=== PATIENT | female | born 1930 | race Caucasian/White ===

== ENCOUNTER 2016-08-23 06:06 | Inpatient (IN) | payer MEDICARE ==
--- NOTE | 2016-08-12 07:56 | HP ---
HISTORY AND PHYSICAL: DATE OF ADMISSION: 08/23/16 CHIEF COMPLAINT: Severe right hip pain. HISTORY OF PRESENT ILLNESS: This 85-year-old white female has been having right hip pain for the past year, much more severe lately. She has degenerative osteoarthritis, has been walking with a cane and more recently a walker. She is scheduled with Dr. Ava Diaz for right total hip replacement at [facility] on 08/23/16. PAST MEDICAL HISTORY: The patient is under the care of Dr. Tien Altamirano. She has a history of hypertension, atrial fibrillation, GE reflux, IBS, lactose intolerance, depression, vitamin B12 deficiency, restless leg syndrome, macular degeneration. She also sees Dr. Mills, who is her boring machine set up operator. Dr. Mills has already given the patient cardiac clearance for her upcoming surgery. PAST SURGICAL HISTORY: Includes a pacemaker for sick sinus syndrome, September 2015 , hysterectomy in 2004, hiatal hernia repair with a recurrence in 1975, and cholecystectomy in 1964. CURRENT MEDICATIONS: 1. Paxil 10 mg daily. 2. Atorvastatin 20 mg daily. 3. Sinemet 25/250 one and a half tablets daily. 4. Oxybutynin 5 mg daily. 5. Potassium chloride 20 mEq b.i.d. 6. Omeprazole 20 mg daily. 7. Mag ox 400 mg b.i.d. 8. Eliquis 5 mg 1 tablet b.i.d. 9. Metoprolol 100 mg b.i.d. 10. Vitamin B12 1000 mcg daily. 11. AREDS2, an eye vitamin b.i.d. 12. The patient was advised by Dr. Mills and I gave her written instructions to hold her Eliquis 5 mg for at least 3 days prior to her surgical procedure. 13. She also takes Tylenol 500 mg 2 tablets b.i.d. for pain. ALLERGIES: IV CONTRAST has caused hives, oral swelling, and respiratory symptoms. MORPHINE caused bradycardia back in 2011 in the setting of reduction of a left wrist fracture. FAMILY HISTORY: Father, CVA, at age 59. Mother, thyroid disease, diabetes, cardiovascular disease, at age 64 of an HI. Two brothers of HI, one at age 53, the other at age 80. Another brother was a smoker, had a lung cancer. The patient's twin brother, diabetes, of complications at age 75. Sister, HI and stroke, obesity, at age 75. SOCIAL HISTORY: The patient is a . She currently lives with her daughter. She has a fairly sedentary lifestyle. She has never used tobacco and does not drink any alcohol. REVIEW OF SYSTEMS: The patient wears glasses. 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 She has an occasional chronic cough, which she relates to postnasal drip. Very minimal ankle edema. She has some incontinence of urine usually at nighttime. She has arthritis of her hands, occasional low back pain complaints. Otherwise, review of systems is negative to detailed questioning. Specifically, she denies any dyspnea, chest pain, or palpitations. PHYSICAL EXAMINATION GENERAL: This is an 85-year-old white female, is alert, pleasant, and cooperative. VITAL SIGNS: Height 4 feet 11.5 inches; weight 130 pounds, stable. Blood pressure 146/80, and pulse 80. HEENT: Eyes: Pupils round and react to light. Ears: She had some right cerumen that was removed, otherwise normal TMs bilaterally. Mouth: Full upper denture plate in place. Tongue is midline. Other molars are absent on the lower jaw. Has a few teeth in fair repair in the front. Pharynx is clear. NECK: No adenopathy. No tenderness. Thyroid benign. Fair range of motion. LUNGS: Clear. HEART: Rhythm is regular. Apical pulse, 80 beats per minute. No murmurs. ABDOMEN: Active bowel sounds. Abdomen is soft, nontender. No obvious masses or organomegaly. EXTREMITIES: The patient ambulates very slowly with a cane. She is experiencing right hip pain. She has chronic bilateral 1+ edema, slightly worse on the left than the right today. She has arthritic changes of her finger especially her left index finger. Executive Kitchen Manager strength is equal bilaterally. NEUROVASCULAR: Cranial nerves grossly intact. Sensation is intact upper and lower extremities. BACK: Kyphosis present. No tenderness of the spine or CVA areas. SKIN: Warm, dry, and pale pink. No worrisome lesions noted. The patient does have two very small abrasions in her mid pubic area that will be treated with Neosporin and dressings b.i.d. No erythema noted. IMPRESSION: The patient is medically stable and cleared for her upcoming right total hip replacement with Dr. Ava Diaz. As previously mentioned, Dr. Mills has already given her cardiac clearance. Please see his note for details regarding management of her Eliquis dosing in the perioperative period. GUERITA SWAN NP CC: Dr. Tien Altamirano; Dr. Ava Diaz; Preadmission Testing Unit at [facility] * [id number]/[facility] #: [id number] [facility]
--- NOTE | 2016-08-17 15:32 | HP ---
HISTORY AND PHYSICAL: DATE OF OFFICE VISIT: 08/17/16 DATE OF ADMISSION/SURGERY: 08/23/16 SURGEON: Ava Diaz MD PROCEDURE: Right total hip arthroplasty. HISTORY OF PRESENT ILLNESS: Ms. Macedo is an 85-year-old female with complaints of right hip pain. She has failed conservative management and has elected to proceed with a right total hip arthroplasty, which is scheduled for 08/23/[address] Diaz. PAST MEDICAL HISTORY: 1. AFib. 2. Pacemaker. 3. GERD. 4. Hypertension. 5. High cholesterol. 6. Macular degeneration. PAST SURGICAL HISTORY: 1. Cholecystectomy. 2. Hysterectomy. 3. Hiatal hernia repair. 4. Tonsillectomy. 5. Cataract removal. CURRENT MEDICATIONS: 1. Metoprolol. 2. Paxil. 3. Atorvastatin calcium. 4. Oxybutynin. 5. Omeprazole. 6. Klor-Con. 7. Carbidopa/levodopa. 8. Eliquis. 9. Magnesium oxide. 10. Vitamin B12. ALLERGIES: IVP DYE. FAMILY HISTORY: Hypertension, stroke, heart disease, lung, and prostate cancer. SOCIAL HISTORY: She is an 85-year-old female. She lives with her daughter. She does not smoke, use drugs, or alcohol. REVIEW OF SYSTEMS: A complete 14-point review of systems was reviewed with the patient. All was negative or noncontributory. She denies any history of DVT, PE, bleeding disorders, or anesthesia problems. PHYSICAL EXAMINATION GENERAL: She is a well-developed, well-nourished, in no acute distress. VITAL SIGNS: She stands 4 feet 11 inches tall, weighs 123 pounds, her blood pressure is 136/81, and heart rate is 92. HEENT: Normocephalic, atraumatic. NECK: Supple. No palpable lymph nodes. PULMONARY: The lung are clear to auscultation bilaterally. No wheezes, rhonchi , or rales. CARDIO: Regular rate and rhythm. Strong S1, S2. No murmurs, gallops, or rubs. No peripheral edema. ABDOMEN: Soft, nontender, and nondistended. NEUROLOGICAL: She is alert and oriented x3. Cranial nerves II through XII are intact. MUSCULOSKELETAL: Right lower extremity: The skin is intact. She walks with an antalgic-type gait favoring her right hip. She has 2+ dorsalis pedis pulses , intact sensation, and her lower extremity muscle group strengths are intact at 5/5. ASSESSMENT AND PLAN: Ms. Macedo is an 85-year-old female with complaints of right hip pain secondary to advanced osteoarthritis. She has failed conservative management and has elected to proceed with a right total hip arthroplasty. Surgery is scheduled for 08/23/[address] Diaz discussed the risks and benefits of the surgery at today's visit and all of her questions were answered. Percocet was sent to her pharmacy for postoperative pain control as well as Colace to help prevent constipation. She does take Eliquis and she was asked to stop taking the Eliquis 5 days prior to the surgery. She will restart her home dose Eliquis at the time of discharge from the hospital. She will see Dr. Diaz back in 14 days after the surgery. WESLEY LIU [id number]/[facility] #: [id number] FRED
[~2016-08-23 06:06] MED LIST: Buffered Lidocaine 1% SYR 3ML* 3 ML/SYR SYRINGE INTRADERM ONE; Famotidine IV* 10 MG/ML 2 ML (20 mg) IV ONE; Gabapentin CAP(*) 300 MG PO ONE
[2016-08-23] MEDS ORDERED: Famotidine IV* 10 MG/ML 2 ML (20 mg) ONE (06:19)
[2016-08-23] MEDS ORDERED: Gabapentin CAP(*) 300 MG ONE (06:20)
[2016-08-23] MEDS ORDERED: ceFAZolin 2 GM PREMIX (*) 2 GM/50 ML BAG IVPB ONE (06:20)
[2016-08-23] MEDS ORDERED: Lidocaine 2% PF * 5 ML VIAL ONE (07:26)
[2016-08-23] MEDS ORDERED: Dexamethasone IV* 4 MG/ML 1 ML (4 MG) ONE (07:26)
[2016-08-23] MEDS ORDERED: Succinylcholine* 20 MG/ML 10 ML VIAL ONE (07:26)
[2016-08-23] MEDS ORDERED: fentaNYL* 50 MCG/ML 2 ML VIAL (100 MCG VIAL) ONE ×2 (07:26→08:26)
[2016-08-23] MEDS ORDERED: Ondansetron INJ* 2 MG/ML VIAL ONE (07:26)
[2016-08-23] MEDS ORDERED: Midazolam* 1 MG/ML 2 ML VIAL (2 MG) ONE (07:26)
[2016-08-23] MEDS ORDERED: KETAMINE HCL* 50 MG/ML 10 ML VIAL ONE (07:26)
[2016-08-23] MEDS ORDERED: Ketorolac INJ* 30 MG/ML 1 ML VIAL ONE (07:26)
[2016-08-23] MEDS ORDERED: Propofol* 10 MG/ML 20 ML BTL IV PUSH ONE ×2 (07:26→10:07)
[2016-08-23] MEDS ORDERED: DiMENhydriNATE IV* 50 MG/ML VIAL ONE (07:26)
[2016-08-23] MEDS ORDERED: Phenylephrine IV* 40 MCG/ML 10 ML SYRINGE ONE (08:37)
[2016-08-23] MEDS ORDERED: Bupivacaine 0.5% SDV PF* 30 ML VIAL ONE (08:40)
[2016-08-23] MEDS ORDERED: oxyCODONE/Acetamin 5/325 MG* TAB PO PRN ×2 (09:06→10:45)
[2016-08-23] MEDS ORDERED: DiMENhydriNATE IV* 50 MG/ML VIAL IV PUSH PRN (09:06)
[2016-08-23] MEDS ORDERED: Acetaminophen TAB* 325 MG PO PRN ×2 (09:06→10:45)
[2016-08-23] MEDS ORDERED: Gabapentin CAP(*) 100 MG PO ONE (09:08)
--- NOTE | 2016-08-23 10:23 | RAD ---
Indication: Intraoperative control film RIGHT hip replacement. Comparison: July 25, 2016 Technique: Crosstable AP lower pelvis and RIGHT hip 0930 hours Report: Prosthetic acetabular component in place with fixation screws. Test fit femur component/reamer in place. No periprosthetic fracture evident. Vascular calcifications noted. IMPRESSION: Procedural control film.
[2016-08-23] MEDS ORDERED: Polyethylene Glycol 3350* 17 GM PACKET PO PRN (10:45)
[2016-08-23] MEDS ORDERED: Bisacodyl SUPP* 10 MG SUPP PR PRN (10:45)
[2016-08-23] MEDS ORDERED: Morphine INJ* 2 MG/ML 1 ML CARPUJECT IV PRN (10:45)
[2016-08-23] MEDS ORDERED: Magnesium Hydroxide LIQ* 30 ML UDC PO PRN (10:45)
[2016-08-23] MEDS ORDERED: Ondansetron TAB* 4 MG PO PRN (10:45)
[2016-08-23] MEDS ORDERED: oxyCODONE TAB* 5 MG TAB PO PRN (10:45)
[2016-08-23] MEDS ORDERED: diPHENhydraMINE IV* 50 MG/ML 1 ml VIAL (BENADRYL) IV PRN (10:45)
[2016-08-23] MEDS ORDERED: Ondansetron INJ* 2 MG/ML VIAL IV PRN (10:45)
[2016-08-23] MEDS ORDERED: HYDROmorphone INJ* 1 MG/ML CARPUJECT SYRINGE ONE (10:56)
[2016-08-23] MEDS: HYDROmorphone INJ* 1 MG/ML CARPUJECT SYRINGE IV PRN ×3 (10:57→11:19)
[2016-08-23] MEDS ORDERED: Gabapentin CAP(*) 100 MG ONE (11:10)
--- NOTE | 2016-08-23 11:34 | RAD ---
INDICATION: Status post total right hip replacement surgery. COMPARISON: Comparison is made with a prior x-ray study of the right hip from July 25, 2016. TECHNIQUE: An AP view of the pelvis and frontal and lateral views of the right hip were obtained. FINDINGS: The patient is status post total right hip replacement surgery. The bones and prostheses are in normal alignment. There is a small amount of air within the surrounding soft tissues consistent with the patient's recent surgery. There is [id number] osteoarthritic change in the left hip. IMPRESSION: STATUS POST TOTAL RIGHT HIP REPLACEMENT SURGERY.
[2016-08-23] MEDS: oxyCODONE/Acetamin 5/325 MG* TAB PO PRN ×2 (15:27→19:00)
[2016-08-23] MEDS: ceFAZolin 1 GM in Dextrose (*) 1 GM/50 ML BAG IVPB SCH (18:38)
[2016-08-23] MEDS ORDERED: Metoprolol Tartrate TAB* 25 MG PO SCH (21:00)
[2016-08-23] MEDS: Carbidopa/Levodop 25/250MG TAB(*) PO SCH (21:30)
[2016-08-23] MEDS: Docusate CAP* 100 MG PO SCH (21:30)
[2016-08-23] MEDS: Potassium Chlor TAB* 20 MEQ TAB.ER PO SCH (21:30)
[2016-08-23] MEDS: Metoprolol Tartrate TAB* 100 MG TAB PO SCH (21:32)
--- NOTE | 2016-08-23 21:42 | CONS ---
AMENDED REPORT NOW INCLUDES TWO ADDENDUMS CONSULTATION REPORT: DATE OF CONSULT: 08/23/16 PRIMARY CARE PHYSICIAN: Tien Altamirano MD. ATTENDING PHYSICIAN: Zainab Cooper MD *(dictated by Muriel Constantino NP). PHYSICIAN REQUESTING CONSULTATION: Ava Diaz MD. REASON FOR CONSULT: Co-medical management in a patient with history of hypertension, paroxysmal atrial fibrillation, and hyperlipidemia. HISTORY OF PRESENT ILLNESS: Ms. Macedo is an 85-year-old female with past medical history significant for hypertension, paroxysmal atrial fibrillation, hyperlipidemia, and arthritis, who underwent an elective right total hip arthroplasty with Dr. Diaz. Postoperatively, the patient is doing well, although she is lethargic from medication she has received postoperatively. According to the patient's daughter, leading up to surgery, she has been in a good state of health with the exception of right hip pain and recent urinary tract infection, which she completed a course of antibiotics for last week. The patient did have fevers last week but that has resolved. According to the patient's daughter, she has had no complaints of chest pain, shortness of breath , nausea, vomiting, or recent fever or chills. The hospitalists were asked to assist with the management of this patient during her postoperative period. PAST MEDICAL HISTORY: 1. Hypertension. 2. Paroxysmal atrial fibrillation. 3. Gastroesophageal reflux. 4. IBS. 5. Lactose intolerant. 6. Depression. 7. Vitamin B12 deficiency. 8. Restless leg syndrome. 9. Macular degeneration. 10. Hyperlipidemia. 11. History of gastric ulcer. PAST SURGICAL HISTORY: 1. Status post pacemaker for sick sinus syndrome in 2015. 2. Status post hysterectomy in 2004. 3. Status post hiatal hernia repair in 1975. 4. Status post cholecystectomy in 1964. 5. Tonsillectomy. 6. Cataract extraction. HOME MEDICATIONS: Include: 1. Paxil 10 mg oral daily. 2. Atorvastatin 20 mg oral daily. 3. Sinemet 25/250 one and a half tablets oral daily. 4. Oxybutynin 10 mg oral daily. 5. Potassium chloride 20 mEq oral twice daily. 6. Omeprazole 20 mg oral daily. 7. Magnesium oxide 400 mg oral twice daily. 8. Eliquis 5 mg oral twice daily, patient has been holding for 5 days. 9. Metoprolol 100 mg oral twice daily. 10. Vitamin B12 at 1000 mcg oral daily. 11. Eye vitamin 1 tablet oral twice daily. 12. Benadryl 50 mg oral daily at night for sleep. 13. Acetaminophen 1000 mg oral twice daily for pain. ALLERGIES: IV CONTRAST and MORPHINE; ASPIRIN - patient avoids due to history of gastric ulcer. FAMILY HISTORY: The patient's father had a history of cerebrovascular accident and passed at age 59. The patient's mother had history of thyroid disease, diabetes mellitus, and cardiovascular disease and passed at age 64 of an OK. The patient had 2 brothers who passed from MIs, one at age 53 and one at age 80. The patient had another brother with a history of lung cancer, he was a smoker. The patient had a twin brother with a history of diabetes and passed from complications of diabetes at age 75. The patient had a sister with history of myocardial infarction and stroke and passed at age 75. SOCIAL HISTORY: The patient is a and lives with her daughter. The patient denies any tobacco, alcohol or recreational drug use. The patient's daughter, Radha Reed, will be her surrogate decision maker in the event that she is unable to make decisions for herself. REVIEW OF SYSTEMS: I performed a 14-point review of systems. All the pertinent positives and negatives are mentioned in the history of present illness. The remaining review of systems is negative. PHYSICAL EXAMINATION: Vital Signs: Temperature 98.5, heart rate 59, respiratory rate 12, O2 sat 100% on 3 L via nasal cannula, blood pressure 157/ 71. Appearance: The patient is lethargic but arousable. She appears to be in no acute distress. HEENT: Normocephalic and atraumatic. Cardiovascular: Regular rate and rhythm. S1 and S2 crisp. There are no murmurs, rubs or gallops heard. Extremities: There is no lower extremity edema. DP and PT pulses are 2+ and symmetric. Respiratory: There is no accessory muscle use and the lungs are clear to auscultation bilaterally. Abdomen: Soft, nontender and nondistended. There are bowel sounds present. Musculoskeletal: There is no clubbing or cyanosis noted. Skin: There is a dressing on the right hip that is clean, dry and intact. Neurological: The patient is lethargic but is alert and oriented once aroused. Psychological: The patient is calm and cooperative. DIAGNOSTIC STUDIES/LAB DATA: Preoperative labs from 08/17/16: Sodium 134, potassium 4.6, chloride 103, CO2 of 25, BUN 24, creatinine 0.90, glucose 108. White blood cell count 5.7, hemoglobin 12.0, hematocrit 36, and platelet count 222. The patient had an EKG showing an A-paced rate at 62. The patient also had a chest x-ray on 08/17/16 showing hyperinflation consistent with COPD and no active cardiopulmonary disease. Pelvis x-ray from today. Radiologist's impression: Procedural control film. Hip and pelvis x-ray from today. Radiologist's impression: Status post total right hip replacement surgery. IMPRESSION: Ms. Macedo is an 85-year-old female with past medical history significant for hypertension, paroxysmal atrial fibrillation, gastroesophageal reflux disease, hyperlipidemia, and arthritis, who underwent an elective right total hip arthroplasty with Dr. Diaz. Hospitalists were asked to assist with co-management of this patient during her hospitalization. Assessment: 1. Status post right total knee arthroplasty with Dr. Diaz. Management per Orthopedic Surgery. The patient's H and H will be trended. She will have a urinary catheter in place through postop day 1. The patient will have occupational and physical therapy. 2. Hypertension. The patient will be continued on her home metoprolol. 3. Paroxysmal atrial fibrillation. The patient will be continued on her home metoprolol. She will resume her Eliquis at discharge. In the meantime, the patient will be on Lovenox while in the hospital. 4. Hyperlipidemia. The patient will be continued on her home atorvastatin. 5. Restless leg syndrome. The patient will be continued on her home Sinemet dosing. 6. Depression. The patient will be continued on her home Paxil. 7. Fluids, electrolytes and nutrition. The patient will be on clear liquids, advanced to a regular diet. 8. DVT prophylaxis. The patient will be on Lovenox per Orthopedic Surgery and will resume her Eliquis at discharge. 9. Code status. Do not resuscitate. 10. Disposition. Inpatient. Disposition per Orthopedic Surgery. TIME SPENT: The time for this consultation was 60 minutes and 30 minutes was spent with the patient and daughter discussing medications, past medical history and the events leading up to his arrival and performing a physical examination. The case has been reviewed with the attending, Dr. Cooper, who agrees with the plan of care. We will sign off at this time, please do not hesitate to call with any questions. Reviewed by JOSE DAVID THORPE 08/24/16 1036 ADDENDUM NO.1: ASSESSMENT: The patient is status post a right total hip arthroplasty, not a right total knee arthroplasty as indicated under the assessment section above. Reviewed by JOSE DAVID THORPE 08/25/16 1309 ADDENDUM NO.2: CONSULTATION REPORT: Mrs. Macedo is an 85-year-old female who is status post elective right hip surgery performed by Dr. Diaz today. The patient has a history of hypertension and atrial fibrillation. She was to be on Eliquis at home, but was discontinued several days prior to her hospitalization. Consult was requested for medical management of this patient in postoperative state. For further details of the patient's consultation and plan, please see the report dictated by Muriel Constantino NP, on 08/23/16 with which I agree. ZAINAB COOPER MD CC: Dr. Diaz; Tien Altamirano MD* [id number]/[facility] #: [id number]/[facility] #: [id number] [id number]/[facility] #: [id number] MTDJian
--- NOTE | 2016-08-23 22:15 | CONS ---
ADDENDUM:* CONSULTATION REPORT: Mrs. Macedo is an 85-year-old female who is status post elective right hip surgery performed by Dr. Diaz today. The patient has a history of hypertension and atrial fibrillation. She was to be on Eliquis at home, but was discontinued several days prior to her hospitalization. Consult was requested for medical management of this patient in postoperative state. For further details of the patient's consultation and plan, please see the report dictated by Muriel Perez NP, on 08/23/16 with which I agree. [id number]/[facility] #: [id number] MTDD
[2016-08-24] MEDS: ceFAZolin 1 GM in Dextrose (*) 1 GM/50 ML BAG IVPB SCH ×2 (01:54→09:54)
[2016-08-24] MEDS: oxyCODONE/Acetamin 5/325 MG* TAB PO PRN ×2 (05:40→09:53)
[2016-08-24 07:02] LABS: Hematocrit 27 % (35-47); Hemoglobin 9.1 g/dl (12.0-16.0)
[2016-08-24] MEDS: Omeprazole CAP* 20 MG PO SCH (07:19)
--- NOTE | 2016-08-24 07:48 | PN ---
Progress Note - Progress Note SOAP: Subjective: Pt. is confused this AM. She is oriented to person only. Objective: Rle - dressing c/d/i. thigh soft. distally +df/pf, full sens lt, 2+ dp pulse. Vital Signs: Temp Pulse Resp BP Pulse Ox 98.9 F 79 17 143/78 100 08/24/16 04:11 08/24/16 04:11 08/24/16 05:40 08/24/16 04:11 08/24/16 04:11 Laboratory Results - last 24 hr 08/24/16 08/24/16 06:29 06:29 Hgb 9.1 L Hct 27 L INR (Anticoag Therapy) 1.02 Assessment: 85 yo F pod 1 s/p RTHA Plan: wbat rle with post hip precautions high fall risk pt/ot plan to [facility] on monday appreciate medicine consult. will limit narcotics as much as possible
[2016-08-24] MEDS: Metoprolol Tartrate TAB* 100 MG TAB PO SCH ×2 (08:44→20:24)
[2016-08-24] MEDS: Enoxaparin(*) 30 MG/0.3 ML SYR SUBCUT SCH (08:53)
[2016-08-24] MEDS: PARoxetine HCL TAB* 10 MG PO SCH (08:54)
[2016-08-24] MEDS: Vitamin THERAPEUTIC TAB PO SCH (08:54)
[2016-08-24] MEDS: Atorvastatin* 20 MG TAB PO SCH (08:54)
[2016-08-24] MEDS: Docusate CAP* 100 MG PO SCH ×2 (08:54→20:24)
[2016-08-24] MEDS: Potassium Chlor TAB* 20 MEQ TAB.ER PO SCH ×2 (08:54→20:24)
[2016-08-24] MEDS: Oxybutynin TAB* 5 MG PO SCH (08:54)
[2016-08-24 08:55] LABS: BUN/Creatinine Ratio 32.9 (8-20); Calcium 8.5 mg/dL (8.6-10.3); EGFR African American 97.7 (>60); Potassium 4.5 mmol/L (3.5-5.0)
--- NOTE | 2016-08-24 12:43 | OP ---
DATE OF OPERATION: 08/23/16 - ROOM #346 DATE OF : 32 ATTENDING SURGEON: Ava Diaz MD CANVAS CUTTER MACHINE: WESLEY Lopez ANESTHESIOLOGIST: Dr. Moser. ANESTHESIA: General. PRE-OP DIAGNOSIS: Severe end-stage degenerative osteoarthritis of the right hip joint. POST-OP DIAGNOSIS: Severe end-stage degenerative osteoarthritis of the right hip joint with abductor tendon tear at the greater trochanter. OPERATIVE PROCEDURE: Right total hip arthroplasty with acetabular bone autografting and abductor tendon primary repair. HARDWARE USED: This is uncemented Milind total hip hardware. For the acetabulum, a 50D Trident hemispherical acetabular shell with 20 mm and 16 mm screw. Trident X3 0-degree polyethylene insert 36D. For the femur, an Accolade TMZF size 2.5 with a 127-degree neck. For the head, a Biolox delta ceramic V40 36 -2.5 femoral head. COMPLICATIONS: None. SPECIMENS: Femoral head and acetabular reaming, sent to pathology. ESTIMATED BLOOD LOSS: 350 cc. BRIEF HISTORY/INDICATIONS: Ms. Macedo is an 85-year-old female with years of increasingly severe right hip pain. She failed conservative treatment with antiinflammatories, pain medication, ambulatory assistive devices, and physical therapy. Radiographs confirmed [id number] arthritis. She elected to undergo a right total hip arthroplasty due to continued pain and decreased quality of life. Informed consent was obtained from the patient. She understood the risks of procedure included but were not limited to bleeding, infection, damage to nearby structures, continued pain, need for further surgery, intraoperative fracture, nerve palsy, leg-length discrepancy, dislocation, stroke, heart attack , blood clot, and . She wished to proceed. Specific to this, the patient was in increased risk of intraoperative fracture due to poor acetabular bone stalk and osteopenia. She accepted these risks and wished to proceed. INTRAOPERATIVE FINDINGS: Intraoperatively, the patient was noted to have full- thickness tear of the abductor tendon at the greater trochanter. There is very minimal abductor tendon or multiple around the greater trochanter. This was repaired primarily at the end of the procedure using #5 Ethibond suture. The patient was noted to have severe osteopenia throughout the procedure. Her acetabular bone stalk was quite poor with very thin medial and posterior wall. She had significant subchondral cyst formation, which required autograft using femoral head bone graft. DESCRIPTION OF PROCEDURE: Ms. Macedo was identified in the preanesthesia unit. Her right lower extremity was marked as the correct operative site. Informed consent was signed and placed in the chart. The patient was taken to the operating room and placed under general anesthesia without difficulty. A Perez catheter was placed. The patient was placed in the left lateral decubitus position on the peg board and all bony prominences were well padded. Right lower extremity was prepped and draped in the usual sterile fashion. Preop time -out was made to correctly identify the patient, side, and site. Appropriate perioperative antibiotics were given within one hour of incision. A 12-cm posterior hip incision was made with a #10 blade and carried down to the lateral fascial layer. Lateral fascial layer was then incised in line with the skin incision. Charnley retractor was placed. It was immediately evident that the majority of the abductor tendon at the greater trochanter were torn and proximally retracted. The piriformis and conjoined tendons were identified at this point and elevated off of the posterolateral femur using electrocautery. These were tagged with two #5 Ethibond's. Next, electrocautery was used to make a posterolateral capsular flap. This was also tagged with two #5 Ethibond's. The hip was carefully dislocated. Femoral head had deformation and complete loss of cartilage. Lesser trochanter to center of the femoral head measured 48 mm. Oscillating saw was used to make the appropriate femoral neck cut. Femoral head had some bone graft collected and then was sent to pathology. The femur was carefully retracted anteriorly. After appropriate placement of retractor, the acetabulum was visualized. Long handled knife was used to remove any remaining labrum from the acetabular rim. There was very thin rim medially and posteriorly at the acetabulum. Acetabulum was sequentially reamed up to a size 49. A bleeding bone bed was obtained. Subchondral cysts were noted along the medial and superior area of the acetabulum. This cystic material was cleared out with a curette and femoral head bone autograft was used to pack the area. A size 50 Trident hemispherical shell was chosen as a final implant. This was impacted into the acetabulum without difficulty. Two screws were used, length 16 and 20 mm, for extra stability and placed in the superoposterior quadrant. Next, a Trident X3 0- degree liner 36D was chosen. This was impacted into the acetabulum without difficulty. Stability of the liner was checked and rechecked and noted to be stable. Attention was turned next to the femur. Canal finder was used to enter the proximal femur. The proximal femur was sequentially broached up to a size 2.5. 2.5 broach had good stability and appropriate anteversion. A 127 neck trial with a 36 +0 femoral head trial was chosen. The reduction of the hip proved difficult, therefore a 36 -2.5 head was chosen. The hip was reduced and taken through range of motion. The hip was stable in all positions. Soft tissue tension was appropriate and leg lengths were deemed to approximate. The hip was carefully dislocated. All trials were carefully removed. Final implant for the femoral stem chosen was an Accolade TMZF size 2.5 with a 127- degree neck. This was impacted into the femoral canal without difficulty. Good stability was achieved. A 36 -2.5 Biolox delta ceramic head was chosen as a final femoral head implant. This was impacted onto the femoral neck without difficulty. The hip was reduced and taken through range of motion. The hip was stable in all positions. The hip was copiously irrigated with sterile saline. Previously tagged capsule and tendons were reapproximated to the posterolateral femur through 2 trochanteric drill holes. #5 Ethibond's were used to perform a primary repair of the abductor tendon back to any soft tissue available for purchase around the greater trochanter. Laxity and atrophy of the abductors were once again noted after the primary repair. The hip was copiously irrigated with sterile saline. The lateral fascial layer was closed using interrupted #1 Vicryl's. The rest of the incision was closed in a layered fashion using 0 and 2-0 Vicryl' s. Skin was closed using running 3-0 Monocryl with Dermabond. Sterile Adaptic, 4x4's, and paper tape were used to cover the incision. The patient's anesthesia was reversed without difficulty. She was taken to the PACU in stable condition. Intended weightbearing will be weightbearing as tolerated with posterior hip precautions. Intended DVT prophylaxis will be Coumadin with a Lovenox bridge. [id number]/[facility] #: [id number] [facility]ENTER[facility]ian
--- NOTE | 2016-08-24 14:24 | PN ---
Subjective Date of Service: 08/24/16 Interval History: Patient seen and examined at bedside. Pt denies fever, chills, lightheadedness, dizziness, shortness of breath, chest discomfort, N/V/D. Pt has not urinated since her urinary catheter was removed this AM. Pt reports right hip pain with movement. Family History: Unchanged from Admission Social History: Unchanged from Admission Past Medical History: Unchanged from Admission Objective Active Medications: Acetaminophen (Tylenol Tab*) 650 mg PO Q4H PRN Reason: PAIN OR TEMPERATURE Atorvastatin Calcium (Lipitor*) 20 mg PO DAILY [facility] Bisacodyl (Dulcolax Supp*) 10 mg RI DAILY PRN Reason: constipation Carbidopa/Levodopa (Sinemet 25/250 Tab(*)) 1.5 tab PO BEDTIME [facility] Diphenhydramine HCl (Benadryl Iv*) 12.5 mg IV Q6H PRN Reason: PRURITIS Docusate Sodium (Colace Cap*) 100 mg PO BID [facility] Enoxaparin Sodium (Lovenox(*)) 30 mg SUBCUT Q24H [facility] Lactated Ringer's (Lactated Ringers 1000 Ml Bag*) 1,000 mls @ 100 mls/hr IV PER RATE [facility] Lactulose (Lactulose*) 30 ml PO Q6H PRN Reason: constipation Magnesium Hydroxide (Milk Of Magnesia Liq*) 30 ml PO Q6H PRN Reason: constipation Metoprolol Tartrate (Lopressor Tab*) 100 mg PO BID [facility] Multivitamins (Theragran Tab*) 1 tab PO DAILY [facility] Omeprazole (Prilosec Cap*) 20 mg PO DAILY@0730 [facility] Ondansetron HCl (Zofran Inj*) 4 mg IV Q6H PRN Reason: nausea Ondansetron HCl (Zofran Tab*) 4 mg PO Q6H PRN Reason: NAUSEA Oxybutynin Chloride (Ditropan Tab*) 5 mg PO QAM [facility] Oxycodone HCl (Roxycodone Tab*) 10 mg PO Q4H PRN Reason: SEVERE PAIN Oxycodone/Acetaminophen (Percocet 5/325 Tab*) 1 tab PO Q3H PRN Reason: PAIN - MODERATE Oxycodone/Acetaminophen (Percocet 5/325 Tab*) 2 tab PO Q3H PRN Reason: PAIN - MODERATE Paroxetine HCl (Paxil Tab*) 10 mg PO DAILY [facility] Pharmacy Profile Note (Coumadin Daily Reminder*) 1 note FOLLOW UP 1700 [facility] Polyethylene Glycol/Electrolytes (Miralax*) 17 gm PO DAILY PRN Reason: Constipation Potassium Chloride (Klor Con Er Tab*) 20 meq PO BID [facility] Warfarin Sodium (Coumadin Tab(*)) 6 mg PO ONCE@1700 [facility] Vital Signs 08/23/16 08/23/16 08/23/16 15:27 15:37 17:27 Temperature 98.5 F Pulse Rate 65 Respiratory 16 14 15 Rate Blood Pressure 179/79 (mmHg) O2 Sat by Pulse 100 Oximetry 08/23/16 08/23/16 08/23/16 17:49 17:52 19:00 Temperature 99.2 F Pulse Rate 59 64 Respiratory 18 14 Rate Blood Pressure 89/44 82/45 (mmHg) O2 Sat by Pulse 100 Oximetry 08/23/16 08/23/16 08/23/16 19:02 19:32 20:00 Temperature 98.6 F Pulse Rate 61 Respiratory 14 16 Rate Blood Pressure 112/51 109/52 (mmHg) O2 Sat by Pulse 100 Oximetry 08/23/16 08/23/16 08/23/16 21:00 21:25 21:31 Temperature Pulse Rate 60 Respiratory 16 16 16 Rate Blood Pressure (mmHg) O2 Sat by Pulse Oximetry 08/23/16 08/23/16 08/23/16 21:35 23:25 23:27 Temperature 97.7 F Pulse Rate 65 Respiratory 16 16 Rate Blood Pressure 153/64 (mmHg) O2 Sat by Pulse 100 Oximetry 08/23/16 08/24/16 08/24/16 23:31 04:11 05:40 Temperature 98.9 F Pulse Rate 79 Respiratory 16 24 17 Rate Blood Pressure 143/78 (mmHg) O2 Sat by Pulse 100 Oximetry 08/24/16 08/24/16 08/24/16 07:16 07:40 08:00 Temperature 99.4 F Pulse Rate 79 Respiratory 20 20 20 Rate Blood Pressure 95/46 (mmHg) O2 Sat by Pulse 98 98 Oximetry 08/24/16 08/24/16 08/24/16 09:53 11:50 11:53 Temperature 98.3 F Pulse Rate 70 Respiratory 18 17 20 Rate Blood Pressure 89/37 (mmHg) O2 Sat by Pulse 93 Oximetry 03/07/1208/24/16 08/24/16 11:58 13:05 14:08 Temperature Pulse Rate Respiratory 18 Rate Blood Pressure 84/40 118/50 (mmHg) O2 Sat by Pulse Oximetry Oxygen Devices in Use Now: None Appearance: NAD, sitting up in bed. Eyes: No Scleral Icterus, PERRLA Ears/Nose/Mouth/Throat: NL Teeth, Lips, Gums, Mucous Membranes Moist Neck: NL Appearance and Movements; NL JVP, Trachea Midline Respiratory: Symmetrical Chest Expansion and Respiratory Effort, Clear to Auscultation Cardiovascular: NL Sounds; No Murmurs; No JVD, RRR Abdominal: NL Sounds; No Tenderness; No Distention Extremities: No Edema Skin: No Rash or Ulcers, - - Dressing to right hip clean, dry and intact. Neurological: Alert and Oriented x 3, NL Muscle Strength and Tone Lines/Tubes/Other Access: Clean, Dry and Intact Peripheral IV - site benign Nutrition: Taking PO's Result Diagrams: 08/24/16 06:29 08/24/16 06:29 Assess/Plan/Problems-Billing Assessment: Ms. Macedo is an 85 yo female with PMH significant for HTN, paroxysmal a fib, GERD, HLD, and arthritis who underwent an elective right total hip replacement with Dr. Diaz on 08/23/16. Hospitalists were asked to assist with co-management. - Patient Problems (1) Status post total hip replacement, right Code(s): Z96.641 - PRESENCE OF RIGHT ARTIFICIAL HIP JOINT SNOMED Code(s): 549356445831 Comment: - Management per Ortho - Continue to trend HH - Will change pain medication to standing Tylenol and PRN Oxycodone - Continue PT/OT (2) Hypotension Comment: - Pt has been hypotensive overnight - BP improved after a fluid bolus (3) Paroxysmal atrial fibrillation Code(s): I48.0 - PAROXYSMAL ATRIAL FIBRILLATION SNOMED Code(s): 790097906 Comment: - Heart rate regular on exam - Continue Metoprolol with hold parameters - Plan to resume Eliquis at discharge (4) HLD (hyperlipidemia) Code(s): E78.5 - HYPERLIPIDEMIA, UNSPECIFIED SNOMED Code(s): 79833780 Comment: - Continue Atorvastatin (5) RLS (restless legs syndrome) Comment: - Continue Sinemet (6) Depression Code(s): F32.9 - MAJOR DEPRESSIVE DISORDER, SINGLE EPISODE, UNSPECIFIED SNOMED Code(s): 73408128 Comment: - Continue Paxil (7) HTN (hypertension) Code(s): I10 - ESSENTIAL (PRIMARY) HYPERTENSION SNOMED Code(s): 27399798 Comment: - SBP soft, improved after a bolus - Continue Metoprolol with hold parameters (8) DVT prophylaxis Code(s): MVG4704 - SNOMED Code(s): 715377886 Comment: Continue lovenox and warfarin (9) DNR (do not resuscitate) Status and Disposition: Inpatient. Disposition per Orthopedics. Plan for discharge to [facility] on Monday, 08/26.
[2016-08-24] MEDS: Acetaminophen TAB* 325 MG PO SCH ×2 (15:48→23:34)
[2016-08-24] MEDS ORDERED: Warfarin TAB(*) 6 MG PO SCH (17:00)
[2016-08-24] MEDS: Carbidopa/Levodop 25/250MG TAB(*) PO SCH ×2 (18:01→19:11)
[2016-08-24] MEDS: oxyCODONE TAB* 5 MG TAB PO PRN (21:36)
--- NOTE | 2016-08-24 22:15 | CONS ---
CONSULTATION REPORT:* ADDENDUM: ASSESSMENT: The patient is status post a right total hip arthroplasty, not a right total knee arthroplasty. ERNA TIJERINA, ARIANA [id number]/[facility] #: [id number] [facility]ITALJian
[2016-08-25] MEDS: Acetaminophen TAB* 325 MG PO SCH ×2 (01:15→07:46)
[2016-08-25] MEDS: oxyCODONE TAB* 5 MG TAB PO PRN ×3 (05:30→13:19)
[2016-08-25] MEDS: Omeprazole CAP* 20 MG PO SCH (07:03)
[2016-08-25 07:22] LABS: Hematocrit 25 % (35-47); Hemoglobin 8.4 g/dl (12.0-16.0)
[2016-08-25] MEDS: Enoxaparin(*) 30 MG/0.3 ML SYR SUBCUT SCH (07:47)
--- NOTE | 2016-08-25 08:13 | PN ---
Progress Note - Progress Note SOAP: Subjective: Pt. is more alert this am. Reports 11/02 pain R hip. Objective: RLE - dressing changed, inc c/d/i. mod bruising. distally nvi. Vital Signs: Temp Pulse Resp BP Pulse Ox 98.7 F 88 18 159/65 94 08/25/16 07:45 08/25/16 07:45 08/25/16 07:45 08/25/16 07:45 08/25/16 07:45 Laboratory Results - last 24 hr 08/24/16 08/25/16 08/25/16 06:29 06:47 06:47 Hgb 8.4 L Hct 25 L INR (Anticoag Therapy) 1.10 Sodium 133 Potassium 4.5 Chloride 101 Carbon Dioxide 29 Anion Gap 3 BUN 24 Creatinine 0.73 Est GFR ( Amer) 97.7 Est GFR (Non-Af Amer) 76.0 BUN/Creatinine Ratio 32.9 H Glucose 127 H Calcium 8.5 L Assessment: 85 yo F pod 2 s/p RTHA Plan: Pt. doing well. Limit narcotics if possible secondary to age/delirium pt/ot wbat with post hip precautions lovenox today. start eliquis home dose tomorrow. plan to [facility] tomorrow if stable and bed available
[2016-08-25] MEDS: Oxybutynin TAB* 5 MG PO SCH (08:43)
[2016-08-25] MEDS: Atorvastatin* 20 MG TAB PO SCH (08:43)
[2016-08-25] MEDS: Potassium Chlor TAB* 20 MEQ TAB.ER PO SCH (08:43)
[2016-08-25] MEDS: Vitamin THERAPEUTIC TAB PO SCH (08:43)
[2016-08-25] MEDS: Metoprolol Tartrate TAB* 100 MG TAB PO SCH (08:43)
[2016-08-25] MEDS: PARoxetine HCL TAB* 10 MG PO SCH (08:43)
[2016-08-25] MEDS: Docusate CAP* 100 MG PO SCH (08:43)
--- NOTE | 2016-08-25 11:44 | PN ---
Subjective Date of Service: 08/25/16 Interval History: Patient seen and examined at bedside. Pt states that she is feeling well today and her pain is controlled. Denies fever, chills, lightheadedness, dizziness, shortness of breath, chest discomfort, N/V/D. Pt is urinating since her catheter was removed yesterday, but has not moved her bowels since surgery. Family History: Unchanged from Admission Social History: Unchanged from Admission Past Medical History: Unchanged from Admission Objective Active Medications: Acetaminophen (Tylenol Tab*) 975 mg PO Q8H [facility] Atorvastatin Calcium (Lipitor*) 20 mg PO DAILY [facility] Bisacodyl (Dulcolax Supp*) 10 mg MS DAILY PRN Reason: constipation Carbidopa/Levodopa (Sinemet 25/250 Tab(*)) 1.5 tab PO BEDTIME [facility] Diphenhydramine HCl (Benadryl Iv*) 12.5 mg IV Q6H PRN Reason: PRURITIS Docusate Sodium (Colace Cap*) 100 mg PO BID [facility] Enoxaparin Sodium (Lovenox(*)) 30 mg SUBCUT Q24H [facility] Lactated Ringer's (Lactated Ringers 1000 Ml Bag*) 1,000 mls @ 100 mls/hr IV PER RATE [facility] Lactulose (Lactulose*) 30 ml PO Q6H PRN Reason: constipation Magnesium Hydroxide (Milk Of Magnesia Liq*) 30 ml PO Q6H PRN Reason: constipation Metoprolol Tartrate (Lopressor Tab*) 100 mg PO BID [facility] Multivitamins (Theragran Tab*) 1 tab PO DAILY [facility] Omeprazole (Prilosec Cap*) 20 mg PO DAILY@0730 [facility] Ondansetron HCl (Zofran Inj*) 4 mg IV Q6H PRN Reason: nausea Ondansetron HCl (Zofran Tab*) 4 mg PO Q6H PRN Reason: NAUSEA Oxybutynin Chloride (Ditropan Tab*) 5 mg PO QAM [facility] Oxycodone HCl (Roxycodone Tab*) 5 mg PO Q4H PRN Reason: PAIN - MODERATE TO SEVERE Paroxetine HCl (Paxil Tab*) 10 mg PO DAILY [facility] Polyethylene Glycol/Electrolytes (Miralax*) 17 gm PO DAILY PRN Reason: Constipation Potassium Chloride (Klor Con Er Tab*) 20 meq PO BID [facility] Vital Signs 08/24/16 08/24/16 08/24/16 11:50 11:53 11:58 Temperature 98.3 F Pulse Rate 70 Respiratory 17 20 Rate Blood Pressure 89/37 84/40 (mmHg) O2 Sat by Pulse 93 Oximetry 08/24/16 08/24/16 08/24/16 13:05 14:08 15:49 Temperature Pulse Rate Respiratory 18 18 Rate Blood Pressure 118/50 (mmHg) O2 Sat by Pulse Oximetry 08/24/16 08/24/16 08/24/16 16:00 16:21 17:05 Temperature 98.6 F Pulse Rate 71 Respiratory 14 Rate Blood Pressure 104/55 (mmHg) O2 Sat by Pulse 93 93 93 Oximetry 08/24/16 08/24/16 08/24/16 19:32 20:00 21:36 Temperature 98.5 F Pulse Rate 81 Respiratory 22 22 18 Rate Blood Pressure 103/45 (mmHg) O2 Sat by Pulse 97 Oximetry 08/24/16 08/24/16 08/25/16 23:34 23:36 03:37 Temperature 97.9 F 98.3 F Pulse Rate 87 86 Respiratory 18 18 16 Rate Blood Pressure 138/67 113/53 (mmHg) O2 Sat by Pulse 97 96 Oximetry 08/25/16 08/25/16 08/25/16 05:30 07:04 07:45 Temperature 98.7 F Pulse Rate 88 Respiratory 18 16 18 Rate Blood Pressure 159/65 (mmHg) O2 Sat by Pulse 94 Oximetry 08/25/16 08/25/16 08/25/16 08:00 08:40 09:31 Temperature Pulse Rate 91 Respiratory 16 16 Rate Blood Pressure 109/44 (mmHg) O2 Sat by Pulse 94 Oximetry Oxygen Devices in Use Now: None Appearance: NAD, sitting up in a chair. Eyes: No Scleral Icterus, PERRLA Ears/Nose/Mouth/Throat: NL Teeth, Lips, Gums, Mucous Membranes Moist Neck: NL Appearance and Movements; NL JVP, Trachea Midline Respiratory: Symmetrical Chest Expansion and Respiratory Effort, Clear to Auscultation Cardiovascular: NL Sounds; No Murmurs; No JVD, RRR Abdominal: NL Sounds; No Tenderness; No Distention Extremities: - - Trace bilateral LE edema Skin: - - Dressing to right hip clean, dry and intact. Neurological: Alert and Oriented x 3, NL Muscle Strength and Tone Lines/Tubes/Other Access: Clean, Dry and Intact Peripheral IV - site benign Nutrition: Taking PO's Result Diagrams: 08/25/16 06:47 08/24/16 06:29 Assess/Plan/Problems-Billing Assessment: Ms. Macedo is an 85 yo female with PMH significant for HTN, paroxysmal a fib, GERD, HLD, and arthritis who underwent an elective right total hip replacement with Dr. Diaz on 08/23/16. Hospitalists were asked to assist with co-management. - Patient Problems (1) Status post total hip replacement, right Code(s): Z96.641 - PRESENCE OF RIGHT ARTIFICIAL HIP JOINT SNOMED Code(s): 892243243296 Comment: - Management per Ortho - HH down slightly, but stable - Continue standing Tylenol and PRN Oxycodone - Continue PT/OT (2) Hypotension Comment: - Improved (3) Paroxysmal atrial fibrillation Code(s): I48.0 - PAROXYSMAL ATRIAL FIBRILLATION SNOMED Code(s): 462871820 Comment: - Heart rate regular on exam - Continue Metoprolol with hold parameters - Plan to resume Eliquis at discharge (4) HLD (hyperlipidemia) Code(s): E78.5 - HYPERLIPIDEMIA, UNSPECIFIED SNOMED Code(s): 77840434 Comment: - Continue Atorvastatin (5) RLS (restless legs syndrome) Comment: - Continue Sinemet (6) Depression Code(s): F32.9 - MAJOR DEPRESSIVE DISORDER, SINGLE EPISODE, UNSPECIFIED SNOMED Code(s): 91629542 Comment: - Continue Paxil (7) HTN (hypertension) Code(s): I10 - ESSENTIAL (PRIMARY) HYPERTENSION SNOMED Code(s): 34072351 Comment: - SBP 100-150's - Continue Metoprolol with hold parameters (8) DVT prophylaxis Code(s): NFY6402 - SNOMED Code(s): 671833041 Comment: - Continue lovenox and warfarin - Management per Ortho (9) DNR (do not resuscitate) Status and Disposition: Inpatient. Disposition per Orthopedics. Plan for discharge to [facility] later today.
--- NOTE | 2016-08-25 12:31 | DS ---
DATE OF ADMISSION: 08/23/2016. DATE OF DISCHARGE: 08/25/2016. SURGEON: Dr. Ava Diaz. PRINCIPAL DIAGNOSIS: Severe end-stage osteoarthritis right hip. DISCHARGE DIAGNOSIS: Severe end-stage osteoarthritis right hip. HISTORY OF PRESENT ILLNESS: Ms. Macedo is an 85-year-old female with complaints of right hip pain se condary to severe osteoarthritis of her right hip. She has failed conservative management and has e lected to proceed with a right total hip arthroplasty. HOSPITAL COURSE: Ms. Macedo was admitted to the hospital electively on 08/23/2016 and underwent a ri t total hip arthroplasty by Dr. Diaz. She tolerated the procedure well with no complications. H er hospital course was fairly unremarkable. She made daily improvements with physical therapy. She was weightbearing as tolerated. Her DVT prophylaxis, she was on Lovenox only. On postop day one, h er H and H was 9.1 and 27 and on postop day two, it was 8.4 and 25. Her INR on postop day one was 1 .02 and on postop day two was 1.1. At the time of discharge on 08/25/2016, she was afebrile, she wa s ambulating well and her wound was clean, dry and healing well. She will be transferred to [facility] for continued inpatient rehabilitation. MEDICATIONS UPON DISCHARGE: Atorvastatin calcium, Dulcolax, Carbidopa/Levodopa, Metoprolol, Omepraz ole, Oxybutynin chloride, Percocet, and Eliquis. PHYSICAL EXAMINATION UPON DISCHARGE: She was afebrile. Her vital signs were stable. Her wound was clean, dry, and healing well. She was ambulating with assistance. Her lower extremity muscle grou p strengths are intact at 5/5. She has intact sensation with pinprick and light touch. She has 2+ dorsalis pedis pulses. DISCHARGE INSTRUCTIONS: She will be discharged to [facility] for further inpatient rehabilitation. Dr. Diaz has recommended she restart her home dose Eliquis tomorrow on August 26. She can shower. She should not get a bath. She can let soap and water run over the incision, pat the area dry, and reapply a clean, dry dressing on a daily basis. She is weightbearing as tolerated and Dr. Joe rosario like to see her back at her clinic in two weeks. WESLEY LIU [id number]/[facility] #: [id number]
[2016-08-25 12:39] VITALS: BP 126/50
== END 2016-08-25 14:00 | DRG 470 ==
LOC: AA 06:06 → SSU 10:45
PROVIDERS: ADMIT Orthopaedic Surgery Adult Reconstructive Orthopaedic Surgery; ATTEND Orthopaedic Surgery Adult Reconstructive Orthopaedic Surgery
PROC: 0SUA0BZ Supplement Right Hip Joint, Acetabular Surface with Resurfacing Device, Open Approach (ICD-10-PCS; 2016-08-23)
PROC: 0SR904A Replacement of Right Hip Joint with Ceramic on Polyethylene Synthetic Substitute, Uncemented, Open Approach (ICD-10-PCS; principal; 2016-08-23 07:30)
DX: M16.11 Unilateral primary osteoarthritis, right hip (principal); I95.9 Hypotension, unspecified; I48.0 Paroxysmal atrial fibrillation; I10 Essential (primary) hypertension; E73.9 Lactose intolerance, unspecified; F32.9 Major depressive disorder, single episode, unspecified; G25.81 Restless legs syndrome; Z95.0 Presence of cardiac pacemaker; K21.9 Gastro-esophageal reflux disease without esophagitis; H35.30 Unspecified macular degeneration; Z98.49 Cataract extraction status, unspecified eye; Z91.041 Radiographic dye allergy status; Z82.49 Family history of ischemic heart disease and other diseases of the circulatory system; Z82.3 Family history of stroke; Z80.1 Family history of malignant neoplasm of trachea, bronchus and lung; Z80.42 Family history of malignant neoplasm of prostate; K58.9 Irritable bowel syndrome, unspecified; Z88.5 Allergy status to narcotic agent; Z83.3 Family history of diabetes mellitus; R05 Cough; Z66 Do not resuscitate; R41.0 Disorientation, unspecified; E78.5 Hyperlipidemia, unspecified; Z88.8 Allergy status to other drugs, medicaments and biological substances; M85.88 Other specified disorders of bone density and structure, other site; F41.9 Anxiety disorder, unspecified; Z80.9 Family history of malignant neoplasm, unspecified
CPT/HCPCS: 36415; 72170; 80048; 85014; 85018; 85610; 88304; 88311; 94760; 94762; A9270-GY; C1713; C1776; J0330; J0690; J1100; J1170; J1240; J1650; J1885; J2250; J2405; J2704; J3010

== ENCOUNTER 2016-12-23 13:32 | Inpatient (IN) | payer MEDICARE ==
[2016-12-23] MEDS ORDERED: Ondansetron INJ* 2 MG/ML VIAL IV ONE ×2 (14:00→17:34)
[2016-12-23] MEDS ORDERED: NS 0.9% 1000 ML* 1,000 ML IV ONE (14:00)
[2016-12-23] MEDS ORDERED: Morphine INJ* 4 MG/ML 1 ML SYRINGE IV ONE ×2 (14:00→17:33)
[2016-12-23 14:20] LABS: Hematocrit 39 % (35-47); Hemoglobin 12.5 g/dl (12.0-16.0); Mean Corpuscular HGB Conc 32 g/dl (31-36); Mean Corpuscular Hemoglobin 30 pg (27-31); Mean Corpuscular Volume 92 fL (80-97); Mean Platelet Volume 8 um3 (7.4-10.4); Red Blood Count 4.21 10^6/ul (4.0-5.4); Red Cell Distribution Width 17 % (10.5-15); White Blood Count 6.7 10^3/ul (3.5-10.8)
[2016-12-23 14:35] LABS: BUN/Creatinine Ratio 23.9 (8-20); Calcium 9.2 mg/dL (8.6-10.3); EGFR African American 100.6 (>60); EGFR Non-African American 78.2 (>60); Globulin 3.2 g/dL (2-4); Potassium 4.1 mmol/L (3.5-5.0); Total Bilirubin 0.7 mg/dL (0.2-1.0); Total Protein 7.2 g/dL (6.4-8.9)
[2016-12-23 14:36] LABS: Troponin I 0.01 ng/mL (<0.04)
--- NOTE | 2016-12-23 14:47 | RAD ---
HISTORY: Fall, right hip dislocation COMPARISONS: November 14, 2016 VIEWS: 3, Frontal view of the pelvis with frontal and frog-leg views of the right hip FINDINGS: BONE DENSITY: There is diffuse osteopenia. BONES: The patient is status post right hip arthroplasty. There is no hardware failure or osteolysis. JOINTS: The patient is status post right hip arthroplasty ALIGNMENT: There is no dislocation. SOFT TISSUES: Unremarkable. OTHER FINDINGS: None. IMPRESSION: OSTEOPENIA. STATUS POST RIGHT HIP ARTHROPLASTY.
[2016-12-23] MEDS ORDERED: Pantoprazole IV* 40 MG IV ONE (15:20)
--- NOTE | 2016-12-23 17:25 | RAD ---
Indication: Fall. Recent RIGHT hip replacement. Large hematoma. Assess for fracture. Comparison: Radiographs of the same date. Technique: Multidetector CT pelvis without contrast. Multiplanar reformation with bone algorithm. Report: Hematoma within the lateral subcutaneous tissue plane of the RIGHT hip measures up to 6.5 cm AP by 3.4 cm transverse by 9 cm cephalocaudal. Surrounding infiltrative soft tissue edema or hematoma. No additional loculated hematoma evident within the [id number]. RIGHT greater than LEFT gluteus minimus and gluteus medius muscle atrophy. RIGHT total hip prosthesis in place with associated artifact. No periprosthetic fracture evident. No evidence for component loosening. Negative for pelvic fracture or joint diastases. Degenerative arthropathy at the pubic symphysis. Multilevel lumbar sacral spine degenerative spondylosis and facet joint osteoarthritis. Grade 1 degenerative L4-L5 and grade 2 degenerative L5-S1 anterolisthesis. No spondylolysis evident. Negative for free pelvic fluid. Nephrolithiasis without hydronephrosis noted at the partially visualized inferior poles of the kidneys. Distended urinary bladder without suspicious finding. Unremarkable visualized bowel loops. Negative for ascites. Negative for lymphadenopathy. Atherosclerotic calcification. Negative for aneurysm of the visualized infrarenal abdominal aorta or iliac arteries. Largely decompressed inferior vena cava suggesting low volume state. IMPRESSION: No evidence for RIGHT hip periprosthetic fracture or pelvic fracture. Large loculated hematoma within the subcutaneous tissue plane lateral to the RIGHT hip.
[2016-12-23] MEDS ORDERED: Carbidopa/Levodop 25/250MG TAB(*) PO ONE (17:34)
[2016-12-23] MEDS ORDERED: Ondansetron INJ* 2 MG/ML VIAL IV PRN (18:42)
[2016-12-23] MEDS ORDERED: Acetaminophen TAB* 325 MG PO PRN (18:42)
[2016-12-23] MEDS ORDERED: NS 0.9% 1000 ML* 1,000 ML IV SCH (18:45)
[2016-12-23] MEDS ORDERED: Cyclobenzaprine TAB* 10 MG PO PRN (18:45)
--- NOTE | 2016-12-23 20:14 | ED ---
Shayy San Alok, scribed for Willie Hernandez MD on 12/23/16 at 1452 . Adult Trauma - HPI Summary HPI Summary: 86F presents to the ED following a fall landing on her right hip. Pt states she was feeling dizzy causing her to fall. Pt notes right sided hip pain with swelling. Pt tried applying ice which made her pain worse. Pt denies left sided hip pain or abd pain. Pt takes Eliquis for A-fib. Pt takes 100 mg metoprolol BID. PSHx includes right hip replacement 5 months ago. - History of Current Complaint Chief Complaint: EDHipPelvisInjury Stated Complaint: FALL RT HIP DISLOCATION Time Seen by Provider: 12/23/16 13:53 Hx Obtained From: Patient Mechanism of Injury: Fall Loss of Consciousness: no loss of consciousness Onset/Duration: Started Minutes Ago Onset of Pain: Immediate Onset Severity: Moderate Current Severity: Moderate Pain Intensity: 5 Pain Scale Used: 0-10 Numeric Location: Abdomen/Pelvis Aggravating Factor(s): Other - Ice Alleviating Factor(s): Nothing Associated Signs & Symptoms: Negative: Abdominal Pain, Loss of Consciousness - Additional Pertinent History Primary Care Physician: [id number] - Allergy/Home Medications Allergies/Adverse Reactions: Allergies Allergy/AdvReac Type Severity Reaction Status Date / Time Iodinated Diagnostic Agents Allergy Severe Anaphylatic Verified 08/23/16 06:29 Shock Morphine AdvReac Nausea And Verified 12/23/16 19:01 Vomiting PMH/Surg Hx/FS Hx/Imm Hx Cardiovascular History: Reports: Hx Atrial Fibrillation, Hx Hypercholesterolemia , Hx Hypertension, Hx Pacemaker/ICD - PACEMAKER IN 1990 Respiratory History: Reports: Other Respiratory Problems/Disorders - COPD seen on chest xray. Denies: Hx Pneumonia GI History: Reports: Hx Gall Bladder Disease - removed 1963, Hx Gastroesophageal Reflux Disease, Hx Hiatal Hernia - 1975, Hx Irritable Bowel - uses medication, Hx Ulcer - uses medication, Other GI Disorders - IBS, lactose related? History: Reports: Hx Kidney Stones Denies: Hx Kidney Infection Musculoskeletal History: Reports: Hx Arthritis - legs, hip, knee, hands Denies: Hx Bursitis, Hx Tendonitis Sensory History: Reports: Hx Cataracts - surgery 2000, Hx Contacts or Glasses - wears glasses, Hx Macular Degeneration - doesn't impair vision Denies: Hx Glaucoma, Hx Hearing Aid Opthamlomology History: Reports: Hx Cataracts - surgery 2000, Hx Contacts or Glasses - wears glasses, Hx Macular Degeneration - doesn't impair vision Denies: Hx Glaucoma Neurological History: Reports: Hx Migraine - past history Psychiatric History: Reports: Hx Anxiety - Surgical History Surgery Procedure, Year, and Place: hiatal hernia 1976 hysterectomy= 1971. lt =wrist 1998. [id number]=[id number] pacemaker =1990 Hx Anesthesia Reactions: No - Immunization History Date of Tetanus Vaccine: unknown Date of Influenza Vaccine: 03/2016 Infectious Disease History: No Infectious Disease History: Denies: Traveled Outside the [place] in Last 30 Days - Family History Known Family History: Positive: Cardiac Disease, Diabetes, Blood Disorder - blood clots - Social History Occupation: Retired Alcohol Use: Occasionally Substance Use Type: Reports: None Smoking Status (MU): Never Smoked Tobacco Review of Systems Negative: Fever Positive: Other - Right hip pain with swelling. Negative: left hip pain Neurological: Other - Dizziness All Other Systems Reviewed And Are Negative: Yes Physical Exam - Summary Physical Exam Summary: The patient is well-nourished in mild pain distress and fairly uncomfortable. The skin is warm and dry and skin color reflects adequate perfusion. HEENT: The head is normocephalic and atraumatic. The pupils are equal and reactive. The conjunctivae are clear and without drainage. Neck is supple with full range of motion and non-tender. There are no carotid bruits. There is no neck vein distension. Respiratory: Chest is non-tender. Lungs are clear to auscultation and breath sounds are symmetrical and equal. Cardiovascular: Heart is irregular. There is no murmur or rub auscultated. There is no peripheral edema and pulses are symmetrical and equal. Abdomen: The abdomen is soft and non-tender. There are normal bowel sounds heard in all four quadrants and there is no organomegaly palpated. Musculoskeletal: There is no back pain noted. Extremities are non-tender with full range of motion. There is good capillary refill. There is no peripheral edema or calf tenderness elicited. Large hematoma right hip. There is marked right-sided hip tenderness with full ROM and skin in tact. Lower extremity length equal. Neurological: Patient is alert and oriented to person, place and time. The patient has symmetrical motor strength in all four extremities. Cranial nerves are grossly intact. Deep tendon reflexes are symmetrical and equal in all four extremities. Psychiatric: The patient has an appropriate affect and does not exhibit any anxiety or depression. Triage Information Reviewed: Yes Vital Signs On Initial Exam: Initial Vitals Temp Pulse Resp BP Pulse Ox 98.2 F 64 17 162/82 100 12/23/16 13:34 12/23/16 13:34 12/23/16 13:34 12/23/16 13:34 12/23/16 13:34 Vital Signs Reviewed: Yes Diagnostics - Vital Signs Vital Signs Temp Pulse Resp BP Pulse Ox 12/23/16 14:11 16 12/23/16 13:34 98.2 F 64 17 162/82 100 - Laboratory Lab Results: Lab Results 12/23/16 Range/Units 14:05 WBC 6.7 (3.5-10.8) 10^3/ul RBC 4.21 (4.0-5.4) 10^6/ul Hgb 12.5 (12.0-16.0) g/dl Hct 39 (35-47) % MCV 92 (80-97) fL MCH 30 (27-31) pg MCHC 32 (31-36) g/dl RDW 17 H (10.5-15) % Plt Count 266 (150-450) 10^3/ul MPV 8 (7.4-10.4) um3 Neut % (Auto) 70.7 (38-83) % Lymph % (Auto) 18.6 L (25-47) % [place] % (Auto) 9.3 H (1-9) % Eos % (Auto) 0.4 (0-6) % Baso % (Auto) 1.0 (0-2) % Absolute Neuts (auto) 4.8 (1.5-7.7) 10^3/ul Absolute Lymphs (auto) 1.3 (1.0-4.8) 10^3/ul Absolute Monos (auto) 0.6 (0-0.8) 10^3/ul Absolute Eos (auto) 0 (0-0.6) 10^3/ul Absolute Basos (auto) 0.1 (0-0.2) 10^3/ul Absolute Nucleated RBC 0 10^3/ul Nucleated RBC % 0 Result Diagrams: 12/23/16 14:05 12/23/16 14:05 Lab Statement: Any lab studies that have been ordered have been reviewed, and results considered in the medical decision making process. - Radiology Hip/Pelvis XRAY Xray Interpretation: Positive (See Comments) - IMPRESSION: OSTEOPENIA. STATUS POST RIGHT HIP ARTHROPLASTY. Radiology Interpretation Completed By: Radiologist - CT Pelvis CT CT Interpretation: Positive (See Comments) - IMPRESSION: No evidence for RIGHT hip periprosthetic fracture or pelvic fracture. Large loculated hematoma within the subcutaneous tissue plane lateral to the RIGHT hip. CT Interpretation Completed By: Radiologist - EKG 1711 Cardiac Rate: NL - 61 bpm EKG Rhythm: Sinus Rhythm EKG Interpretation: LVH Re-Evaluation - Re-Evaluation First Eval Re-Evaluation Time: 16:28 Change: Unchanged Comment: Patient able to flex and denies pain at ischium or pubic ramus. Will do CT to make sure there is no fracture. Patient has requested admitance for observation. Adult Trauma Course/Dx - Course Assessment/Plan: Spoke with Dr. Belle (Hospitalist) @ 1650 - [facility] admit [facility] - Diagnoses Differential Diagnosis/HQI/PQRI: Positive: Fracture, Dislocation Provider Diagnoses: Hematoma of right hip - Physician Notifications Discussed Care Of Patient With: Gilmar Cuadra - Advised to check patient ROM and ability to ambulate Time Discussed With Above Provider: 16:22 Discharge - Discharge Plan Condition: Stable Disposition: ADMITTED TO [facility] The documentation as recorded by the Shayy luna Alok accurately reflects the service I personally performed and the decisions made by me, Willie Hernandez MD.
[2016-12-23 20:41] LABS: Hematocrit 28 % (35-47); Hemoglobin 9.3 g/dl (12.0-16.0)
[2016-12-23] MEDS: oxyCODONE/Acetamin 5/325 MG* TAB PO PRN (21:01)
[2016-12-23] MEDS: Potassium Chlor TAB* 20 MEQ TAB.ER PO SCH (21:01)
[2016-12-23] MEDS: Carbidopa/Levodop 25/250MG TAB(*) PO SCH (21:02)
[2016-12-23] MEDS: Metoprolol Tartrate TAB* 100 MG TAB PO SCH (21:02)
[2016-12-24] MEDS: oxyCODONE/Acetamin 5/325 MG* TAB PO PRN ×2 (03:35→16:19)
[2016-12-24 05:25] LABS: Hematocrit 28 % (35-47); Mean Corpuscular HGB Conc 33 g/dl (31-36); Mean Corpuscular Hemoglobin 30 pg (27-31); Mean Corpuscular Volume 93 fL (80-97); Mean Platelet Volume 8 um3 (7.4-10.4); Red Blood Count 2.98 10^6/ul (4.0-5.4); Red Cell Distribution Width 17 % (10.5-15); White Blood Count 5.7 10^3/ul (3.5-10.8)
[2016-12-24 05:41] LABS: BUN/Creatinine Ratio 21.2 (8-20); Calcium 8.1 mg/dL (8.6-10.3); EGFR African American 81.7 (>60); EGFR Non-African American 63.6 (>60)
[2016-12-24] MEDS: Potassium Chlor TAB* 20 MEQ TAB.ER PO SCH ×2 (08:11→20:52)
[2016-12-24] MEDS: Atorvastatin* 20 MG TAB PO SCH (08:11)
[2016-12-24] MEDS: PARoxetine HCL TAB* 10 MG PO SCH (08:11)
[2016-12-24] MEDS: Metoprolol Tartrate TAB* 100 MG TAB PO SCH ×2 (08:11→20:52)
[2016-12-24] MEDS: Omeprazole CAP* 20 MG PO SCH (08:12)
[2016-12-24] MEDS ORDERED: Oxybutynin TAB* 5 MG ONE (08:15)
[2016-12-24] MEDS: Oxybutynin TAB* 5 MG PO SCH (08:59)
--- NOTE | 2016-12-24 11:27 | HP ---
CC: Dr. Cuadra; Dr. Diaz; Dr. Herrera* HISTORY AND PHYSICAL: DATE OF ADMISSION: 12/23/16 PRIMARY CARE PROVIDER: Dr. Herrera. CONSULTING ORTHOPEDIST: Dr. Cuadra. ATTENDING PHYSICIAN WHILE IN THE HOSPITAL: Dr. Grzegorz Paz* (report is being dictated by Sudhir Lassiter NP) CHIEF COMPLAINT: 1. Fall. 2. Right hip pain. HISTORY OF PRESENT ILLNESS: Ms. Macedo is an 86-year-old female patient that came into the ER today with complaints of mechanical fall. She was trying to walk in her kitchen using her cane. She went to reach to get a chair. Unfortunately, she missed the chair and kept falling and landed on her operative hip that was done in August of this year with Dr. Diaz. She called her family, was able to get up, was able to ambulate on the leg. Unfortunately , though she is on a blood thinner, she did not hit her head fortunately, but she did fall. She remembers the fall. She had no chest pain prior to or after. No palpitations. No shortness of breath. She denied any recent changes in her medications. She was concerned because she was having a fair amount of pain in that hip. So, she came into the ER, was evaluated, and ultimately found to have a significant hematoma on her right hip. She was having a significant amount of pain and because of this, the hospitalist service was asked to evaluate for admission. PAST MEDICAL HISTORY: 1. Hypertension. 2. AFib. 3. GERD. 4. IBS. 5. Lactose intolerance. 6. Depression. 7. B12 deficiency. 8. Restless leg syndrome. 9. Macular degeneration. 10. Hypertension. 11. Gastric ulcers. PAST SURGICAL HISTORY: 1. She has had a pacemaker. 2. Hysterectomy. 3. Hiatal hernia repair. 4. Laparoscopic cholecystectomy. 5. Tonsillectomy. 6. Cataract. 7. Right total hip arthroplasty. HOME MEDICATIONS: According to the list provided includes: 1. Benadryl 50 mg p.o. at bedtime as needed. 2. Potassium 20 mEq p.o. b.i.d. 3. Paxil 10 mg p.o. daily. 4. Ditropan 5 mg p.o. daily. 5. Prilosec 20 mg daily. 6. Multivitamin one tablet daily. 7. Lopressor 100 mg p.o. b.i.d. 8. Vitamin B12 1000 mcg p.o. daily. 9. Carbidopa/levodopa one to two tablets p.o. at bedtime. 10. Lipitor 20 mg daily. 11. Apixaban 5 mg p.o. b.i.d. ALLERGIES TO MEDICATIONS: Include IV DYE. FAMILY HISTORY: Mother had a history of CT, hypertension. Father had a history of CVA. SOCIAL HISTORY: She does not smoke, occasionally drinks alcohol. Surrogate decision maker is her daughter. REVIEW OF SYSTEMS: There is no documented fever. She denied having any significant weight change. There was no double vision. There is no ear discharge. She denies having any rhinorrhea, no sore throat, no thyroid enlargement. Denies having any chest pain. There was no orthopnea. No nocturnal dyspnea. There was no abdominal pain. There was no nausea, no vomiting, no dysuria, no frequency, no seizure, no loss of consciousness. No pruritus and no skin ulcerations. Review of 14 systems was completed, all others negative. PHYSICAL EXAMINATION GENERAL: At this time, Ms. Macedo is an 86-year-old female patient. She appears to be well nourished, well developed, sitting in the ER stretcher. She does not appear to be in any acute distress. VITAL SIGNS: Reveals blood pressure 146/89, pulse 61, respirations 22, O2 sat 99%, temperature 98.2. HEENT: Head: Atraumatic and normocephalic. Eyes: EOMs are intact. Sclerae anicteric and not pale. Throat: Oral mucosa appears to be moist. No oropharyngeal erythema. NECK: Supple. LUNGS: Clear to auscultation bilaterally. No wheezes, rales or rhonchi. HEART: Heart sounds S1 and S2. Irregular regular rate. No murmurs, rubs or gallops. ABDOMEN: Soft, flat, nontender. Bowel sounds are present. EXTREMITIES: Pulses 2+ throughout. She is able to move her left lower extremity and upper extremity with 5/5 strength. She has difficulty moving the right lower extremity because there is a significant amount of pain with movement. NEUROLOGIC: She is awake, alert, oriented x3. Tongue midline. Soft Boarder were equal. No gross focal deficits. SKIN: Intact. She does have a large fluid collection palpable to the right hip. DIAGNOSTIC STUDIES/LAB DATA: Her labs today revealed WBC of 6.7, RBC of 4.21, hemoglobin 12.5, hematocrit 39, platelet count 266. INR 1.17, PTT of 36.5. Sodium 132, potassium 4.1, chloride 100, bicarb 25, BUN 17, creatinine 0.71, glucose 102, lactate 2, calcium 9.2, total bili 0.7, AST 22, ALT 22, alk phos 83. Troponin 0.01, albumin of 4.0. She did have multiple imaging in the ER. She had a hip/pelvis x-ray, which showed osteopenia status post right hip arthroplasty. She had a pelvis CT obtained today, which revealed no evidence of a right hip periprosthetic fracture or pelvic fracture, large loculated hematoma within the subcutaneous tissue plane lateral to the right hip. She did have an EKG obtained today as well, which revealed normal sinus rhythm, rate of 61. No ST elevations or T- wave inversion were noted. Old medical records reviewed. ASSESSMENT AND PLAN: Ms. Macedo is an 86-year-old female patient coming into the ER today with complaints of fall, now found to have right hip pain. On evaluation found to have a hematoma. She will be admitted under observation status for: 1. Right hip hematoma. At this point, the hematoma is rather impressive on exam. I did touch base with Dr. Cuadra who will evaluate tomorrow. The plan, I am going to hold her Eliquis because I feel like this is going to get worse if she is on Eliquis. I will hold this, follow her H and Hs. I will have Ortho evaluate for a possible aspiration, as I think that this is causing her significant pain. I am going to try her for pain control tonight with Percocet. Ice seems to help as well and see if we can get her pain well controlled and then have PT evaluated to see if she can ambulate and have Dr. Cuadra evaluate as well. 2. Hypertension. Continue meds as prescribed. 3. AFib. Hold the Eliquis, continue her Lopressor. 4. Hyperlipidemia. Continue statin therapy. 5. IBS and lactose intolerance. Continue supportive care. 6. Depression. Continue supportive care. 7. B12 deficiency. Follow with her primary. 8. Restless leg syndrome. Continue her carbidopa/levodopa. 9. GERD. Continue PPI therapy. 10. Macular degeneration. Continue to follow up with her primary. 11. Gastric ulcers. Continue PPI therapy. 12. DVT prophylaxis. She will be placed on SCDs. 13. Code status. DNR. 14. Fluids, electrolytes, and nutrition. She can have a regular diet. TIME SPENT: Time spent on the admission 60 minutes, greater than half the time was spent [id number] with the patient obtaining my history and physical; other half of the time was spent going over the plan of care with the patient and implementing the plan of care. I did discuss the plan of care with my attending, Dr. Paz, he is in agreement. SUDHIR LASSITER, ARIANA [id number]/CPS #: [id number] MTDD
--- NOTE | 2016-12-24 14:32 | PN ---
Subjective Date of Service: 12/24/16 Interval History: Patient seen this morning. Pain is improved. Did fairly well with PT. Stated that prior to her fall she was feeling light-headed after just standing up prior. Patient and daughter (who takes care of her) are hesitant for her to go back home today. Family History: Unchanged from Admission Social History: Unchanged from Admission Past Medical History: Unchanged from Admission Objective Active Medications: Acetaminophen (Tylenol Tab*) 650 mg PO Q4H PRN Atorvastatin Calcium (Lipitor*) 20 mg PO DAILY [facility] Carbidopa/Levodopa (Sinemet 25/250 Tab(*)) 1 tab PO BEDTIME [facility] Carbidopa/Levodopa (Sinemet 25/100 Tab(*)) 0.5 tab PO DAILY [facility] Cyclobenzaprine HCl (Flexeril Tab*) 10 mg PO BID PRN Sodium Chloride (Ns 0.9% 1000 Ml*) 1,000 mls @ 75 mls/hr IV PER RATE [facility] Metoprolol Tartrate (Lopressor Tab*) 100 mg PO BID [facility] Omeprazole (Prilosec Cap*) 20 mg PO DAILY [facility] Ondansetron HCl (Zofran Inj*) 4 mg IV Q6H PRN Oxybutynin Chloride (Ditropan Tab*) 5 mg PO DAILY [facility] Oxycodone/Acetaminophen (Percocet 5/325 Tab*) 1 tab PO Q4H PRN Paroxetine HCl (Paxil Tab*) 10 mg PO DAILY [facility] Potassium Chloride (Klor Con Er Tab*) 20 meq PO BID [facility] Vital Signs 12/23/16 12/23/16 12/23/16 19:00 20:26 20:40 Temperature 98.8 F 98.8 F Pulse Rate 65 62 62 Respiratory 16 16 Rate Blood Pressure 133/64 133/64 (mmHg) O2 Sat by Pulse 97 98 98 Oximetry 12/24/16 12/24/16 12/24/16 03:35 05:35 07:39 Temperature 98.3 F Pulse Rate 62 Respiratory 16 16 18 Rate Blood Pressure 172/80 152/67 (mmHg) O2 Sat by Pulse 97 Oximetry 12/24/16 12:06 Temperature 97.5 F Pulse Rate 62 Respiratory Rate Blood Pressure 111/50 (mmHg) O2 Sat by Pulse 98 Oximetry Oxygen Devices in Use Now: None Appearance: Elderly, F, laying in bed in NAD Eyes: No Scleral Icterus Ears/Nose/Mouth/Throat: Mucous Membranes Moist Neck: NL Appearance and Movements; NL JVP Respiratory: Symmetrical Chest Expansion and Respiratory Effort, Clear to Auscultation Cardiovascular: NL Sounds; No Murmurs; No JVD, RRR Abdominal: NL Sounds; No Tenderness; No Distention Lymphatic: No Cervical Adenopathy Extremities: No Edema, - - Large R hip hematoma, not a significant amount of ecchymosis, TTP Neurological: Alert and Oriented x 3 Result Diagrams: 12/24/16 14:45 12/24/16 05:18 Assess/Plan/Problems-Billing Assessment: Acute blood loss anemia 2/2 R hip hematoma after fall in an 86 yo F with hx of HTN, AFib on Eliquis, GERD, RLS - Patient Problems (1) Acute blood loss anemia Current Visit: Yes Comment: 2/2 hematoma in R hip. Hb seems to have stabilized. Will recheck again this afternoon. No need for transfusion at this point but patient states she would accept one if needed. Appreciate Ortho input. (2) Near syncope Current Visit: No Comment: Wonder if she may have had a component of orthostatsis leading to the fall as she has had this in the past. She has received IVF. BPs have been labile. (3) HTN (hypertension) Current Visit: No Comment: Continue Metoprolol for now (4) Paroxysmal atrial fibrillation Current Visit: No Comment: Holding Eliquis in setting of hematoma. Contiune Metoprolol. (5) HLD (hyperlipidemia) Current Visit: No Comment: - Continue Atorvastatin (6) RLS (restless legs syndrome) Current Visit: No Comment: - Continue Sinemet (7) DVT prophylaxis Current Visit: No Status: Acute Code(s): [id number] - SNOMED Code(s): 497277832 Comment: SCDs
[2016-12-24 14:51] LABS: Hematocrit 27 % (35-47); Hemoglobin 9.1 g/dl (12.0-16.0)
[2016-12-24] MEDS ORDERED: Oxybutynin TAB* 5 MG PO SCH (18:00)
[2016-12-24] MEDS: Carbidopa/Levodop 25/250MG TAB(*) PO SCH (20:52)
--- NOTE | 2016-12-24 23:23 | CONS ---
CONSULTATION REPORT: DATE OF CONSULTATION: 12/24/16 REASON FOR CONSULTATION: Right hip pain, contusion. HISTORY OF PRESENT ILLNESS: The patient is an 86-year-old woman, on Eliquis for atrial fibrillation, status post 08/15/16 right total hip arthroplasty by Dr. Ava Diaz, who [place] [facility] [place] status post a fall at home. The patient has had an unremarkable postoperative course according to her. The patient's gait has not yet normalized. The patient had spoken with Dr. Diaz about still using a walker to help with balance. The patient mentioned some question of limb length discrepancy this morning. The patient lives with her daughter in [place]. Yesterday morning, on 12/23/16, the patient was in the kitchen at home when she felt lightheaded. She fell on to the floor landing on her right side, right hip. The patient did not lose consciousness. No head trauma. The patient did not state whether this was a witnessed fall. Soon after she fell, she developed swelling about the right hip and pain. This made the patient very nervous and given a history of right total hip arthroplasty and concerns about a possible fracture or problems with the arthroplasty implants. The patient was helped by her grandchildren and brought to [facility], where she was evaluated by Dr. Willie Hernandez. Dr. Hernandez telephoned me and I suggested a CT scan. X-rays have been negative for fracture. The patient was in significant discomfort in the emergency department, including pain with weightbearing and so she was admitted for right hip pain and further evaluation. No numbness or tingling in the right lower extremity. No other joint pain. PAST MEDICAL HISTORY: Atrial fibrillation, hypercholesterolemia, hypertension, ICD, COPD, gastroesophageal reflux disease, hiatal hernia, question of irritable bowel syndrome, question of gastric ulcer, nephrolithiasis, osteoarthritis in multiple joints, cataracts, macular degeneration, migraines, anxiety. PAST SURGICAL HISTORY: Hiatal hernia repair, hysterectomy, left wrist surgery, cholecystectomy, ICD pacemaker placement. MEDICATIONS: Metoprolol 100 mg p.o. b.i.d., Eliquis, Lipitor, Sinemet, oxybutynin, and paroxetine. Medication list may be incomplete. ALLERGIES: MORPHINE (nausea and vomiting), IODINE (anaphylactic shock). FAMILY HISTORY: The patient notes that her brother had some type of infected total hip arthroplasty and as a result of it, so she is very wary of infections after arthroplasty surgery. REVIEW OF SYSTEMS: No fever, sweats, chills. No other significant joint pain. No numbness or tingling in the right lower extremity. No chest pain, shortness of breath, heart palpitations. PHYSICAL EXAM: Vitals: At 7:39 a.m. on December 24 were temperature 98.3 degrees Fahrenheit, pulse 62, blood pressure 152/67, respiratory rate 18, O2 sat 97% room air. No acute distress. Alert and oriented. Appropriate mood and affect. Appropriate dress and hygiene for an inpatient. The patient is able to walk without significant antalgia using a walker. The patient's gait was symmetric, without any significant Trendelenburg or antalgia, otherwise. The patient looked very comfortable walking and denied any pain with weightbearing. With the patient supine in bed, her surgical incision is clean, dry, and intact. Overlying the right hip, there is a clear soft tissue swelling. There is a mild amount of ecchymosis as well. The area of swelling is tender. There is no impending skin compromise or thinning of the skin, the collection appears deep enough, but that is not a concern. Passive range of motion of the right hip is at least 0 to 90 degrees of flexion and 10 degrees of external and internal rotation. I did not stress test any passive range of motion further, but she had no pain whatsoever within those limits. Positive straight leg raise intact. No weakness or pain with resisted hip flexion or abduction. Neurovascularly intact distally with dorsalis pedis pulse 2+. IMAGING: I reviewed the CT scan of the patient's pelvis from 12/23/16. This demonstrates a large subcutaneous hematoma. This is overlying the right hip laterally. Radiology measured its dimensions as 6.5 cm x 3.4 cm x 9 cm. Total hip implants are well placed and not loose. No fracture evident. Hip joint is located. Two x-ray views of the right hip from December 23 were also reviewed and show a similar right total hip arthroplasty implant secured, not loosened, no fracture, joint located. These do show some soft tissue swelling. LABORATORY DATA: The patient had labs remarkable for a falling hematocrit. Hematocrit early on 12/23/16 was 39 and that was at 2 p.m. Six hours later at 8 :30 p.m., the patient had a hematocrit of 28 and again it was 28 at 5:18 on the morning of December 24. ASSESSMENT: 1. Right hip pain. 2. Right hip contusion, lateral, subcutaneous. 3. History of right total hip arthroplasty in July 2016. PLAN: 1. Given that there is no indication of fracture or implant loosening, I am comfortable with the patient being weightbearing as tolerated, activity as tolerated, right lower extremity. The patient should use an assist device as needed for balance and safety. 2. I recommend the patient be seen by Physical Therapy today to assess her degree of functionality and safe returning to home. 3. I defer to the hospitalist service whether the patient requires any sort of medical workup for what sounds as if it were a presyncopal event yesterday causing the fall. 4. I will discuss with Dr. Diaz and make her aware. The patient should follow up with Dr. Diaz in several weeks in clinic just to assess how she is doing status post total hip arthroplasty procedure, 4 months ago. 5. Obtain one more hematocrit prior to the patient's discharge just to confirm stability. The patient's 11 point drop in hematocrit is likely secondary to IV fluids on admission and bleed into the hematoma. Thank you for this consult. [id number] #: [id number] FRED
[2016-12-25 07:54] VITALS: BP 156/69
[2016-12-25] MEDS: PARoxetine HCL TAB* 10 MG PO SCH (08:15)
[2016-12-25] MEDS: Atorvastatin* 20 MG TAB PO SCH (08:15)
[2016-12-25] MEDS: Oxybutynin TAB* 5 MG PO SCH (08:15)
[2016-12-25] MEDS: Potassium Chlor TAB* 20 MEQ TAB.ER PO SCH (08:15)
[2016-12-25] MEDS: Omeprazole CAP* 20 MG PO SCH (08:15)
[2016-12-25] MEDS: Metoprolol Tartrate TAB* 100 MG TAB PO SCH (08:15)
--- NOTE | 2016-12-25 09:42 | DCNOTE ---
Patient seen this morning. Feeling well. No need for pain meds since yesterday. Thinks swelling may be down a bit, less warm. Ready to go home. On exam, RRR, s1 and s2 present, no m/g/r, abd soft, NTND, BS+, R hip with tender, firm hematoma. Will discharge home today off of AC, will need PCP follow-up to decide when to restart. Discussed need to stand slowly and wait for 1-2 mins before beginning to walk to avoid orthostatic symptoms.
[2016-12-25] MEDS ORDERED: Carbidopa/Levodop 25/100 MG TAB(*) PO SCH (13:36)
--- NOTE | 2016-12-26 09:22 | DS ---
CC: Dr. Adriel Herrera* DISCHARGE SUMMARY: DATE OF ADMISSION: 12/23/16 DATE OF DISCHARGE: 12/25/16 PRIMARY CARE PHYSICIAN: Dr. Adriel Herrera. PRINCIPAL DISCHARGE DIAGNOSES: Fall, possible presyncope, right hip hematoma, acute blood loss anemia. SECONDARY DIAGNOSES: Hypertension, atrial fibrillation on Apixaban, gastroesophageal reflux disease, irritable bowel syndrome, depression, hypertension, ulcers. DISCHARGE MEDICATIONS REGIMEN: 1. Multivitamin one capsule by mouth daily. 2. Vitamin B12 1000 micrograms by mouth daily. 3. Benadryl 50 mg by mouth at bedtime as needed for insomnia. 4. Carbidopa/levodopa one to two tablets by mouth at bedtime half a tablet at noon. 5. Metoprolol tartrate 100 mg by mouth two times daily. 6. Atorvastatin 20 mg by mouth daily. 7. Potassium chloride 20 mEq by mouth two times daily. 8. Paroxetine 10 mg by mouth daily. 9. Oxybutynin 5 mg by mouth daily. 10. Omeprazole 20 mg by mouth daily. 11. Percocet 5/325 one tablet by mouth every 6 hours as needed for pain. STUDIES DURING THE HOSPITALIZATION: Hip x-ray, right hip and pelvis x-ray. Impression: Osteopenia status post right hip arthroplasty. CT of the pelvis without contrast. Impression: No evidence of right hip periprosthetic fracture or pelvic fracture, large loculated hematoma within the subcutaneous tissue plane, lateral to the right hip. HISTORY OF PRESENT ILLNESS AND HOSPITAL SUMMARY: Please see the full history and physical for yRder Lassiter NP for full details. Briefly, Ms. Macedo is an 86-year- old female with a past medical history as above who presented to the hospital after she fell on to her right side in her kitchen at home. She states prior to the fall, she has had some lightheadedness and this occurred shortly after she stood up from the chair. She had imaging done in the hospital that does not show any evidence of fracture; however, she was having significant pain and has significant hematoma on CT scan. The patient was admitted to the hospital. She had a drop in her hemoglobin from 12.5 to a rodney of 9. This was trended and remained stable. Her Eliquis was held during this admission and will be held on discharge until she follows up with her PCP as an outpatient. The pain improved by the following day and the patient was able to ambulate with the help of a walker, which was recommended she continue to do at home. Dr. Cuadra of Orthopedics did consult during the admission, did not feel any surgical interventions were needed at that time. TIME SPENT: Total time spent on this discharge was 47 minutes. This is a summary of the hospitalization, please see the full medical record for further details. [id number]/[facility] #: [id number] MTDD
== END 2016-12-25 11:45 | disposition home or self-care (01) | DRG 812 ==
LOC: ED 13:32 → MED 18:39 → OBSVTOIN 12-24 15:42
PROVIDERS: ADMIT Hospitalist; ATTEND Hospitalist
DX: D62 Acute posthemorrhagic anemia (principal); K25.9 Gastric ulcer, unspecified as acute or chronic, without hemorrhage or perforation; I48.0 Paroxysmal atrial fibrillation; I10 Essential (primary) hypertension; G25.81 Restless legs syndrome; E53.8 Deficiency of other specified B group vitamins; S70.01XA Contusion of right hip, initial encounter; W17.89XA Other fall from one level to another, initial encounter; M85.861 Other specified disorders of bone density and structure, right lower leg; E78.5 Hyperlipidemia, unspecified; Z96.641 Presence of right artificial hip joint; K21.9 Gastro-esophageal reflux disease without esophagitis; K58.9 Irritable bowel syndrome, unspecified; E73.9 Lactose intolerance, unspecified; F32.9 Major depressive disorder, single episode, unspecified; H35.30 Unspecified macular degeneration; Y92.009 Unspecified place in unspecified non-institutional (private) residence as the place of occurrence of the external cause; Z95.0 Presence of cardiac pacemaker; Z79.01 Long term (current) use of anticoagulants; Z79.899 Other long term (current) drug therapy; Z91.041 Radiographic dye allergy status; Z82.49 Family history of ischemic heart disease and other diseases of the circulatory system; Z82.3 Family history of stroke
CPT/HCPCS: 36415; 72192; 80048; 80053; 83605; 84484; 85014; 85018; 85025; 85610; 85730; 93005; A9270-GY; G0378; G8978-GP-CJ; G8979-GP-CH; J2270; J2405

== ENCOUNTER 2017-01-02 13:44 | Inpatient (IN) | payer MEDICARE ==
[2017-01-02] MEDS ORDERED: NS 0.9% 1000 ML* 1,000 ML IV ONE ×2 (14:09→14:23)
[2017-01-02] MEDS ORDERED: Aspirin Low Dose CHEW TAB* 81 MG PO ONE (14:09)
[2017-01-02] MEDS ORDERED: Diltiazem IV* 5 MG/ML 5 ML VIAL (for loading dose/IV Push) (25 MG) IV PUSH ONE (14:09)
[2017-01-02 14:39] LABS: Hematocrit 31 % (35-47); Mean Corpuscular HGB Conc 33 g/dl (31-36); Mean Corpuscular Hemoglobin 31 pg (27-31); Mean Corpuscular Volume 94 fL (80-97); Mean Platelet Volume 8 um3 (7.4-10.4); Red Blood Count 3.25 10^6/ul (4.0-5.4); Red Cell Distribution Width 18 % (10.5-15); White Blood Count 5.5 10^3/ul (3.5-10.8)
--- NOTE | 2017-01-02 14:50 | RAD ---
INDICATION: Tachycardia COMPARISON: August 17, 2016 TECHNIQUE: An AP portable view obtained at 1430 hours is submitted. FINDINGS: Bones/Soft Tissues: There are no acute bony findings. There is scoliosis. There is a left-sided cardiac pacemaker. Cardiomediastinal: The cardiomediastinal silhouette is normal. Lungs: There are no consolidative changes. Interstitium is mildly prominent. Pleura: There are no pleural effusions. Other: None IMPRESSION: MILD CHRONIC INTERSTITIAL CHANGES. NO ACTIVE DISEASE.
[2017-01-02 14:54] LABS: Albumin 3.4 g/dL (3.2-5.2); BUN/Creatinine Ratio 21.2 (8-20); Calcium 8.7 mg/dL (8.6-10.3); EGFR African American 81.7 (>60); EGFR Non-African American 63.6 (>60); Globulin 3.1 g/dL (2-4); Potassium 3.8 mmol/L (3.5-5.0); Total Bilirubin 0.7 mg/dL (0.2-1.0); Total Protein 6.5 g/dL (6.4-8.9)
[2017-01-02 14:56] LABS: Troponin I 0.02 ng/mL (<0.04)
[2017-01-02 16:50] LABS: TSH (Thyroid Stimulating Horm) 0.5 mcIU/mL (0.34-5.60)
[2017-01-02] MEDS ORDERED: Oxybutynin TAB* 5 MG PO SCH (18:00)
[2017-01-02] MEDS: NS 0.9% 1000 ML* 1,000 ML IV SCH (18:59)
[2017-01-02] MEDS: Apixaban* 5 MG TAB PO SCH (21:10)
[2017-01-02] MEDS: Acetaminophen TAB* 325 MG PO PRN (21:10)
[2017-01-02] MEDS: Metoprolol Tartrate TAB* 100 MG TAB PO SCH (21:10)
[2017-01-02] MEDS: PARoxetine HCL TAB* 10 MG PO SCH (21:10)
[2017-01-02] MEDS: Carbidopa/Levodop 25/250MG TAB(*) PO SCH (21:10)
[2017-01-02] MEDS: Potassium Chlor TAB* 20 MEQ TAB.ER PO SCH (21:10)
--- NOTE | 2017-01-02 22:04 | HP ---
CC: Dr. Herrera * HISTORY AND PHYSICAL: DATE OF ADMISSION: 01/02/17 TIME OF EVALUATION: 3:20 p.m. PRIMARY CARE PROVIDER: Dr. Herrera. CHIEF COMPLAINT: "I almost passed out." HISTORY OF PRESENT ILLNESS: Ms. Macedo is an 86-year-old lady with a past medical history of hypertension, atrial fibrillation, GERD, irritable bowel syndrome, lactose intolerance, depression, vitamin B12 deficiency, restless leg syndrome, macular degeneration, hypertension, gastric ulcers, status post pacemaker, who presented to the emergency room with complaints of feeling lightheaded. The patient's history goes back to December 23, when she was admitted to [facility] [place] after sustaining a fall. At that time, she developed right hip pain and hematoma. She was discharged home off her anticoagulation and there was some concern for possible near syncope causing her fall. The patient states that she was not back to her usual self, but she was feeling "okay" during the week. She does not think she ate or drank enough and today she went to her primary, Dr. Herrera, where he requested some blood tests. She states that during the appointment, she was feeling well, but later on she was feeling weak and decided to have the blood test later. She went home and while she was sitting on the bed, she felt like she was going to pass out and that her heart was beating fast. She had been advised by Dr. Mills, her instructor adjunct pharmacy technician , that she could take an extra dose of her metoprolol if she experienced symptoms like that, so she took another dose of metoprolol and lay down. She states that she was still feeling lightheaded and her daughter described that the patient was a little bit confused and could not explain exactly what she was feeling, so for that reason, 911 was called and the patient was brought to the emergency room. Her EKG upon ER arrival showed an SVT with a heart rate of 162. She received 1 dose of Cardizem mg IV and the rhythm broke and she felt better. The hospitalist service was called for further evaluation. PAST MEDICAL HISTORY: 1. Hypertension. 2. Atrial fibrillation, status post pacemaker placement. 3. GERD. 4. IBS. 5. Lactose intolerance. 6. Depression. 7. Vitamin B12 deficiency. 8. Restless leg syndrome. 9. Macular degeneration. 10. Hypertension. 11. Gastric ulcers. PAST SURGICAL HISTORY: 1. Status post hysterectomy. 2. Hiatal hernia repair. 3. Status post laparoscopic cholecystectomy. 4. Status post tonsillectomy. 5. Status post cataract surgery. 6. Status post right total hip arthroplasty. MEDICATION LIST: 1. Atorvastatin 20 mg p.o. daily. 2. Apixaban 5 mg p.o. b.i.d. 3. Carbidopa-levodopa 25/100 mg half a tablet p.o. in the morning and 1 to 2 tablets p.o. at bedtime. 4. Cyanocobalamin 1000 mcg p.o. daily. 5. Benadryl 50 mg p.o. at bedtime as needed for sleep. 6. Metoprolol tartrate 100 mg p.o. b.i.d. 7. Multivitamin 1 tablet p.o. daily. 8. Omeprazole 20 mg p.o. daily. 9. Oxybutynin 5 mg p.o. q.p.m. 10. Paroxetine 10 mg p.o. daily. 11. Potassium chloride 10 mEq p.o. b.i.d. ALLERGIES: The patient had anaphylactic shock with IV DYE. She does not take ASPIRIN because of her history of GI upset, and she had nausea and vomiting with MORPHINE. FAMILY HISTORY: Mother had a history of OK and hypertension. Father had a history of CVA. SOCIAL HISTORY: The patient denies tobacco abuse. She occasionally drinks alcohol. Surrogate decision maker is her daughter, Radha Reed, the phone number is [phone]. REVIEW OF SYSTEMS: A 14-point review of systems was performed and all the pertinent negative and positive findings are in the HPI. PHYSICAL EXAMINATION GENERAL: The patient is a pleasant, elderly lady, lying in ER stretcher in no acute distress. VITAL SIGNS: Temperature 99.3, heart rate is 60, respiratory rate is 16, oxygen saturation is 100% on 2 L nasal cannula, blood pressure is 123/59. HEENT: Pupils are equal. Moist mucous membranes. CHEST: Breath sounds present bilaterally with no added sounds. CVS: Normal S1 and S2. Regular rate and rhythm. ABDOMEN: Soft, nontender, nondistended. Bowel sounds are present. EXTREMITIES: The patient has 1+ bilateral lower extremity edema. She has a large hematoma on her right hip with ecchymosis in multiple stages of healing in the same area. NEUROLOGIC: She is alert and oriented x3. She is able to move all 4 extremities. LABORATORY AND IMAGING DATA: The patient had a CBC that showed WBC of 5.5, hemoglobin of 10, hematocrit of 31, platelets 255,000, 78% neutrophils. Chemistry showed a sodium of 136, potassium 3.8, chloride of 104, bicarbonate of 24, BUN of 18, creatinine of 0.85, glucose of 181, calcium 8.7, lactic acid of 2.3. LFTs are normal. Chest x-ray showed mild chronic interstitial changes, but no active disease. EKG done on January 02 at 13:58 showed SVT at 162 beats per minute. This is new when compared to her prior EKG done on December 23. She was in sinus rhythm at that time. ASSESSMENT AND PLAN: Ms. Macedo is an 86-year-old lady with a past medical history of hypertension, atrial fibrillation, status post pacemaker, GERD, depression, restless leg syndrome, hypertension, recent admission for fall with a right hip hematoma a week ago, who presented to the emergency room after a near syncopal episode. 1. Near syncope. Suspect this is likely multifactorial associated with atrial fibrillation with rapid ventricular rate, dehydration, and anemia. The patient is back in sinus rhythm and she is going to be admitted to the telemetry floor where we are going to continue to monitor her rhythm. For now, I am just going to continue her usual dose of metoprolol, but if she continues to have bursts of atrial fibrillation, maybe increasing the dose would be the next step. She saw Dr. Herrera today and had just resumed her apixaban. Her fall has been more than a week ago, so I am going to continue apixaban for now, but we are going to monitor her H and H. If she has seen a significant drop of her H and H , we should hold apixaban again. I am going to check her TSH level. Her last echocardiogram was in April 2016 and it showed ejection fraction of 45% with [id number] aortic regurgitation, aortic stenosis, mild-to- moderate mitral regurgitation, moderate tricuspid regurgitation. We are going to check orthostatic vital signs. 2. Dehydration. The patient has had poor oral intake at home. We are going to continue gentle IV hydration. 3. Blood loss anemia. The patient's hemoglobin prior to her fall was 12.5 and on discharge, it was 9.1. Today, it is 10, but I believe part of it is hemoconcentration secondary to dehydration. We are going to continue IV fluids and monitor her H and H. Blood transfusion is not indicated at this time. If she has a significant drop of her H and H, I believe we should discontinue her apixaban. 4. Restless leg syndrome. We will continue carbidopa-levodopa. 5. Hypertension, we will continue metoprolol. 6. Depression, we will continue paroxetine. 7. DVT prophylaxis, the patient has a score of 4 on the DVT Prophylaxis Risk Assessment Guide and she is already on apixaban. 8. Code status, the patient wishes to be a do not resuscitate. TIME SPENT: Approximately 60 minutes were spent with patient interview, medical records review, physical examination to complete the admission, more than half of this time spent [id number] with the patient in coordination of care. [id number]/[facility] #: [id number] FRED
[2017-01-02] MEDS: diPHENhydraMINE PO* 50 MG PO PRN (22:16)
[2017-01-02] MEDS: Carbidopa/Levodop 25/100 MG TAB(*) PO SCH (22:26)
[2017-01-03 04:43] LABS: Hematocrit 25 % (35-47); Hemoglobin 8.1 g/dl (12.0-16.0); Mean Corpuscular HGB Conc 33 g/dl (31-36); Mean Corpuscular Hemoglobin 30 pg (27-31); Mean Corpuscular Volume 94 fL (80-97); Mean Platelet Volume 8 um3 (7.4-10.4); Red Blood Count 2.67 10^6/ul (4.0-5.4); Red Cell Distribution Width 18 % (10.5-15); White Blood Count 4.4 10^3/ul (3.5-10.8)
[2017-01-03 04:58] LABS: BUN/Creatinine Ratio 27.7 (8-20); EGFR African American 111.4 (>60); EGFR Non-African American 86.6 (>60); Potassium 3.7 mmol/L (3.5-5.0)
[2017-01-03] MEDS: Cyanocobalamin TAB* 500 MCG PO SCH (07:38)
[2017-01-03] MEDS: Metoprolol Tartrate TAB* 100 MG TAB PO SCH ×2 (07:38→20:48)
[2017-01-03] MEDS: Potassium Chlor TAB* 20 MEQ TAB.ER PO SCH ×2 (07:38→20:49)
[2017-01-03] MEDS: Omeprazole CAP* 20 MG PO SCH (07:38)
[2017-01-03] MEDS: Apixaban* 5 MG TAB PO SCH ×2 (07:38→20:51)
[2017-01-03] MEDS: Atorvastatin* 20 MG TAB PO SCH (07:38)
[2017-01-03] MEDS: Multivitamins/Minerals TAB PO SCH (07:38)
[2017-01-03] MEDS: NS 0.9% 1000 ML* 1,000 ML IV SCH ×2 (10:07→22:45)
--- NOTE | 2017-01-03 10:08 | PN ---
Subjective Date of Service: 01/03/17 Interval History: Patient is feeling better but still somewhat weak. No chest pain or SOB. Objective Active Medications: Acetaminophen (Tylenol Tab*) 650 mg PO Q6H PRN PRN Reason: pain/fever Last Admin: 01/02/17 21:10 Dose: 650 mg Apixaban (Eliquis*) 5 mg PO BID [facility] Last Admin: 01/03/17 07:38 Dose: 5 mg Atorvastatin Calcium (Lipitor*) 20 mg PO DAILY [facility] Last Admin: 01/03/17 07:38 Dose: 20 mg Carbidopa/Levodopa (Sinemet 25/100 Tab(*)) 0.5 tab PO 1900 [facility] Last Admin: 01/02/17 22:26 Dose: 0.5 tab Carbidopa/Levodopa (Sinemet 25/250 Tab(*)) 1 tab PO BEDTIME [facility] Last Admin: 01/02/17 21:10 Dose: 1 tab Cyanocobalamin (Vitamin B12 Tab*) 1,000 mcg PO DAILY [facility] Last Admin: 01/03/17 07:38 Dose: 1,000 mcg Diphenhydramine HCl (Benadryl Po*) 50 mg PO BEDTIME PRN PRN Reason: SLEEP Last Admin: 01/02/17 22:16 Dose: 50 mg Sodium Chloride (Ns 0.9% 1000 Ml*) 1,000 mls @ 100 mls/hr IV PER RATE [facility] Last Admin: 01/02/17 18:59 Dose: 100 mls/hr Metoprolol Tartrate (Lopressor Tab*) 100 mg PO BID [facility] Last Admin: 01/03/17 07:38 Dose: 100 mg Multivitamins/Minerals (Theragran/Minerals Tab*) 1 tab PO DAILY [facility] Last Admin: 01/03/17 07:38 Dose: 1 tab Omeprazole (Prilosec Cap*) 20 mg PO 0730 [facility] Last Admin: 01/03/17 07:38 Dose: 20 mg Oxybutynin Chloride (Ditropan Tab*) 5 mg PO QPM [facility] Last Admin: 01/02/17 18:58 Dose: 5 mg Paroxetine HCl (Paxil Tab*) 10 mg PO 2100 [facility] Last Admin: 01/02/17 21:10 Dose: 10 mg Potassium Chloride (Klor Con Er Tab*) 20 meq PO BID [facility] Last Admin: 01/03/17 07:38 Dose: 20 meq Vital Signs 01/02/17 01/02/17 01/02/17 15:30 16:00 16:20 Temperature 97.7 F Pulse Rate 60 59 70 Respiratory 15 14 20 Rate Blood Pressure 123/65 142/58 153/75 (mmHg) O2 Sat by Pulse 100 100 98 Oximetry 01/02/17 01/02/17 01/02/17 18:36 18:38 18:40 Temperature 98.5 F Pulse Rate 65 66 71 Respiratory 16 Rate Blood Pressure 140/68 138/60 127/59 (mmHg) O2 Sat by Pulse 100 Oximetry 01/02/17 01/02/17 01/03/17 22:16 23:45 00:16 Temperature 97.9 F Pulse Rate 60 Respiratory 18 16 16 Rate Blood Pressure 117/51 (mmHg) O2 Sat by Pulse 94 Oximetry 01/03/17 01/03/17 03:37 07:25 Temperature 98.6 F 98.6 F Pulse Rate 61 61 Respiratory 16 18 Rate Blood Pressure 150/66 160/68 (mmHg) O2 Sat by Pulse 94 96 Oximetry Oxygen Devices in Use Now: None Appearance: Elderly woman lying in bed in NAD Ears/Nose/Mouth/Throat: Mucous Membranes Moist Neck: NL Appearance and Movements; NL JVP, No Thyroid Enlargement, Masses Respiratory: Clear to Auscultation Cardiovascular: - - S1S2 juan francisco Abdominal: NL Sounds; No Tenderness; No Distention, No Hepatosplenomegaly Lymphatic: No Cervical Adenopathy Extremities: No Clubbing, Cyanosis Skin: No Rash or Ulcers Neurological: Alert and Oriented x 3 Result Diagrams: 01/03/17 04:22 01/03/17 04:22 Microbiology and Other Data: Microbiology 01/03/17 09:22 Stool Occult Blood (EL) - Final Stool Assess/Plan/Problems-Billing Assessment: 86 year old woman who presented to [facility] [place] with a cc of weakness and that she almost passed out. Patient was found to be tachycardic and anemic as well. - Patient Problems (1) Near syncope Current Visit: No Status: Acute Comment: Patient was tachycardic which has now resolved with cardizem and fluids. Anemia worse. Repeat H/H and check stool for heme. Monitor for one more day and if stable dc home. (2) Acute blood loss anemia Current Visit: No Status: Acute Code(s): D62 - ACUTE POSTHEMORRHAGIC ANEMIA SNOMED Code(s): 744071661 Comment: At this point unclear if acute blood loss or dilutional. Monitor H/ H. May need to dc anticoagulation if indeed she has bleed. (3) Depression Current Visit: No Status: Chronic Code(s): F32.9 - MAJOR DEPRESSIVE DISORDER , SINGLE EPISODE, UNSPECIFIED SNOMED Code(s): 00222158 Comment: Stable. Continue Paxil (4) HTN (hypertension) Current Visit: No Status: Chronic Code(s): I10 - ESSENTIAL (PRIMARY) HYPERTENSION SNOMED Code(s): 26029583 Comment: Somewhat high. For now continue current regimen and adjust accordingly. (5) Paroxysmal atrial fibrillation Current Visit: No Status: Chronic Code(s): I48.0 - PAROXYSMAL ATRIAL FIBRILLATION SNOMED Code(s): 842424831 Comment: For now on Eliquis. HR adequately controlled. (6) RLS (restless legs syndrome) Current Visit: No Status: Chronic Comment: Stable. Continue Sinemet (7) Dehydration Current Visit: Yes Status: Acute Code(s): E86.0 - DEHYDRATION SNOMED Code( s): 96863262 Comment: Clinically improved. Monitor. (8) DVT prophylaxis Current Visit: No Status: Acute Code(s): PQK6327 - SNOMED Code(s): 537961914 Comment: On Eliquis (9) DNR (do not resuscitate) Current Visit: No Status: Acute
[2017-01-03] MEDS ORDERED: Diltiazem DRIP* 100 MG/100 ML ADDV.BAG IVPB ONE ×2 (10:18→22:17)
[2017-01-03] MEDS ORDERED: Diltiazem DRIP* 100 MG/100 ML ADDV.BAG IVPB SCH (11:00)
[2017-01-03] MEDS: Acetaminophen TAB* 325 MG PO PRN (14:24)
[2017-01-03] MEDS: Oxybutynin TAB* 5 MG PO SCH (14:24)
[2017-01-03 15:50] LABS: Hematocrit 27 % (35-47); Hemoglobin 8.7 g/dl (12.0-16.0)
[2017-01-03] MEDS: Carbidopa/Levodop 25/100 MG TAB(*) PO SCH (18:47)
[2017-01-03] MEDS: Carbidopa/Levodop 25/250MG TAB(*) PO SCH (20:50)
[2017-01-03] MEDS: PARoxetine HCL TAB* 10 MG PO SCH (20:51)
[2017-01-03] MEDS ORDERED: Metoprolol Tartrate IV* 1 MG/ML 5 ML VIAL IV PRN (21:22)
--- NOTE | 2017-01-03 22:19 | PN ---
Progress Note - Progress Note Date of Service: 01/03/17 Note: Paged by RN, patient sustained rapid afib in 140s-150s, no response to IV lopressor. Was on diltiazem drip earlier with good response. Will start drip back on and obtain EKG.
[2017-01-03] MEDS: diPHENhydraMINE PO* 50 MG PO PRN (23:14)
[2017-01-04 01:49] LABS: Hematocrit 26 % (35-47); Hemoglobin 8.4 g/dl (12.0-16.0)
[2017-01-04 04:29] LABS: BUN/Creatinine Ratio 26.7 (8-20); Calcium 8.3 mg/dL (8.6-10.3); EGFR African American 94.5 (>60); EGFR Non-African American 73.4 (>60); Magnesium 1.6 mg/dL (1.9-2.7)
[2017-01-04 04:39] LABS: Potassium 3.8 mmol/L (3.5-5.0)
[2017-01-04] MEDS: Acetaminophen TAB* 325 MG PO PRN ×2 (05:51→20:49)
[2017-01-04] MEDS: Omeprazole CAP* 20 MG PO SCH (07:45)
[2017-01-04] MEDS: Multivitamins/Minerals TAB PO SCH (07:46)
[2017-01-04] MEDS: Metoprolol Tartrate TAB* 100 MG TAB PO SCH ×2 (07:46→20:48)
[2017-01-04] MEDS: Oxybutynin TAB* 5 MG PO SCH (07:46)
[2017-01-04] MEDS: Atorvastatin* 20 MG TAB PO SCH (07:46)
[2017-01-04] MEDS: Potassium Chlor TAB* 20 MEQ TAB.ER PO SCH ×2 (07:46→20:48)
[2017-01-04] MEDS: Cyanocobalamin TAB* 500 MCG PO SCH (07:46)
[2017-01-04] MEDS: Apixaban* 5 MG TAB PO SCH ×2 (07:46→20:48)
[2017-01-04 08:54] LABS: Hematocrit 30 % (35-47); Hemoglobin 9.7 g/dl (12.0-16.0)
[2017-01-04] MEDS: NS 0.9% 1000 ML* 1,000 ML IV SCH (09:10)
[2017-01-04] MEDS: Diltiazem TAB* 30 MG PO SCH ×3 (11:05→23:51)
[2017-01-04] MEDS ORDERED: Diltiazem TAB* 30 MG PO SCH (12:00)
--- NOTE | 2017-01-04 18:31 | PN ---
Subjective Date of Service: 01/04/17 Interval History: Patient feels much better but is still very concerned. Less weak. Objective Active Medications: Acetaminophen (Tylenol Tab*) 650 mg PO Q6H PRN PRN Reason: pain/fever Last Admin: 01/04/17 05:51 Dose: 650 mg Apixaban (Eliquis*) 5 mg PO BID [facility] Last Admin: 01/04/17 07:46 Dose: 5 mg Atorvastatin Calcium (Lipitor*) 20 mg PO DAILY [facility] Last Admin: 01/04/17 07:46 Dose: 20 mg Carbidopa/Levodopa (Sinemet 25/100 Tab(*)) 0.5 tab PO 1900 [facility] Last Admin: 01/03/17 18:47 Dose: 0.5 tab Carbidopa/Levodopa (Sinemet 25/250 Tab(*)) 1 tab PO BEDTIME [facility] Last Admin: 01/03/17 20:50 Dose: 1 tab Cyanocobalamin (Vitamin B12 Tab*) 1,000 mcg PO DAILY [facility] Last Admin: 01/04/17 07:46 Dose: 1,000 mcg Diltiazem HCl (Cardizem Tab*) 30 mg PO Q6HR [facility] Last Admin: 01/04/17 11:05 Dose: 30 mg Diphenhydramine HCl (Benadryl Po*) 50 mg PO BEDTIME PRN PRN Reason: SLEEP Last Admin: 01/03/17 23:14 Dose: 50 mg Metoprolol Tartrate (Lopressor Tab*) 100 mg PO BID [facility] Last Admin: 01/04/17 07:46 Dose: 100 mg Metoprolol Tartrate (Lopressor Iv*) 5 mg IV Q6H PRN PRN Reason: BLOOD PRESSURE Last Admin: 01/03/17 21:32 Dose: 5 mg Multivitamins/Minerals (Theragran/Minerals Tab*) 1 tab PO DAILY [facility] Last Admin: 01/04/17 07:46 Dose: 1 tab Omeprazole (Prilosec Cap*) 20 mg PO 0730 [facility] Last Admin: 01/04/17 07:45 Dose: 20 mg Oxybutynin Chloride (Ditropan Tab*) 5 mg PO 0900 [facility] Last Admin: 01/04/17 07:46 Dose: 5 mg Paroxetine HCl (Paxil Tab*) 10 mg PO 2100 [facility] Last Admin: 01/03/17 20:51 Dose: 10 mg Potassium Chloride (Klor Con Er Tab*) 20 meq PO BID [facility] Last Admin: 01/04/17 07:46 Dose: 20 meq Vital Signs 01/03/17 01/03/17 01/03/17 19:28 20:00 22:47 Temperature 97.3 F Pulse Rate 66 Respiratory 16 16 19 Rate Blood Pressure 155/75 154/139 (mmHg) O2 Sat by Pulse 97 Oximetry 01/03/17 01/03/17 01/03/17 22:50 22:55 23:00 Temperature Pulse Rate 125 135 136 Respiratory 21 17 19 Rate Blood Pressure 145/109 93/66 144/85 (mmHg) O2 Sat by Pulse 93 96 95 Oximetry 01/03/17 01/03/17 01/03/17 23:05 23:14 23:15 Temperature Pulse Rate 127 134 Respiratory 21 18 17 Rate Blood Pressure 100/77 108/69 (mmHg) O2 Sat by Pulse 95 97 Oximetry 01/03/17 01/03/17 01/03/17 23:16 23:30 23:45 Temperature 97.9 F Pulse Rate 133 109 Respiratory 21 22 Rate Blood Pressure 103/83 95/75 (mmHg) O2 Sat by Pulse 94 95 Oximetry 01/04/17 01/04/17 01/04/17 00:00 00:07 00:30 Temperature Pulse Rate 98 95 60 Respiratory 20 18 20 Rate Blood Pressure 102/47 92/48 (mmHg) O2 Sat by Pulse 93 93 93 Oximetry 01/04/17 01/04/17 01/04/17 01:00 01:14 01:30 Temperature Pulse Rate 65 62 Respiratory 19 16 19 Rate Blood Pressure 101/49 114/54 (mmHg) O2 Sat by Pulse 93 95 Oximetry 01/04/17 01/04/17 01/04/17 02:00 03:00 03:40 Temperature 98.0 F Pulse Rate 60 60 Respiratory 18 18 20 Rate Blood Pressure 121/55 136/64 (mmHg) O2 Sat by Pulse 95 95 Oximetry 01/04/17 01/04/17 01/04/17 04:00 05:00 06:00 Temperature Pulse Rate 64 61 60 Respiratory 21 18 16 Rate Blood Pressure 150/71 (mmHg) O2 Sat by Pulse 95 95 96 Oximetry 01/04/17 01/04/17 01/04/17 06:01 07:00 07:50 Temperature Pulse Rate 60 61 Respiratory 18 16 16 Rate Blood Pressure 138/67 (mmHg) O2 Sat by Pulse 96 95 Oximetry 01/04/17 01/04/17 01/04/17 08:00 09:00 11:31 Temperature 98.4 F Pulse Rate 62 106 Respiratory 17 17 18 Rate Blood Pressure 110/93 (mmHg) O2 Sat by Pulse 96 100 Oximetry 01/04/17 01/04/17 11:33 15:25 Temperature 97.8 F Pulse Rate 60 Respiratory 16 Rate Blood Pressure 135/91 128/60 (mmHg) O2 Sat by Pulse 99 Oximetry Oxygen Devices in Use Now: None Appearance: Thin frail woman sitting up in bed in NAD Ears/Nose/Mouth/Throat: Mucous Membranes Moist Neck: No Thyroid Enlargement, Masses Respiratory: Clear to Auscultation Cardiovascular: NL Sounds; No Murmurs; No JVD, - - S1S2 juan francisco Abdominal: NL Sounds; No Tenderness; No Distention, No Hepatosplenomegaly Lymphatic: No Cervical Adenopathy Extremities: No Clubbing, Cyanosis Skin: No Rash or Ulcers Neurological: Alert and Oriented x 3 Result Diagrams: 01/04/17 08:27 01/04/17 03:59 Microbiology and Other Data: Microbiology 01/03/17 09:22 Stool Occult Blood (EL) - Final Stool Assess/Plan/Problems-Billing Assessment: 86 year old woman who presented to [facility] with a cc of weakness and that she almost passed out. Patient was found to be tachycardic and anemic as well. - Patient Problems (1) Near syncope Current Visit: No Status: Acute Comment: Patient was tachycardic which has now resolved with po cardizem .Anemia improved. Likely dc in am (2) Acute blood loss anemia Current Visit: No Status: Acute Code(s): D62 - ACUTE POSTHEMORRHAGIC ANEMIA SNOMED Code(s): 397299690 Comment: Likely dilutional. Monitor. (3) Depression Current Visit: No Status: Chronic Code(s): F32.9 - MAJOR DEPRESSIVE DISORDER , SINGLE EPISODE, UNSPECIFIED SNOMED Code(s): 61544748 Comment: Stable. Continue Paxil (4) HTN (hypertension) Current Visit: No Status: Chronic Code(s): I10 - ESSENTIAL (PRIMARY) HYPERTENSION SNOMED Code(s): 00921070 Comment: Improved. Continue current regimen and adjust if necessary. (5) Paroxysmal atrial fibrillation Current Visit: No Status: Chronic Code(s): I48.0 - PAROXYSMAL ATRIAL FIBRILLATION SNOMED Code(s): 748464152 Comment: For now on Eliquis. HR adequately controlled. (6) RLS (restless legs syndrome) Current Visit: No Status: Chronic Comment: Stable. Continue Sinemet (7) Dehydration Current Visit: Yes Status: Acute Code(s): E86.0 - DEHYDRATION SNOMED Code( s): 59003988 Comment: Clinically improved. Monitor. (8) DVT prophylaxis Current Visit: No Status: Acute Code(s): HHG4349 - SNOMED Code(s): 014179887 Comment: On Eliquis (9) DNR (do not resuscitate) Current Visit: No Status: Acute
[2017-01-04] MEDS: Carbidopa/Levodop 25/100 MG TAB(*) PO SCH ×2 (18:33→18:34)
[2017-01-04] MEDS: diPHENhydraMINE PO* 50 MG PO PRN (20:48)
[2017-01-04] MEDS: Carbidopa/Levodop 25/250MG TAB(*) PO SCH (20:48)
[2017-01-04] MEDS: PARoxetine HCL TAB* 10 MG PO SCH (20:48)
[2017-01-05] MEDS: Diltiazem TAB* 30 MG PO SCH (05:50)
[2017-01-05] MEDS: Apixaban* 5 MG TAB PO SCH (07:47)
[2017-01-05] MEDS: Metoprolol Tartrate TAB* 100 MG TAB PO SCH (07:47)
[2017-01-05] MEDS: Oxybutynin TAB* 5 MG PO SCH (07:47)
[2017-01-05] MEDS: Omeprazole CAP* 20 MG PO SCH (07:47)
[2017-01-05] MEDS: Potassium Chlor TAB* 20 MEQ TAB.ER PO SCH (07:47)
[2017-01-05] MEDS: Multivitamins/Minerals TAB PO SCH (07:47)
[2017-01-05] MEDS: Cyanocobalamin TAB* 500 MCG PO SCH (07:47)
[2017-01-05] MEDS: Atorvastatin* 20 MG TAB PO SCH (07:47)
[2017-01-05 07:51] VITALS: BP 151/75
--- NOTE | 2017-01-06 12:27 | DS ---
CC: Dr. Tien Altamirano* DISCHARGE SUMMARY: DATE OF ADMISSION: 01/02/17 DATE OF DISCHARGE: 01/05/17 ADMISSION DIAGNOSES: 1. Weakness. 2. Near syncope. 3. Dehydration. 4. Anemia. 5. Restless legs syndrome. 6. Hypertension. 7. Depression. 8. DVT prophylaxis. 9. Atrial fibrillation. DISCHARGE DIAGNOSES: 1. Weakness. 2. Near syncope. 3. Dehydration. 4. Anemia. 5. Restless legs syndrome. 6. Hypertension. 7. Depression. 8. DVT prophylaxis. 9. Atrial fibrillation with rapid ventricular response. HOSPITAL COURSE: The patient is an 86-year-old woman, who was brought into [facility] with a chief complaint that she almost passed out. Please see H and P for further details. The patient was found to be anemic and was concerned that this may be the case. She was also found to be dehydrated. She received fluids, but her hemoglobin went down from 10 to 8.1. However, this was continuously monitored and her hemoglobin actually stabilized and went up. She did, however, go into rapid atrial fibrillation several times, required Cardizem drips. We eventually put her on just Cardizem p.o. and she maintained regular heart rate over 24 hours and is feeling much better. She was anxious to go home. The patient was stable at discharge with close followup with the PCP. PHYSICAL EXAMINATION: On the date of discharge, thin elderly woman lying in bed , in no acute distress. Vital Signs: Blood pressure 151/75, pulse ox 99%, respiratory rate 16 breaths per minute, heart rate 63 beats per minute, temperature is 98.1 degrees. HEENT: Normocephalic and atraumatic. Pupils are equal, round, and reactive to light. Moist mucous membranes. Neck: Supple. No JVD, bruits, palpable thyroid, or lymphadenopathy. Chest: Clear to auscultation and percussion bilaterally. Cardiovascular Exam: S1 and S2 appreciated. Abdominal Exam: Positive bowel sounds in all 4 quadrants. Soft, nontender, and nondistended. Extremities: No cyanosis, clubbing, or edema. +2 peripheral pulses bilaterally. Neuro: Alert and oriented x3. Moves all extremities. Skin: No rashes or abnormalities. STUDIES DONE WHILE IN THE HOSPITAL: Chest x-ray, 01/02/17: Impression: Mild chronic interstitial changes. No active disease. DISCHARGE MEDICATIONS: 1. Eliquis 5 mg twice daily. 2. Multivitamin 1 tablet daily. 3. Oxybutynin 5 mg in the evening. 4. Omeprazole 20 mg daily. 5. Atorvastatin 20 mg daily. 6. Benadryl 50 mg at bedtime as needed. 7. Potassium chloride 20 mEq twice daily. 8. Paroxetine 10 mg daily. 9. Sinemet 25/250 one to two tabs at bedtime. 10. Sinemet 25/100 daily. 11. Metoprolol tartrate 100 mg twice daily. 12. Diltiazem CD 120 mg daily. 13. Vitamin B12 1000 mcg daily. DISCHARGE PLAN: The patient was discharged home to follow up with her PCP in 1 week. Return to the ED if symptoms recur. TIME SPENT: Over 40 minutes was spent on this H and P, more than 25 minutes of which was spent in direct [id number] contact with the patient, evaluation, physical exam, counseling, and coordination of care. [id number]/[facility] #: [id number] FRED
--- NOTE | 2017-01-09 10:30 | ED ---
I, Carlos Enrique,Barbara, scribed for Austin Shields MD on 01/02/17 at 1428 . Shortness of Breath - HPI Summary HPI Summary: This 86 y/o female presents to ED for SOB since this morning. Pt was evaluated this morning by PCP, and referred to ED when pt was noted anemic. She went out for breakfast, and was sitting and driving in car seat at time of onset. Positive near syncope, chronic lightheaded dizziness and nausea. HR of 160s is noted at time of initial evaluation. PMHx includes restless leg syndrome, hip surgery, afib with hx of anticoagulant therapy. Pt is currently not on any blood thinner. Pt took her medications this morning at 0600 AM. Front Office Representative present at bedside reports a fall last week. Pt is currelty on colace, percoet, magnesium, Klor-con, metoprolol, spironolactone, carbidopa-levodopa. Pt was just put back on eliquis this morning, and has taken one dose today. Heart rate of 64 is noted after 1x of diltiazem IV. Plan of care involving hospital admission is discussed with pt and sheet fed printer, and they are agreeable. - History of Current Complaint Chief Complaint: EDDizziness Hx Obtained From: Patient, Family/Front Office Representative - sheet fed printer present at bedside, Medical Records Onset/Duration: Lasting Hours, Still Present Timing: Constant Dyspnea At: Rest Aggrevating Factors: Nothing Alleviating Factors: Nothing Associated Signs & Symptoms: Dizzy - lightheaded dizziness - Allergy/Home Medications Allergies/Adverse Reactions: Allergies Allergy/AdvReac Type Severity Reaction Status Date / Time Iodinated Diagnostic Agents Allergy Severe Anaphylatic Verified 08/23/16 06:29 Shock Aspirin [ASA] Allergy GI Upset Verified 01/02/17 13:59 Morphine AdvReac Nausea And Verified 12/23/16 19:01 Vomiting Home Medications: Home Medications Apixaban* [Eliquis*] 5 mg PO BID 01/02/17 [History Confirmed 01/02/17] Multivitamins/Minerals TAB* [Theragran/minerals TAB*] 1 tab PO DAILY 01/02/17 [ History Confirmed 01/02/17] PMH/Surg Hx/FS Hx/Imm Hx Cardiovascular History: Reports: Hx Atrial Fibrillation, Hx Hypercholesterolemia , Hx Hypertension, Hx Pacemaker/ICD - PACEMAKER IN 1990 Respiratory History: Reports: Other Respiratory Problems/Disorders - COPD seen on chest xray. Denies: Hx Pneumonia GI History: Reports: Hx Gall Bladder Disease - removed 1963, Hx Gastroesophageal Reflux Disease, Hx Hiatal Hernia - 1975, Hx Irritable Bowel - uses medication, Hx Ulcer - uses medication, Other GI Disorders - IBS, lactose related? History: Reports: Hx Kidney Stones Denies: Hx Kidney Infection Musculoskeletal History: Reports: Hx Arthritis - legs, hip, knee, hands Denies: Hx Bursitis, Hx Tendonitis Sensory History: Reports: Hx Cataracts - surgery 2000, Hx Contacts or Glasses - wears glasses, Hx Macular Degeneration - doesn't impair vision Denies: Hx Glaucoma, Hx Hearing Aid Opthamlomology History: Reports: Hx Cataracts - surgery 2000, Hx Contacts or Glasses - wears glasses, Hx Macular Degeneration - doesn't impair vision Denies: Hx Glaucoma Neurological History: Reports: Hx Migraine - past history Psychiatric History: Reports: Hx Anxiety - Surgical History Surgery Procedure, Year, and Place: hiatal hernia 1975 hysterectomy= 1971. lt =wrist 1998. ce=[id number] pacemaker =1990 Hx Anesthesia Reactions: No - Immunization History Date of Tetanus Vaccine: unknown Date of Influenza Vaccine: 03/2016 Infectious Disease History: No Infectious Disease History: Denies: Traveled Outside the [place] in Last 30 Days - Family History Known Family History: Positive: Cardiac Disease, Diabetes, Blood Disorder - blood clots - Social History Alcohol Use: Occasionally Hx Substance Use: No Substance Use Type: Reports: None Hx Tobacco Use: No Smoking Status (MU): Never Smoked Tobacco Review of Systems Negative: Fever, Chills Negative: Erythema Negative: Sore Throat Negative: Chest Pain Positive: Shortness Of Breath. Negative: Cough Positive: Nausea Negative: dysuria, hematuria Negative: Myalgia, Edema Neurological: Other - Positive for lightheaded dizziness Positive: Syncope - near All Other Systems Reviewed And Are Negative: Yes Physical Exam - Summary Physical Exam Summary: Constitutional: Well-developed, Well-nourished, Alert. (-) Distressed Skin: Warm, Dry. Yellowing hematoma of 30 cm x cm on right lateral thigh up to hip. HENT: Normocephalic; Atraumatic. Oral mucosa dry. Eyes: Conjunctiva normal Neck: Musculoskeletal ROM normal neck. (-) JVD, (-) Stridor, (-) Tracheal deviation Cardio: Rhythm rapid irregular. Pulmonary/Chest wall: Tachypnic. (-) Respiratory distress, (-) Wheezes, (-) Rales Abd: Soft, (-) Tenderness, (-) Distension, (-) Guarding, (-) Rebound Musculoskeletal: (-) Edema Lymph: (-) Cervical adenopathy Neuro: Alert, Oriented x3 Psych: Mood and affect Normal Triage Information Reviewed: Yes Vital Signs On Initial Exam: Initial Vitals Temp Pulse Resp BP Pulse Ox 99.3 F 166 19 144/98 98 01/02/17 13:52 01/02/17 13:52 01/02/17 13:52 01/02/17 13:52 01/02/17 13:52 Vital Signs Reviewed: Yes Diagnostics - Vital Signs Vital Signs Temp Pulse Resp BP Pulse Ox 01/02/17 13:57 99.3 F 166 19 144/98 98 01/02/17 13:52 99.3 F 166 19 144/98 98 - Laboratory Lab Results: Lab Results 01/02/17 01/02/17 01/02/17 Range/Units 14:25 14:25 14:25 WBC 5.5 (3.5-10.8) 10^3/ul RBC 3.25 L (4.0-5.4) 10^6/ul Hgb 10.0 L (12.0-16.0) g/dl Hct 31 L (35-47) % MCV 94 (80-97) fL MCH 31 (27-31) pg MCHC 33 (31-36) g/dl RDW 18 H (10.5-15) % Plt Count 255 (150-450) 10^3/ul MPV 8 (7.4-10.4) um3 Neut % (Auto) 78.0 (38-83) % Lymph % (Auto) 9.1 L (25-47) % Glasscock % (Auto) 11.1 H (1-9) % Eos % (Auto) 1.1 (0-6) % Baso % (Auto) 0.7 (0-2) % Absolute Neuts (auto) 4.3 (1.5-7.7) 10^3/ul Absolute Lymphs (auto) 0.5 L (1.0-4.8) 10^3/ul Absolute Monos (auto) 0.6 (0-0.8) 10^3/ul Absolute Eos (auto) 0.1 (0-0.6) 10^3/ul Absolute Basos (auto) 0 (0-0.2) 10^3/ul Absolute Nucleated RBC 0 10^3/ul Nucleated RBC % 0 Sodium 136 (133-145) mmol/L Potassium 3.8 (3.5-5.0) mmol/L Chloride 104 (101-111) mmol/L Carbon Dioxide 24 (22-32) mmol/L Anion Gap 8 (2-11) mmol/L BUN 18 (6-24) mg/dL Creatinine 0.85 (0.51-0.95) mg/dL Est GFR ( Amer) 81.7 (>60) Est GFR (Non-Af Amer) 63.6 (>60) BUN/Creatinine Ratio 21.2 H (8-20) Glucose 181 H (70-100) mg/dL Lactic Acid 2.3 H* (0.5-2.0) mmol/L Calcium 8.7 (8.6-10.3) mg/dL Total Bilirubin 0.70 (0.2-1.0) mg/dL AST 21 (13-39) U/L ALT 26 (7-52) U/L Alkaline Phosphatase 99 (34-104) U/L Troponin I 0.02 (<0.04) ng/mL Total Protein 6.5 (6.4-8.9) g/dL Albumin 3.4 (3.2-5.2) g/dL Globulin 3.1 (2-4) g/dL Albumin/Globulin Ratio 1.1 (1-3) TSH 0.50 (0.34-5.60) mcIU/mL Blood Type Antibody Screen 01/02/17 01/02/17 01/02/17 Range/Units 14:25 17:19 20:35 WBC (3.5-10.8) 10^3/ul RBC (4.0-5.4) 10^6/ul Hgb (12.0-16.0) g/dl Hct (35-47) % MCV (80-97) fL MCH (27-31) pg MCHC (31-36) g/dl RDW (10.5-15) % Plt Count (150-450) 10^3/ul MPV (7.4-10.4) um3 Neut % (Auto) (38-83) % Lymph % (Auto) (25-47) % Glasscock % (Auto) (1-9) % Eos % (Auto) (0-6) % Baso % (Auto) (0-2) % Absolute Neuts (auto) (1.5-7.7) 10^3/ul Absolute Lymphs (auto) (1.0-4.8) 10^3/ul Absolute Monos (auto) (0-0.8) 10^3/ul Absolute Eos (auto) (0-0.6) 10^3/ul Absolute Basos (auto) (0-0.2) 10^3/ul Absolute Nucleated RBC 10^3/ul Nucleated RBC % Sodium (133-145) mmol/L Potassium (3.5-5.0) mmol/L Chloride (101-111) mmol/L Carbon Dioxide (22-32) mmol/L Anion Gap (2-11) mmol/L BUN (6-24) mg/dL Creatinine (0.51-0.95) mg/dL Est GFR ( Amer) (>60) Est GFR (Non-Af Amer) (>60) BUN/Creatinine Ratio (8-20) Glucose (70-100) mg/dL Lactic Acid (0.5-2.0) mmol/L Calcium (8.6-10.3) mg/dL Total Bilirubin (0.2-1.0) mg/dL AST (13-39) U/L ALT (7-52) U/L Alkaline Phosphatase (34-104) U/L Troponin I 0.03 0.02 (<0.04) ng/mL Total Protein (6.4-8.9) g/dL Albumin (3.2-5.2) g/dL Globulin (2-4) g/dL Albumin/Globulin Ratio (1-3) TSH (0.34-5.60) mcIU/mL Blood Type O Positive Antibody Screen Negative 01/03/17 01/03/17 Range/Units 04:22 04:22 WBC 4.4 (3.5-10.8) 10^3/ul RBC 2.67 L (4.0-5.4) 10^6/ul Hgb 8.1 L (12.0-16.0) g/dl Hct 25 L (35-47) % MCV 94 (80-97) fL MCH 30 (27-31) pg MCHC 33 (31-36) g/dl RDW 18 H (10.5-15) % Plt Count 228 (150-450) 10^3/ul MPV 8 (7.4-10.4) um3 Neut % (Auto) 57.6 (38-83) % Lymph % (Auto) 29.5 (25-47) % Glasscock % (Auto) 9.1 H (1-9) % Eos % (Auto) 2.0 (0-6) % Baso % (Auto) 1.8 (0-2) % Absolute Neuts (auto) 2.5 (1.5-7.7) 10^3/ul Absolute Lymphs (auto) 1.3 (1.0-4.8) 10^3/ul Absolute Monos (auto) 0.4 (0-0.8) 10^3/ul Absolute Eos (auto) 0.1 (0-0.6) 10^3/ul Absolute Basos (auto) 0.1 (0-0.2) 10^3/ul Absolute Nucleated RBC 0 10^3/ul Nucleated RBC % 0 Sodium 136 (133-145) mmol/L Potassium 3.7 (3.5-5.0) mmol/L Chloride 108 (101-111) mmol/L Carbon Dioxide 23 (22-32) mmol/L Anion Gap 5 (2-11) mmol/L BUN 18 (6-24) mg/dL Creatinine 0.65 (0.51-0.95) mg/dL Est GFR ( Amer) 111.4 (>60) Est GFR (Non-Af Amer) 86.6 (>60) BUN/Creatinine Ratio 27.7 H (8-20) Glucose 94 (70-100) mg/dL Lactic Acid (0.5-2.0) mmol/L Calcium 8.0 L (8.6-10.3) mg/dL Total Bilirubin (0.2-1.0) mg/dL AST (13-39) U/L ALT (7-52) U/L Alkaline Phosphatase (34-104) U/L Troponin I (<0.04) ng/mL Total Protein (6.4-8.9) g/dL Albumin (3.2-5.2) g/dL Globulin (2-4) g/dL Albumin/Globulin Ratio (1-3) TSH (0.34-5.60) mcIU/mL Blood Type Antibody Screen Result Diagrams: 01/04/17 08:27 01/04/17 03:59 Lab Statement: Any lab studies that have been ordered have been reviewed, and results considered in the medical decision making process. - Radiology CXR Xray Interpretation: No Acute Changes - Mild interstitial changes. No acute findings. Radiology Interpretation Completed By: Radiologist - EKG 1358 Cardiac Rate: Other Rate - 162 bpm EKG Rhythm: SVT EKG Interpretation: Afib RVR Course/Dx - Course Course Of Treatment: No ASA was ordered due to pt already being on Eliquis. Assessment/Plan: This 86 y/o female presents to ED for acute SOB and near synopal episode today. Pt was evaluated in the morning by her new PCP and referred to ED when she was noted anemic. Pt drove out instead for breakfast and was sitting in the car driving at time of onset. Pt is noted with SVT and afib with RVR. Upon examination pt is noted with rapid, irregular HR and tachypnea. Bloodwork indicates anemia with 10.0 Hgb and lactic of 2.3. Pt was given diltiazem IV x1 after which HR was improved to 60s. CXR indicated mild chronic interstitial changes without acute changes. Dr. Drake was consulted and will see patient in ED. - Diagnoses Provider Diagnoses: Paroxysmal atrial fibrillation, Atrial fibrillation with RVR - Physician Notifications Discussed Care of Patient With: Shabnam Drake Time Discussed With Above Provider: 15:08 Instructed by Provider To: Will See In ED - Critical Care Time Critical Care Time: 30-74 min - 45 minutes Discharge - Discharge Plan Condition: Good Disposition: HOME HEALTH AGENCY The documentation as recorded by the Carlos Enrique luna Soohyun accurately reflects the service I personally performed and the decisions made by , Austin Shields MD.
== END 2017-01-05 11:25 | disposition home health service (06) | DRG 309 ==
LOC: ED 13:44 → MEDTELE 15:11 → OBSVTOIN 01-03 09:00
PROVIDERS: ADMIT Internal Medicine; ATTEND Internal Medicine
DX: I48.0 Paroxysmal atrial fibrillation (principal); D62 Acute posthemorrhagic anemia; E86.0 Dehydration; I10 Essential (primary) hypertension; G25.81 Restless legs syndrome; E53.8 Deficiency of other specified B group vitamins; K21.9 Gastro-esophageal reflux disease without esophagitis; K58.9 Irritable bowel syndrome, unspecified; F32.9 Major depressive disorder, single episode, unspecified; E73.9 Lactose intolerance, unspecified; H35.30 Unspecified macular degeneration; Z95.0 Presence of cardiac pacemaker; Z90.710 Acquired absence of both cervix and uterus; Z98.49 Cataract extraction status, unspecified eye; Z96.641 Presence of right artificial hip joint; Z88.8 Allergy status to other drugs, medicaments and biological substances; Z88.5 Allergy status to narcotic agent; Z91.041 Radiographic dye allergy status; Z82.49 Family history of ischemic heart disease and other diseases of the circulatory system; Z82.3 Family history of stroke; I08.3 Combined rheumatic disorders of mitral, aortic and tricuspid valves; Z66 Do not resuscitate; Z79.01 Long term (current) use of anticoagulants
CPT/HCPCS: 36415; 71010; 80048; 80053; 82272; 83605; 83735; 84443; 84484; 85014; 85018; 85025; 86850; 86900; 86901; 93005; A9270-GY; G0378

== ENCOUNTER 2017-09-14 08:29 | Emergency (ER) | payer MEDICARE ==
[2017-09-14 10:07] LABS: Urine Appearance Cloudy; Urine Blood 3+ (Negative); Urine Color Yellow; Urine Ketones Negative (Negative); Urine Protein Negative (Negative); Urine Specific Gravity 1.005 (1.010-1.030); Urine Urobilinogen Negative (Negative)
--- NOTE | 2017-09-14 10:29 | RAD ---
Indication: Right flank pain. CT of the abdomen and pelvis was performed without oral or IV contrast administration. Coronal and sagittal reconstructed images were obtained. Comparison is made with previous exam dated October 05, 2011. The lung bases demonstrate no pleural fluid, nodules or masses. Scarring and pleural thickening is noted in the left base. This is similar to that seen on previous exam field rib fractures left lower chest. The liver is normal in size. No focal lesions or intrahepatic ductal dilatation is noted. The gallbladder demonstrates patient to be status post cholecystectomy. Common duct measures 13 mm. No abrupt termination of the disc noted. Pancreatic duct is not dilated. Pancreas demonstrates no mass or pancreatic duct dictation. Spleen is normal in size. No adrenal masses are noted. The kidneys demonstrate fullness of the right renal collecting system without definite evidence of calculi. This may represent an extrarenal pelvis. There is a calculi pole of left kidney measuring up to 6 mm. No retroperitoneal adenopathy is noted. Atherosclerotic aorta is noted. CT of the pelvis demonstrates no retroperitoneal or pelvic adenopathy. Urinary bladder is otherwise. Scattered phleboliths in the pelvis are noted. No hydroureter is noted. No definite calcifications are noted in the ureter. Multilevel degenerative disc disease of the lumbar spine. No compression fracture is noted. IMPRESSION: Probable extrarenal pelvis in the right kidney. Nonobstructing kidney lower pole left kidney. There are several phleboliths in the pelvis although evaluation is difficult due to right hip streak artifact. No obvious ureteral calculi are noted. Chronic pleural changes are noted which are unchanged from previous exam of October 05, 2011. Prominent common duct likely due to postcholecystectomy state.
[2017-09-14 11:22] LABS: ABS Basophils 0 10^3/ul (0-0.2); ABS Eosinophils 0.1 10^3/ul (0-0.6); ABS Lymphocytes 0.8 10^3/ul (1.0-4.8); ABS Monocytes 0.5 10^3/ul (0-0.8); ABS Neutrophils 3.9 10^3/ul (1.5-7.7); ABS Nucleated RBC 0 10^3/ul; Eosinophil % 1.3 % (0-6); Hematocrit 39 % (35-47); Hemoglobin 12.8 g/dl (12.0-16.0); Lymphocyte % 15.5 % (25-47); Mean Corpuscular HGB Conc 33 g/dl (31-36); Mean Corpuscular Hemoglobin 32 pg (27-31); Mean Corpuscular Volume 95 fL (80-97); Mean Platelet Volume 7.5 um3 (7.4-10.4); Nucleated Red Blood Cells % 0.2; Platelet Count 245 10^3/ul (150-450); Red Blood Count 4.05 10^6/ul (4.0-5.4); Red Cell Distribution Width 16 % (10.5-15); White Blood Count 5.3 10^3/ul (3.5-10.8)
[2017-09-14] MEDS ORDERED: Ciprofloxacin TAB* 500 MG PO ONE (11:30)
[2017-09-14 11:39] LABS: EGFR Non-African American 61.1 (>60)
--- NOTE | 2017-09-14 12:22 | ED ---
Sharon San Thomas, scribed for Donis Tse MD on 09/14/17 at 1047 . GI/ HPI - HPI Summary HPI Summary: The patient is an 86 year old female referred to the emergency department by her PMD Dr. Herrera. The patient has been dealing with intermittent hematuria and lower back pain for the last month. She is not in any pain in the emergency department. She is on Eliquis for A-Fib. - History of Current Complaint Chief Complaint: EDUrogenitalProblems Time Seen by Provider: 09/14/17 08:57 Stated Complaint: BLOOD IN URINE, BACK PAIN Hx Obtained From: Patient Onset/Duration: Started Weeks Ago, Still Present Timing: Intermittent Severity: Moderate Current Severity: Moderate Pain Intensity: 5 Associated Signs and Symptoms: Positive: Other: - Hematuria, lower back pain Aggravating Factor(s): Urination Alleviating Factor(s): Nothing - Additional Pertinent History Primary Care Physician: [id number] - Allergy/Home Medications Allergies/Adverse Reactions: Allergies Allergy/AdvReac Type Severity Reaction Status Date / Time Iodinated Contrast- Oral and Allergy Severe Anaphylatic Verified 09/14/17 09:58 IV Dye Shock aspirin Allergy GI Upset Verified 09/14/17 09:58 morphine Allergy Nausea And Verified 09/14/17 09:58 Vomiting Home Medications: Home Medications Acetaminophen/Diphenhydramine [Tylenol Pm Ex-Strength Caplet] 1 tab PO BEDTIME PRN 09/14/17 [History Confirmed 09/14/17] Carbidopa/Levodop 25/100 MG(*) [Sinemet 25/100 TAB(*)] 0.5 tab PO QPM 09/14/17 [ History Confirmed 09/14/17] Cholecalciferol TAB* [Vitamin D TAB*] 400 unit PO DAILY 09/14/17 [History Confirmed 09/14/17] Dronedarone TAB* [Multaq TAB*] 400 mg PO Q12H 09/14/17 [History Confirmed ] Metoprolol Tartrate TAB* [Lopressor TAB*] 50 mg PO BID 09/14/17 [History Confirmed 09/14/17] Vit A/Vit C/Vit E/Zinc/Copper [Preservision Areds Softgel] 1 cap PO BID [History Confirmed 09/14/17] PMH/Surg Hx/FS Hx/Imm Hx Cardiovascular History: Reports: Hx Atrial Fibrillation, Hx Hypercholesterolemia , Hx Hypertension, Hx Pacemaker/ICD - PACEMAKER IN 1990 Respiratory History: Reports: Hx Chronic Obstructive Pulmonary Disease (COPD), Other Respiratory Problems/Disorders - COPD seen on chest xray. Denies: Hx Pneumonia GI History: Reports: Hx Gall Bladder Disease - removed 1963, Hx Gastroesophageal Reflux Disease, Hx Hiatal Hernia - 1975, Hx Irritable Bowel - uses medication, Hx Ulcer - uses medication, Other GI Disorders - IBS, lactose related? History: Reports: Hx Kidney Stones Denies: Hx Kidney Infection Musculoskeletal History: Reports: Hx Arthritis - legs, hip, knee, hands Denies: Hx Bursitis, Hx Tendonitis Sensory History: Reports: Hx Cataracts - surgery 2000, Hx Contacts or Glasses - wears glasses, Hx Macular Degeneration - doesn't impair vision Denies: Hx Glaucoma, Hx Hearing Aid Opthamlomology History: Reports: Hx Cataracts - surgery 2000, Hx Contacts or Glasses - wears glasses, Hx Macular Degeneration - doesn't impair vision Denies: Hx Glaucoma Neurological History: Reports: Hx Migraine - past history Psychiatric History: Reports: Hx Anxiety, Hx Depression - Surgical History Surgery Procedure, Year, and Place: hiatal hernia 1975 hysterectomy= 1971. lt =wrist 1998. [id number] pacemaker =1990 Hx Anesthesia Reactions: No - Immunization History Date of Tetanus Vaccine: unknown Date of Influenza Vaccine: 03/2016 Infectious Disease History: No Infectious Disease History: Denies: Traveled Outside the [place] in Last 30 Days - Family History Known Family History: Positive: Cardiac Disease, Diabetes, Blood Disorder - blood clots - Social History Alcohol Use: Occasionally Hx Substance Use: No Substance Use Type: Reports: None Hx Tobacco Use: No Smoking Status (MU): Never Smoked Tobacco Review of Systems Negative: Fever Positive: hematuria Positive: Other - Lower back pain All Other Systems Reviewed And Are Negative: Yes Physical Exam - Summary Physical Exam Summary: Appearance: The patient is well-nourished in no acute distress and in no acute pain. Skin: The skin is warm and dry and skin color reflects adequate perfusion. HEENT: The head is normocephalic and atraumatic. The pupils are equal and reactive. The conjunctivae are clear and without drainage. Nares are patent and without drainage. Mouth reveals moist mucous membranes and the throat is without erythema and exudate. The external ears are intact. The ear canals are patent and without drainage. The tympanic membranes are intact. Neck: the neck is supple with full range of motion and non-tender. There are no carotid bruits. There is no neck vein distension. Respiratory: Chest is non-tender. Lungs are clear to auscultation and breath sounds are symmetrical and equal. Cardiovascular: Heart is regular rate and rhythm. There is no murmur or rub auscultated. There is no peripheral edema and pulses are symmetrical and equal. Abdomen: The abdomen is soft and non-tender. There are normal bowel sounds heard in all four quadrants and there is no organomegaly palpated. Musculoskeletal: She is mildly tender to her right paralumbar. Extremities are non-tender with full range of motion. There is good capillary refill. There is no peripheral edema or calf tenderness elicited. Neurological: Patient is alert and oriented to person, place and time. The patient has symmetrical motor strength in all four extremities. Cranial nerves are grossly intact. Deep tendon reflexes are symmetrical and equal in all four extremities. Psychiatric: The patient has an appropriate affect and does not exhibit any anxiety or depression. Triage Information Reviewed: Yes Vital Signs On Initial Exam: Initial Vitals Temp Pulse Resp BP Pulse Ox 97.8 F 77 18 143/78 97 09/14/17 08:34 09/14/17 08:34 09/14/17 08:34 09/14/17 08:34 09/14/17 08:34 Vital Signs Reviewed: Yes Diagnostics - Vital Signs Vital Signs Temp Pulse Resp BP Pulse Ox 09/14/17 09:05 81 97 09/14/17 09:03 143/80 09/14/17 08:34 97.8 F 77 18 143/78 97 - Laboratory Lab Results: Lab Results 09/14/17 Range/Units 09:45 Urine Color Yellow Urine Appearance Cloudy Urine pH 7.0 (5-9) Ur Specific [place] 1.005 L (1.010-1.030) Urine Protein Negative (Negative) Urine Ketones Negative (Negative) Urine Blood 3+ A (Negative) Urine Nitrate Positive A (Negative) Urine Bilirubin Negative (Negative) Urine Urobilinogen Negative (Negative) Ur Leukocyte Esterase 2+ A (Negative) Urine WBC (Auto) 2+(11-20/hpf) A (Absent) Urine RBC (Auto) 3+(>10/hpf) A (Absent) Urine Bacteria 1+ A (Absent) Urine Glucose Negative (Negative) Result Diagrams: 09/14/17 10:50 09/14/17 10:50 Lab Statement: Any lab studies that have been ordered have been reviewed, and results considered in the medical decision making process. - CT CT Abd/Pel CT Interpretation: No Acute Changes - Probable extrarenal pelvis in the right kidney. Nonobstructing kidney lower pole left kidney. There are several phleboliths in the pelvis although evaluation is difficult due to right hip streak artifact. No obvious ureteral calculi are noted. Chronic pleural changes are noted which are unchanged from previous exam of October 05, 2011. Prominent common duct likely due to postcholecystectomy state. Dr. Tse has reviewed this report. CT Interpretation Completed By: Radiologist Re-Evaluation - Re-Evaluation First Eval Re-Evaluation Time: 12:06 Comment: Results discussed. Patient will be discharged. GIGU Course/Dx - Course Course Of Treatment: Ms. Macedo called her PMD today because she has been having intermittent back pain and gross hematuria. It was recommended that she come to the ED. She had evidence of UTI on U/A and CT was WNL. She is on eliquis and this together with the irritation from the UTI is likely causing the hematuria. I will treat the UTI and have her follow closely. - Diagnoses Provider Diagnoses: Pyelonephritis Discharge - Sign-Out/Discharge Documenting (check all that apply): Discharge - Discharge Plan Condition: Stable Disposition: HOME Patient Education Materials: Kidney Infection (ED) Referrals: Adriel Herrera MD [Primary Care Provider] - 5 Days Additional Instructions: Follow up with Dr. Herrera early next week. Return to the emergency department for any new or worsening symptoms. - Billing Disposition and Condition Condition: STABLE Disposition: HOME The documentation as recorded by the Sharon luna Thomas accurately reflects the service I personally performed and the decisions made by , Donis Tse MD.
[2017-09-14 13:06] VITALS: BP 147/88
--- NOTE | 2017-09-16 09:49 | ED ---
Progress - Progress Note Progress Note: Patient's preliminary urine findings reveal greater than 100,000 Escherichia coli. Patient was started on ciprofloxacin. Final results pending. Re-Evaluation - Re-Evaluation First Eval Re-Evaluation Time: 12:06 Comment: Results discussed. Patient will be discharged. Course/Dx - Course Course Of Treatment: Ms. Macedo called her PMD today because she has been having intermittent back pain and gross hematuria. It was recommended that she come to the ED. She had evidence of UTI on U/A and CT was WNL. She is on eliquis and this together with the irritation from the UTI is likely causing the hematuria. I will treat the UTI and have her follow closely. - Diagnoses Provider Diagnoses: Pyelonephritis Discharge - Sign-Out/Discharge Documenting (check all that apply): Discharge - Discharge Plan Condition: Stable Disposition: HOME Prescriptions: Ciprofloxacin TAB* [Cipro Tab*] 500 mg PO BID #20 tab Phenazopyridine 200 mg (NF) [Pyridium 200 MG tab *] 200 mg PO TID #9 tab Patient Education Materials: Kidney Infection (ED) Referrals: Adriel Herrera MD [Primary Care Provider] - 5 Days Additional Instructions: Follow up with Dr. Herrera early next week. Return to the emergency department for any new or worsening symptoms. - Billing Disposition and Condition Condition: STABLE Disposition: HOME
--- NOTE | 2017-09-17 09:19 | PN ---
Progress Note - Progress Note Date of Service: 09/14/17 Note: Urine culture final grew Escherichia coli Patient placed on ciprofloxacin prior to discharge Cipro show sensitivities to organism There is nothing further at this time
== END 2017-09-14 13:05 | disposition home or self-care (01) ==
LOC: ED 08:29
DX: N12 Tubulo-interstitial nephritis, not specified as acute or chronic (principal); R31.9 Hematuria, unspecified; M54.5 Low back pain; Z86.79 Personal history of other diseases of the circulatory system
CPT/HCPCS: 36415; 74176; 80053; 81003; 81015; 83605; 85025; 86140; 87077; 87086; 87186; 99283; A9270-GY

== ENCOUNTER 2017-10-11 14:31 | Inpatient (IN) | payer MEDICARE ==
[2017-10-11 19:24] LABS: ABS Basophils 0 10^3/ul (0-0.2); ABS Eosinophils 0 10^3/ul (0-0.6); ABS Lymphocytes 0.5 10^3/ul (1.0-4.8); ABS Monocytes 1.5 10^3/ul (0-0.8); ABS Neutrophils 10.5 10^3/ul (1.5-7.7); ABS Nucleated RBC 0 10^3/ul; Eosinophil % 0 % (0-6); Hematocrit 34 % (35-47); Hemoglobin 11.5 g/dl (12.0-16.0); Lymphocyte % 3.8 % (25-47); Mean Corpuscular HGB Conc 34 g/dl (31-36); Mean Corpuscular Hemoglobin 32 pg (27-31); Mean Corpuscular Volume 94 fL (80-97); Mean Platelet Volume 7.9 um3 (7.4-10.4); Nucleated Red Blood Cells % 0.1; Platelet Count 232 10^3/ul (150-450); Red Blood Count 3.64 10^6/ul (4.0-5.4); Red Cell Distribution Width 15 % (10.5-15); White Blood Count 12.5 10^3/ul (3.5-10.8)
[2017-10-11 19:30] LABS: INR 1.25 (0.77-1.02)
--- NOTE | 2017-10-11 19:32 | RAD ---
INDICATION: Fever. COMPARISON: Comparison is made with a prior chest x-ray study from January 02, 2017. TECHNIQUE: A portable view of the chest was obtained. FINDINGS: The heart appears within normal limits in size for this portable exam. There is a transvenous pacemaker present. There is mild prominence of the interstitial markings which is unchanged and a small focal infiltrate at the right lung base. No pleural effusion is seen. IMPRESSION: SMALL RIGHT BASILAR INFILTRATE.
[2017-10-11 19:34] LABS: EGFR Non-African American 66.3 (>60)
[2017-10-11] MEDS ORDERED: NS 0.9% 1000 ML* 1,000 ML IV ONE (20:15)
[2017-10-11] MEDS ORDERED: Azithromycin IV(*) 500 MG in NS 0.9% 250 ML* 250 ML IVPB ONE (20:15)
[2017-10-11] MEDS ORDERED: cefTRIAXone(*) 1 GM in NS 0.9% 50 ML* 50 ML IVPB ONE (20:15)
[2017-10-11] MEDS ORDERED: Acetaminophen TAB* 325 MG PO ONE (21:37)
[2017-10-11] MEDS ORDERED: Acetaminophen TAB* 325 MG ONE (21:39)
--- NOTE | 2017-10-11 21:52 | ED ---
Joseph San Natalie, scribed for Donis Tse MD on 10/11/17 at 1858 . HPI Febrile Illness - HPI Summary HPI Summary: The pt is an 86 y/o F presenting to the ED c/o fever and chills starting yesterday. She has had an ongoing infection for almost two weeks. She met with Dr. Herrera, who gave her Cipro to take for 7 days, but the infection came back a few days later. She was advised to come here since her fever has persisted into today. Pt additionally c/o cough, dysuria, and nausea. She is not currently in pain or nauseous. - History of Current Complaint Chief Complaint: EDFever Time Seen by Provider: 10/11/17 18:43 Hx Obtained From: Patient Onset/Duration: Started Days Ago Initial Severity: Moderate Current Severity: Moderate Pain Intensity: 0 Pain Scale Used: 0-10 Numeric Aggravating Factors: Nothing Alleviating Factors: Other: - Cipro Associated Signs and Symptoms: Chills, Cough, Nausea, Other: - fever over 101 - Additional Pertinent History Primary Care Physician: NARESH - Allergy/Home Medications Allergies/Adverse Reactions: Allergies Allergy/AdvReac Type Severity Reaction Status Date / Time Iodinated Contrast- Oral and Allergy Severe Anaphylatic Verified 09/14/17 09:58 IV Dye Shock aspirin Allergy GI Upset Verified 09/14/17 09:58 morphine Allergy Nausea And Verified 09/14/17 09:58 Vomiting Home Medications: Home Medications Diltiazem CD CAP* [Cardizem CD CAP*] 180 mg PO DAILY 10/11/17 [History Confirmed 10/11/17] Magnesium Oxide [Magnesium] 400 mg PO DAILY 10/11/17 [History Confirmed 10/11/17 ] ceFUROXime TAB(*) [Ceftin TAB 250 MG(*)] 500 mg PO BID 10/11/17 [History Confirmed 10/11/17] diPHENhydraMINE PO* [Benadryl PO 25 MG TAB*] 25 mg PO QPM PRN 10/11/17 [History Confirmed 10/11/17] PMH/Surg Hx/FS Hx/Imm Hx Cardiovascular History: Reports: Hx Atrial Fibrillation, Hx Hypercholesterolemia , Hx Hypertension, Hx Pacemaker/ICD - PACEMAKER IN 1990 Respiratory History: Reports: Hx Chronic Obstructive Pulmonary Disease (COPD), Other Respiratory Problems/Disorders - COPD seen on chest xray. Denies: Hx Pneumonia GI History: Reports: Hx Gall Bladder Disease - removed 1963, Hx Gastroesophageal Reflux Disease, Hx Hiatal Hernia - 1975, Hx Irritable Bowel - uses medication, Hx Ulcer - uses medication, Other GI Disorders - IBS, lactose related? History: Reports: Hx Kidney Stones Denies: Hx Kidney Infection Musculoskeletal History: Reports: Hx Arthritis - legs, hip, knee, hands Denies: Hx Bursitis, Hx Tendonitis Sensory History: Reports: Hx Cataracts - surgery 2000, Hx Contacts or Glasses - wears glasses, Hx Macular Degeneration - doesn't impair vision Denies: Hx Glaucoma, Hx Hearing Aid Opthamlomology History: Reports: Hx Cataracts - surgery 2000, Hx Contacts or Glasses - wears glasses, Hx Macular Degeneration - doesn't impair vision Denies: Hx Glaucoma Neurological History: Reports: Hx Migraine - past history Psychiatric History: Reports: Hx Anxiety, Hx Depression - Surgical History Surgery Procedure, Year, and Place: hiatal hernia 1975 hysterectomy= 1971. lt =wrist 1998. [id number] pacemaker =1990 Hx Anesthesia Reactions: No - Immunization History Date of Tetanus Vaccine: unknown Date of Influenza Vaccine: 03/2016 Infectious Disease History: No Infectious Disease History: Denies: Traveled Outside the [place] in Last 30 Days - Family History Known Family History: Positive: Cardiac Disease, Diabetes, Blood Disorder - blood clots - Social History Alcohol Use: Occasionally Hx Substance Use: No Substance Use Type: Reports: None Hx Tobacco Use: No Smoking Status (MU): Never Smoked Tobacco Review of Systems Positive: Fever, Chills Positive: Cough Positive: Nausea Positive: dysuria All Other Systems Reviewed And Are Negative: Yes Physical Exam - Summary Physical Exam Summary: Appearance: The patient is well-nourished in no acute distress and in no acute pain. Skin: The skin is warm and dry and skin color reflects adequate perfusion. HEENT: The head is normocephalic and atraumatic. The pupils are equal and reactive. The conjunctivae are clear and without drainage. Nares are patent and without drainage. Mouth reveals moist mucous membranes and the throat is without erythema and exudate. The external ears are intact. The ear canals are patent and without drainage. The tympanic membranes are intact. Neck: the neck is supple with full range of motion and non-tender. There are no carotid bruits. There is no neck vein distension. Respiratory: Chest is non-tender. Lungs are clear to auscultation and breath sounds are symmetrical and equal. Cardiovascular: Heart is regular rate and rhythm. There is no murmur or rub auscultated. There is no peripheral edema and pulses are symmetrical and equal. Abdomen: The abdomen is soft and non-tender. There are normal bowel sounds heard in all four quadrants and there is no organomegaly palpated. Musculoskeletal: There is no back tenderness noted. Extremities are non-tender with full range of motion. There is good capillary refill. There is no peripheral edema or calf tenderness elicited. Neurological: Patient is alert and oriented to person, place and time. The patient has symmetrical motor strength in all four extremities. Cranial nerves are grossly intact. Deep tendon reflexes are symmetrical and equal in all four extremities. Psychiatric: The patient has an appropriate affect and does not exhibit any anxiety or depression. Triage Information Reviewed: Yes Vital Signs On Initial Exam: Initial Vitals Temp Pulse Resp BP Pulse Ox 101.7 F 79 18 135/68 98 10/11/17 14:32 10/11/17 14:32 10/11/17 14:32 10/11/17 14:32 10/11/17 14:32 Vital Signs Reviewed: Yes Diagnostics - Vital Signs Vital Signs Temp Pulse Resp BP Pulse Ox 10/11/17 16:26 101.5 F 74 14 147/68 96 10/11/17 14:32 101.7 F 79 18 135/68 98 - Laboratory Lab Results: Lab Results 10/11/17 10/11/17 10/11/17 Range/Units 19:03 19:03 19:03 WBC 12.5 H (3.5-10.8) 10^3/ul RBC 3.64 L (4.0-5.4) 10^6/ul Hgb 11.5 L (12.0-16.0) g/dl Hct 34 L (35-47) % MCV 94 (80-97) fL MCH 32 H (27-31) pg MCHC 34 (31-36) g/dl RDW 15 (10.5-15) % Plt Count 232 (150-450) 10^3/ul MPV 7.9 (7.4-10.4) um3 Neut % (Auto) 83.5 H (38-83) % Lymph % (Auto) 3.8 L (25-47) % Min[place] % (Auto) 12.3 H (0-7) % Eos % (Auto) 0 (0-6) % Baso % (Auto) 0.4 (0-2) % Absolute Neuts (auto) 10.5 H (1.5-7.7) 10^3/ul Absolute Lymphs (auto) 0.5 L (1.0-4.8) 10^3/ul Absolute Monos (auto) 1.5 H (0-0.8) 10^3/ul Absolute Eos (auto) 0 (0-0.6) 10^3/ul Absolute Basos (auto) 0 (0-0.2) 10^3/ul Absolute Nucleated RBC 0 10^3/ul Nucleated RBC % 0.1 INR (Anticoag Therapy) 1.25 H (0.77-1.02) Sodium 129 L (139-145) mmol/L Potassium 3.7 (3.5-5.0) mmol/L Chloride 98 L (101-111) mmol/L Carbon Dioxide 23 (22-32) mmol/L Anion Gap 8 (2-11) mmol/L BUN 19 (6-24) mg/dL Creatinine 0.82 (0.51-0.95) mg/dL Est GFR ( Amer) 85.2 (>60) Est GFR (Non-Af Amer) 66.3 (>60) BUN/Creatinine Ratio 23.2 H (8-20) Glucose 142 H (70-100) mg/dL Lactic Acid (0.5-2.0) mmol/L Calcium 8.6 (8.6-10.3) mg/dL Total Bilirubin 0.70 (0.2-1.0) mg/dL AST 18 (13-39) U/L ALT 49 (7-52) U/L Alkaline Phosphatase 149 H (34-104) U/L Total Protein 7.1 (6.4-8.9) g/dL Albumin 3.7 (3.2-5.2) g/dL Globulin 3.4 (2-4) g/dL Albumin/Globulin Ratio 1.1 (1-3) Influenza A (Rapid) (Negative) Influenza B (Rapid) (Negative) 10/11/17 10/11/17 Range/Units 19:03 19:36 WBC (3.5-10.8) 10^3/ul RBC (4.0-5.4) 10^6/ul Hgb (12.0-16.0) g/dl Hct (35-47) % MCV (80-97) fL MCH (27-31) pg MCHC (31-36) g/dl RDW (10.5-15) % Plt Count (150-450) 10^3/ul MPV (7.4-10.4) um3 Neut % (Auto) (38-83) % Lymph % (Auto) (25-47) % [place] % (Auto) (0-7) % Eos % (Auto) (0-6) % Baso % (Auto) (0-2) % Absolute Neuts (auto) (1.5-7.7) 10^3/ul Absolute Lymphs (auto) (1.0-4.8) 10^3/ul Absolute Monos (auto) (0-0.8) 10^3/ul Absolute Eos (auto) (0-0.6) 10^3/ul Absolute Basos (auto) (0-0.2) 10^3/ul Absolute Nucleated RBC 10^3/ul Nucleated RBC % INR (Anticoag Therapy) (0.77-1.02) Sodium (139-145) mmol/L Potassium (3.5-5.0) mmol/L Chloride (101-111) mmol/L Carbon Dioxide (22-32) mmol/L Anion Gap (2-11) mmol/L BUN (6-24) mg/dL Creatinine (0.51-0.95) mg/dL Est GFR ( Amer) (>60) Est GFR (Non-Af Amer) (>60) BUN/Creatinine Ratio (8-20) Glucose (70-100) mg/dL Lactic Acid 1.2 (0.5-2.0) mmol/L Calcium (8.6-10.3) mg/dL Total Bilirubin (0.2-1.0) mg/dL AST (13-39) U/L ALT (7-52) U/L Alkaline Phosphatase (34-104) U/L Total Protein (6.4-8.9) g/dL Albumin (3.2-5.2) g/dL Globulin (2-4) g/dL Albumin/Globulin Ratio (1-3) Influenza A (Rapid) Negative (Negative) Influenza B (Rapid) Negative (Negative) Result Diagrams: 10/11/17 19:03 10/11/17 19:03 Lab Statement: Any lab studies that have been ordered have been reviewed, and results considered in the medical decision making process. - Radiology CXR Xray Interpretation: Positive (See Comments) - Small right basilar infiltrate. ED physician has reviewed this report. Radiology Interpretation Completed By: Radiologist Course/Dx - Course Course Of Treatment: Ms. Macedo has been feeling ill for several days and is fatigued. She was put on Cipro for a UTI for 7 days and then was off it for a few. Yesterday another antibiotic was started but I'm not sure what it was. She was found to have pneumonia here and is getting fluids and antibiotics. She is feeling a bit better and has a CURB65 score of 1 so I think she can go home unless she worsens. - Diagnoses Provider Diagnoses: Pneumonia Discharge - Sign-Out/Discharge Documenting (check all that apply): Discharge - Discharge Plan Condition: Stable Disposition: HOME Discharge Disposition Comment: The pt will be discharged home under stable conditions. Patient Education Materials: Pneumonia (ED) Referrals: Adriel Herrera MD [Primary Care Provider] - 3 Days Additional Instructions: Please take as prescribed. Follow with your primary care physician in 2-3 days. Return to the emergency department if any new or worsening symptoms occur. - Billing Disposition and Condition Condition: STABLE Disposition: HOME The documentation as recorded by the Joseph luna Natalie accurately reflects the service I personally performed and the decisions made by me, Donis Tse MD.
[2017-10-11 21:56] LABS: Urine Appearance Clear; Urine Blood 2+ (Negative); Urine Color Yellow; Urine Ketones Trace (Negative); Urine Protein 1+(30 mg/dL) (Negative); Urine Specific Gravity 1.011 (1.010-1.030); Urine Urobilinogen Negative (Negative)
[2017-10-12] MEDS ORDERED: Docusate CAP* 100 MG PO PRN (01:45)
[2017-10-12] MEDS ORDERED: Ondansetron INJ* 2 MG/ML VIAL IV PRN (01:45)
[2017-10-12] MEDS ORDERED: Al Hydrox/Mg Hydrox/Simet LIQ* 30 ML UDC PO PRN (01:45)
[2017-10-12] MEDS ORDERED: Senna TAB PO PRN (01:45)
[2017-10-12] MEDS ORDERED: Carbidopa/Levodop 25/100 MG TAB(*) PO SCH (02:00)
[2017-10-12] MEDS ORDERED: NS 0.9% 1000 ML* 1,000 ML IV SCH (02:00)
[2017-10-12] MEDS: Metoprolol Tartrate TAB* 50 mg PO SCH ×3 (05:04→21:02)
[2017-10-12] MEDS: Potassium Chlor TAB* 20 MEQ TAB.ER PO SCH ×3 (05:05→21:01)
[2017-10-12] MEDS: Apixaban* 5 MG TAB PO SCH ×3 (05:05→21:02)
--- NOTE | 2017-10-12 05:55 | ED ---
I, Kermit Herrera, scribed for Luisa Gomez MD on 10/12/17 at 0455 . Progress - Progress Note Progress Note: At first, this patient was going to be discharged by Dr. Tse. However, the patient wanted to stay in the hospital, so we did not discharge the patient immediately. I ordered an ABG that showed hypoxia. The patient cannot have a CTA to rule out pulmonary embolism because she will go into anaphylaxis. Therefore, the patient will be admitted to Dr. Manzano. Course/Dx - Diagnoses Provider Diagnoses: Pneumonia, UTI (urinary tract infection) - Provider Notifications Discussed Care Of Patient With: Shabana Manzano Instructed by Provider To: Admit As Inpatient Discharge - Sign-Out/Discharge Documenting (check all that apply): Discharge - The patient is admitted to [facility] [place] by Dr. Manzano. - Discharge Plan Condition: Stable Disposition: ADMITTED TO [facility] The documentation as recorded by the jinibSharon lopez Thomas accurately reflects the service I personally performed and the decisions made by me, Luisa Gomez MD.
[2017-10-12] MEDS ORDERED: Azithromycin IV(*) 250 MG in NS 0.9% 250 ML* 250 ML IVPB SCH (09:00)
[2017-10-12] MEDS ORDERED: cefTRIAXone(*) 1 GM in NS 0.9% 50 ML* 50 ML IVPB SCH (09:00)
--- NOTE | 2017-10-12 09:01 | RAD ---
HISTORY: Edema, rule out DVT COMPARISONS: May 13, 2016 TECHNIQUE: Multiple transverse and longitudinal ultrasound images were obtained of the bilateral lower extremities from the level of the common femoral vein inferiorly through to the infrapopliteal veins using grayscale, color Doppler, and spectral Doppler imaging with and without compression and with augmentation. FINDINGS: VEINS: There is suboptimal visualization of the calf veins bilaterally. The remainder of the venous system of the right lower extremity is compressible throughout its course, with normal flow on color Doppler imaging and normal response to augmentation on spectral Doppler imaging. SOFT TISSUES: There are popliteal fossa cysts bilaterally measuring up to 6.6 cm in the left than 5 cm in the right. This has progressed from the previous examination. OTHER FINDINGS: None. IMPRESSION: 1. NO RIGHT LOWER EXTREMITY DEEP VEIN THROMBOSIS. 2. NO LEFT LOWER EXTREMITY DEEP VEIN THROMBOSIS. 3. BILATERAL VIEYRA'S CYSTS.
[2017-10-12] MEDS: Amoxicillin/Clavulanate TAB* 875 MG PO SCH ×2 (09:06→21:00)
[2017-10-12] MEDS: Atorvastatin* 20 MG TAB PO SCH (09:06)
[2017-10-12] MEDS: Multivitamins/Minerals TAB PO SCH (09:07)
[2017-10-12] MEDS: Diltiazem CD CAP* 180 MG PO SCH (09:07)
[2017-10-12] MEDS: Cyanocobalamin TAB* 500 MCG PO SCH (09:07)
[2017-10-12] MEDS: PARoxetine HCL TAB* 10 MG PO SCH (09:08)
[2017-10-12] MEDS: Magnesium Oxide TAB* 400 MG PO SCH (09:08)
[2017-10-12] MEDS: Dronedarone TAB* 400 MG PO SCH ×2 (09:08→21:02)
[2017-10-12] MEDS: Oxybutynin TAB* 5 MG PO SCH (09:08)
--- NOTE | 2017-10-12 14:50 | PN ---
Subjective Date of Service: 10/12/17 Interval History: Pt feels well. a little tired since she was admitted early in AM Objective Active Medications: Acetaminophen (Tylenol Tab*) 650 mg PO Q4H PRN PRN Reason: FEVER/PAIN Al Hydrox/Mg Hydrox/Simethicone (Maalox Plus*) 30 ml PO Q6H PRN PRN Reason: INDIGESTION Amoxicillin/Clavulanate Potassium (Augmentin Tab*) 875 mg PO BID [facility] Last Admin: 10/12/17 09:06 Dose: 875 mg Apixaban (Eliquis*) 5 mg PO BID [facility] Last Admin: 10/12/17 09:06 Dose: 5 mg Atorvastatin Calcium (Lipitor*) 20 mg PO DAILY [facility] Last Admin: 10/12/17 09:06 Dose: 20 mg Carbidopa/Levodopa (Sinemet 25/100 Tab(*)) 0.5 tab PO QPM [facility] Last Admin: 10/12/17 05:05 Dose: 0.5 tab Cyanocobalamin (Vitamin B12 Tab*) 1,000 mcg PO DAILY [facility] Last Admin: 10/12/17 09:07 Dose: 1,000 mcg Diltiazem HCl (Cardizem Cd Cap*) 180 mg PO DAILY [facility] Last Admin: 10/12/17 09:07 Dose: 180 mg Diphenhydramine HCl (Benadryl Po*) 25 mg PO QPM PRN PRN Reason: SLEEP Docusate Sodium (Colace Cap*) 100 mg PO BID PRN PRN Reason: CONSTIPATION Dronedarone (Multaq Tab*) 400 mg PO BID [facility] Last Admin: 10/12/17 09:08 Dose: 400 mg Sodium Chloride (Ns 0.9% 1000 Ml*) 1,000 mls @ 100 mls/hr IV PER RATE [facility] Last Admin: 10/12/17 05:08 Dose: 100 mls/hr Magnesium Oxide (Magox 400 Tab*) 400 mg PO DAILY [facility] Last Admin: 10/12/17 09:08 Dose: 400 mg Metoprolol Tartrate (Lopressor Tab*) 50 mg PO BID [facility] Last Admin: 10/12/17 09:07 Dose: 50 mg Multivitamins/Minerals (Theragran/Minerals Tab*) 1 tab PO QAM [facility] Last Admin: 10/12/17 09:07 Dose: 1 tab Ondansetron HCl (Zofran Inj*) 4 mg IV Q4H PRN PRN Reason: NAUSEA/VOMITING Oxybutynin Chloride (Ditropan Tab*) 5 mg PO QAM [facility] Last Admin: 10/12/17 09:08 Dose: 5 mg Paroxetine HCl (Paxil Tab*) 10 mg PO DAILY [facility] Last Admin: 10/12/17 09:08 Dose: 10 mg Potassium Chloride (Klor Con Er Tab*) 20 meq PO BID [facility] Last Admin: 10/12/17 09:07 Dose: 20 meq Senna (Senokot Tab*) 1 tab PO BID PRN PRN Reason: CONSTIPATION Vital Signs - 8 hr 10/12/17 10/12/17 10/12/17 07:42 08:00 11:33 Temperature 99.2 F 98.1 F Pulse Rate 66 64 Respiratory 16 Rate Blood Pressure 138/63 140/67 (mmHg) O2 Sat by Pulse 94 94 97 Oximetry 10/12/17 13:46 Temperature 98.4 F Pulse Rate 65 Respiratory 16 Rate Blood Pressure 117/54 (mmHg) O2 Sat by Pulse 99 Oximetry Oxygen Devices in Use Now: None Appearance: 86 yo F in nAD, AAOx3 Eyes: No Scleral Icterus, PERRLA Ears/Nose/Mouth/Throat: NL Teeth, Lips, Gums, Mucous Membranes Moist Neck: NL Appearance and Movements; NL JVP, Trachea Midline Respiratory: Symmetrical Chest Expansion and Respiratory Effort, - - RLL rhonchi -mild Cardiovascular: NL Sounds; No Murmurs; No JVD, RRR Abdominal: NL Sounds; No Tenderness; No Distention Lymphatic: No Cervical Adenopathy Extremities: No Clubbing, Cyanosis, - - +1 pitting pedal edema b/l Skin: No Rash or Ulcers, No Nodules or Sclerosis Neurological: Alert and Oriented x 3, NL Muscle Strength and Tone Result Diagrams: 10/11/17 19:03 10/11/17 19:03 Additional Lab and Data: Lab Results 10/11/17 10/11/17 10/11/17 Range/Units 19:03 19:03 19:03 WBC 12.5 H (3.5-10.8) 10^3/ul RBC 3.64 L (4.0-5.4) 10^6/ul Hgb 11.5 L (12.0-16.0) g/dl Hct 34 L (35-47) % MCV 94 (80-97) fL MCH 32 H (27-31) pg MCHC 34 (31-36) g/dl RDW 15 (10.5-15) % Plt Count 232 (150-450) 10^3/ul MPV 7.9 (7.4-10.4) um3 Neut % (Auto) 83.5 H (38-83) % Lymph % (Auto) 3.8 L (25-47) % Greenlee % (Auto) 12.3 H (0-7) % Eos % (Auto) 0 (0-6) % Baso % (Auto) 0.4 (0-2) % Absolute Neuts (auto) 10.5 H (1.5-7.7) 10^3/ul Absolute Lymphs (auto) 0.5 L (1.0-4.8) 10^3/ul Absolute Monos (auto) 1.5 H (0-0.8) 10^3/ul Absolute Eos (auto) 0 (0-0.6) 10^3/ul Absolute Basos (auto) 0 (0-0.2) 10^3/ul Absolute Nucleated RBC 0 10^3/ul Nucleated RBC % 0.1 INR (Anticoag Therapy) 1.25 H (0.77-1.02) Sodium 129 L (139-145) mmol/L Potassium 3.7 (3.5-5.0) mmol/L Chloride 98 L (101-111) mmol/L Carbon Dioxide 23 (22-32) mmol/L Anion Gap 8 (2-11) mmol/L BUN 19 (6-24) mg/dL Creatinine 0.82 (0.51-0.95) mg/dL Est GFR ( Amer) 85.2 (>60) Est GFR (Non-Af Amer) 66.3 (>60) BUN/Creatinine Ratio 23.2 H (8-20) Glucose 142 H (70-100) mg/dL Lactic Acid (0.5-2.0) mmol/L Calcium 8.6 (8.6-10.3) mg/dL Total Bilirubin 0.70 (0.2-1.0) mg/dL AST 18 (13-39) U/L ALT 49 (7-52) U/L Alkaline Phosphatase 149 H (34-104) U/L Total Protein 7.1 (6.4-8.9) g/dL Albumin 3.7 (3.2-5.2) g/dL Globulin 3.4 (2-4) g/dL Albumin/Globulin Ratio 1.1 (1-3) Influenza A (Rapid) (Negative) Influenza B (Rapid) (Negative) 10/11/17 10/11/17 Range/Units 19:03 19:36 WBC (3.5-10.8) 10^3/ul RBC (4.0-5.4) 10^6/ul Hgb (12.0-16.0) g/dl Hct (35-47) % MCV (80-97) fL MCH (27-31) pg MCHC (31-36) g/dl RDW (10.5-15) % Plt Count (150-450) 10^3/ul MPV (7.4-10.4) um3 Neut % (Auto) (38-83) % Lymph % (Auto) (25-47) % Greenlee % (Auto) (0-7) % Eos % (Auto) (0-6) % Baso % (Auto) (0-2) % Absolute Neuts (auto) (1.5-7.7) 10^3/ul Absolute Lymphs (auto) (1.0-4.8) 10^3/ul Absolute Monos (auto) (0-0.8) 10^3/ul Absolute Eos (auto) (0-0.6) 10^3/ul Absolute Basos (auto) (0-0.2) 10^3/ul Absolute Nucleated RBC 10^3/ul Nucleated RBC % INR (Anticoag Therapy) (0.77-1.02) Sodium (139-145) mmol/L Potassium (3.5-5.0) mmol/L Chloride (101-111) mmol/L Carbon Dioxide (22-32) mmol/L Anion Gap (2-11) mmol/L BUN (6-24) mg/dL Creatinine (0.51-0.95) mg/dL Est GFR ( Amer) (>60) Est GFR (Non-Af Amer) (>60) BUN/Creatinine Ratio (8-20) Glucose (70-100) mg/dL Lactic Acid 1.2 (0.5-2.0) mmol/L Calcium (8.6-10.3) mg/dL Total Bilirubin (0.2-1.0) mg/dL AST (13-39) U/L ALT (7-52) U/L Alkaline Phosphatase (34-104) U/L Total Protein (6.4-8.9) g/dL Albumin (3.2-5.2) g/dL Globulin (2-4) g/dL Albumin/Globulin Ratio (1-3) Influenza A (Rapid) Negative (Negative) Influenza B (Rapid) Negative (Negative) Assess/Plan/Problems-Billing Assessment: 86 yo F with h/o AV block s/p pacer generator exchange in 10/09, HTN , dyslipidemia, GERD, RLS, a. fib on eliquis presents with RLL PNA - Patient Problems (1) Pneumonia Comment: Pt was treated with Clarithromycin x 2 days and priror to that was on Cipro for UTI. Cont Augmentin for RLL infiltrate. Comfortable on RA with 02 sat 98% suspect will be able to go hoome in AM (2) Atrial fibrillation Comment: today in NSR, cont dronedarone and eliquis (3) Enterococcus UTI Comment: sensitivity pending, cont Augmentin, currently asymptomatic (4) Blood culture positive for microorganism Comment: blood cx positive for gram positive cocci. ? contamination? Pt is non -toxic appearing will await further identification (5) Hyponatremia Comment: possibly prerenal. will stop IVF now and recheck BMP in AM (6) RLS (restless legs syndrome) Comment: Stable. Continue Sinemet (7) DVT prophylaxis Comment: On Eliquis Status and Disposition: OBV
--- NOTE | 2017-10-12 15:39 | HP ---
CC: Adriel Herrera MD HISTORY AND PHYSICAL: DATE OF ADMISSION: 10/12/17 TIME OF EVALUATION: 0200 PRIMARY CARE PHYSICIAN: Adriel Herrera MD CHIEF COMPLAINT: Fever and dysuria. HISTORY OF PRESENT ILLNESS: This is an 86-year-old female with a past medical history of paroxysmal atrial fibrillation, on anticoagulation, who presented to the emergency room after being sent by her primary care for concern of persistent fevers. The patient states she has been having issues with ongoing urinary tract infections. She has been on antibiotics, she is not sure which one. She has been seen by Dr. Herrera. Despite being on antibiotics, she is still spiking a fever and not feeling well, so Dr. Herrera recommended to go to the emergency room for further evaluation. According to the ER note, it appears that Dr. Herrera gave her Cipro to take for 7 days, but the infection came back a few days later and she was concerned for the persistent fever. She also has had a dry cough with nausea, decreased appetite and some shortness of breath. No chest pain. No nausea, vomiting, diarrhea. No abdominal pain. No changes in her weight. In the emergency room, the patient had labs and imaging , there was concern for pneumonia. She was given antibiotics, azithromycin and ceftriaxone and it was decided she would go home. The patient was signed out to another ER physician, there was concern for shortness of breath. The patient had a blood gas that showed a pO2 of 62. There was concern for an underlying PE , however, the patient has CONTRAST allergy and was referred to the hospitalist service for further evaluation. On my encounter, the patient states she feels slightly short of breath as mentioned with no chest pain. In the emergency room , the patient got 1 L of fluid, ceftriaxone, azithromycin, and Tylenol. PAST MEDICAL HISTORY: 1. Hypertension. 2. Atrial fibrillation status post pacemaker placement, on anticoagulation. 3. GERD. 4. IBS. 5. Lactose intolerance. 6. Depression. 7. Vitamin B12 deficiency. 8. Restless leg syndrome. 9. Macular degeneration. 10. History of gastric ulcers. PAST SURGICAL HISTORY: 1. Status post hysterectomy. 2. Hiatal hernia repair. 3. Status post laparoscopic cholecystectomy. 4. Status post tonsillectomy. 5. Status post cataract surgery. 6. Status post right total hip arthroplasty. MEDICATIONS: 1. Ceftin 500 mg p.o. b.i.d. 2. Diphenhydramine 25 mg at night as needed. 3. Magnesium oxide 400 mg daily. 4. Diltiazem 180 mg p.o. daily. 5. Cyanocobalamin 1000 mcg p.o. daily. 6. Sinemet 25/100, 0.5 tablet p.o. evening. 7. Eliquis 5 mg p.o. b.i.d. 8. Multaq 400 mg p.o. b.i.d. 9. Atorvastatin 20 mg p.o. daily. 10. Metoprolol tartrate 50 mg p.o. b.i.d. 11. Paxil 10 mg p.o. daily. 12. Oxybutynin 5 mg p.o. in the morning. 13. PreserVision AREDS Softgel 1 cap in the morning. 14. Potassium chloride 20 mEq p.o. b.i.d. 15. Biaxin. ALLERGIES: CONTRAST - anaphylactic shock, ASPIRIN - GI upset, MORPHINE - vomiting. FAMILY HISTORY: Mother had a history of [place] and hypertension. Father had a CVA. SOCIAL HISTORY: The patient lives with her daughter, Radha , phone number [phone]. She is her healthcare proxy. The patient is independent with her ADLs. She ambulates with a walker and a cane. No history of tobacco or illicit drug use. She states she is a DNR/DNI. REVIEW OF SYSTEMS: A 14-point review of systems as mentioned in the HPI, otherwise negative. PHYSICAL EXAMINATION GENERAL: No acute distress, resting comfortably. VITAL SIGNS: Temp 99.6, pulse rate 71, respiratory rate 16, oxygen saturation 92% on room air, blood pressure 158/88. HEENT: Head: Normocephalic. Pupils equal and reactive. Oropharynx: Mucous membranes are moist. No erythema or exudate. NECK: Supple. No lymphadenopathy. RESPIRATORY: Diminished breath sounds. No wheezes, rhonchi, or rales. CARDIAC: Regular rate and rhythm. Harsh systolic murmur most prominent at the left sternal base. ABDOMEN: Soft, nontender, nondistended. EXTREMITIES: +2 pretibial edema, more prominent in the left lower extremity. NEUROLOGIC: Alert and oriented x3. No gross focal neurological deficits. DIAGNOSTIC STUDIES/LAB DATA: White count 12.5, hemoglobin 11.5, hematocrit 34 , platelets 232,000. INR is 1.25. Blood gas; pH 7.48, pCO2 of 30, pO2 of 62. Sodium 129, potassium 3.7, chloride 98, bicarb 23, BUN 19, creatinine 0.82. Urine shows trace ketones, negative nitrites, bacteria, white cells. Influenza is negative. Chest x-ray shows small right basilar infiltrate. ASSESSMENT: This is an 86-year-old female with a past medical history of atrial fibrillation, on anticoagulation, who presents to the emergency room with concern for persistent fevers in the setting of urinary symptoms. 1. Persistent fever and urinary symptoms. Assessment: The patient appears to have pansensitive E. coli in the recent past. She is not clear what her antibiotics were as an outpatient. Plan: Start Augment to cover UTI and pneumonia, follow up on urine cultures, place her on gentle IV fluids. 2. Cough and shortness of breath. Assessment: The patient does have a right small basilar infiltrate seen on chest x-ray. Start Augmentin in AM. There was concern for pulmonary embolism , however, the patient is on room air. Based on her ABG, I would check a Doppler of her lower extremities. She does have some asymmetry there. She is anticoagulated. Consider V/Q scan if there is continued concern in the morning. We will also check a troponin, EKG, and trend her troponin in the setting of concern for a pulmonary embolism, although I have a low suspicion based on her clinical presentation. We will resume her home medications as prescribed including her Eliquis and her Multaq. 4. FEN. Place the patient on a heart healthy diet. 5. DVT prophylaxis. The patient scores high risk. She is on Eliquis. 6. Code status. The patient states she is a DNR/DNI. We will have her fill out a MOLST form here. TIME SPENT: Greater than 45 minutes were spent doing the history and physical, more than half the time was spent in direct patient contact. [id number]/[facility] #: [id number] MTDJian
[2017-10-12] MEDS ORDERED: Carbidopa/Levodop 25/250MG TAB(*) PO ONE (17:45)
[2017-10-12] MEDS: Carbidopa/Levodop 25/250MG TAB(*) PO SCH (21:03)
[2017-10-13] MEDS: diPHENhydraMINE PO* 25 MG PO PRN ×2 (00:42→23:58)
[2017-10-13] MEDS: Multivitamins/Minerals TAB PO SCH (09:24)
[2017-10-13] MEDS: PARoxetine HCL TAB* 10 MG PO SCH (09:25)
[2017-10-13] MEDS: Diltiazem CD CAP* 180 MG PO SCH (09:25)
[2017-10-13] MEDS: Apixaban* 5 MG TAB PO SCH (09:25)
[2017-10-13] MEDS: Atorvastatin* 20 MG TAB PO SCH (09:25)
[2017-10-13] MEDS: Potassium Chlor TAB* 20 MEQ TAB.ER PO SCH ×2 (09:25→20:57)
[2017-10-13] MEDS: Magnesium Oxide TAB* 400 MG PO SCH (09:25)
[2017-10-13] MEDS: Amoxicillin/Clavulanate TAB* 875 MG PO SCH (09:25)
[2017-10-13] MEDS: Dronedarone TAB* 400 MG PO SCH ×2 (09:25→20:57)
[2017-10-13] MEDS: Metoprolol Tartrate TAB* 50 mg PO SCH ×2 (09:25→20:57)
[2017-10-13] MEDS: Oxybutynin TAB* 5 MG PO SCH (09:25)
[2017-10-13] MEDS: Cyanocobalamin TAB* 500 MCG PO SCH (09:25)
--- NOTE | 2017-10-13 12:34 | PN ---
Subjective Date of Service: 10/13/17 Interval History: Pt is feeling well. She states she thinks she could go home today if we get the go ahead from ID given the positive blood cultures. She denies any pain. No SOB. Objective Active Medications: Acetaminophen (Tylenol Tab*) 650 mg PO Q4H PRN PRN Reason: FEVER/PAIN Al Hydrox/Mg Hydrox/Simethicone (Maalox Plus*) 30 ml PO Q6H PRN PRN Reason: INDIGESTION Amoxicillin/Clavulanate Potassium (Augmentin Tab*) 875 mg PO BID [facility] Last Admin: 10/13/17 09:25 Dose: 875 mg Apixaban (Eliquis*) 5 mg PO BID [facility] Last Admin: 10/13/17 09:25 Dose: 5 mg Atorvastatin Calcium (Lipitor*) 20 mg PO DAILY [facility] Last Admin: 10/13/17 09:25 Dose: 20 mg Carbidopa/Levodopa (Sinemet 25/250 Tab(*)) 0.5 tab PO 1600 [facility] Carbidopa/Levodopa (Sinemet 25/250 Tab(*)) 1 tab PO BEDTIME [facility] Last Admin: 10/12/17 21:03 Dose: 1 tab Cyanocobalamin (Vitamin B12 Tab*) 1,000 mcg PO DAILY [facility] Last Admin: 10/13/17 09:25 Dose: 1,000 mcg Diltiazem HCl (Cardizem Cd Cap*) 180 mg PO DAILY [facility] Last Admin: 10/13/17 09:25 Dose: 180 mg Diphenhydramine HCl (Benadryl Po*) 25 mg PO QPM PRN PRN Reason: SLEEP Last Admin: 10/13/17 00:42 Dose: 25 mg Docusate Sodium (Colace Cap*) 100 mg PO BID PRN PRN Reason: CONSTIPATION Dronedarone (Multaq Tab*) 400 mg PO BID [facility] Last Admin: 10/13/17 09:25 Dose: 400 mg Magnesium Oxide (Magox 400 Tab*) 400 mg PO DAILY [facility] Last Admin: 10/13/17 09:25 Dose: 400 mg Metoprolol Tartrate (Lopressor Tab*) 50 mg PO BID [facility] Last Admin: 10/13/17 09:25 Dose: 50 mg Multivitamins/Minerals (Theragran/Minerals Tab*) 1 tab PO QAM [facility] Last Admin: 10/13/17 09:24 Dose: 1 tab Ondansetron HCl (Zofran Inj*) 4 mg IV Q4H PRN PRN Reason: NAUSEA/VOMITING Oxybutynin Chloride (Ditropan Tab*) 5 mg PO QAM [facility] Last Admin: 10/13/17 09:25 Dose: 5 mg Paroxetine HCl (Paxil Tab*) 10 mg PO DAILY [facility] Last Admin: 10/13/17 09:25 Dose: 10 mg Potassium Chloride (Klor Con Er Tab*) 20 meq PO BID [facility] Last Admin: 10/13/17 09:25 Dose: 20 meq Senna (Senokot Tab*) 1 tab PO BID PRN PRN Reason: CONSTIPATION Vital Signs - 8 hr 10/13/17 10/13/17 10/13/17 07:35 07:41 11:24 Temperature 98.8 F 98.7 F Pulse Rate 64 62 Respiratory 16 16 Rate Blood Pressure 157/62 132/72 (mmHg) O2 Sat by Pulse 94 94 98 Oximetry Oxygen Devices in Use Now: None Appearance: Elderly female lying in bed sleeping, awakens to voice, NAD Eyes: No Scleral Icterus Ears/Nose/Mouth/Throat: Mucous Membranes Moist Respiratory: Symmetrical Chest Expansion and Respiratory Effort, Clear to Auscultation Cardiovascular: NL Sounds; No Murmurs; No JVD, RRR, No Edema Abdominal: NL Sounds; No Tenderness; No Distention Extremities: No Clubbing, Cyanosis Skin: No Rash or Ulcers, No Nodules or Sclerosis Neurological: Alert and Oriented x 3 Result Diagrams: 10/11/17 19:03 10/11/17 19:03 Additional Lab and Data: Lab Results 10/11/17 10/11/17 10/11/17 Range/Units 19:03 19:03 19:03 WBC 12.5 H (3.5-10.8) 10^3/ul RBC 3.64 L (4.0-5.4) 10^6/ul Hgb 11.5 L (12.0-16.0) g/dl Hct 34 L (35-47) % MCV 94 (80-97) fL MCH 32 H (27-31) pg MCHC 34 (31-36) g/dl RDW 15 (10.5-15) % Plt Count 232 (150-450) 10^3/ul MPV 7.9 (7.4-10.4) um3 Neut % (Auto) 83.5 H (38-83) % Lymph % (Auto) 3.8 L (25-47) % [place] % (Auto) 12.3 H (0-7) % Eos % (Auto) 0 (0-6) % Baso % (Auto) 0.4 (0-2) % Absolute Neuts (auto) 10.5 H (1.5-7.7) 10^3/ul Absolute Lymphs (auto) 0.5 L (1.0-4.8) 10^3/ul Absolute Monos (auto) 1.5 H (0-0.8) 10^3/ul Absolute Eos (auto) 0 (0-0.6) 10^3/ul Absolute Basos (auto) 0 (0-0.2) 10^3/ul Absolute Nucleated RBC 0 10^3/ul Nucleated RBC % 0.1 INR (Anticoag Therapy) 1.25 H (0.77-1.02) Sodium 129 L (139-145) mmol/L Potassium 3.7 (3.5-5.0) mmol/L Chloride 98 L (101-111) mmol/L Carbon Dioxide 23 (22-32) mmol/L Anion Gap 8 (2-11) mmol/L BUN 19 (6-24) mg/dL Creatinine 0.82 (0.51-0.95) mg/dL Est GFR ( Amer) 85.2 (>60) Est GFR (Non-Af Amer) 66.3 (>60) BUN/Creatinine Ratio 23.2 H (8-20) Glucose 142 H (70-100) mg/dL Lactic Acid (0.5-2.0) mmol/L Calcium 8.6 (8.6-10.3) mg/dL Total Bilirubin 0.70 (0.2-1.0) mg/dL AST 18 (13-39) U/L ALT 49 (7-52) U/L Alkaline Phosphatase 149 H (34-104) U/L Total Protein 7.1 (6.4-8.9) g/dL Albumin 3.7 (3.2-5.2) g/dL Globulin 3.4 (2-4) g/dL Albumin/Globulin Ratio 1.1 (1-3) Influenza A (Rapid) (Negative) Influenza B (Rapid) (Negative) 10/11/17 10/11/17 Range/Units 19:03 19:36 WBC (3.5-10.8) 10^3/ul RBC (4.0-5.4) 10^6/ul Hgb (12.0-16.0) g/dl Hct (35-47) % MCV (80-97) fL MCH (27-31) pg MCHC (31-36) g/dl RDW (10.5-15) % Plt Count (150-450) 10^3/ul MPV (7.4-10.4) um3 Neut % (Auto) (38-83) % Lymph % (Auto) (25-47) % [place] % (Auto) (0-7) % Eos % (Auto) (0-6) % Baso % (Auto) (0-2) % Absolute Neuts (auto) (1.5-7.7) 10^3/ul Absolute Lymphs (auto) (1.0-4.8) 10^3/ul Absolute Monos (auto) (0-0.8) 10^3/ul Absolute Eos (auto) (0-0.6) 10^3/ul Absolute Basos (auto) (0-0.2) 10^3/ul Absolute Nucleated RBC 10^3/ul Nucleated RBC % INR (Anticoag Therapy) (0.77-1.02) Sodium (139-145) mmol/L Potassium (3.5-5.0) mmol/L Chloride (101-111) mmol/L Carbon Dioxide (22-32) mmol/L Anion Gap (2-11) mmol/L BUN (6-24) mg/dL Creatinine (0.51-0.95) mg/dL Est GFR ( Amer) (>60) Est GFR (Non-Af Amer) (>60) BUN/Creatinine Ratio (8-20) Glucose (70-100) mg/dL Lactic Acid 1.2 (0.5-2.0) mmol/L Calcium (8.6-10.3) mg/dL Total Bilirubin (0.2-1.0) mg/dL AST (13-39) U/L ALT (7-52) U/L Alkaline Phosphatase (34-104) U/L Total Protein (6.4-8.9) g/dL Albumin (3.2-5.2) g/dL Globulin (2-4) g/dL Albumin/Globulin Ratio (1-3) Influenza A (Rapid) Negative (Negative) Influenza B (Rapid) Negative (Negative) Assess/Plan/Problems-Billing Ms Macedo is an 86 yo F with h/o AV block s/p pacer, HTN, dyslipidemia, GERD, RLS and Afib on eliquis presents to the ER with fever and was found to have a possible pneumonia and definite UTI. - Patient Problems (1) Atrial fibrillation Current Visit: Yes Status: Acute Code(s): I48.91 - UNSPECIFIED ATRIAL FIBRILLATION SNOMED Code(s): 62049193 Comment: Remains in NSR. Continue multaq, diltiazem CD, metoprolol and eliquis. (2) Blood culture positive for microorganism Current Visit: Yes Status: Acute Code(s): R79.89 - OTHER SPECIFIED ABNORMAL FINDINGS OF BLOOD CHEMISTRY SNOMED Code(s): 2682543384190969 Comment: Blood cultures are 2/4 positive for enterococcus faecalis (same bacteria as in urine). Continue augmentin for now. Will discuss with ID plan for treatment. (3) Enterococcus UTI Current Visit: Yes Status: Acute Code(s): N39.0 - URINARY TRACT INFECTION, SITE NOT SPECIFIED; B95.2 - ENTEROCOCCUS THE CAUSE OF DISEASES CLASSIFIED ELSEWHERE SNOMED Code(s): 567208433012151 Comment: Will plan on at a minimum 7 days of antibiotic therapy but likely longer given the bacteremia. (4) Pneumonia Current Visit: Yes Status: Acute Code(s): J18.9 - PNEUMONIA, UNSPECIFIED ORGANISM SNOMED Code(s): 577707523 Comment: Continue augmentin for possible CAP. CXR shows small R basilar infiltrate but she has crackles on the L. O2 sat acceptable on RA. (5) DVT prophylaxis Current Visit: Yes Status: Acute Code(s): RLU8832 - SNOMED Code(s): 261869935 Comment: Marcio (6) DNR (do not resuscitate) Current Visit: Yes Status: Acute Status and Disposition: OBV
[2017-10-13] MEDS: Ampicillin IV* 2 GM in NS 0.9% 100 ML* 100 ML IVPB SCH ×2 (14:24→20:25)
[2017-10-13] MEDS: Carbidopa/Levodop 25/250MG TAB(*) PO SCH ×2 (17:01→20:57)
[2017-10-13] MEDS: Apixaban* 2.5 MG TAB PO SCH (20:57)
[2017-10-14] MEDS: Ampicillin IV* 2 GM in NS 0.9% 100 ML* 100 ML IVPB SCH ×4 (02:11→21:03)
[2017-10-14] MEDS: Metoprolol Tartrate TAB* 50 mg PO SCH ×2 (08:56→21:05)
[2017-10-14] MEDS: Cyanocobalamin TAB* 500 MCG PO SCH (08:56)
[2017-10-14] MEDS: Atorvastatin* 20 MG TAB PO SCH (08:56)
[2017-10-14] MEDS: Apixaban* 2.5 MG TAB PO SCH ×2 (08:56→21:04)
[2017-10-14] MEDS: Diltiazem CD CAP* 180 MG PO SCH (08:57)
[2017-10-14] MEDS: PARoxetine HCL TAB* 10 MG PO SCH (08:57)
[2017-10-14] MEDS: Magnesium Oxide TAB* 400 MG PO SCH (08:57)
[2017-10-14] MEDS: Dronedarone TAB* 400 MG PO SCH ×2 (08:57→21:05)
[2017-10-14] MEDS: Multivitamins/Minerals TAB PO SCH (08:57)
[2017-10-14] MEDS: Potassium Chlor TAB* 20 MEQ TAB.ER PO SCH ×2 (08:57→21:05)
[2017-10-14] MEDS: Oxybutynin TAB* 5 MG PO SCH (08:57)
--- NOTE | 2017-10-14 09:07 | PN ---
Subjective Date of Service: 10/14/17 Interval History: Pt is feeling well. She denies any CP or SOB. No abdominal pain. She has been having some mushy stools. Objective Active Medications: Acetaminophen (Tylenol Tab*) 650 mg PO Q4H PRN PRN Reason: FEVER/PAIN Al Hydrox/Mg Hydrox/Simethicone (Maalox Plus*) 30 ml PO Q6H PRN PRN Reason: INDIGESTION Apixaban (Eliquis) 2.5 mg PO BID [facility] Last Admin: 10/14/17 08:56 Dose: 2.5 mg Atorvastatin Calcium (Lipitor*) 20 mg PO DAILY [facility] Last Admin: 10/14/17 08:56 Dose: 20 mg Carbidopa/Levodopa (Sinemet 25/250 Tab(*)) 0.5 tab PO 1600 [facility] Last Admin: 10/13/17 17:01 Dose: 0.5 tab Carbidopa/Levodopa (Sinemet 25/250 Tab(*)) 1 tab PO BEDTIME [facility] Last Admin: 10/13/17 20:57 Dose: 1 tab Cyanocobalamin (Vitamin B12 Tab*) 1,000 mcg PO DAILY [facility] Last Admin: 10/14/17 08:56 Dose: 1,000 mcg Diltiazem HCl (Cardizem Cd Cap*) 180 mg PO DAILY [facility] Last Admin: 10/14/17 08:57 Dose: 180 mg Diphenhydramine HCl (Benadryl Po*) 25 mg PO QPM PRN PRN Reason: SLEEP Last Admin: 10/13/17 23:58 Dose: 25 mg Docusate Sodium (Colace Cap*) 100 mg PO BID PRN PRN Reason: CONSTIPATION Dronedarone (Multaq Tab*) 400 mg PO BID [facility] Last Admin: 10/14/17 08:57 Dose: 400 mg Ampicillin Sodium 2 gm/ Sodium (Chloride) 100 mls @ 200 mls/hr IVPB Q6H [facility] Last Admin: 10/14/17 08:49 Dose: 200 mls/hr Magnesium Oxide (Magox 400 Tab*) 400 mg PO DAILY [facility] Last Admin: 10/14/17 08:57 Dose: 400 mg Metoprolol Tartrate (Lopressor Tab*) 50 mg PO BID [facility] Last Admin: 10/14/17 08:56 Dose: 50 mg Multivitamins/Minerals (Theragran/Minerals Tab*) 1 tab PO QAM [facility] Last Admin: 10/14/17 08:57 Dose: 1 tab Ondansetron HCl (Zofran Inj*) 4 mg IV Q4H PRN PRN Reason: NAUSEA/VOMITING Oxybutynin Chloride (Ditropan Tab*) 5 mg PO QAM [facility] Last Admin: 10/14/17 08:57 Dose: 5 mg Paroxetine HCl (Paxil Tab*) 10 mg PO DAILY [facility] Last Admin: 10/14/17 08:57 Dose: 10 mg Potassium Chloride (Klor Con Er Tab*) 20 meq PO BID [facility] Last Admin: 10/14/17 08:57 Dose: 20 meq Senna (Senokot Tab*) 1 tab PO BID PRN PRN Reason: CONSTIPATION Vital Signs - 8 hr 10/14/17 10/14/17 10/14/17 02:05 03:18 07:29 Temperature 98.3 F 98.9 F Pulse Rate 66 64 Respiratory 18 16 20 Rate Blood Pressure 167/74 158/64 (mmHg) O2 Sat by Pulse 96 95 Oximetry Oxygen Devices in Use Now: None Appearance: Elderly female sitting up on the edge of the bed, NAD Eyes: No Scleral Icterus Ears/Nose/Mouth/Throat: Mucous Membranes Moist Respiratory: Symmetrical Chest Expansion and Respiratory Effort, Clear to Auscultation Cardiovascular: NL Sounds; No Murmurs; No JVD, RRR, No Edema Abdominal: NL Sounds; No Tenderness; No Distention Extremities: No Clubbing, Cyanosis Skin: No Nodules or Sclerosis Neurological: Alert and Oriented x 3 Result Diagrams: 10/11/17 19:03 10/11/17 19:03 Additional Lab and Data: Lab Results 10/11/17 10/11/17 10/11/17 Range/Units 19:03 19:03 19:03 WBC 12.5 H (3.5-10.8) 10^3/ul RBC 3.64 L (4.0-5.4) 10^6/ul Hgb 11.5 L (12.0-16.0) g/dl Hct 34 L (35-47) % MCV 94 (80-97) fL MCH 32 H (27-31) pg MCHC 34 (31-36) g/dl RDW 15 (10.5-15) % Plt Count 232 (150-450) 10^3/ul MPV 7.9 (7.4-10.4) um3 Neut % (Auto) 83.5 H (38-83) % Lymph % (Auto) 3.8 L (25-47) % [place] % (Auto) 12.3 H (0-7) % Eos % (Auto) 0 (0-6) % Baso % (Auto) 0.4 (0-2) % Absolute Neuts (auto) 10.5 H (1.5-7.7) 10^3/ul Absolute Lymphs (auto) 0.5 L (1.0-4.8) 10^3/ul Absolute Monos (auto) 1.5 H (0-0.8) 10^3/ul Absolute Eos (auto) 0 (0-0.6) 10^3/ul Absolute Basos (auto) 0 (0-0.2) 10^3/ul Absolute Nucleated RBC 0 10^3/ul Nucleated RBC % 0.1 INR (Anticoag Therapy) 1.25 H (0.77-1.02) Sodium 129 L (139-145) mmol/L Potassium 3.7 (3.5-5.0) mmol/L Chloride 98 L (101-111) mmol/L Carbon Dioxide 23 (22-32) mmol/L Anion Gap 8 (2-11) mmol/L BUN 19 (6-24) mg/dL Creatinine 0.82 (0.51-0.95) mg/dL Est GFR ( Amer) 85.2 (>60) Est GFR (Non-Af Amer) 66.3 (>60) BUN/Creatinine Ratio 23.2 H (8-20) Glucose 142 H (70-100) mg/dL Lactic Acid (0.5-2.0) mmol/L Calcium 8.6 (8.6-10.3) mg/dL Total Bilirubin 0.70 (0.2-1.0) mg/dL AST 18 (13-39) U/L ALT 49 (7-52) U/L Alkaline Phosphatase 149 H (34-104) U/L Total Protein 7.1 (6.4-8.9) g/dL Albumin 3.7 (3.2-5.2) g/dL Globulin 3.4 (2-4) g/dL Albumin/Globulin Ratio 1.1 (1-3) Influenza A (Rapid) (Negative) Influenza B (Rapid) (Negative) 10/11/17 10/11/17 Range/Units 19:03 19:36 WBC (3.5-10.8) 10^3/ul RBC (4.0-5.4) 10^6/ul Hgb (12.0-16.0) g/dl Hct (35-47) % MCV (80-97) fL MCH (27-31) pg MCHC (31-36) g/dl RDW (10.5-15) % Plt Count (150-450) 10^3/ul MPV (7.4-10.4) um3 Neut % (Auto) (38-83) % Lymph % (Auto) (25-47) % [place] % (Auto) (0-7) % Eos % (Auto) (0-6) % Baso % (Auto) (0-2) % Absolute Neuts (auto) (1.5-7.7) 10^3/ul Absolute Lymphs (auto) (1.0-4.8) 10^3/ul Absolute Monos (auto) (0-0.8) 10^3/ul Absolute Eos (auto) (0-0.6) 10^3/ul Absolute Basos (auto) (0-0.2) 10^3/ul Absolute Nucleated RBC 10^3/ul Nucleated RBC % INR (Anticoag Therapy) (0.77-1.02) Sodium (139-145) mmol/L Potassium (3.5-5.0) mmol/L Chloride (101-111) mmol/L Carbon Dioxide (22-32) mmol/L Anion Gap (2-11) mmol/L BUN (6-24) mg/dL Creatinine (0.51-0.95) mg/dL Est GFR ( Amer) (>60) Est GFR (Non-Af Amer) (>60) BUN/Creatinine Ratio (8-20) Glucose (70-100) mg/dL Lactic Acid 1.2 (0.5-2.0) mmol/L Calcium (8.6-10.3) mg/dL Total Bilirubin (0.2-1.0) mg/dL AST (13-39) U/L ALT (7-52) U/L Alkaline Phosphatase (34-104) U/L Total Protein (6.4-8.9) g/dL Albumin (3.2-5.2) g/dL Globulin (2-4) g/dL Albumin/Globulin Ratio (1-3) Influenza A (Rapid) Negative (Negative) Influenza B (Rapid) Negative (Negative) Assess/Plan/Problems-Billing Ms Macedo is an 86 yo F with h/o AV block s/p pacer, HTN, dyslipidemia, GERD, RLS and Afib on eliquis presents to the ER with fever and was found to have a possible pneumonia and definite UTI. - Patient Problems (1) Blood culture positive for microorganism Current Visit: Yes Status: Acute Code(s): R79.89 - OTHER SPECIFIED ABNORMAL FINDINGS OF BLOOD CHEMISTRY SNOMED Code(s): 9994798683730087 Comment: Blood cultures are 2/4 positive for enterococcus faecalis (same bacteria as in urine). Repeat blood cultures obtained yesterday and are pending. Abx changed to ampicillin per ID who will see the patient Monday. JUAN DAVID ordered for Monday to eval for endocarditis in the setting of a pacemaker. (2) Enterococcus UTI Current Visit: Yes Status: Acute Code(s): N39.0 - URINARY TRACT INFECTION, SITE NOT SPECIFIED; B95.2 - ENTEROCOCCUS THE CAUSE OF DISEASES CLASSIFIED ELSEWHERE SNOMED Code(s): 958213457940285 Comment: On ampicillin currently. (3) Atrial fibrillation Current Visit: Yes Status: Acute Code(s): I48.91 - UNSPECIFIED ATRIAL FIBRILLATION SNOMED Code(s): 21446770 Comment: Remains in NSR. Continue multaq, diltiazem CD, metoprolol and eliquis. (4) Pneumonia Current Visit: Yes Status: Acute Code(s): J18.9 - PNEUMONIA, UNSPECIFIED ORGANISM SNOMED Code(s): 264959285 Comment: Continue ampicillin for possible CAP. CXR shows small R basilar infiltrate. (5) DVT prophylaxis Current Visit: Yes Status: Acute Code(s): HHB3593 - SNOMED Code(s): 553168446 Comment: Eliquis (6) DNR (do not resuscitate) Current Visit: Yes Status: Acute Status and Disposition: OBV
[2017-10-14 10:37] LABS: ABS Basophils 0 10^3/ul (0-0.2); ABS Eosinophils 0.1 10^3/ul (0-0.6); ABS Lymphocytes 0.5 10^3/ul (1.0-4.8); ABS Monocytes 0.6 10^3/ul (0-0.8); ABS Neutrophils 5.9 10^3/ul (1.5-7.7); ABS Nucleated RBC 0 10^3/ul; Eosinophil % 0.7 % (0-6); Hematocrit 34 % (35-47); Hemoglobin 11.2 g/dl (12.0-16.0); Lymphocyte % 6.9 % (25-47); Mean Corpuscular HGB Conc 33 g/dl (31-36); Mean Corpuscular Hemoglobin 32 pg (27-31); Mean Corpuscular Volume 95 fL (80-97); Mean Platelet Volume 7.7 um3 (7.4-10.4); Nucleated Red Blood Cells % 0; Platelet Count 262 10^3/ul (150-450); Red Blood Count 3.53 10^6/ul (4.0-5.4); Red Cell Distribution Width 15 % (10.5-15); White Blood Count 7.1 10^3/ul (3.5-10.8)
[2017-10-14 10:49] LABS: EGFR Non-African American 55.2 (>60)
[2017-10-14] MEDS ORDERED: Potassium Chlor TAB* 20 MEQ TAB.ER PO ONE (14:21)
[2017-10-14] MEDS: Carbidopa/Levodop 25/250MG TAB(*) PO SCH ×2 (15:36→21:05)
[2017-10-14] MEDS: diPHENhydraMINE PO* 25 MG PO PRN (21:11)
[2017-10-14] MEDS: Acetaminophen TAB* 325 MG PO PRN (21:20)
[2017-10-15] MEDS: Ampicillin IV* 2 GM in NS 0.9% 100 ML* 100 ML IVPB SCH ×4 (01:51→19:48)
[2017-10-15] MEDS: Potassium Chlor TAB* 20 MEQ TAB.ER PO SCH ×2 (07:37→19:49)
[2017-10-15] MEDS: Diltiazem CD CAP* 180 MG PO SCH (07:37)
[2017-10-15] MEDS: Metoprolol Tartrate TAB* 50 mg PO SCH ×2 (07:37→19:49)
[2017-10-15] MEDS: Cyanocobalamin TAB* 500 MCG PO SCH (07:37)
[2017-10-15] MEDS: PARoxetine HCL TAB* 10 MG PO SCH (07:37)
[2017-10-15] MEDS: Oxybutynin TAB* 5 MG PO SCH (07:37)
[2017-10-15] MEDS: Dronedarone TAB* 400 MG PO SCH ×2 (07:37→20:01)
[2017-10-15] MEDS: Apixaban* 2.5 MG TAB PO SCH ×2 (07:37→19:48)
[2017-10-15] MEDS: Magnesium Oxide TAB* 400 MG PO SCH (07:37)
[2017-10-15] MEDS: Atorvastatin* 20 MG TAB PO SCH (07:37)
[2017-10-15] MEDS: Multivitamins/Minerals TAB PO SCH (07:37)
--- NOTE | 2017-10-15 14:29 | PN ---
Subjective Date of Service: 10/15/17 Interval History: Pt is feeling well. She states she feels better than she has in days. She is having some loose stools. No other issues. Objective Active Medications: Acetaminophen (Tylenol Tab*) 650 mg PO Q4H PRN PRN Reason: FEVER/PAIN Last Admin: 10/14/17 21:20 Dose: 650 mg Al Hydrox/Mg Hydrox/Simethicone (Maalox Plus*) 30 ml PO Q6H PRN PRN Reason: INDIGESTION Apixaban (Eliquis) 2.5 mg PO BID [facility] Last Admin: 10/15/17 07:37 Dose: 2.5 mg Atorvastatin Calcium (Lipitor*) 20 mg PO DAILY [facility] Last Admin: 10/15/17 07:37 Dose: 20 mg Carbidopa/Levodopa (Sinemet 25/250 Tab(*)) 0.5 tab PO 1600 [facility] Last Admin: 10/14/17 15:36 Dose: 0.5 tab Carbidopa/Levodopa (Sinemet 25/250 Tab(*)) 1 tab PO BEDTIME [facility] Last Admin: 10/14/17 21:05 Dose: 1 tab Cyanocobalamin (Vitamin B12 Tab*) 1,000 mcg PO DAILY [facility] Last Admin: 10/15/17 07:37 Dose: 1,000 mcg Diltiazem HCl (Cardizem Cd Cap*) 180 mg PO DAILY [facility] Last Admin: 10/15/17 07:37 Dose: 180 mg Diphenhydramine HCl (Benadryl Po*) 25 mg PO QPM PRN PRN Reason: SLEEP Last Admin: 10/14/17 21:11 Dose: 25 mg Docusate Sodium (Colace Cap*) 100 mg PO BID PRN PRN Reason: CONSTIPATION Dronedarone (Multaq Tab*) 400 mg PO BID [facility] Last Admin: 10/15/17 07:37 Dose: 400 mg Ampicillin Sodium 2 gm/ Sodium (Chloride) 100 mls @ 200 mls/hr IVPB Q6H [facility] Last Admin: 10/15/17 13:31 Dose: 200 mls/hr Magnesium Oxide (Magox 400 Tab*) 400 mg PO DAILY [facility] Last Admin: 10/15/17 07:37 Dose: 400 mg Metoprolol Tartrate (Lopressor Tab*) 50 mg PO BID [facility] Last Admin: 10/15/17 07:37 Dose: 50 mg Multivitamins/Minerals (Theragran/Minerals Tab*) 1 tab PO QAM [facility] Last Admin: 10/15/17 07:37 Dose: 1 tab Ondansetron HCl (Zofran Inj*) 4 mg IV Q4H PRN PRN Reason: NAUSEA/VOMITING Oxybutynin Chloride (Ditropan Tab*) 5 mg PO QAM [facility] Last Admin: 10/15/17 07:37 Dose: 5 mg Paroxetine HCl (Paxil Tab*) 10 mg PO DAILY [facility] Last Admin: 10/15/17 07:37 Dose: 10 mg Potassium Chloride (Klor Con Er Tab*) 20 meq PO BID [facility] Last Admin: 10/15/17 07:37 Dose: 20 meq Senna (Senokot Tab*) 1 tab PO BID PRN PRN Reason: CONSTIPATION Vital Signs - 8 hr 10/15/17 10/15/17 10/15/17 07:28 07:32 11:34 Temperature 98.2 F 97.9 F Pulse Rate 60 63 Respiratory 18 17 20 Rate Blood Pressure 156/66 132/67 (mmHg) O2 Sat by Pulse 95 98 97 Oximetry Oxygen Devices in Use Now: None Appearance: Elderly female sitting up in a chair, NAD Eyes: No Scleral Icterus Ears/Nose/Mouth/Throat: Mucous Membranes Moist Respiratory: Symmetrical Chest Expansion and Respiratory Effort, Clear to Auscultation Cardiovascular: NL Sounds; No Murmurs; No JVD, RRR, No Edema Abdominal: NL Sounds; No Tenderness; No Distention Extremities: No Clubbing, Cyanosis Skin: No Nodules or Sclerosis Neurological: Alert and Oriented x 3 Result Diagrams: 10/14/17 10:05 10/14/17 10:05 Additional Lab and Data: Lab Results 10/11/17 10/11/17 10/11/17 Range/Units 19:03 19:03 19:03 WBC 12.5 H (3.5-10.8) 10^3/ul RBC 3.64 L (4.0-5.4) 10^6/ul Hgb 11.5 L (12.0-16.0) g/dl Hct 34 L (35-47) % MCV 94 (80-97) fL MCH 32 H (27-31) pg MCHC 34 (31-36) g/dl RDW 15 (10.5-15) % Plt Count 232 (150-450) 10^3/ul MPV 7.9 (7.4-10.4) um3 Neut % (Auto) 83.5 H (38-83) % Lymph % (Auto) 3.8 L (25-47) % [place] % (Auto) 12.3 H (0-7) % Eos % (Auto) 0 (0-6) % Baso % (Auto) 0.4 (0-2) % Absolute Neuts (auto) 10.5 H (1.5-7.7) 10^3/ul Absolute Lymphs (auto) 0.5 L (1.0-4.8) 10^3/ul Absolute Monos (auto) 1.5 H (0-0.8) 10^3/ul Absolute Eos (auto) 0 (0-0.6) 10^3/ul Absolute Basos (auto) 0 (0-0.2) 10^3/ul Absolute Nucleated RBC 0 10^3/ul Nucleated RBC % 0.1 INR (Anticoag Therapy) 1.25 H (0.77-1.02) Sodium 129 L (139-145) mmol/L Potassium 3.7 (3.5-5.0) mmol/L Chloride 98 L (101-111) mmol/L Carbon Dioxide 23 (22-32) mmol/L Anion Gap 8 (2-11) mmol/L BUN 19 (6-24) mg/dL Creatinine 0.82 (0.51-0.95) mg/dL Est GFR ( Amer) 85.2 (>60) Est GFR (Non-Af Amer) 66.3 (>60) BUN/Creatinine Ratio 23.2 H (8-20) Glucose 142 H (70-100) mg/dL Lactic Acid (0.5-2.0) mmol/L Calcium 8.6 (8.6-10.3) mg/dL Total Bilirubin 0.70 (0.2-1.0) mg/dL AST 18 (13-39) U/L ALT 49 (7-52) U/L Alkaline Phosphatase 149 H (34-104) U/L Total Protein 7.1 (6.4-8.9) g/dL Albumin 3.7 (3.2-5.2) g/dL Globulin 3.4 (2-4) g/dL Albumin/Globulin Ratio 1.1 (1-3) Influenza A (Rapid) (Negative) Influenza B (Rapid) (Negative) 10/11/17 10/11/17 Range/Units 19:03 19:36 WBC (3.5-10.8) 10^3/ul RBC (4.0-5.4) 10^6/ul Hgb (12.0-16.0) g/dl Hct (35-47) % MCV (80-97) fL MCH (27-31) pg MCHC (31-36) g/dl RDW (10.5-15) % Plt Count (150-450) 10^3/ul MPV (7.4-10.4) um3 Neut % (Auto) (38-83) % Lymph % (Auto) (25-47) % [place] % (Auto) (0-7) % Eos % (Auto) (0-6) % Baso % (Auto) (0-2) % Absolute Neuts (auto) (1.5-7.7) 10^3/ul Absolute Lymphs (auto) (1.0-4.8) 10^3/ul Absolute Monos (auto) (0-0.8) 10^3/ul Absolute Eos (auto) (0-0.6) 10^3/ul Absolute Basos (auto) (0-0.2) 10^3/ul Absolute Nucleated RBC 10^3/ul Nucleated RBC % INR (Anticoag Therapy) (0.77-1.02) Sodium (139-145) mmol/L Potassium (3.5-5.0) mmol/L Chloride (101-111) mmol/L Carbon Dioxide (22-32) mmol/L Anion Gap (2-11) mmol/L BUN (6-24) mg/dL Creatinine (0.51-0.95) mg/dL Est GFR ( Amer) (>60) Est GFR (Non-Af Amer) (>60) BUN/Creatinine Ratio (8-20) Glucose (70-100) mg/dL Lactic Acid 1.2 (0.5-2.0) mmol/L Calcium (8.6-10.3) mg/dL Total Bilirubin (0.2-1.0) mg/dL AST (13-39) U/L ALT (7-52) U/L Alkaline Phosphatase (34-104) U/L Total Protein (6.4-8.9) g/dL Albumin (3.2-5.2) g/dL Globulin (2-4) g/dL Albumin/Globulin Ratio (1-3) Influenza A (Rapid) Negative (Negative) Influenza B (Rapid) Negative (Negative) Assess/Plan/Problems-Billing Ms Macedo is an 86 yo F with h/o AV block s/p pacer, HTN, dyslipidemia, GERD, RLS and Afib on eliquis presents to the ER with fever and was found to have a possible pneumonia and definite UTI. - Patient Problems (1) Blood culture positive for microorganism Current Visit: Yes Status: Acute Code(s): R79.89 - OTHER SPECIFIED ABNORMAL FINDINGS OF BLOOD CHEMISTRY SNOMED Code(s): 7627749759830465 Comment: Blood cultures are 2/4 positive for enterococcus faecalis (same bacteria as in urine). Repeat blood cultures are so far negative. Continue ampicillin. JUAN DAVID ordered for Monday to for endocarditis in the setting of a pacemaker. (2) Enterococcus UTI Current Visit: Yes Status: Acute Code(s): N39.0 - URINARY TRACT INFECTION, SITE NOT SPECIFIED; B95.2 - ENTEROCOCCUS THE CAUSE OF DISEASES CLASSIFIED ELSEWHERE SNOMED Code(s): 477037705630935 Comment: On ampicillin currently. (3) Atrial fibrillation Current Visit: Yes Status: Acute Code(s): I48.91 - UNSPECIFIED ATRIAL FIBRILLATION SNOMED Code(s): 59102070 Comment: Remains in NSR. Continue multaq, diltiazem CD, metoprolol and eliquis. (4) Pneumonia Current Visit: Yes Status: Acute Code(s): J18.9 - PNEUMONIA, UNSPECIFIED ORGANISM SNOMED Code(s): 169031783 Comment: I doubt pneumonia given lack of respiratory symptoms. (5) DVT prophylaxis Current Visit: Yes Status: Acute Code(s): UFI7553 - SNOMED Code(s): 063663251 Comment: Eliquis (6) DNR (do not resuscitate) Current Visit: Yes Status: Acute Status and Disposition: OBV
[2017-10-15] MEDS: Carbidopa/Levodop 25/250MG TAB(*) PO SCH ×2 (15:43→19:49)
[2017-10-15] MEDS: diPHENhydraMINE PO* 25 MG PO PRN (23:04)
[2017-10-16] MEDS: Ampicillin IV* 2 GM in NS 0.9% 100 ML* 100 ML IVPB SCH ×4 (01:46→20:09)
[2017-10-16] MEDS ORDERED: Flumazenil* 0.1 MG/ML 5 ML MDV ONE (08:06)
[2017-10-16] MEDS ORDERED: Lidocaine 2% VISCOUS* 15 ML UDC ONE (08:06)
[2017-10-16] MEDS ORDERED: Naloxone* 0.4 MG/ML 1 ML VIAL ONE (08:06)
[2017-10-16] MEDS ORDERED: fentaNYL* 50 MCG/ML 2 ML VIAL (100 MCG VIAL) ONE (08:06)
[2017-10-16] MEDS ORDERED: Midazolam* 1 MG/ML 10 ML VIAL (10 MG) ONE (08:07)
[2017-10-16] MEDS: Atorvastatin* 20 MG TAB PO SCH (11:02)
[2017-10-16] MEDS: Cyanocobalamin TAB* 500 MCG PO SCH (11:02)
[2017-10-16] MEDS: PARoxetine HCL TAB* 10 MG PO SCH (11:02)
[2017-10-16] MEDS: Dronedarone TAB* 400 MG PO SCH ×2 (11:03→20:10)
[2017-10-16] MEDS: Oxybutynin TAB* 5 MG PO SCH (11:03)
[2017-10-16] MEDS: Metoprolol Tartrate TAB* 50 mg PO SCH ×2 (11:03→20:09)
[2017-10-16] MEDS: Diltiazem CD CAP* 180 MG PO SCH (11:03)
[2017-10-16] MEDS: Potassium Chlor TAB* 20 MEQ TAB.ER PO SCH ×2 (11:03→20:11)
[2017-10-16] MEDS: Apixaban* 2.5 MG TAB PO SCH ×2 (11:03→20:09)
[2017-10-16] MEDS: Multivitamins/Minerals TAB PO SCH (11:03)
[2017-10-16] MEDS: Magnesium Oxide TAB* 400 MG PO SCH (11:03)
--- NOTE | 2017-10-16 11:41 | TEE ---
Patient: JOSUÉ ANTON [facility] Rec#: [id number] : 1930 Date: 10/16/2017 Age: 86y Height: 149.86 cm / 59.0 in Weight: 58.51 kg / 129.0 lbs Sex: F BSA: 1.53 Room#: 403 Type: Inpatient Referring: Nikki Belle DO Performing: Frank Blakely MD Reading: Frank Blakely MD Embedded Software Development Engineer: Jen Thomas RDCS Nurse: Jatinder Bradley RN CC: Adriel Herrera MD Transesophageal Echocardiogram Indication: Bacteremia BP: 166/46 HR: 84 Rhythm: Paced Findings History: + blood cultures with Enterococcus Faecalis,a-fib,s/p pacer insert,HLD,HTN,COPD,GERD. Technical Comments: The study quality is good. Completed at 1110. Left Ventricle: The left ventricular chamber size is normal. Global left ventricular wall motion and contractility are within normal limits. There is normal left ventricular systolic function. The estimated ejection fraction is 55-60%. There is abnormal ventricular septal wall motion consistent with right ventricular pacemaker. Left Atrium: The left atrium is mildly dilated. There is no thrombus visualized in the left atrial appendage. Right Ventricle: The right ventricular cavity size is normal. The right ventricular global systolic function is normal. The septum has abnormal paradoxical motion consistent with RV pacemaker. A pacemaker wire is visualized in the right ventricle. Right Atrium: The right atrial cavity size is normal. A pacemaker wire is visualized in the right atrium. There is no patent foramen ovale visualized. There is no evidence of patent foramen ovale shunting. A patent foramen ovale is not demonstrated with color Doppler and agitated contrast. Aortic Valve: The aortic valve is trileaflet. There is a trace of aortic regurgitation. There is no evidence of aortic stenosis. There is no aortic vegetation present. Mitral Valve: The mitral valve leaflets appear normal. There is trace to mild mitral regurgitation. There is no evidence of mitral stenosis. No vegetation is observed on the mitral valve. Tricuspid Valve: The tricuspid valve leaflets are normal. There is mild to moderate tricuspid regurgitation. There is evidence of mild pulmonary hypertension. No vegetation is observed on the tricuspid valve. Pulmonic Valve: The pulmonic valve appears normal. There is no evidence of pulmonic regurgitation. There is no pulmonic stenosis. No vegetation is observed on the pulmonic valve. Pericardium: The pericardium appears normal. Aorta: There is no dilatation of the ascending aorta. There is no dilatation of the aortic arch. There is no dilation of the aortic root. There is no plaque visualized in the ascending aorta. There is no plaque visualized in the transverse aorta. There is no plaque visualized in the descending aorta. Pulmonary Artery: The main pulmonary artery appears normal. Venous: The bicaval view was obtained and appears normal. The pulmonary veins appear normal in size. 1 out of 4 seen. The flow pattern of the pulmonary veins appear normal. JUAN DAVID Procedures: History and physical as well as labs were reviewed. The patient was in a fasting state. Risks and benefits of the procedure, including alternatives, were discussed and written informed consent was obtained. The patient and/or their health care ambulatory service representative expressed understanding of the procedure, risks and benefits. Baseline and continuous monitoring of blood pressure, heart rate, pulse oximetry and heart rhythm was performed throughout the procedure. The appropriate time-out procedure was performed as per [facility] protocol. The patient was placed in the left lateral decubitus position. The patient's posterior pharynx was anesthetized with 20ml of 2% viscous lidocaine. The patient received IV Midazolam with a total dose of 5 mg. The patient received IV Fentanyl with a total dose of 50mcg. An oral bite block was inserted for protection of oral dentition. The multiplane transesophageal echocardiogram probe was inserted through the posterior oropharynx and advanced into the esophagus without difficulty. Multiple 2D images were obtained of the heart and its related structures. Color flow Doppler was used for evaluation. Spectral Doppler was also used. The atrial septum was interrogated with color flow Doppler. At the conclusion of the procedure the probe was removed with continuous suction without complications. The patient tolerated the procedure with no apparent complications. Conclusions Global left ventricular wall motion and contractility are within normal limits. There is normal left ventricular systolic function. The estimated ejection fraction is 55-60%. The right ventricular global systolic function is normal. A patent foramen ovale is not demonstrated with color Doppler and agitated contrast. There is no thrombus visualized in the left atrial appendage. There is a trace of aortic regurgitation. There is trace to mild mitral regurgitation. There is mild to moderate tricuspid regurgitation. There is evidence of mild pulmonary hypertension. Small calcified plague at sinotubular juction of aorta (2mm X 3 mm) The pericardium appears normal. Measurements Name Value Normal Range Aortic Annulus 1.9 cm (1.4 - 2.6) Ao root diameter (2D) 3 cm (2.1 - 3.5) Ascending Ao 3.4 cm (2.1 - 3.4) Name Value Normal Range MV E-wave Vmax 1.2 m/sec - MV deceleration time 165 msec - MV A-wave Vmax 0.6 m/sec - MV E:A ratio 2.06 ratio - Name Value Normal Range AV Vmax 1.8 m/sec - AV peak gradient 12.44 mmHg - Name Value Normal Range TR Vmax 3.1 m/sec - TR peak gradient 40 mmHg -
--- NOTE | 2017-10-16 12:53 | CONS ---
CONSULTATION REPORT: DATE OF CONSULT: 10/16/17 REQUESTING PHYSICIAN: Dr. Cooper. CONSULTING SERVICE: Infectious Disease. REASON FOR CONSULTATION: Encephalopathy that was present on admission. IMPRESSION: 1. Enterococcal bacteremia and cystitis due to Enterococcus faecalis. Followup cultures are cleared on 10/13/17. She has a pacemaker, so I had recommended a transesophageal echocardiogram, which was done this morning, results pending. 2. Encephalopathy was present on admission, resolved. 3. Atrial fibrillation. 4. Status post right hip arthroplasty which is asymptomatic. RECOMMENDATIONS: Continue ampicillin 2 g IV every 6 hours while awaiting the transesophageal echocardiogram results. She has had 4 days of IV antibiotics, we will plan on 7 days IV if the transesophageal is negative and then amoxicillin 500 mg by mouth 3 times a day to complete 14 days of antibiotics. HISTORY OF PRESENT ILLNESS: This is an 86-year-old woman who lives with her daughter, admitted with 2 to 3 weeks of intermittent fevers and malaise. She had been followed as an outpatient, had a urine culture done by Dr. Herrera on , grew Enterococcus faecalis. She had been started on ciprofloxacin with some improvement in her fever while she was taking it, but it seemed to come back when that stopped. She cannot provide the details, which are obtained in subsequent discussion with the daughter and review of the medical record. She had fever initially at 39 degrees, none since then being on antibiotics, which initially was ceftriaxone, which was switched to ampicillin on 10/13/17. Her blood cultures on 10/11/17 were 2 out of 4 bottles positive for Enterococcus faecalis, the urine culture that day was positive, the followup cultures on were negative. She had a transesophageal echocardiogram this morning, the results are pending. PAST MEDICAL HISTORY: 1. Hypertension. 2. Atrial fibrillation. 3. Status post pacemaker placement. 4. Gastroesophageal reflux disease. 5. Irritable bowel syndrome. 6. Lactose intolerance. 7. Depression. 8. Vitamin B12 deficiency. 9. Restless leg syndrome. 10. Macular degeneration. 11. Gastric ulcer. 12. Status post hysterectomy. 13. Status post hiatal hernia repair. 14. Status post lap cholecystectomy. 15. Status post tonsillectomy. 16. Status post cataract surgery. 17. Status post right hip arthroplasty. MEDICATIONS: 1. Tylenol. 2. Ampicillin 2 g every 6 hours. 3. Eliquis. 4. Sinemet. 5. Vitamin B12. 6. Diltiazem. 7. Magnesium oxide. 8. Multivitamin. 9. Oxybutynin. 10. Paroxetine. 11. Potassium. 12. Senna. ALLERGIES: CONTRAST causes anaphylactic shock, ASPIRIN causes GI upset, MORPHINE causes vomiting. FAMILY HISTORY: Mother had coronary artery disease and hypertension. Father had a stroke. SOCIAL HISTORY: She lives with her daughter in [place]. She has no travel or sick contacts. REVIEW OF SYSTEMS: Unobtainable given the patient's baseline mental status. PHYSICAL EXAM: Vital Signs: Temperature is 36, heart rate 60, respiratory rate 16, blood pressure 150/70, oxygen saturation 97% on room air. In general, she is awake, not in distress. Neurologic: She is drowsy from her sedation, but answers some questions, moves all extremities. HEENT: There is no conjunctival hemorrhage. Oropharynx without lesions. Neck: Supple without mass. Lymph Nodes: There is no cervical, supraclavicular, inguinal, axillary or epitrochlear lymphadenopathy. Heart: Regular rate and rhythm without murmurs, rubs or gallops. There is a well-healed left chest pacemaker incision. Lungs are clear to auscultation bilaterally. Abdomen: Soft, nontender, nondistended. There are bowel sounds present. Skin: There is no rash or splinter hemorrhages. Musculoskeletal: No spine tenderness to palpation or right hip pain with tenderness with log roll. LABORATORY DATA: White blood cell count 7, hemoglobin 11, platelets 262. Creatinine 0.9. Please see impressions and recommendations outlined above, which I have discussed with Dr. Cooper. Thanks for asking me to see Ms. Macedo in consultation. [id number]/[facility] #: [id number] [facility] HOSPITALJian
[2017-10-16] MEDS: Carbidopa/Levodop 25/250MG TAB(*) PO SCH ×2 (16:32→20:11)
--- NOTE | 2017-10-16 17:21 | PN ---
Subjective Date of Service: 10/16/17 Interval History: Pt feels well, a little tired after the procedure Objective Active Medications: Acetaminophen (Tylenol Tab*) 650 mg PO Q4H PRN PRN Reason: FEVER/PAIN Last Admin: 10/14/17 21:20 Dose: 650 mg Al Hydrox/Mg Hydrox/Simethicone (Maalox Plus*) 30 ml PO Q6H PRN PRN Reason: INDIGESTION Apixaban (Eliquis) 2.5 mg PO BID [facility] Last Admin: 10/16/17 11:03 Dose: 2.5 mg Atorvastatin Calcium (Lipitor*) 20 mg PO DAILY [facility] Last Admin: 10/16/17 11:02 Dose: 20 mg Carbidopa/Levodopa (Sinemet 25/250 Tab(*)) 0.5 tab PO 1600 [facility] Last Admin: 10/16/17 16:32 Dose: 0.5 tab Carbidopa/Levodopa (Sinemet 25/250 Tab(*)) 1 tab PO BEDTIME [facility] Last Admin: 10/15/17 19:49 Dose: 1 tab Cyanocobalamin (Vitamin B12 Tab*) 1,000 mcg PO DAILY [facility] Last Admin: 10/16/17 11:02 Dose: 1,000 mcg Diltiazem HCl (Cardizem Cd Cap*) 180 mg PO DAILY [facility] Last Admin: 10/16/17 11:03 Dose: 180 mg Diphenhydramine HCl (Benadryl Po*) 25 mg PO QPM PRN PRN Reason: SLEEP Last Admin: 10/15/17 23:04 Dose: 25 mg Docusate Sodium (Colace Cap*) 100 mg PO BID PRN PRN Reason: CONSTIPATION Dronedarone (Multaq Tab*) 400 mg PO BID [facility] Last Admin: 10/16/17 11:03 Dose: 400 mg Ampicillin Sodium 2 gm/ Sodium (Chloride) 100 mls @ 200 mls/hr IVPB Q6H [facility] Last Admin: 10/16/17 13:57 Dose: 200 mls/hr Magnesium Oxide (Magox 400 Tab*) 400 mg PO DAILY [facility] Last Admin: 10/16/17 11:03 Dose: 400 mg Metoprolol Tartrate (Lopressor Tab*) 50 mg PO BID [facility] Last Admin: 10/16/17 11:03 Dose: 50 mg Multivitamins/Minerals (Theragran/Minerals Tab*) 1 tab PO QAM [facility] Last Admin: 10/16/17 11:03 Dose: 1 tab Ondansetron HCl (Zofran Inj*) 4 mg IV Q4H PRN PRN Reason: NAUSEA/VOMITING Oxybutynin Chloride (Ditropan Tab*) 5 mg PO QAM [facility] Last Admin: 10/16/17 11:03 Dose: 5 mg Paroxetine HCl (Paxil Tab*) 10 mg PO DAILY [facility] Last Admin: 10/16/17 11:02 Dose: 10 mg Potassium Chloride (Klor Con Er Tab*) 20 meq PO BID [facility] Last Admin: 10/16/17 11:03 Dose: 20 meq Senna (Senokot Tab*) 1 tab PO BID PRN PRN Reason: CONSTIPATION Vital Signs - 8 hr 10/16/17 10/16/17 11:21 15:15 Temperature 97.9 F 98.2 F Pulse Rate 61 60 Respiratory 16 16 Rate Blood Pressure 166/65 133/57 (mmHg) O2 Sat by Pulse 97 94 Oximetry Oxygen Devices in Use Now: None Appearance: 86 yo f in nAd, AAOx3 Eyes: No Scleral Icterus, PERRLA Ears/Nose/Mouth/Throat: NL Teeth, Lips, Gums, Mucous Membranes Moist Neck: NL Appearance and Movements; NL JVP, Trachea Midline Respiratory: Symmetrical Chest Expansion and Respiratory Effort, Clear to Auscultation Cardiovascular: NL Sounds; No Murmurs; No JVD, RRR Abdominal: NL Sounds; No Tenderness; No Distention Lymphatic: No Cervical Adenopathy Extremities: No Clubbing, Cyanosis, - - +1 pitting pedal edema b/l Skin: No Rash or Ulcers, No Nodules or Sclerosis Neurological: Alert and Oriented x 3, NL Muscle Strength and Tone Result Diagrams: 10/14/17 10:05 10/14/17 10:05 Additional Lab and Data: Lab Results 10/11/17 10/11/17 10/11/17 Range/Units 19:03 19:03 19:03 WBC 12.5 H (3.5-10.8) 10^3/ul RBC 3.64 L (4.0-5.4) 10^6/ul Hgb 11.5 L (12.0-16.0) g/dl Hct 34 L (35-47) % MCV 94 (80-97) fL MCH 32 H (27-31) pg MCHC 34 (31-36) g/dl RDW 15 (10.5-15) % Plt Count 232 (150-450) 10^3/ul MPV 7.9 (7.4-10.4) um3 Neut % (Auto) 83.5 H (38-83) % Lymph % (Auto) 3.8 L (25-47) % Spencer % (Auto) 12.3 H (0-7) % Eos % (Auto) 0 (0-6) % Baso % (Auto) 0.4 (0-2) % Absolute Neuts (auto) 10.5 H (1.5-7.7) 10^3/ul Absolute Lymphs (auto) 0.5 L (1.0-4.8) 10^3/ul Absolute Monos (auto) 1.5 H (0-0.8) 10^3/ul Absolute Eos (auto) 0 (0-0.6) 10^3/ul Absolute Basos (auto) 0 (0-0.2) 10^3/ul Absolute Nucleated RBC 0 10^3/ul Nucleated RBC % 0.1 INR (Anticoag Therapy) 1.25 H (0.77-1.02) Sodium 129 L (139-145) mmol/L Potassium 3.7 (3.5-5.0) mmol/L Chloride 98 L (101-111) mmol/L Carbon Dioxide 23 (22-32) mmol/L Anion Gap 8 (2-11) mmol/L BUN 19 (6-24) mg/dL Creatinine 0.82 (0.51-0.95) mg/dL Est GFR ( Amer) 85.2 (>60) Est GFR (Non-Af Amer) 66.3 (>60) BUN/Creatinine Ratio 23.2 H (8-20) Glucose 142 H (70-100) mg/dL Lactic Acid (0.5-2.0) mmol/L Calcium 8.6 (8.6-10.3) mg/dL Total Bilirubin 0.70 (0.2-1.0) mg/dL AST 18 (13-39) U/L ALT 49 (7-52) U/L Alkaline Phosphatase 149 H (34-104) U/L Total Protein 7.1 (6.4-8.9) g/dL Albumin 3.7 (3.2-5.2) g/dL Globulin 3.4 (2-4) g/dL Albumin/Globulin Ratio 1.1 (1-3) Influenza A (Rapid) (Negative) Influenza B (Rapid) (Negative) 10/11/17 10/11/17 Range/Units 19:03 19:36 WBC (3.5-10.8) 10^3/ul RBC (4.0-5.4) 10^6/ul Hgb (12.0-16.0) g/dl Hct (35-47) % MCV (80-97) fL MCH (27-31) pg MCHC (31-36) g/dl RDW (10.5-15) % Plt Count (150-450) 10^3/ul MPV (7.4-10.4) um3 Neut % (Auto) (38-83) % Lymph % (Auto) (25-47) % Spencer % (Auto) (0-7) % Eos % (Auto) (0-6) % Baso % (Auto) (0-2) % Absolute Neuts (auto) (1.5-7.7) 10^3/ul Absolute Lymphs (auto) (1.0-4.8) 10^3/ul Absolute Monos (auto) (0-0.8) 10^3/ul Absolute Eos (auto) (0-0.6) 10^3/ul Absolute Basos (auto) (0-0.2) 10^3/ul Absolute Nucleated RBC 10^3/ul Nucleated RBC % INR (Anticoag Therapy) (0.77-1.02) Sodium (139-145) mmol/L Potassium (3.5-5.0) mmol/L Chloride (101-111) mmol/L Carbon Dioxide (22-32) mmol/L Anion Gap (2-11) mmol/L BUN (6-24) mg/dL Creatinine (0.51-0.95) mg/dL Est GFR ( Amer) (>60) Est GFR (Non-Af Amer) (>60) BUN/Creatinine Ratio (8-20) Glucose (70-100) mg/dL Lactic Acid 1.2 (0.5-2.0) mmol/L Calcium (8.6-10.3) mg/dL Total Bilirubin (0.2-1.0) mg/dL AST (13-39) U/L ALT (7-52) U/L Alkaline Phosphatase (34-104) U/L Total Protein (6.4-8.9) g/dL Albumin (3.2-5.2) g/dL Globulin (2-4) g/dL Albumin/Globulin Ratio (1-3) Influenza A (Rapid) Negative (Negative) Influenza B (Rapid) Negative (Negative) Assess/Plan/Problems-Billing Ms Macedo is an 86 yo F with h/o AV block s/p pacer, HTN, dyslipidemia, GERD, RLS and Afib on eliquis presents to the ER with fever and was found to have a possible pneumonia and definite UTI. - Patient Problems (1) Pneumonia Comment: Doubt pneumonia given lack of respiratory symptoms. (2) Atrial fibrillation Comment: Remains in NSR. Continue multaq, diltiazem CD, metoprolol and eliquis. (3) Enterococcus UTI Comment: On ampicillin currently. (4) Blood culture positive for microorganism Comment: Blood cultures are 2/4 positive for enterococcus faecalis (same bacteria as in urine). Repeat blood cultures are so far negative. Continue ampicillin. JUAN DAVID neg for vegetations. Needs 7 days total of IV antibiotics-as per ID, then PO amoxicillin x 7 days (5) Hyponatremia Comment: prerenal. will recheck BMP in aM (6) RLS (restless legs syndrome) Comment: Stable. Continue Sinemet (7) DVT prophylaxis Comment: Eliquis Status and Disposition: Inpatient
[2017-10-17] MEDS: Ampicillin IV* 2 GM in NS 0.9% 100 ML* 100 ML IVPB SCH ×4 (02:03→19:50)
[2017-10-17] MEDS: PARoxetine HCL TAB* 10 MG PO SCH (07:50)
[2017-10-17] MEDS: Dronedarone TAB* 400 MG PO SCH ×2 (07:50→21:00)
[2017-10-17] MEDS: Diltiazem CD CAP* 180 MG PO SCH (07:51)
[2017-10-17] MEDS: Cyanocobalamin TAB* 500 MCG PO SCH (07:51)
[2017-10-17] MEDS: Metoprolol Tartrate TAB* 50 mg PO SCH ×2 (07:51→21:00)
[2017-10-17] MEDS: Oxybutynin TAB* 5 MG PO SCH (07:51)
[2017-10-17] MEDS: Potassium Chlor TAB* 20 MEQ TAB.ER PO SCH ×2 (07:51→21:00)
[2017-10-17] MEDS: Atorvastatin* 20 MG TAB PO SCH (07:51)
[2017-10-17] MEDS: Multivitamins/Minerals TAB PO SCH (07:51)
[2017-10-17] MEDS: Apixaban* 2.5 MG TAB PO SCH ×2 (07:51→21:00)
[2017-10-17] MEDS: Magnesium Oxide TAB* 400 MG PO SCH (07:51)
[2017-10-17 08:14] LABS: EGFR Non-African American 59.5 (>60)
--- NOTE | 2017-10-17 15:01 | PN ---
Subjective Date of Service: 10/17/17 Interval History: Pt feels well. no new complaints. Objective Active Medications: Acetaminophen (Tylenol Tab*) 650 mg PO Q4H PRN PRN Reason: FEVER/PAIN Last Admin: 10/14/17 21:20 Dose: 650 mg Al Hydrox/Mg Hydrox/Simethicone (Maalox Plus*) 30 ml PO Q6H PRN PRN Reason: INDIGESTION Apixaban (Eliquis) 2.5 mg PO BID [facility] Last Admin: 10/17/17 07:51 Dose: 2.5 mg Atorvastatin Calcium (Lipitor*) 20 mg PO DAILY [facility] Last Admin: 10/17/17 07:51 Dose: 20 mg Carbidopa/Levodopa (Sinemet 25/250 Tab(*)) 0.5 tab PO 1600 [facility] Last Admin: 10/16/17 16:32 Dose: 0.5 tab Carbidopa/Levodopa (Sinemet 25/250 Tab(*)) 1 tab PO BEDTIME [facility] Last Admin: 10/16/17 20:11 Dose: 1 tab Cyanocobalamin (Vitamin B12 Tab*) 1,000 mcg PO DAILY [facility] Last Admin: 10/17/17 07:51 Dose: 1,000 mcg Diltiazem HCl (Cardizem Cd Cap*) 180 mg PO DAILY [facility] Last Admin: 10/17/17 07:51 Dose: 180 mg Diphenhydramine HCl (Benadryl Po*) 25 mg PO QPM PRN PRN Reason: SLEEP Last Admin: 10/15/17 23:04 Dose: 25 mg Docusate Sodium (Colace Cap*) 100 mg PO BID PRN PRN Reason: CONSTIPATION Dronedarone (Multaq Tab*) 400 mg PO BID [facility] Last Admin: 10/17/17 07:50 Dose: 400 mg Ampicillin Sodium 2 gm/ Sodium (Chloride) 100 mls @ 200 mls/hr IVPB Q6H [facility] Last Admin: 10/17/17 13:07 Dose: 200 mls/hr Magnesium Oxide (Magox 400 Tab*) 400 mg PO DAILY [facility] Last Admin: 10/17/17 07:51 Dose: 400 mg Metoprolol Tartrate (Lopressor Tab*) 50 mg PO BID [facility] Last Admin: 10/17/17 07:51 Dose: 50 mg Multivitamins/Minerals (Theragran/Minerals Tab*) 1 tab PO QAM [facility] Last Admin: 10/17/17 07:51 Dose: 1 tab Ondansetron HCl (Zofran Inj*) 4 mg IV Q4H PRN PRN Reason: NAUSEA/VOMITING Oxybutynin Chloride (Ditropan Tab*) 5 mg PO QAM [facility] Last Admin: 10/17/17 07:51 Dose: 5 mg Paroxetine HCl (Paxil Tab*) 10 mg PO DAILY [facility] Last Admin: 10/17/17 07:50 Dose: 10 mg Potassium Chloride (Klor Con Er Tab*) 20 meq PO BID [facility] Last Admin: 10/17/17 07:51 Dose: 20 meq Senna (Senokot Tab*) 1 tab PO BID PRN PRN Reason: CONSTIPATION Vital Signs - 8 hr 10/17/17 10/17/17 10/17/17 07:00 08:00 11:21 Temperature 98.2 F 97.6 F Pulse Rate 64 60 Respiratory 16 16 16 Rate Blood Pressure 158/69 133/69 (mmHg) O2 Sat by Pulse 94 100 Oximetry Oxygen Devices in Use Now: None Appearance: 86 yo F in nAD, AAOx3 Eyes: No Scleral Icterus, PERRLA Ears/Nose/Mouth/Throat: NL Teeth, Lips, Gums, Mucous Membranes Moist Neck: NL Appearance and Movements; NL JVP, Trachea Midline Respiratory: Symmetrical Chest Expansion and Respiratory Effort, Clear to Auscultation Cardiovascular: NL Sounds; No Murmurs; No JVD, RRR Abdominal: NL Sounds; No Tenderness; No Distention Lymphatic: No Cervical Adenopathy Extremities: No Clubbing, Cyanosis, - - +1 pitting pedal edema b/l Skin: No Rash or Ulcers, No Nodules or Sclerosis Neurological: Alert and Oriented x 3, NL Muscle Strength and Tone Result Diagrams: 10/14/17 10:05 10/17/17 07:43 Additional Lab and Data: Lab Results 10/11/17 10/11/17 10/11/17 Range/Units 19:03 19:03 19:03 WBC 12.5 H (3.5-10.8) 10^3/ul RBC 3.64 L (4.0-5.4) 10^6/ul Hgb 11.5 L (12.0-16.0) g/dl Hct 34 L (35-47) % MCV 94 (80-97) fL MCH 32 H (27-31) pg MCHC 34 (31-36) g/dl RDW 15 (10.5-15) % Plt Count 232 (150-450) 10^3/ul MPV 7.9 (7.4-10.4) um3 Neut % (Auto) 83.5 H (38-83) % Lymph % (Auto) 3.8 L (25-47) % Shannon % (Auto) 12.3 H (0-7) % Eos % (Auto) 0 (0-6) % Baso % (Auto) 0.4 (0-2) % Absolute Neuts (auto) 10.5 H (1.5-7.7) 10^3/ul Absolute Lymphs (auto) 0.5 L (1.0-4.8) 10^3/ul Absolute Monos (auto) 1.5 H (0-0.8) 10^3/ul Absolute Eos (auto) 0 (0-0.6) 10^3/ul Absolute Basos (auto) 0 (0-0.2) 10^3/ul Absolute Nucleated RBC 0 10^3/ul Nucleated RBC % 0.1 INR (Anticoag Therapy) 1.25 H (0.77-1.02) Sodium 129 L (139-145) mmol/L Potassium 3.7 (3.5-5.0) mmol/L Chloride 98 L (101-111) mmol/L Carbon Dioxide 23 (22-32) mmol/L Anion Gap 8 (2-11) mmol/L BUN 19 (6-24) mg/dL Creatinine 0.82 (0.51-0.95) mg/dL Est GFR ( Amer) 85.2 (>60) Est GFR (Non-Af Amer) 66.3 (>60) BUN/Creatinine Ratio 23.2 H (8-20) Glucose 142 H (70-100) mg/dL Lactic Acid (0.5-2.0) mmol/L Calcium 8.6 (8.6-10.3) mg/dL Total Bilirubin 0.70 (0.2-1.0) mg/dL AST 18 (13-39) U/L ALT 49 (7-52) U/L Alkaline Phosphatase 149 H (34-104) U/L Total Protein 7.1 (6.4-8.9) g/dL Albumin 3.7 (3.2-5.2) g/dL Globulin 3.4 (2-4) g/dL Albumin/Globulin Ratio 1.1 (1-3) Influenza A (Rapid) (Negative) Influenza B (Rapid) (Negative) 10/11/17 10/11/17 Range/Units 19:03 19:36 WBC (3.5-10.8) 10^3/ul RBC (4.0-5.4) 10^6/ul Hgb (12.0-16.0) g/dl Hct (35-47) % MCV (80-97) fL MCH (27-31) pg MCHC (31-36) g/dl RDW (10.5-15) % Plt Count (150-450) 10^3/ul MPV (7.4-10.4) um3 Neut % (Auto) (38-83) % Lymph % (Auto) (25-47) % Shannon % (Auto) (0-7) % Eos % (Auto) (0-6) % Baso % (Auto) (0-2) % Absolute Neuts (auto) (1.5-7.7) 10^3/ul Absolute Lymphs (auto) (1.0-4.8) 10^3/ul Absolute Monos (auto) (0-0.8) 10^3/ul Absolute Eos (auto) (0-0.6) 10^3/ul Absolute Basos (auto) (0-0.2) 10^3/ul Absolute Nucleated RBC 10^3/ul Nucleated RBC % INR (Anticoag Therapy) (0.77-1.02) Sodium (139-145) mmol/L Potassium (3.5-5.0) mmol/L Chloride (101-111) mmol/L Carbon Dioxide (22-32) mmol/L Anion Gap (2-11) mmol/L BUN (6-24) mg/dL Creatinine (0.51-0.95) mg/dL Est GFR ( Amer) (>60) Est GFR (Non-Af Amer) (>60) BUN/Creatinine Ratio (8-20) Glucose (70-100) mg/dL Lactic Acid 1.2 (0.5-2.0) mmol/L Calcium (8.6-10.3) mg/dL Total Bilirubin (0.2-1.0) mg/dL AST (13-39) U/L ALT (7-52) U/L Alkaline Phosphatase (34-104) U/L Total Protein (6.4-8.9) g/dL Albumin (3.2-5.2) g/dL Globulin (2-4) g/dL Albumin/Globulin Ratio (1-3) Influenza A (Rapid) Negative (Negative) Influenza B (Rapid) Negative (Negative) Assess/Plan/Problems-Billing Ms Macedo is an 86 yo F with h/o AV block s/p pacer, HTN, dyslipidemia, GERD, RLS and Afib on eliquis presents to the ER with fever and was found to have a possible pneumonia and definite UTI. - Patient Problems (1) Pneumonia Comment: Doubt pneumonia given lack of respiratory symptoms. (2) Atrial fibrillation Comment: Remains in NSR. Continue multaq, diltiazem CD, metoprolol and eliquis. (3) Enterococcus UTI Comment: On ampicillin currently. (4) Blood culture positive for microorganism Comment: Blood cultures are 2/4 positive for enterococcus faecalis (same bacteria as in urine). Repeat blood cultures are so far negative. Continue ampicillin. JUAN DAVID neg for vegetations. Needs 7 days total of IV antibiotics (plan to d/c on Monday10/20/17)-as per ID, then PO amoxicillin x 7 days (5) Hyponatremia Comment: prerenal. resolving (6) RLS (restless legs syndrome) Comment: Stable. Continue Sinemet (7) DVT prophylaxis Comment: Eliquis Status and Disposition: Inpatient
[2017-10-17] MEDS: Carbidopa/Levodop 25/250MG TAB(*) PO SCH ×2 (15:16→21:00)
[2017-10-17] MEDS: diPHENhydraMINE PO* 25 MG PO PRN (20:59)
[2017-10-18] MEDS: Ampicillin IV* 2 GM in NS 0.9% 100 ML* 100 ML IVPB SCH ×4 (02:08→20:25)
[2017-10-18] MEDS: Apixaban* 2.5 MG TAB PO SCH ×2 (08:39→20:25)
[2017-10-18] MEDS: PARoxetine HCL TAB* 10 MG PO SCH (08:39)
[2017-10-18] MEDS: Oxybutynin TAB* 5 MG PO SCH (08:39)
[2017-10-18] MEDS: Multivitamins/Minerals TAB PO SCH (08:40)
[2017-10-18] MEDS: Potassium Chlor TAB* 20 MEQ TAB.ER PO SCH ×2 (08:40→20:25)
[2017-10-18] MEDS: Cyanocobalamin TAB* 500 MCG PO SCH (08:40)
[2017-10-18] MEDS: Diltiazem CD CAP* 180 MG PO SCH (08:40)
[2017-10-18] MEDS: Metoprolol Tartrate TAB* 50 mg PO SCH ×2 (08:41→20:26)
[2017-10-18] MEDS: Atorvastatin* 20 MG TAB PO SCH (08:41)
[2017-10-18] MEDS: Dronedarone TAB* 400 MG PO SCH ×2 (08:41→20:25)
[2017-10-18] MEDS: Magnesium Oxide TAB* 400 MG PO SCH (08:41)
--- NOTE | 2017-10-18 14:33 | PN ---
Subjective Date of Service: 10/18/17 Interval History: Pt feels well. no new complaints Objective Active Medications: Acetaminophen (Tylenol Tab*) 650 mg PO Q4H PRN PRN Reason: FEVER/PAIN Last Admin: 10/14/17 21:20 Dose: 650 mg Al Hydrox/Mg Hydrox/Simethicone (Maalox Plus*) 30 ml PO Q6H PRN PRN Reason: INDIGESTION Apixaban (Eliquis) 2.5 mg PO BID [facility] Last Admin: 10/18/17 08:39 Dose: 2.5 mg Atorvastatin Calcium (Lipitor*) 20 mg PO DAILY [facility] Last Admin: 10/18/17 08:41 Dose: 20 mg Carbidopa/Levodopa (Sinemet 25/250 Tab(*)) 0.5 tab PO 1600 [facility] Last Admin: 10/17/17 15:16 Dose: 0.5 tab Carbidopa/Levodopa (Sinemet 25/250 Tab(*)) 1 tab PO BEDTIME [facility] Last Admin: 10/17/17 21:00 Dose: 1 tab Cyanocobalamin (Vitamin B12 Tab*) 1,000 mcg PO DAILY [facility] Last Admin: 10/18/17 08:40 Dose: 1,000 mcg Diltiazem HCl (Cardizem Cd Cap*) 180 mg PO DAILY [facility] Last Admin: 10/18/17 08:40 Dose: 180 mg Diphenhydramine HCl (Benadryl Po*) 25 mg PO QPM PRN PRN Reason: SLEEP Last Admin: 10/17/17 20:59 Dose: 25 mg Docusate Sodium (Colace Cap*) 100 mg PO BID PRN PRN Reason: CONSTIPATION Dronedarone (Multaq Tab*) 400 mg PO BID [facility] Last Admin: 10/18/17 08:41 Dose: 400 mg Ampicillin Sodium 2 gm/ Sodium (Chloride) 100 mls @ 200 mls/hr IVPB Q6H [facility] Last Admin: 10/18/17 09:33 Dose: 200 mls/hr Magnesium Oxide (Magox 400 Tab*) 400 mg PO DAILY [facility] Last Admin: 10/18/17 08:41 Dose: 400 mg Metoprolol Tartrate (Lopressor Tab*) 50 mg PO BID [facility] Last Admin: 10/18/17 08:41 Dose: 50 mg Multivitamins/Minerals (Theragran/Minerals Tab*) 1 tab PO QAM [facility] Last Admin: 10/18/17 08:40 Dose: 1 tab Ondansetron HCl (Zofran Inj*) 4 mg IV Q4H PRN PRN Reason: NAUSEA/VOMITING Oxybutynin Chloride (Ditropan Tab*) 5 mg PO QAM [facility] Last Admin: 10/18/17 08:39 Dose: 5 mg Paroxetine HCl (Paxil Tab*) 10 mg PO DAILY [facility] Last Admin: 10/18/17 08:39 Dose: 10 mg Potassium Chloride (Klor Con Er Tab*) 20 meq PO BID [facility] Last Admin: 10/18/17 08:40 Dose: 20 meq Senna (Senokot Tab*) 1 tab PO BID PRN PRN Reason: CONSTIPATION Vital Signs - 8 hr 10/18/17 10/18/17 07:17 08:00 Temperature 98.3 F Pulse Rate 67 Respiratory 16 16 Rate Blood Pressure 160/69 (mmHg) O2 Sat by Pulse 96 96 Oximetry Oxygen Devices in Use Now: None Appearance: 86 yo F in nAD, AAOx3 Eyes: No Scleral Icterus, PERRLA Ears/Nose/Mouth/Throat: NL Teeth, Lips, Gums, Mucous Membranes Moist Neck: NL Appearance and Movements; NL JVP, Trachea Midline Respiratory: Symmetrical Chest Expansion and Respiratory Effort, Clear to Auscultation Cardiovascular: NL Sounds; No Murmurs; No JVD, RRR Abdominal: NL Sounds; No Tenderness; No Distention Lymphatic: No Cervical Adenopathy Extremities: No Clubbing, Cyanosis, - - trace pedal edema b/l Skin: No Rash or Ulcers, No Nodules or Sclerosis Neurological: Alert and Oriented x 3, NL Muscle Strength and Tone Result Diagrams: 10/14/17 10:05 10/17/17 07:43 Additional Lab and Data: Lab Results 10/11/17 10/11/17 10/11/17 Range/Units 19:03 19:03 19:03 WBC 12.5 H (3.5-10.8) 10^3/ul RBC 3.64 L (4.0-5.4) 10^6/ul Hgb 11.5 L (12.0-16.0) g/dl Hct 34 L (35-47) % MCV 94 (80-97) fL MCH 32 H (27-31) pg MCHC 34 (31-36) g/dl RDW 15 (10.5-15) % Plt Count 232 (150-450) 10^3/ul MPV 7.9 (7.4-10.4) um3 Neut % (Auto) 83.5 H (38-83) % Lymph % (Auto) 3.8 L (25-47) % [place] % (Auto) 12.3 H (0-7) % Eos % (Auto) 0 (0-6) % Baso % (Auto) 0.4 (0-2) % Absolute Neuts (auto) 10.5 H (1.5-7.7) 10^3/ul Absolute Lymphs (auto) 0.5 L (1.0-4.8) 10^3/ul Absolute Monos (auto) 1.5 H (0-0.8) 10^3/ul Absolute Eos (auto) 0 (0-0.6) 10^3/ul Absolute Basos (auto) 0 (0-0.2) 10^3/ul Absolute Nucleated RBC 0 10^3/ul Nucleated RBC % 0.1 INR (Anticoag Therapy) 1.25 H (0.77-1.02) Sodium 129 L (139-145) mmol/L Potassium 3.7 (3.5-5.0) mmol/L Chloride 98 L (101-111) mmol/L Carbon Dioxide 23 (22-32) mmol/L Anion Gap 8 (2-11) mmol/L BUN 19 (6-24) mg/dL Creatinine 0.82 (0.51-0.95) mg/dL Est GFR ( Amer) 85.2 (>60) Est GFR (Non-Af Amer) 66.3 (>60) BUN/Creatinine Ratio 23.2 H (8-20) Glucose 142 H (70-100) mg/dL Lactic Acid (0.5-2.0) mmol/L Calcium 8.6 (8.6-10.3) mg/dL Total Bilirubin 0.70 (0.2-1.0) mg/dL AST 18 (13-39) U/L ALT 49 (7-52) U/L Alkaline Phosphatase 149 H (34-104) U/L Total Protein 7.1 (6.4-8.9) g/dL Albumin 3.7 (3.2-5.2) g/dL Globulin 3.4 (2-4) g/dL Albumin/Globulin Ratio 1.1 (1-3) Influenza A (Rapid) (Negative) Influenza B (Rapid) (Negative) 10/11/17 10/11/17 Range/Units 19:03 19:36 WBC (3.5-10.8) 10^3/ul RBC (4.0-5.4) 10^6/ul Hgb (12.0-16.0) g/dl Hct (35-47) % MCV (80-97) fL MCH (27-31) pg MCHC (31-36) g/dl RDW (10.5-15) % Plt Count (150-450) 10^3/ul MPV (7.4-10.4) um3 Neut % (Auto) (38-83) % Lymph % (Auto) (25-47) % [place] % (Auto) (0-7) % Eos % (Auto) (0-6) % Baso % (Auto) (0-2) % Absolute Neuts (auto) (1.5-7.7) 10^3/ul Absolute Lymphs (auto) (1.0-4.8) 10^3/ul Absolute Monos (auto) (0-0.8) 10^3/ul Absolute Eos (auto) (0-0.6) 10^3/ul Absolute Basos (auto) (0-0.2) 10^3/ul Absolute Nucleated RBC 10^3/ul Nucleated RBC % INR (Anticoag Therapy) (0.77-1.02) Sodium (139-145) mmol/L Potassium (3.5-5.0) mmol/L Chloride (101-111) mmol/L Carbon Dioxide (22-32) mmol/L Anion Gap (2-11) mmol/L BUN (6-24) mg/dL Creatinine (0.51-0.95) mg/dL Est GFR ( Amer) (>60) Est GFR (Non-Af Amer) (>60) BUN/Creatinine Ratio (8-20) Glucose (70-100) mg/dL Lactic Acid 1.2 (0.5-2.0) mmol/L Calcium (8.6-10.3) mg/dL Total Bilirubin (0.2-1.0) mg/dL AST (13-39) U/L ALT (7-52) U/L Alkaline Phosphatase (34-104) U/L Total Protein (6.4-8.9) g/dL Albumin (3.2-5.2) g/dL Globulin (2-4) g/dL Albumin/Globulin Ratio (1-3) Influenza A (Rapid) Negative (Negative) Influenza B (Rapid) Negative (Negative) Assess/Plan/Problems-Billing Ms Macedo is an 86 yo F with h/o AV block s/p pacer, HTN, dyslipidemia, GERD, RLS and Afib on eliquis presents to the ER with fever and was found to have a possible pneumonia and definite UTI. - Patient Problems (1) Pneumonia Comment: Doubt pneumonia given lack of respiratory symptoms. (2) Atrial fibrillation Comment: Remains in NSR. Continue multaq, diltiazem CD, metoprolol and eliquis. (3) Enterococcus UTI Comment: On ampicillin currently. (4) Blood culture positive for microorganism Comment: Blood cultures are 2/4 positive for enterococcus faecalis (same bacteria as in urine). Repeat blood cultures are so far negative. Continue ampicillin. JUAN DAVID neg for vegetations. Needs 7 days total of IV antibiotics (plan to d/c on Monday10/20/17)-as per ID, then PO amoxicillin x 7 days (5) Hyponatremia Comment: prerenal. resolving (6) RLS (restless legs syndrome) Comment: Stable. Continue Sinemet (7) DVT prophylaxis Comment: Eliquis Status and Disposition: Inpatient, d/c planned on Monday08/22/17
[2017-10-18] MEDS: Carbidopa/Levodop 25/250MG TAB(*) PO SCH ×2 (15:56→20:26)
[2017-10-18] MEDS: diPHENhydraMINE PO* 25 MG PO PRN (23:24)
[2017-10-19] MEDS: Ampicillin IV* 2 GM in NS 0.9% 100 ML* 100 ML IVPB SCH ×4 (01:38→21:15)
[2017-10-19] MEDS: Metoprolol Tartrate TAB* 50 mg PO SCH ×2 (09:30→21:13)
[2017-10-19] MEDS: Oxybutynin TAB* 5 MG PO SCH (09:30)
[2017-10-19] MEDS: PARoxetine HCL TAB* 10 MG PO SCH (09:30)
[2017-10-19] MEDS: Cyanocobalamin TAB* 500 MCG PO SCH (09:30)
[2017-10-19] MEDS: Atorvastatin* 20 MG TAB PO SCH (09:30)
[2017-10-19] MEDS: Dronedarone TAB* 400 MG PO SCH ×2 (09:30→21:14)
[2017-10-19] MEDS: Potassium Chlor TAB* 20 MEQ TAB.ER PO SCH ×2 (09:30→21:13)
[2017-10-19] MEDS: Apixaban* 2.5 MG TAB PO SCH ×2 (09:30→21:14)
[2017-10-19] MEDS: Diltiazem CD CAP* 180 MG PO SCH (09:30)
[2017-10-19] MEDS: Magnesium Oxide TAB* 400 MG PO SCH (09:31)
[2017-10-19] MEDS: Multivitamins/Minerals TAB PO SCH (09:31)
[2017-10-19] MEDS: Carbidopa/Levodop 25/250MG TAB(*) PO SCH ×2 (15:49→21:13)
--- NOTE | 2017-10-19 15:50 | PN ---
Subjective Date of Service: 10/19/17 Interval History: Pt feels well, anxious to go home tomorrow. Objective Active Medications: Acetaminophen (Tylenol Tab*) 650 mg PO Q4H PRN PRN Reason: FEVER/PAIN Last Admin: 10/14/17 21:20 Dose: 650 mg Al Hydrox/Mg Hydrox/Simethicone (Maalox Plus*) 30 ml PO Q6H PRN PRN Reason: INDIGESTION Apixaban (Eliquis) 2.5 mg PO BID [facility] Last Admin: 10/19/17 09:30 Dose: 2.5 mg Atorvastatin Calcium (Lipitor*) 20 mg PO DAILY [facility] Last Admin: 10/19/17 09:30 Dose: 20 mg Carbidopa/Levodopa (Sinemet 25/250 Tab(*)) 0.5 tab PO 1600 [facility] Last Admin: 10/18/17 15:56 Dose: 0.5 tab Carbidopa/Levodopa (Sinemet 25/250 Tab(*)) 1 tab PO BEDTIME [facility] Last Admin: 10/18/17 20:26 Dose: 1 tab Cyanocobalamin (Vitamin B12 Tab*) 1,000 mcg PO DAILY [facility] Last Admin: 10/19/17 09:30 Dose: 1,000 mcg Diltiazem HCl (Cardizem Cd Cap*) 180 mg PO DAILY [facility] Last Admin: 10/19/17 09:30 Dose: 180 mg Diphenhydramine HCl (Benadryl Po*) 25 mg PO QPM PRN PRN Reason: SLEEP Last Admin: 10/18/17 23:24 Dose: 25 mg Docusate Sodium (Colace Cap*) 100 mg PO BID PRN PRN Reason: CONSTIPATION Dronedarone (Multaq Tab*) 400 mg PO BID [facility] Last Admin: 10/19/17 09:30 Dose: 400 mg Ampicillin Sodium 2 gm/ Sodium (Chloride) 100 mls @ 200 mls/hr IVPB Q6H [facility] Last Admin: 10/19/17 14:45 Dose: 200 mls/hr Magnesium Oxide (Magox 400 Tab*) 400 mg PO DAILY [facility] Last Admin: 10/19/17 09:31 Dose: 400 mg Metoprolol Tartrate (Lopressor Tab*) 50 mg PO BID [facility] Last Admin: 10/19/17 09:30 Dose: 50 mg Multivitamins/Minerals (Theragran/Minerals Tab*) 1 tab PO QAM [facility] Last Admin: 10/19/17 09:31 Dose: 1 tab Ondansetron HCl (Zofran Inj*) 4 mg IV Q4H PRN PRN Reason: NAUSEA/VOMITING Oxybutynin Chloride (Ditropan Tab*) 5 mg PO QAM [facility] Last Admin: 10/19/17 09:30 Dose: 5 mg Paroxetine HCl (Paxil Tab*) 10 mg PO DAILY [facility] Last Admin: 10/19/17 09:30 Dose: 10 mg Potassium Chloride (Klor Con Er Tab*) 20 meq PO BID [facility] Last Admin: 10/19/17 09:30 Dose: 20 meq Senna (Senokot Tab*) 1 tab PO BID PRN PRN Reason: CONSTIPATION Vital Signs - 8 hr 10/19/17 10/19/17 10/19/17 08:00 08:41 12:59 Temperature 98.1 F 99.4 F Pulse Rate 65 62 Respiratory 18 18 Rate Blood Pressure 150/69 134/59 (mmHg) O2 Sat by Pulse 99 99 98 Oximetry 10/19/17 15:29 Temperature 98.8 F Pulse Rate 59 Respiratory 16 Rate Blood Pressure 126/58 (mmHg) O2 Sat by Pulse 96 Oximetry Oxygen Devices in Use Now: None Appearance: 86 yo f in nAD, AAOx3 Eyes: No Scleral Icterus, PERRLA Ears/Nose/Mouth/Throat: NL Teeth, Lips, Gums, Mucous Membranes Moist Neck: NL Appearance and Movements; NL JVP, Trachea Midline Respiratory: Symmetrical Chest Expansion and Respiratory Effort, Clear to Auscultation Cardiovascular: NL Sounds; No Murmurs; No JVD, RRR Abdominal: NL Sounds; No Tenderness; No Distention Lymphatic: No Cervical Adenopathy, No Inguinal Adenopathy Extremities: No Clubbing, Cyanosis, - - trace pedal edema b/l Skin: No Rash or Ulcers, No Nodules or Sclerosis Neurological: Alert and Oriented x 3, NL Muscle Strength and Tone Result Diagrams: 10/14/17 10:05 10/17/17 07:43 Additional Lab and Data: Lab Results 10/11/17 10/11/17 10/11/17 Range/Units 19:03 19:03 19:03 WBC 12.5 H (3.5-10.8) 10^3/ul RBC 3.64 L (4.0-5.4) 10^6/ul Hgb 11.5 L (12.0-16.0) g/dl Hct 34 L (35-47) % MCV 94 (80-97) fL MCH 32 H (27-31) pg MCHC 34 (31-36) g/dl RDW 15 (10.5-15) % Plt Count 232 (150-450) 10^3/ul MPV 7.9 (7.4-10.4) um3 Neut % (Auto) 83.5 H (38-83) % Lymph % (Auto) 3.8 L (25-47) % [place] % (Auto) 12.3 H (0-7) % Eos % (Auto) 0 (0-6) % Baso % (Auto) 0.4 (0-2) % Absolute Neuts (auto) 10.5 H (1.5-7.7) 10^3/ul Absolute Lymphs (auto) 0.5 L (1.0-4.8) 10^3/ul Absolute Monos (auto) 1.5 H (0-0.8) 10^3/ul Absolute Eos (auto) 0 (0-0.6) 10^3/ul Absolute Basos (auto) 0 (0-0.2) 10^3/ul Absolute Nucleated RBC 0 10^3/ul Nucleated RBC % 0.1 INR (Anticoag Therapy) 1.25 H (0.77-1.02) Sodium 129 L (139-145) mmol/L Potassium 3.7 (3.5-5.0) mmol/L Chloride 98 L (101-111) mmol/L Carbon Dioxide 23 (22-32) mmol/L Anion Gap 8 (2-11) mmol/L BUN 19 (6-24) mg/dL Creatinine 0.82 (0.51-0.95) mg/dL Est GFR ( Amer) 85.2 (>60) Est GFR (Non-Af Amer) 66.3 (>60) BUN/Creatinine Ratio 23.2 H (8-20) Glucose 142 H (70-100) mg/dL Lactic Acid (0.5-2.0) mmol/L Calcium 8.6 (8.6-10.3) mg/dL Total Bilirubin 0.70 (0.2-1.0) mg/dL AST 18 (13-39) U/L ALT 49 (7-52) U/L Alkaline Phosphatase 149 H (34-104) U/L Total Protein 7.1 (6.4-8.9) g/dL Albumin 3.7 (3.2-5.2) g/dL Globulin 3.4 (2-4) g/dL Albumin/Globulin Ratio 1.1 (1-3) Influenza A (Rapid) (Negative) Influenza B (Rapid) (Negative) 10/11/17 10/11/17 Range/Units 19:03 19:36 WBC (3.5-10.8) 10^3/ul RBC (4.0-5.4) 10^6/ul Hgb (12.0-16.0) g/dl Hct (35-47) % MCV (80-97) fL MCH (27-31) pg MCHC (31-36) g/dl RDW (10.5-15) % Plt Count (150-450) 10^3/ul MPV (7.4-10.4) um3 Neut % (Auto) (38-83) % Lymph % (Auto) (25-47) % [place] % (Auto) (0-7) % Eos % (Auto) (0-6) % Baso % (Auto) (0-2) % Absolute Neuts (auto) (1.5-7.7) 10^3/ul Absolute Lymphs (auto) (1.0-4.8) 10^3/ul Absolute Monos (auto) (0-0.8) 10^3/ul Absolute Eos (auto) (0-0.6) 10^3/ul Absolute Basos (auto) (0-0.2) 10^3/ul Absolute Nucleated RBC 10^3/ul Nucleated RBC % INR (Anticoag Therapy) (0.77-1.02) Sodium (139-145) mmol/L Potassium (3.5-5.0) mmol/L Chloride (101-111) mmol/L Carbon Dioxide (22-32) mmol/L Anion Gap (2-11) mmol/L BUN (6-24) mg/dL Creatinine (0.51-0.95) mg/dL Est GFR ( Amer) (>60) Est GFR (Non-Af Amer) (>60) BUN/Creatinine Ratio (8-20) Glucose (70-100) mg/dL Lactic Acid 1.2 (0.5-2.0) mmol/L Calcium (8.6-10.3) mg/dL Total Bilirubin (0.2-1.0) mg/dL AST (13-39) U/L ALT (7-52) U/L Alkaline Phosphatase (34-104) U/L Total Protein (6.4-8.9) g/dL Albumin (3.2-5.2) g/dL Globulin (2-4) g/dL Albumin/Globulin Ratio (1-3) Influenza A (Rapid) Negative (Negative) Influenza B (Rapid) Negative (Negative) Assess/Plan/Problems-Billing Ms Macedo is an 86 yo F with h/o AV block s/p pacer, HTN, dyslipidemia, GERD, RLS and Afib on eliquis presents to the ER with fever and was found to have a possible pneumonia and definite UTI. - Patient Problems (1) Pneumonia Comment: Doubt pneumonia given lack of respiratory symptoms. (2) Atrial fibrillation Comment: Remains in NSR. Continue multaq, diltiazem CD, metoprolol and eliquis. (3) Enterococcus UTI Comment: On ampicillin currently. (4) Blood culture positive for microorganism Comment: Blood cultures are 2/4 positive for enterococcus faecalis (same bacteria as in urine). Repeat blood cultures are so far negative. Continue ampicillin. JUAN DAVID neg for vegetations. Needs 7 days total of IV antibiotics (plan to d/c on Monday10/20/17)-as per ID, then PO amoxicillin x 7 days (5) Hyponatremia Comment: prerenal. resolving (6) RLS (restless legs syndrome) Comment: Stable. Continue Sinemet (7) DVT prophylaxis Comment: Eliquis Status and Disposition: Inpatient, d/c planned on Monday08/22/17
[2017-10-19] MEDS: Acetaminophen TAB* 325 MG PO PRN (21:14)
[2017-10-19] MEDS: diPHENhydraMINE PO* 25 MG PO PRN (22:29)
[2017-10-20] MEDS: Ampicillin IV* 2 GM in NS 0.9% 100 ML* 100 ML IVPB SCH ×2 (02:26→07:53)
[2017-10-20 07:30] VITALS: BP 159/65
[2017-10-20] MEDS: Metoprolol Tartrate TAB* 50 mg PO SCH (08:43)
[2017-10-20] MEDS: Apixaban* 2.5 MG TAB PO SCH (08:43)
[2017-10-20] MEDS: Oxybutynin TAB* 5 MG PO SCH (08:43)
[2017-10-20] MEDS: Atorvastatin* 20 MG TAB PO SCH (08:43)
[2017-10-20] MEDS: PARoxetine HCL TAB* 10 MG PO SCH (08:43)
[2017-10-20] MEDS: Multivitamins/Minerals TAB PO SCH (08:43)
[2017-10-20] MEDS: Potassium Chlor TAB* 20 MEQ TAB.ER PO SCH (08:43)
[2017-10-20] MEDS: Cyanocobalamin TAB* 500 MCG PO SCH (08:43)
[2017-10-20] MEDS: Magnesium Oxide TAB* 400 MG PO SCH (08:43)
[2017-10-20] MEDS: Dronedarone TAB* 400 MG PO SCH (08:43)
[2017-10-20] MEDS: Diltiazem CD CAP* 180 MG PO SCH (08:43)
--- NOTE | 2017-10-20 13:06 | DS ---
Cc: Dr. Herrera; Dr. Conde DISCHARGE SUMMARY: DATE OF ADMISSION: 10/12/17 DATE OF DISCHARGE: 10/20/17 PRIMARY CARE PROVIDER: Dr. Herrera. DISCHARGE DIAGNOSIS: Enterococcus faecalis bacteremia due to Enterococcus faecalis urinary tract infection, status post 7 days of intravenous antibiotic treatment. The patient is going to be discharged on another 7 days of p.o. amoxicillin treatment. SECONDARY DIAGNOSES: 1. Hypertension. 2. History of atrial fibrillation, status post pacemaker placement. 3. Gastroesophageal reflux disease. 4. Irritable bowel syndrome. 5. Lactose intolerance. 6. Depression. 7. Vitamin B12 deficiency. 8. Restless leg syndrome. 9. Macular degeneration. 10. History of gastric ulcers. MEDICATIONS AT DISCHARGE: Include: 1. Amoxicillin 500 mg p.o. 3 times a day for a total of 7 days. 2. Eliquis 5 mg b.i.d. 3. Lipitor 20 mg daily. 4. Carbidopa-levodopa 20/100 one tablet q.p.m. 5. Vitamin B12 1000 mcg daily. 6. Cardizem CD 180 mg daily. 7. Benadryl 25 mg q.p.m. 8. Multaq 400 mg every 12 hours. 9. Magnesium oxide 400 mg daily. 10. Metoprolol tartrate 50 mg b.i.d. 11. Ditropan 5 mg daily. 12. Paxil 10 mg daily. 13. Potassium chloride 20 mEq b.i.d. 14. Multivitamin 1 tablet daily. LABORATORY DATA: Studies performed during the hospital stay include: On 10/14/17, white blood cell count 7.1, hemoglobin 11.2, hematocrit 34, and platelets of 262. On 10/17/17, sodium of 136, potassium 3.8, carbon dioxide 25, BUN 16, creatinine 0.9. Microbiology studies were positive for E. faecalis in urine as well as in blood cultures. Influenza testing was negative on admission. Venous Doppler study performed on 10/12/17 showed no DVTs on either of the lower extremities. Portable chest x-ray obtained on 10/11/17 "small right basilar infiltrate." JUAN DAVID obtained on 10/16/17 showed EF of 55% to 60% with no patent foramen ovale was demonstrated. There was mild mitral regurgitation, moderate tricuspid regurgitation and mild pulmonary hypertension. His valves had no vegetations on them. CONSULTATIONS DURING THE HOSPITAL STAY: Included Dr. Conde from Infectious Diseases. HOSPITALIZATION COURSE: Ebony Macedo is a very nice 86-year-old lady who presented to the hospital complaining of fever and dysuria. Initially it was thought that some of her symptoms are due to small basilar infiltrate that was noted on her outpatient chest x-ray, although clinically the patient did not have pneumonia. She was noticed to have Enterococcus faecalis positive UTI and her blood cultures were also positive E. faecalis. Having said that, she was very comfortable and not toxic appearing throughout her hospital stay. She was slightly hyponatremic on admission at 129 which is worse on her chronic hyponatremia and that resolved after intravenous hydration. She was treated with IV ampicillin and seen by Dr. Conde from infectious disease specialists. The JUAN DAVID that was recommended by the infectious disease specialist was negative for valvular vegetation. At this point, the patient was recommended to continue IV antibiotics for a total of 7 days. After discharge, the patient is to continue amoxicillin for another 7 days. The patient is being discharged today to home to follow up with patient's primary care provider in approximately 4 to 7 days. PHYSICAL EXAM AT THE TIME OF DISCHARGE: Blood pressure of 159/65, heart rate of 60, respiratory rate of 17, oxygen saturation of 97% on room air, temperature 98.5. General: The patient is a very pleasant 86-year-old female who is in no acute distress, alert, awake and oriented x3. HEENT: Head atraumatic, normocephalic. Eyes: Pupils are equal and reactive to light and accommodation. Oropharynx clear. Mucosa moist. Neck: Supple. No JVD. No bruits bilaterally. Cardiovascular: Regular rate and rhythm. No murmur. Respiratory: Clear to auscultation bilaterally. Abdomen: Soft, nontender. Bowel sounds present in all 4 quadrants. Extremities: There is trace bilateral ankle edema. Pulses +2 bilaterally. There is no clubbing or cyanosis. On neuro evaluation, speech clear. Cranial nerves II through XII grossly intact. Motor strength is 5/5 bilaterally. Please note that this is a short summary of the patient's hospitalization. Please refer to further medical records for details. TIME SPENT: Approximately 40 minutes were spent on the patient's discharge. [id number]/CPS #: [id number] MTDD
== END 2017-10-20 11:05 | disposition home or self-care (01) | DRG 689 ==
LOC: ED 14:31 → MED 10-12 01:45 → OBSVTOIN 10-13 15:00 → MED 10-16 08:20
PROVIDERS: ADMIT Pediatrics; ATTEND Internal Medicine
PROC: B24BZZ4 Ultrasonography of Heart with Aorta, Transesophageal (ICD-10-PCS; principal; 2017-10-16)
DX: N30.90 Cystitis, unspecified without hematuria (principal); G93.40 Encephalopathy, unspecified; E87.1 Hypo-osmolality and hyponatremia; R78.81 Bacteremia; B95.2 Enterococcus as the cause of diseases classified elsewhere; R09.02 Hypoxemia; E78.00 Pure hypercholesterolemia, unspecified; I10 Essential (primary) hypertension; J44.9 Chronic obstructive pulmonary disease, unspecified; K21.9 Gastro-esophageal reflux disease without esophagitis; K58.9 Irritable bowel syndrome, unspecified; M19.042 Primary osteoarthritis, left hand; M17.9 Osteoarthritis of knee, unspecified; M19.041 Primary osteoarthritis, right hand; E73.9 Lactose intolerance, unspecified; F32.9 Major depressive disorder, single episode, unspecified; E53.8 Deficiency of other specified B group vitamins; G25.81 Restless legs syndrome; H35.30 Unspecified macular degeneration; I08.1 Rheumatic disorders of both mitral and tricuspid valves; I27.20 Pulmonary hypertension, unspecified; I48.0 Paroxysmal atrial fibrillation; Z96.641 Presence of right artificial hip joint; Z66 Do not resuscitate; I44.30 Unspecified atrioventricular block; E78.5 Hyperlipidemia, unspecified; Z98.49 Cataract extraction status, unspecified eye; Z82.49 Family history of ischemic heart disease and other diseases of the circulatory system; Z79.01 Long term (current) use of anticoagulants; Z90.710 Acquired absence of both cervix and uterus; Z82.3 Family history of stroke; Z88.6 Allergy status to analgesic agent; Z88.5 Allergy status to narcotic agent; Z91.041 Radiographic dye allergy status; Z87.442 Personal history of urinary calculi; Z90.49 Acquired absence of other specified parts of digestive tract; Z95.0 Presence of cardiac pacemaker
CPT/HCPCS: 36415; 36600; 71045; 80048; 80053; 81003; 81015; 82803; 83605; 84484; 85025; 85379; 85610; 87040; 87077; 87086; 87186; 87205; 87502; 93005; 93312; 93325; 93970; 96365; 96366; 99156; 99284; A9270-GY; G0378; J0290; J0456; J0696; J2250; J2310; J3010

== ENCOUNTER 2017-11-01 08:32 | Observation (INO) | payer MEDICARE ==
[2017-11-01] MEDS ORDERED: Morphine VIAL* 4 MG/ML VIAL (1 ml vial) IV PRN (08:53)
[2017-11-01] MEDS ORDERED: Acetaminophen TAB* 325 MG PO PRN (08:53)
[2017-11-01] MEDS ORDERED: diPHENhydraMINE PO* 25 MG PO PRN ×2 (08:55→13:00)
[2017-11-01] MEDS ORDERED: NS 0.9% 1000 ML* 1,000 ML IV SCH (09:00)
[2017-11-01] MEDS ORDERED: Buffered Lidocaine 0.9% SYRIN* 5 ML/SYR SYRINGE INTRADERM ONE (09:29)
[2017-11-01] MEDS ORDERED: Ondansetron INJ* 2 MG/ML VIAL ONE ×2 (09:29→09:36)
[2017-11-01] MEDS ORDERED: Famotidine TAB* 20 MG PO ONE (09:29)
[2017-11-01] MEDS ORDERED: DiMENhydriNATE IV* 50 MG/ML VIAL IV PUSH PRN (09:31)
[2017-11-01] MEDS ORDERED: Naloxone* 0.4 MG/ML 1 ML VIAL IV PRN (09:31)
[2017-11-01] MEDS ORDERED: PROCHLORPERAZINE INJ 5 MG/ML 2 ML VIAL IV PRN (09:31)
[2017-11-01] MEDS ORDERED: fentaNYL* 50 MCG/ML 2 ML VIAL (100 MCG VIAL) IV PRN (09:31)
[2017-11-01] MEDS ORDERED: Famotidine TAB* 20 MG ONE (09:36)
[2017-11-01] MEDS ORDERED: KETAMINE HCL* 50 MG/ML 10 ML VIAL ONE (09:46)
[2017-11-01] MEDS ORDERED: fentaNYL* 50 MCG/ML 2 ML VIAL (100 MCG VIAL) ONE (09:46)
[2017-11-01] MEDS ORDERED: Midazolam* 1 MG/ML 2 ML VIAL (2 MG) ONE (09:46)
[2017-11-01] MEDS: Ampicillin IV* 2 GM in NS 0.9% 100 ML* 100 ML IVPB SCH ×3 (09:48→20:57)
[2017-11-01] MEDS ORDERED: Ondansetron ODT TAB* 4 MG ONE (09:49)
[2017-11-01 09:51] LABS: ABS Basophils 0.1 10^3/ul (0-0.2); ABS Eosinophils 0.1 10^3/ul (0-0.6); ABS Lymphocytes 0.8 10^3/ul (1.0-4.8); ABS Monocytes 0.6 10^3/ul (0-0.8); ABS Neutrophils 4.1 10^3/ul (1.5-7.7); ABS Nucleated RBC 0 10^3/ul; Eosinophil % 1.4 % (0-6); Hematocrit 33 % (35-47); Hemoglobin 11.1 g/dl (12.0-16.0); Lymphocyte % 13.3 % (25-47); Mean Corpuscular HGB Conc 33 g/dl (31-36); Mean Corpuscular Hemoglobin 31 pg (27-31); Mean Corpuscular Volume 93 fL (80-97); Mean Platelet Volume 7.6 um3 (7.4-10.4); Nucleated Red Blood Cells % 0; Platelet Count 296 10^3/ul (150-450); Red Blood Count 3.57 10^6/ul (4.0-5.4); Red Cell Distribution Width 16 % (10.5-15); White Blood Count 5.6 10^3/ul (3.5-10.8)
[2017-11-01] MEDS ORDERED: Vancomycin(*) 1,000 MG in NS 0.9% 250 ML* 250 ML IVPB ONE (10:00)
[2017-11-01 10:04] LABS: EGFR Non-African American 53.2 (>60)
[2017-11-01] MEDS ORDERED: Iohexol 180 (CONTRAST) 10 ML SDV IV ONE (10:24)
[2017-11-01] MEDS ORDERED: Propofol* 10 MG/ML 20 ML BTL IV PUSH ONE (10:28)
[2017-11-01] MEDS ORDERED: Metoprolol Tartrate IV* 1 MG/ML 5 ML VIAL ONE (10:28)
[2017-11-01] MEDS: Atorvastatin* 20 MG TAB PO SCH (11:56)
[2017-11-01] MEDS: Dronedarone TAB* 400 MG PO SCH ×2 (11:57→20:06)
[2017-11-01] MEDS: Diltiazem CD CAP* 180 MG PO SCH (11:57)
[2017-11-01] MEDS: Cyanocobalamin TAB* 500 MCG PO SCH (11:57)
[2017-11-01] MEDS: Oxybutynin TAB* 5 MG PO SCH (11:58)
[2017-11-01] MEDS: Metoprolol Tartrate TAB* 100 MG TAB PO SCH ×2 (11:58→20:06)
[2017-11-01] MEDS: PARoxetine HCL TAB* 10 MG PO SCH (11:58)
[2017-11-01] MEDS: Potassium Chlor TAB* 20 MEQ TAB.ER PO SCH ×2 (11:58→20:05)
[2017-11-01] MEDS ORDERED: Furosemide TAB* 40 MG PO PRN (12:14)
[2017-11-01 12:15] LABS: Urine Appearance Clear; Urine Blood 3+ (Negative); Urine Color Straw; Urine Ketones Negative (Negative); Urine Protein Negative (Negative); Urine Specific Gravity 1.006 (1.010-1.030); Urine Urobilinogen Negative (Negative)
[2017-11-01] MEDS ORDERED: hydrALAZINE IV* 20 MG/ML VIAL IV SLOW PU PRN (12:22)
--- NOTE | 2017-11-01 13:47 | RAD ---
INDICATION: Left ureteral stent placement. COMPARISON: Comparison is made with a prior CT of the abdomen and pelvis from one day earlier. TECHNIQUE: 17 seconds of intermittent fluoroscopic guidance were provided and 6 spot films of the abdomen were centered on the left side. FINDINGS: There is partial opacification of the left renal collecting system. Subsequently there is placement of a double-J stent catheter on the left side which demonstrates normal course. IMPRESSION: INTRAOPERATIVE CONTROL FILMS. CPT II Codes: G9500
--- NOTE | 2017-11-01 17:21 | RAD ---
INDICATION: Status post left ureteral stent insertion COMPARISON: CT abdomen pelvis dated October 31, 2017 at demonstrates left-sided hydronephrosis TECHNIQUE: A single AP view of the abdomen was obtained. FINDINGS: There is been interval placement of an anatomically aligned left ureteral stent. Chronic postsurgical changes include surgical material overlying the epigastrium and a right hip prosthesis. IMPRESSION: ANATOMIC ALIGNMENT OF LEFT URETERAL STENT.
[2017-11-01] MEDS ORDERED: Carbidopa/Levodop 25/100 MG TAB(*) PO SCH (18:00)
--- NOTE | 2017-11-01 18:15 | ED ---
Duong San Julia, scribed for Shawanda Barriga MD on 11/01/17 at 0857 . GI/ HPI - HPI Summary HPI Summary: This patient is a 87 year old F [facility] [place] by her daughter from Dr. Blanco office for a left kidney stone seen on a CT scan occurring yesterday. Patient denies current nausea, vomiting, fever. The patient rates the L flank pain 6/10 in severity. Pt denies any other complaints. Allergies reviewed with patient. Pt is sent to ED with plan to be admitted for operation. - History of Current Complaint Chief Complaint: EDUrogenitalProblems Time Seen by Provider: 11/01/17 08:51 Stated Complaint: POSSIBLE KIDNEY STONE Hx Obtained From: Patient, Other: - Dr. Herrera Onset/Duration: Started Days Ago Timing: Constant Pain Intensity: 6 Location of Pain: Flank - L Associated Signs and Symptoms: Positive: Negative Aggravating Factor(s): Nothing Alleviating Factor(s): Nothing - Additional Pertinent History Primary Care Physician: [id number] - Allergy/Home Medications Allergies/Adverse Reactions: Allergies Allergy/AdvReac Type Severity Reaction Status Date / Time Iodinated Contrast- Oral and Allergy Severe Anaphylatic Verified 11/01/17 08:34 IV Dye Shock aspirin AdvReac GI Upset Verified 11/01/17 09:13 morphine AdvReac Nausea And Verified 11/01/17 09:13 Vomiting Home Medications: Home Medications Furosemide TAB* [Lasix TAB*] 40 mg PO DAILY PRN 11/01/17 [History Confirmed 03/13] Magnesium Oxide TAB* [MagOx 400 TAB*] 400 mg PO DAILY 11/01/17 [History Confirmed 11/01/17] PMH/Surg Hx/FS Hx/Imm Hx Cardiovascular History: Reports: Hx Atrial Fibrillation, Hx Hypercholesterolemia , Hx Hypertension, Hx Pacemaker/ICD - PACEMAKER IN 1990 Respiratory History: Reports: Hx Chronic Obstructive Pulmonary Disease (COPD), Other Respiratory Problems/Disorders - COPD seen on chest xray. Denies: Hx Pneumonia GI History: Reports: Hx Gall Bladder Disease - removed 1963, Hx Gastroesophageal Reflux Disease, Hx Hiatal Hernia - 1975, Hx Irritable Bowel - uses medication, Hx Ulcer - uses medication, Other GI Disorders - IBS, lactose related? History: Reports: Hx Kidney Stones Denies: Hx Kidney Infection Musculoskeletal History: Reports: Hx Arthritis - legs, hip, knee, hands Denies: Hx Bursitis, Hx Tendonitis Sensory History: Reports: Hx Cataracts - surgery 2000, Hx Contacts or Glasses - wears reading glasses, Hx Macular Degeneration - doesn't impair vision Denies: Hx Glaucoma, Hx Hearing Aid Opthamlomology History: Reports: Hx Cataracts - surgery 2000, Hx Contacts or Glasses - wears reading glasses, Hx Macular Degeneration - doesn't impair vision Denies: Hx Glaucoma Neurological History: Reports: Hx Migraine - past history Psychiatric History: Reports: Hx Anxiety, Hx Depression - Surgical History Surgery Procedure, Year, and Place: hiatal hernia 1976 hysterectomy= 1971. lt =wrist 1998. [id number] pacemaker =1990 Hx Anesthesia Reactions: No - Immunization History Date of Tetanus Vaccine: unknown Date of Influenza Vaccine: 03/2016 Infectious Disease History: Yes Infectious Disease History: Denies: Traveled Outside the [place] in Last 30 Days - Family History Known Family History: Positive: Cardiac Disease, Diabetes, Blood Disorder - blood clots - Social History Alcohol Use: Occasionally Hx Substance Use: No Substance Use Type: Reports: None Hx Tobacco Use: No Smoking Status (MU): Never Smoked Tobacco Review of Systems Negative: Fever Negative: Vomiting, Nausea Positive: flank pain All Other Systems Reviewed And Are Negative: Yes Physical Exam - Summary Physical Exam Summary: Appearance: Well-appearing, Well-nourished Skin: Warm, Dry, No rash Eyes: Normal, PERRL, EOMI, sclera anicteric ENT: Normal Neck: Supple, nontender Respiratory: Clear to auscultation Cardiovascular: S1, S2, no murmur, no rub, no gallop Abdomen: Soft, nontender, no organomegaly Bowel sounds: Present Musculoskeletal: Normal, Strength/ROM Intact, no edema, pulses symmetrical Neurological: Normal, A&Ox3, cranial nerves II-XII WNL, follows commands, gait not tested, sensation intact to pin and light touch Psychiatric: affect normal, behavior appropriate, dressed appropriately, judgment intact Triage Information Reviewed: Yes Vital Signs On Initial Exam: Initial Vitals Temp Pulse Resp BP Pulse Ox 98.1 F 65 16 140/76 100 11/01/17 08:35 11/01/17 08:35 11/01/17 08:35 11/01/17 08:35 11/01/17 08:35 Vital Signs Reviewed: Yes Diagnostics - Vital Signs Vital Signs Temp Pulse Resp BP Pulse Ox 11/01/17 08:35 98.1 F 65 16 140/76 100 - Laboratory Result Diagrams: 11/01/17 09:34 11/01/17 09:32 Lab Statement: Any lab studies that have been ordered have been reviewed, and results considered in the medical decision making process. GIGU Course/Dx - Course Course Of Treatment: 87 y/o F presents to ED with plan for admission to operative, by Dr. Herrera's, instructions and a left kidney stone found on CT yesterday. Pt has no other complaints besides flank pain related to the kidney stone. Pt was admitted by hospitalist and is sent to OR immediately. - Diagnoses Provider Diagnoses: Calculus of left kidney Discharge - Sign-Out/Discharge Documenting (check all that apply): Discharge/Admit/Transfer - Discharge Plan Condition: Stable Disposition: ADMITTED TO [facility] The documentation as recorded by the Duong luna Julia accurately reflects the service I personally performed and the decisions made by , Shawanda Barriga MD.
[2017-11-01] MEDS: Apixaban* 5 MG TAB PO SCH (20:07)
[2017-11-01] MEDS ORDERED: Apixaban* 5 MG TAB PO SCH (21:00)
--- NOTE | 2017-11-01 21:46 | HP ---
ADDENDUM NOW INCLUDED ON THIS REPORT CC: Dr. Herrera; Dr. Jacobo * HISTORY AND PHYSICAL: DATE OF ADMISSION: 11/01/17 PRIMARY CARE PROVIDER: Dr. Herrera. CHIEF COMPLAINT: Sent by primary care provider due to abnormal CAT scan. HISTORY OF PRESENT ILLNESS: Ebony Macedo is an 87-year-old female with history of recent hospitalization at [facility] that ended on 10/20/17, during which she was diagnosed with enterococcal bacteremia treated with IV antibiotics for a total of 7 days and discharged on 7 days' treatment with ampicillin. During her hospital stay she did very well and she had no complaints. As per the infectious disease specialist, the patient was discharged on amoxicillin for remaining 7 days after discharge orally. The patient is right now being evaluated after cystoscopy performed by Dr. Jacobo for left ureteral stent with hydronephrosis. Apparently after her discharge from the hospital, the patient "had not been herself." She had been somewhat quieter and not acting right as per her daughter who is present in the room with the patient right now. The patient herself stated that she did not want to complain and that is why she never told anyone about this that she had been having intermittent left flank pain for the past several weeks. When she saw Dr. Herrera for reevaluation after her hospital stay, she mentioned about the flank pain and a CAT scan was ordered. The CAT scan documented on 02/10 showed 7 mm calculus in the left ureteropelvic junction causing moderate to severe hydronephrosis. At that point, the patient was directed to the ED for admission. From the ED, the patient was taken directly by Dr. Jacobo for cystoscopy and stent placement. The patient is seen postoperatively. Currently , she is slightly sedated. PAST MEDICAL HISTORY: 1. History of paroxysmal atrial fibrillation with baseline sinus rhythm. 2. Hypertension. 3. Status post pacemaker placement. 4. Gastroesophageal reflux disease. 5. History of irritable bowel syndrome. 6. Lactose intolerance. 7. Depression. 8. Vitamin B12 deficiency. 9. Macular degeneration. 10. Hypotension. 11. Gastric ulcers. PAST SURGICAL HISTORY: 1. Hysterectomy. 2. History of hernia repair. 3. History of cholecystectomy. 4. Tonsillectomy. 5. Cataract surgery. 6. Right total hip arthroplasty. CURRENT MEDICATIONS: Include: 1. Benadryl 25 mg q.p.m. p.r.n. 2. PreserVision 1 capsule daily. 3. Potassium chloride 20 mEq b.i.d. 4. Paroxetine 10 mg daily. 5. Oxybutynin 5 mg daily. 6. Metoprolol tartrate 50 mg b.i.d. 7. Magnesium oxide 400 mg daily. 8. Furosemide 40 mg daily p.r.n. leg swelling. 9. Multaq 400 mg every 12 hours. 10. Cardizem CD 180 mg daily. 11. Vitamin B12, 1000 mcg daily. 12. Sinemet 1 tablet q.p.m. of 25/100 mg. 13. Lipitor 20 mg daily. 14. Eliquis 5 mg b.i.d. ALLERGIES: The patient had anaphylactic shock with IV DYE. She does not take ASPIRIN due to history of GI upset. She develops nausea and vomiting with MORPHINE. FAMILY HISTORY: Positive for mother with history of AK and hypertension. Father with history of stroke. SOCIAL HISTORY: The patient denies any tobacco use. She occasionally drinks alcohol. She denies any drug use. Surrogate decision maker is her daughter, Radha Reed, phone number [phone]. REVIEW OF SYSTEMS: Please see history of present illness. All the remaining 12 systems were attempted to be reviewed with the patient who is currently mildly sedated after her procedure and were otherwise negative. PHYSICAL EXAMINATION GENERAL: The patient is a very pleasant 87-year-old female who is in no acute distress. The patient is slightly sedated after her procedure, but otherwise alert, awake, and oriented x3. VITAL SIGNS: Blood pressure of 160/83, heart rate of 60 and regular, respiratory rate 15, oxygen saturation 98% on 2 L of oxygen via nasal cannula, temperature of 97.5. HEENT: Head is atraumatic, normocephalic. Eyes: Pupils are equal and reactive to light and accommodation. Oropharynx clear. Mucosa moist. NECK: Supple. No JVD. No bruits bilaterally. RESPIRATORY: Clear to auscultation bilaterally. CARDIOVASCULAR: Regular rate and rhythm with no murmur. ABDOMEN: Soft. There is mild left CVA tenderness noted. Bowel sounds are present in all 4 quadrants. EXTREMITIES: There is trace pedal edema bilaterally. There is no clubbing, cyanosis. NEUROLOGIC: Speech clear. Cranial nerves II through XII grossly intact. Motor strength is 5/5 bilaterally. LABORATORY DATA: Sodium of 138, potassium 4.0, chloride 111, carbon dioxide 22 , BUN 23, creatinine 0.99. Liver function tests are unremarkable. White blood cell count of 5.6, hemoglobin 11.1, hematocrit of 33, and platelets of 296,000. Blood cultures were obtained and pending at the time of dictation. Urinalysis pending at the time of dictation. CT obtained yesterday was quoted above. The patient's EKG showed atrial paced rhythm with a heart rate of 62 beats per minute. ASSESSMENT AND PLAN: 1. An 87-year-old female with history of enterococcal bacteremia who presented to the hospital with obstructing left-sided ureteral stone. The patient is status post cystoscopy and stent placement by Dr. Jacobo today. The patient has history of Enterococcus faecium bacteremia for which she was treated with ampicillin before. I am going to restart the patient's ampicillin intravenously every 6 hours. Blood cultures and urine cultures are obtained at the point of dictation. I will continue intravenous fluids. 2. In regards to the patient's paroxysmal atrial fibrillation, dronedarone and metoprolol is going to be continued. The patient continues to be in sinus and paced rhythm. 3. In regards to the patient's hypertension, it is mildly elevated due to likely stress and postoperative state. We will continue monitoring it and utilizing hydralazine on as needed basis. 4. In regards to the patient's anticoagulation, the patient is going to be restarted on her Eliquis tonight. 5. For restless leg syndrome, Sinemet is going to be continued. 6. The patient's code status is [id number] and MOLST was confirmed with the patient's daughter. TIME SPENT: Approximately 65 minutes were spent on admission of this patient, more than half that time was spent [id number] with the patient during the interview and physical exam. ADDENDUM: PLAN: Please note that the patient's needs to be on apixaban 5 mg twice a day. The patient's age is 87, which is above 80 and her body weight is 130 pounds. She should be changed to a lower dose of apixaban at 2.5 mg b.i.d., which is going to occur during this hospital stay. [id number] #: [id number]/CPS #: [id number] [facility]
--- NOTE | 2017-11-01 22:27 | HP ---
HISTORY AND PHYSICAL: ADDENDUM: PLAN: Please note that the patient's needs to be on apixaban 5 mg twice a day. The patient's age is 87, which is above 80 and her body weight is 130 pounds. She should be changed to a lower dose of apixaban at 2.5 mg b.i.d., which is going to occur during this hospital stay. [id number]/CPS #: [id number] MTDD
[2017-11-02] MEDS: Ampicillin IV* 2 GM in NS 0.9% 100 ML* 100 ML IVPB SCH ×3 (02:36→15:18)
[2017-11-02 05:55] LABS: ABS Basophils 0.1 10^3/ul (0-0.2); ABS Eosinophils 0.1 10^3/ul (0-0.6); ABS Lymphocytes 0.9 10^3/ul (1.0-4.8); ABS Monocytes 0.6 10^3/ul (0-0.8); ABS Neutrophils 2.9 10^3/ul (1.5-7.7); ABS Nucleated RBC 0 10^3/ul; Hematocrit 30 % (35-47); Hemoglobin 10.2 g/dl (12.0-16.0); Lymphocyte % 20.6 % (25-47); Mean Corpuscular HGB Conc 34 g/dl (31-36); Mean Corpuscular Hemoglobin 32 pg (27-31); Mean Corpuscular Volume 93 fL (80-97); Mean Platelet Volume 7.3 um3 (7.4-10.4); Nucleated Red Blood Cells % 0.1; Platelet Count 243 10^3/ul (150-450); Red Blood Count 3.19 10^6/ul (4.0-5.4); Red Cell Distribution Width 16 % (10.5-15); White Blood Count 4.6 10^3/ul (3.5-10.8)
[2017-11-02] MEDS ORDERED: KCL 20 MEQ/100 ML IVPREMIX* 20 MEQ/100 ML BAG IV ONE (07:55)
[2017-11-02] MEDS ORDERED: Potassium Chlor TAB* 20 MEQ TAB.ER PO ONE (07:55)
[2017-11-02] MEDS: Metoprolol Tartrate TAB* 100 MG TAB PO SCH (07:58)
[2017-11-02] MEDS: Dronedarone TAB* 400 MG PO SCH (07:59)
[2017-11-02] MEDS: Potassium Chlor TAB* 20 MEQ TAB.ER PO SCH (07:59)
[2017-11-02] MEDS: Oxybutynin TAB* 5 MG PO SCH (07:59)
[2017-11-02] MEDS: PARoxetine HCL TAB* 10 MG PO SCH (07:59)
[2017-11-02] MEDS: Atorvastatin* 20 MG TAB PO SCH (07:59)
[2017-11-02] MEDS: Apixaban* 5 MG TAB PO SCH (07:59)
[2017-11-02] MEDS: Diltiazem CD CAP* 180 MG PO SCH (07:59)
[2017-11-02] MEDS: Cyanocobalamin TAB* 500 MCG PO SCH (08:00)
[2017-11-02] MEDS ORDERED: Potassium Chloride IV* 20 MEQ in NS 0.9% 100 ML* 100 ML IVPB ONE (09:00)
[2017-11-02] MEDS ORDERED: MULTIVITAMINS PO SCH (09:00)
[2017-11-02] MEDS ORDERED: Magnesium Oxide TAB* 400 MG PO SCH (09:00)
[2017-11-02] MEDS ORDERED: MINERA AREDS PO SCH (09:00)
--- NOTE | 2017-11-02 09:39 | OP ---
CC: Dr. Zainab Cooper * DATE OF OPERATION: 11/01/17 - ROOM #346 DATE OF : 32 SURGEON: Husam Jacobo MD ANESTHESIOLOGIST: Dr. Rojas. ANESTHESIA: Intravenous sedation. PRE-OP DIAGNOSES: 1. Left hydronephrosis. 2. Obstructing calculus, left ureteropelvic junction. 3. Recent urinary tract infection. POST-OP DIAGNOSES: 1. Left hydronephrosis. 2. Obstructing calculus, left ureteropelvic junction. 3. Recent urinary tract infection. OPERATIVE PROCEDURE: Cystoscopy, left retrograde pyelogram, and left ureteral stent insertion. COMPLICATIONS: None. STENT USE: A 7-Malaysian stent, left ureter. POSTOPERATIVE CONDITION: Stable. INDICATIONS: Ebony mercado is an 87-year-old lady who had recently been admitted for urinary tract infection and had positive blood and urine culture. She had been discharged home on oral antibiotic and CT scan was then obtained which showed a large obstructing calculus at the left ureteropelvic junction. She is on chronic anticoagulant therapy and has now been brought in for urgent left stent insertion to be followed at some point in the future by lithotripsy. DESCRIPTION OF PROCEDURE: After administration of intravenous sedation, the patient was placed in dorsal lithotomy position. Sequential compression devices were in place and functioning. 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 The bladder was examined and appeared unremarkable. A guidewire was introduced into the left ureter. Retrograde pyelogram revealed left hydronephrosis with tortuous proximal left ureter. The wire was carefully advanced into the proximal collecting system and ureter was straightened out. Once this was done, a 7-Malaysian stent was introduced and positioned under fluoroscopy with good proximal and distal positioning obtained. The bladder was emptied. The patient tolerated the procedure satisfactorily and was transferred back to recovery area in stable condition. [id number]/[facility] #: [id number] [facility]ITAL[facility]
[2017-11-02 11:56] VITALS: BP 156/63
[2017-11-02] MEDS ORDERED: Apixaban* 2.5 MG TAB PO SCH (21:00)
--- NOTE | 2017-11-03 05:16 | DS ---
CC: Dr. Herrera; Dr. Jacobo; Dr. Conde * DISCHARGE SUMMARY: DATE OF ADMISSION: 11/01/17 DATE OF DISCHARGE: 11/02/17 PRIMARY CARE PROVIDER: Dr. Herrera. DISCHARGE DIAGNOSIS: Obstructing calculus in the left ureteropelvic junction causing left hydronephrosis, status post cystoscopy, left retrograde pyelogram, and left ureteral stent insertion by Dr. Jacobo performed on 11/01/17. SECONDARY DIAGNOSES: 1. History of recent Enterococcus bacteremia and Enterococcus urinary tract infection. 2. History of paroxysmal atrial fibrillation. 3. Hypertension. 4. History of pacemaker placement. 5. Gastroesophageal reflux disease. 6. Irritable bowel syndrome. 7. Lactose intolerance. 8. Depression. 9. Vitamin B12 deficiency. 10. Macular degeneration. 11. Gastric ulcers. MEDICATIONS AT DISCHARGE: Include: 1. Benadryl 25 mg q.p.m. p.r.n. 2. PreserVision 1 capsule daily. 3. Potassium chloride 20 mEq b.i.d. 4. Paroxetine 10 mg daily. 5. Oxybutynin 5 mg daily. 6. Metoprolol tartrate 50 mg b.i.d. 7. Magnesium oxide 400 mg daily. 8. Furosemide 40 mg daily p.r.n. leg swelling. 9. Multaq 400 mg every 12 hours. 10. Cardizem CD 180 mg daily. 11. Vitamin B12, 1000 mcg daily. 12. Sinemet 1 tablet at p.m., which is 25/100 mg. 13. Lipitor 20 mg daily. 14. Eliquis 5 mg b.i.d. 15. Amoxicillin 500 mg 3 times a day for a total of 7 days. At discharge, patient is recommended to follow up with Dr. Herrera in approximately [address] Jacobo's office is going to call the patient with a scheduled appointment for next week. PROCEDURES PERFORMED DURING HOSPITAL STAY: Included left-sided stent placement and cystoscopy performed by Dr. Jacobo on 11/01/17 as mentioned above. LABORATORY DATA AND STUDIES PERFORMED DURING THE HOSPITAL STAY: Included on 04/12, white blood cell count of 4.6, hemoglobin of 10.2, hematocrit of 30, and platelets of 243,000. Sodium 140, potassium 3.0, chloride 107, carbon dioxide 26, BUN 15, creatinine 0.78. Please note the patient's potassium was replaced by the time of discharge. Microbiology studies showed blood cultures that were negative for 24-hour growth. The patient's urine cultures are pending at the time of dictation. The patient's urinalysis showed low specific gravity with +3 blood, +2 esterase , +2 white blood cells and absent bacteria. HOSPITALIZATION COURSE: Ebony Macedo is an 87-year-old female who was hospitalized at [facility] for Enterococcus faecalis bacteremia and discharged after 7 days of IV antibiotics and JUAN DAVID that proved to be negative for valvular vegetation on 10/20/17 with remaining 7 days treatment on amoxicillin. During that time, the patient saw Dr. Herrera and confessed that in fact she had been having pain in the left flank intermittently for at least [address] Herrera ordered a CT scan of the abdomen that showed a left-sided obstructive ureteral calculi and hydronephrosis. The patient was directed to the ED for admission. On 11/01/17, the patient was admitted to hospital and went directly to the operating room for cystoscopy and stent placing. The patient had been afebrile, no leukocytosis was noted. A day later, she felt well. Her blood cultures were negative for bacteria growth. I briefly discussed the patient's case with the infectious disease specialist. At this point, the patient is going to be discharged on 7 days' worth of amoxicillin. She is following up with Dr. Jacobo next week for management of the stent. PHYSICAL EXAMINATION: At the time of discharge, blood pressure of 156/63, heart rate of 62 and regular, respiratory rate 16, oxygen saturation 99% on room air, temperature 98.5. General: The patient is a very pleasant 87-year- old female, who is in no acute distress. Alert, awake, and oriented x3. HEENT : Head is atraumatic, normocephalic. Eyes: Pupils are equal, reactive to light and accommodation. Oropharynx is clear. Mucosa moist. Neck: Supple. No JVD. No bruits bilaterally. Cardiovascular: Regular rate and rhythm. No murmur. Respiratory: Clear to auscultation bilaterally. Abdomen: Soft, nontender. Bowel sounds are present in all 4 quadrants. There is no CVA tenderness on palpation. Extremities: There is trace bilateral pedal edema. Pulses are +2 bilaterally. There is no clubbing or cyanosis. On neuro evaluation, speech is clear. Cranial nerves II through XII grossly intact. Motor strength is 5/5 bilaterally. Please note that this is a short summary of the patient's hospitalization. Please refer to further medical records for details. TIME SPENT: Approximately 40 minutes were spent on the patient's discharge. [id number]/[facility] #: [id number] FRED
== END 2017-11-02 15:10 | disposition home or self-care (01) ==
LOC: ED 08:32 → OR 09:24 → SSU 12:23
PROVIDERS: ADMIT Urology; ATTEND Internal Medicine
PROC: BT1FZZZ Fluoroscopy of Left Kidney, Ureter and Bladder (ICD-10-PCS; principal; 2017-11-01 14:45)
DX: N13.2 Hydronephrosis with renal and ureteral calculous obstruction (principal); I48.0 Paroxysmal atrial fibrillation; I10 Essential (primary) hypertension; Z95.0 Presence of cardiac pacemaker; K21.9 Gastro-esophageal reflux disease without esophagitis; K58.9 Irritable bowel syndrome, unspecified; F32.9 Major depressive disorder, single episode, unspecified; E53.8 Deficiency of other specified B group vitamins; H35.30 Unspecified macular degeneration; I95.9 Hypotension, unspecified; K25.9 Gastric ulcer, unspecified as acute or chronic, without hemorrhage or perforation; Z90.710 Acquired absence of both cervix and uterus; Z98.890 Other specified postprocedural states
CPT/HCPCS: 36415; 74018; 74420; 80048; 80053; 81003; 81015; 85025; 87040; 87086; 93005; 96365; 96366; 99282; A9270-GY; C1876; G0378; J0290; J2250; J2405; J2704; J3010; J3370; J3480; J3490

== ENCOUNTER → 2017-11-13 | Day surgery (SDC) | payer MEDICARE ==
[~2017-11-13] MED LIST changes: +Buffered Lidocaine 0.9% SYRIN* 5 ML/SYR SYRINGE INTRADERM ONE; +Buffered Lidocaine 0.9% SYRIN* 5 ML/SYR SYRINGE ONE; -Buffered Lidocaine 1% SYR 3ML* 3 ML/SYR SYRINGE INTRADERM ONE; -Famotidine IV* 10 MG/ML 2 ML (20 mg) IV ONE; -Gabapentin CAP(*) 300 MG PO ONE; +Sodium Citrate/Citric Acid* 15 ML UDC ONE; +Sodium Citrate/Citric Acid* 15 ML UDC PO ONE; +cefTRIAXone(*) 2 GM ADDV.VIAL IVPB ONE
[2017-11-13 13:20] VITALS: BP 169/94
--- NOTE | 2017-11-13 13:56 | RAD ---
Indication: Shock wave lithotripsy. Comparison: November 06, 2017 Technique: Supine view of the abdomen. Report: Few mildly dilated small bowel loops in the LEFT abdomen suspicious for regional ileus. LEFT ureteral stent in place. 0.8 cm stone at the level of the LEFT mid to lower pole calyx without appreciable change in size Atherosclerotic calcification and tortuous course of the abdominal aorta. Unremarkable soft tissue contours. IMPRESSION: LEFT ureteral stent in place. 0.8 cm stone at the level of the LEFT mid to lower pole calyx without appreciable change in size
== END | disposition home or self-care (01) ==
LOC: OR 12:46
PROVIDERS: ATTEND Urology
DX: N20.0 Calculus of kidney (principal); Z53.09 Procedure and treatment not carried out because of other contraindication; Z79.01 Long term (current) use of anticoagulants; I48.0 Paroxysmal atrial fibrillation; I10 Essential (primary) hypertension; Z95.0 Presence of cardiac pacemaker
CPT/HCPCS: 36415; 74018; 84132; A9270-GY; J0696

== ENCOUNTER 2017-11-27 05:40 | Day surgery (SDC) | payer MEDICARE ==
[2017-11-27] MEDS ORDERED: Buffered Lidocaine 0.9% SYRIN* 5 ML/SYR SYRINGE INTRADERM ONE (06:00)
[2017-11-27] MEDS ORDERED: fentaNYL* 50 MCG/ML 2 ML VIAL (100 MCG VIAL) ONE (07:15)
[2017-11-27] MEDS ORDERED: Midazolam* 1 MG/ML 2 ML VIAL (2 MG) ONE (07:15)
[2017-11-27] MEDS ORDERED: cefTRIAXone(*) 1 GM ADVAN/BAG ONE (07:34)
[2017-11-27] MEDS ORDERED: Dexamethasone IV* 4 MG/ML 1 ML (4 MG) ONE (07:42)
[2017-11-27] MEDS ORDERED: Lidocaine 2% PF * 5 ML VIAL ONE (07:42)
[2017-11-27] MEDS ORDERED: Propofol* 10 MG/ML 20 ML BTL IV PUSH ONE (07:42)
[2017-11-27] MEDS ORDERED: Famotidine IV* 10 MG/ML 2 ML (20 mg) ONE (07:42)
[2017-11-27] MEDS ORDERED: Ondansetron ODT TAB* 4 MG PO PRN (08:48)
[2017-11-27] MEDS ORDERED: Acetaminophen TAB* 325 MG PO PRN (08:48)
[2017-11-27] MEDS ORDERED: PROCHLORPERAZINE INJ 5 MG/ML 2 ML VIAL IV PRN (08:48)
[2017-11-27] MEDS ORDERED: DiMENhydriNATE IV* 50 MG/ML VIAL IV PUSH PRN (08:48)
[2017-11-27] MEDS ORDERED: Naloxone* 0.4 MG/ML 1 ML VIAL IV PRN (08:48)
[2017-11-27] MEDS ORDERED: fentaNYL* 50 MCG/ML 2 ML VIAL (100 MCG VIAL) IV PRN (08:48)
[2017-11-27 09:48] VITALS: BP 133/74
--- NOTE | 2017-11-27 12:16 | OP ---
CC: Kojo Cody MD * DATE OF OPERATION: 11/27/17 - [facility] DATE OF : 32 SURGEON: Jay Liriano MD ANESTHESIOLOGIST: Bandar Kapadia MD ANESTHESIA: General. PRE-OP DIAGNOSES: 1. Left renal calculus (8 mm). 2. Status post placement left ureteral stent. OPERATIVE PROCEDURE: 1. Shockwave lithotripsy of left renal calculus. 2. Cystoscopy and removal of left ureteral stent. INDICATION FOR PROCEDURE: Mrs. Macedo is an 87-year-old white female who presented about a month ago with symptoms of urosepsis and left renal colic and was noted to have an 8 to 10 mm calculus at the left ureteropelvic junction. Her urine culture grew Enterococcus faecalis and E. coli. She was treated with IV antibiotic and had urgent placement of a left ureteral stent. The stone migrated into the lower pole calyx of the left kidney. The patient was scheduled to undergo shockwave lithotripsy 2 weeks ago, however , she did not stop her anticoagulation. She has been off Eliquis for 8 days. She is rescheduled for left SWL today.. PATHOLOGY: At fluoroscopy, the left ureteral stent was in good position. An 8 to 10 mm calculus was noted in the lower pole calyx of the left kidney. DESCRIPTION OF PROCEDURE: After successful general anesthesia, patient was placed in the supine position on the shockwave lithotripsy table. The left kidney was visualized with fluoroscopy in both the PA and oblique views and the calculus was identified. The position of the patient and of the generator were adjusted to have the stone in the focus of the shockwaves. A total of 1,800 shocks were then delivered at the rate of 90 shocks per minute. A 3-minutes break was taken after the initial 300 shocks to decrease the risk of renal injury. The proper positioning of the stone and its proper fragmentation were monitored periodically. At the completion of the treatment, there was very good fragmentation of the stone. Decision was made to remove the ureteral stent. The patient was then placed in the frog-leg position and was prepped and draped for a cystoscopy. Cystoscopy was performed. The stent was removed intact. The patient tolerated the procedure well and left the operating room in good condition. The plan is to keep the patient on 1 week of Augmentin. She will be seen in the office in another week or two for a followup renal ultrasound. Instructions were given for followup care. [id number]/[facility] #: [id number] FRED
== END 2017-11-27 09:53 | disposition home or self-care (01) ==
LOC: OR 05:40
PROVIDERS: ATTEND Urology
DX: N20.0 Calculus of kidney (principal); Z87.440 Personal history of urinary (tract) infections; I48.91 Unspecified atrial fibrillation; Z95.0 Presence of cardiac pacemaker; Z79.01 Long term (current) use of anticoagulants; K21.9 Gastro-esophageal reflux disease without esophagitis; J44.9 Chronic obstructive pulmonary disease, unspecified; I10 Essential (primary) hypertension; E78.5 Hyperlipidemia, unspecified; G25.81 Restless legs syndrome; Z79.899 Other long term (current) drug therapy; E53.0 Riboflavin deficiency
CPT/HCPCS: J0696; J1100; J2250; J2704; J3010

== ENCOUNTER 2018-01-21 18:00 | Emergency (ER) | payer MEDICARE ==
[2018-01-21] MEDS ORDERED: Acetaminophen TAB* 325 MG PO ONE (18:56)
--- NOTE | 2018-01-21 19:28 | RAD ---
INDICATION: Right femoral pain COMPARISON: Right hip July 31, 2017 TECHNIQUE: AP and lateral views were obtained. FINDINGS: There are no acute bony findings. There is a right hip prosthesis which appears normally seated. There is no evidence of hardware failure. There is osteoarthritic change about the knee. There are vascular calcifications. IMPRESSION: NO ACUTE BONY FINDINGS.
--- NOTE | 2018-01-21 19:28 | RAD ---
INDICATION: Right hip pain COMPARISON: Right hip July 31, 2017 TECHNIQUE: An AP view of the pelvis and AP views of the hip in neutral and abducted position were obtained FINDINGS: Bones: There are no acute bony findings. Joint spaces: There is right hip arthroplasty. The prosthesis appears normally seated. SI joints/symphysis: The SI joints and symphysis are intact. Other: There are vascular calcifications IMPRESSION: THE RIGHT HIP PROSTHESIS APPEARS NORMALLY SEATED.
--- NOTE | 2018-01-21 20:32 | ED ---
Lower Extremity - HPI Summary HPI Summary: Patient here with right posterior thigh and medial thigh pain that started after an injury this morning. She reports she was getting up out of her chair on the porch and walking up the stairs - as she stepped up the stair with her Rt leg and went to push down her foot to move up the step, she felt an acute pain in her posterior right buttock/thigh. This pain was sharp and abrupt. She was able to get herself back into her chair. Her son then helped her get her walker and she was able to ambulate into the house. She denies numbness, tingling, weakness. Pain is worse with knee flexion. She has a history of right hip replacement with Dr. Diaz a few years ago. No issues since. Med hx significant for a. fib (on eliquis), low HR requiring a pacemaker, HTN and - History of Current Complaint Chief Complaint: EDHipPelvisInjury Stated Complaint: RT HIP PAIN Time Seen by Provider: 01/21/18 18:11 Hx Obtained From: Patient, Family/Rn Anesthetist - daughter Pain Intensity: 5 - Allergies/Home Medications Allergies/Adverse Reactions: Allergies Allergy/AdvReac Type Severity Reaction Status Date / Time Iodinated Contrast- Oral and Allergy Severe Anaphylatic Verified 11/27/17 06:11 IV Dye Shock lactose Allergy Severe GI Upset Verified 11/27/17 06:11 aspirin AdvReac Severe GI Upset Verified 11/27/17 06:11 PMH/Surg Hx/FS Hx/Imm Hx Endocrine/Hematology History: Reports: Hx Anemia - resolved Denies: Hx Diabetes, Hx Thyroid Disease Cardiovascular History: Reports: Hx Atrial Fibrillation, Hx Auto Implanted Cardiovert Defib, Hx Hypercholesterolemia, Hx Hypertension, Hx Pacemaker/ICD - PACEMAKER [place] 1990, generator change 2005, Other Cardiovascular Problems/ Disorders - atrial fibrillation Respiratory History: Reports: Hx Chronic Obstructive Pulmonary Disease (COPD) Denies: Hx Pneumonia, Other Respiratory Problems/Disorders GI History: Reports: Hx Gall Bladder Disease - removed 1963, Hx Gastroesophageal Reflux Disease, Hx Hiatal Hernia - had surgery many years ago , Hx Irritable Bowel - "a little bit", Hx Ulcer - 2014 Denies: Other GI Disorders History: Reports: Hx Kidney Infection - had an UTI, Hx Kidney Stones - Left, stent in place, Other Problems/Disorders - urinary incontinence, uses a depend at night pad or depend during day Musculoskeletal History: Reports: Hx Arthritis - osteoarthritis legs, hip, knee , hands, osteoporosis, spine and neck, Hx Osteoporosis, Other Musculoskeletal History - Right hip replacement Denies: Hx Bursitis, Hx Tendonitis Sensory History: Reports: Hx Cataracts - history of, removed in 2000, Hx Contacts or Glasses - wears reading glasses, Hx Macular Degeneration - doesn't impair vision Denies: Hx Glaucoma, Hx Hearing Aid Opthamlomology History: Reports: Hx Cataracts - history of, removed in 2000, Hx Contacts or Glasses - wears reading glasses, Hx Macular Degeneration - doesn't impair vision Denies: Hx Glaucoma Neurological History: Reports: Hx Migraine - past history many years ago now resolved, Hx Nerve Disease - Restless Leg Syndrome Denies: Other Neuro Impairments/Disorders Psychiatric History: Reports: Hx Anxiety - on medication, Hx Depression - on medication - Cancer History Hx Chemotherapy: No - Surgical History Surgery Procedure, Year, and Place: Hiatal hernia 1976 Hysterectomy 1971. Left wrist 1998. Dolly 1964. Pacemaker =1990. Bilat cataract surgery 2000. Right hip replacement 2016. Cysto, left retrograde pyelogram and left ureteral stent placement 10/2017 Hx Anesthesia Reactions: No - Immunization History Date of Tetanus Vaccine: unknown Date of Influenza Vaccine: 03/2016 Infectious Disease History: No Infectious Disease History: Denies: Traveled Outside the [place] in Last 30 Days - Family History Known Family History: Positive: Cardiac Disease, Diabetes, Blood Disorder - blood clots - Social History Alcohol Use: Occasionally Hx Substance Use: No Substance Use Type: Reports: None Hx Tobacco Use: No Smoking Status (MU): Never Smoked Tobacco Physical Exam Vital Signs On Initial Exam: Initial Vitals Temp Pulse Resp BP Pulse Ox 98.1 F 68 16 154/76 98 01/21/18 18:02 01/21/18 18:02 01/21/18 18:02 01/21/18 18:02 01/21/18 18:02 Diagnostics - Vital Signs Vital Signs Temp Pulse Resp BP Pulse Ox 01/21/18 18:02 98.1 F 68 16 154/76 98 - Laboratory Lab Statement: Any lab studies that have been ordered have been reviewed, and results considered in the medical decision making process. Lower Extremity Course/Dx - Course Course Of Treatment: XR's w/o acute injury - hip replacement intact. Discussed w/ Bapana - Diagnoses Provider Diagnoses: Hamstring strain Discharge - Discharge Plan Condition: Stable Disposition: HOME Patient Education Materials: Hamstring Injury (ED) Referrals: Adriel Herrera MD [Primary Care Provider] - Additional Instructions: Rest, ice, elevate and NIKHIL wrap while awake Apply heat and/or perform gentle stretches before ambulating (gently move leg in bed before getting up to prevent stiffness/pain). Use walker to ambulate You may also apply Biofreeze as needed for pain. You may also take extra strength tylenol for pain Do not take ibuprofen, aleve, aspirin as you are already on eliquis It is important that you follow-up with your PCP this week to make sure your injury does not progress into a hematoma as you take eliquis. If it does, you need intervention ROCCO. Call tomorrow to schedule. - Billing Disposition and Condition Condition: STABLE Disposition: Home
[2018-01-21 20:51] VITALS: BP 135/93
== END 2018-01-21 20:49 | disposition home or self-care (01) ==
LOC: ED 18:00
DX: S76.911A Strain of unspecified muscles, fascia and tendons at thigh level, right thigh, initial encounter (principal); X58.XXXA Exposure to other specified factors, initial encounter; Y93.89 Activity, other specified; Y92.008 Other place in unspecified non-institutional (private) residence as the place of occurrence of the external cause; I48.91 Unspecified atrial fibrillation; Z79.01 Long term (current) use of anticoagulants; Z95.810 Presence of automatic (implantable) cardiac defibrillator; F41.9 Anxiety disorder, unspecified; F32.9 Major depressive disorder, single episode, unspecified; Z96.641 Presence of right artificial hip joint; Z88.6 Allergy status to analgesic agent; Z91.041 Radiographic dye allergy status; Z82.49 Family history of ischemic heart disease and other diseases of the circulatory system; Z83.3 Family history of diabetes mellitus; Z83.2 Family history of diseases of the blood and blood-forming organs and certain disorders involving the immune mechanism
CPT/HCPCS: 99282; A9270-GY

== ENCOUNTER 2018-07-20 08:23 | Emergency (ER) | payer MEDICARE ==
--- NOTE | 2018-07-20 08:41 | ED ---
Upper Extremity Pain - HPI Summary HPI Summary: This patient is an 87 year old F presenting to ED with a chief complaint of R wrist pain and swelling since last night and woke from the pain. The patient reports feeling a tingling sensation in her fingers before sleeping last night. The CC is described as radiating up her R arm. The patient rates the pain 10/10 in severity. Symptoms aggravated by movement. Symptoms alleviated by Tylenol PM (helped her sleep last night). Patient denies recent injury. PMHx of osteoporosis, afib, and HTN. - History of Current Complaint Chief Complaint: EDExtremityUpper Stated Complaint: RIGHT WRIST PAIN Time Seen by Provider: 07/20/18 08:33 Hx Obtained From: Patient Mechanism Of Injury: Unknown Onset/Duration: Started Hours Ago, Still Present Timing: Constant, Lasting Hours Severity Initially: Severe Severity Currently: Severe Pain Location: Wrist - right Aggravating Factor(s): Movement Alleviating Factor(s): OTC Meds - Tylenol PM helped her fall asleep last night Associated Signs & Symptoms: Positive: Numbness/Tingling - in her fingers yesterday - Allergies/Home Medications Allergies/Adverse Reactions: Allergies Allergy/AdvReac Type Severity Reaction Status Date / Time Iodinated Contrast- Oral and Allergy Severe Anaphylatic Verified 07/20/18 08:36 IV Dye Shock lactose Allergy Severe GI Upset Verified 07/20/18 08:36 aspirin AdvReac Severe GI Upset Verified 07/20/18 08:36 Home Medications: Home Medications Apixaban* [Eliquis*] 5 mg PO BID 07/20/18 [History Confirmed 07/20/18] Carbidopa/Levodopa [Carbidopa-Levodopa 25-250 Tab] 1 - 2 tab PO SEE INSTRUCTIONS 07/20/18 [History Confirmed 07/20/18] PARoxetine HCL TAB* [Paxil TAB*] 20 mg PO DAILY 07/20/18 [History Confirmed ] PMH/Surg Hx/FS Hx/Imm Hx Endocrine/Hematology History: Reports: Hx Anticoagulant Therapy - eliquis for a. fib, Hx Anemia - resolved Denies: Hx Diabetes, Hx Thyroid Disease Cardiovascular History: Reports: Hx Atrial Fibrillation, Hx Auto Implanted Cardiovert Defib, Hx Hypercholesterolemia, Hx Hypertension, Hx Pacemaker/ICD - [place]ER [place] 1990, generator change 2005, Other Cardiovascular Problems/ Disorders - atrial fibrillation Respiratory History: Reports: Hx Chronic Obstructive Pulmonary Disease (COPD) Denies: Hx Pneumonia, Other Respiratory Problems/Disorders GI History: Reports: Hx Gall Bladder Disease - removed 1963, Hx Gastroesophageal Reflux Disease, Hx Hiatal Hernia - had surgery many years ago , Hx Irritable Bowel - "a little bit", Hx Ulcer - 2014 Denies: Other GI Disorders History: Reports: Hx Kidney Infection - had an UTI, Hx Kidney Stones - Left, stent in place, Other Problems/Disorders - urinary incontinence, uses a depend at night pad or depend during day Musculoskeletal History: Reports: Hx Arthritis - osteoarthritis legs, hip, knee , hands, osteoporosis, spine and neck, Hx Osteoporosis, Other Musculoskeletal History - Right hip replacement Denies: Hx Bursitis, Hx Tendonitis Sensory History: Reports: Hx Cataracts - history of, removed in 2000, Hx Contacts or Glasses - wears reading glasses, Hx Macular Degeneration - doesn't impair vision Denies: Hx Glaucoma, Hx Hearing Aid Opthamlomology History: Reports: Hx Cataracts - history of, removed in 2000, Hx Contacts or Glasses - wears reading glasses, Hx Macular Degeneration - doesn't impair vision Denies: Hx Glaucoma Neurological History: Reports: Hx Migraine - past history many years ago now resolved, Hx Nerve Disease - Restless Leg Syndrome Denies: Other Neuro Impairments/Disorders Psychiatric History: Reports: Hx Anxiety - on medication, Hx Depression - on medication - Cancer History Hx Chemotherapy: No - Surgical History Surgery Procedure, Year, and Place: Hiatal hernia 1976 Hysterectomy 1972. Left wrist 1998. Dolly 1965. Pacemaker =1990. Bilat cataract surgery 2000. Right hip replacement 2016. Cysto, left retrograde pyelogram and left ureteral stent placement 10/2017 Hx Anesthesia Reactions: No - Immunization History Date of Tetanus Vaccine: unknown Date of Influenza Vaccine: 03/2016 Infectious Disease History: No Infectious Disease History: Denies: Traveled Outside the [place] in Last 30 Days - Family History Known Family History: Positive: Cardiac Disease, Diabetes, Blood Disorder - blood clots - Social History Alcohol Use: Occasionally Hx Substance Use: No Substance Use Type: Reports: None Hx Tobacco Use: No Smoking Status (MU): Never Smoked Tobacco Review of Systems Negative: Fever Positive: Other - R wrist pain and swelling with pain radiating up the R arm, tingling in fingers yesterday; denies recent injury All Other Systems Reviewed And Are Negative: Yes Physical Exam - Summary Physical Exam Summary: Appearance: The patient is well-nourished. Skin: The skin is warm and dry and skin color reflects adequate perfusion. HEENT: The head is normocephalic and atraumatic. The pupils are equal and reactive. The conjunctivae are clear and without drainage. Nares are patent and without drainage. Mouth reveals moist mucous membranes and the throat is without erythema and exudate. The external ears are intact. The ear canals are patent and without drainage. The tympanic membranes are intact. Neck: The neck is supple with full range of motion and non-tender. There are no carotid bruits. There is no neck vein distension. Respiratory: Chest is non-tender. Lungs are clear to auscultation and breath sounds are symmetrical and equal. Cardiovascular: Heart is regular rate and rhythm. There is no murmur or rub auscultated. There is no peripheral edema and pulses are symmetrical and equal. Abdomen: The abdomen is soft and non-tender. There are normal bowel sounds heard in all four quadrants and there is no organomegaly palpated. Musculoskeletal: There is no back tenderness noted. There is good capillary refill. There is no peripheral edema or calf tenderness elicited. Dorsum of the right wrist is swollen, erythematous, and tender to very light touch Neurological: Patient is alert and oriented to person, place and time. The patient has symmetrical motor strength in all four extremities. Cranial nerves are grossly intact. Deep tendon reflexes are symmetrical and equal in all four extremities. Psychiatric: The patient has an appropriate affect and does not exhibit any anxiety or depression. Triage Information Reviewed: Yes Vital Signs On Initial Exam: Initial Vitals Temp Pulse Resp BP Pulse Ox 97.9 F 60 22 179/77 100 07/20/18 08:28 07/20/18 08:28 07/20/18 08:28 07/20/18 08:28 07/20/18 08:28 Vital Signs Reviewed: Yes Diagnostics - Vital Signs Vital Signs Temp Pulse Resp BP Pulse Ox 07/20/18 08:28 97.9 F 60 22 179/77 100 - Laboratory Result Diagrams: 07/20/18 09:00 07/20/18 09:00 Lab Statement: Any lab studies that have been ordered have been reviewed, and results considered in the medical decision making process. - Radiology R wrist x-ray Radiology Interpretation Completed By: Radiologist Summary of Radiographic Findings: 1. OSTEOPENIA. 2. OSTEOARTHRITIS. 3. EVIDENCE OF REMOTE TRAUMA. 4. LINEAR LUCENCY OF THE TRAPEZIUM SUGGESTIVE OF NONDISPLACED FRACTURE. RECOMMEND. CORRELATION WITH SITE OF PAIN. 5. PERIPHERAL ARTERIAL DISEASE. ED physician has reviewed this report. Course/Dx - Course Course Of Treatment: Ms. Macedo presented with significant pain in her right wrist and hand. She is equivocal about whether she may have injured it. It is swollen mildly erythematous and quite tender. Distal neurovascular motor intact. Labs were obtained and were within normal limits. She was nontoxic in appearance although in obvious pain with stable vitals. X-ray showed a great deal of DJD and a possible nondisplaced triquetrum fracture. She was placed in a thumb spica splint for immobilization which gave her great deal of relief in addition to some pain medication. I recommended continued immobilization and close follow-up with orthopedics. - Diagnoses Provider Diagnoses: Hand fracture, right Discharge - Sign-Out/Discharge Documenting (check all that apply): Patient Departure - Discharge Plan Condition: Stable Disposition: HOME Prescriptions: HYDROcodone/ACETAMIN 5-325 MG* [[place] 5-325 TAB*] 1 tab PO Q6H PRN #20 tab MDD 4 PRN Reason: Pain Referrals: Adriel Herrera MD [Primary Care Provider] - Additional Instructions: Please follow up with orthopedics within the next week for further evaluation. Please return to the emergency department with any new or worsening symptoms. - Billing Disposition and Condition Condition: STABLE Disposition: Home - Attestation Statements Document Initiated by Maria E: Yes Documenting Scribe: Truong aGrces Provider For Whom Maria E is Documenting (Include Credential): Donis Tse MD Scribjessica Attestation: Truong San, scribed for Donis Tse MD on 07/20/18 at 1836. Scribe Documentation Reviewed: Yes Provider Attestation: The documentation as recorded by the Truong luna accurately reflects the service I personally performed and the decisions made by , Donis Tse MD Status of Scribe Document: Viewed
[2018-07-20] MEDS ORDERED: Ketorolac INJ* 30 MG/ML 1 ML VIAL IM ONE (08:46)
[2018-07-20] MEDS ORDERED: traMADol TAB* 50 MG PO ONE (08:46)
[2018-07-20 09:16] LABS: ABS Basophils 0.1 10^3/ul (0-0.2); ABS Eosinophils 0 10^3/ul (0-0.6); ABS Lymphocytes 0.6 10^3/ul (1.0-4.8); ABS Monocytes 0.8 10^3/ul (0-0.8); ABS Neutrophils 5.6 10^3/ul (1.5-7.7); ABS Nucleated RBC 0 10^3/ul; Eosinophil % 0.6 %; Hematocrit 36 % (35-47); Lymphocyte % 9.1 %; Mean Corpuscular HGB Conc 33 g/dl (31-36); Mean Corpuscular Hemoglobin 30 pg (27-31); Mean Corpuscular Volume 91 fL (80-97); Mean Platelet Volume 7.7 fL (7.4-10.4); Nucleated Red Blood Cells % 0.1; Platelet Count 252 10^3/ul (150-450); Red Blood Count 3.99 10^6/ul (4.00-5.40); Red Cell Distribution Width 16 % (10.5-15); White Blood Count 7.1 10^3/ul (3.5-10.8)
[2018-07-20 09:33] LABS: ALT 9 U/L (7-52); AST 17 U/L (13-39); Albumin/Globulin Ratio 1.3 (1-3); Alkaline Phosphatase 107 U/L (34-104); Anion Gap 11 mmol/L (2-11); BUN/Creatinine Ratio 25.6 (8-20); Blood Urea Nitrogen 20 mg/dL (6-24); C Reactive Protein < 1.00 mg/L (<8.01); CO2 Carbon Dioxide 23 mmol/L (22-32); Calcium 9.2 mg/dL (8.6-10.3); Chloride 101 mmol/L (101-111); EGFR African American 84.7 (>60); Globulin 3.1 g/dL (2-4); Glucose 124 mg/dL (70-100); Potassium 3.7 mmol/L (3.5-5.0); Sodium 135 mmol/L (135-145); Total Protein 7.1 g/dL (6.4-8.9)
[2018-07-20] MEDS ORDERED: Carbidopa/Levodop 25/250MG TAB(*) PO ONE (10:31)
[2018-07-20] MEDS ORDERED: Acetaminophen TAB* 325 MG PO ONE (11:53)
[2018-07-20 12:41] VITALS: BP 162/77
== END 2018-07-20 12:40 | disposition home or self-care (01) ==
LOC: ED 08:23
DX: S62.91XA Unspecified fracture of right hand, initial encounter for closed fracture (principal); Z79.01 Long term (current) use of anticoagulants; I48.91 Unspecified atrial fibrillation; E78.00 Pure hypercholesterolemia, unspecified; I10 Essential (primary) hypertension; J44.9 Chronic obstructive pulmonary disease, unspecified; K21.9 Gastro-esophageal reflux disease without esophagitis; F41.9 Anxiety disorder, unspecified; F32.9 Major depressive disorder, single episode, unspecified; M81.0 Age-related osteoporosis without current pathological fracture
CPT/HCPCS: 29125; 36415; 80053; 84550; 85025; 86140; 96372; 99283; A9270-GY; J1885

== ENCOUNTER 2018-08-21 12:45 | Emergency (ER) | payer MEDICARE ==
[2018-08-21 13:37] VITALS: BP 140/84
--- NOTE | 2018-08-21 13:55 | UC ---
General HPI - HPI Summary HPI Summary: Concern for redness and bruising in her right foot. Patient states she saw her primary a week ago and was told to start lasix and potassium. She had an old script from [facility] so used that Lasix first, then switched to the new prescription. She states the swelling is better but concerned that she has an infection. Denies any trauma that she recalls. Able to ambulate with her cane without difficulty. Minimal pain. Some discomfort at site of redness. No falls. No CP or SOB. No fever. She is independent of her ADLs. Meds: Reviewed. Concerned about her left index finger - cut her finger with a knife and is having pain and worried there is something stuck in there. - History of Current Complaint Chief Complaint: UCLowerExtremity Stated Complaint: L FOOT AND FINGER COMPLAINT Time Seen by Provider: 08/21/18 13:42 Hx Last Menstrual Period: na Pain Intensity: 7 - Allergy/Home Medications Allergies/Adverse Reactions: Allergies Allergy/AdvReac Type Severity Reaction Status Date / Time Iodinated Contrast- Oral and Allergy Severe Anaphylatic Verified 08/21/18 13:37 IV Dye Shock lactose Allergy Severe GI Upset Verified 08/21/18 13:37 aspirin AdvReac Severe GI Upset Verified 08/21/18 13:37 PMH/Surg Hx/FS Hx/Imm Hx Previously Healthy: Yes Endocrine History: Dyslipidemia Cardiovascular History: Hypertension, Atrial Fibrillation Other History Of: Anticoagulant Therapy - eliquis for a. fib - Surgical History Surgical History: Yes Surgery Procedure, Year, and Place: Hiatal hernia 1976 Hysterectomy 1971. Left wrist 1998. Dolly 1964. Pacemaker =1990. Bilat cataract surgery 2000. Right hip replacement 2016. Cysto, left retrograde pyelogram and left ureteral stent placement 10/2017 - Family History Known Family History: Positive: Cardiac Disease, Diabetes, Blood Disorder - blood clots - Social History Alcohol Use: Occasionally Substance Use Type: None Smoking Status (MU): Never Smoked Tobacco - Immunization History Most Recent Influenza Vaccination: 2017 Most Recent Tetanus Shot: unknown Most Recent Pneumonia Vaccination: 2016 Review of Systems All Other Systems Reviewed And Are Negative: Yes Physical Exam Triage Information Reviewed: Yes Appearance: Well-Appearing Vital Signs: Initial Vital Signs Temp 98.1 F 08/21/18 13:32 Pulse 84 08/21/18 13:32 Resp 20 08/21/18 13:32 BP 140/84 08/21/18 13:32 Pulse Ox 99 08/21/18 13:32 Vital Signs Reviewed: Yes ENT: Positive: Normal ENT inspection Neck: Positive: Supple Respiratory: Positive: Lungs clear, Normal breath sounds Cardiovascular: Positive: RRR, Other: - soft systolic murmur Abdomen Description: Positive: Nontender, Soft Musculoskeletal: Positive: Other: - b/l lower extremity edema +2, worse over left foot, erythema over distal forefoot of dorsal surface 2-4 digits ecchymosis. Warmth over foot. Distant pulses Neurological: Positive: Alert Skin: Positive: Other - left second digit with healed faint scar - no foreign body palpated. FROM Diagnostics - Radiology Left Foot xray Radiology Interpretation Completed By: Radiologist Course/Dx - Course Course Of Treatment: This is an 87 yr old with atrial fibrillation on anticoagulation who presents with left foot swelling and ecchymosis and concern for her left finger. Assessment. Finger- laceration healing - no further management indicated. Early cellulitis on foot. Xray: Plan. Start Keflex as prescribed. Recommend wearing compression stocking and keeping legs elevated when at sitting at rest. Continue Lasix and Potassium as prescribed. If symptoms persist or worsen, call primary for further evaluation - Diagnoses Provider Diagnosis: Cellulitis, Lymphedema Discharge - Sign-Out/Discharge Documenting (check all that apply): Patient Departure All imaging exams completed and their final reports reviewed: Yes - Discharge Plan Condition: Good Disposition: HOME Prescriptions: Cephalexin CAP* [Keflex CAP*] 500 mg PO QID #28 cap Compression Socks, Medium [Futuro Restoring] 1 each .SEE ORDER DAILY #1 applic Referrals: Heaven Quinn MD [Primary Care Provider] - Additional Instructions: Start Keflex as prescribed Recommend wearing compression stocking and keeping legs elevated when at sitting at rest Continue Lasix and Potassium as prescribed If symptoms persist or worsen, call primary for further evaluation - Billing Disposition and Condition Condition: GOOD Disposition: Home
== END 2018-08-21 14:30 | disposition home or self-care (01) ==
LOC: UCEAST 12:45
DX: L03.116 Cellulitis of left lower limb (principal); I89.0 Lymphedema, not elsewhere classified; I10 Essential (primary) hypertension; I48.91 Unspecified atrial fibrillation; Z79.01 Long term (current) use of anticoagulants; Z91.041 Radiographic dye allergy status; Z88.8 Allergy status to other drugs, medicaments and biological substances; Z91.011 Allergy to milk products
CPT/HCPCS: 99212; G0463

== ENCOUNTER 2019-03-14 13:50 | Emergency (ER) | payer MEDICARE ==
[2019-03-14 15:42] LABS: ABS Basophils 0.1 10^3/ul (0-0.2); ABS Lymphocytes 0.5 10^3/ul (1.0-4.8); ABS Monocytes 0.6 10^3/ul (0-0.8); Eosinophil % 0.1 %; Hematocrit 37 % (35-47); Hemoglobin 12.6 g/dL (12.0-16.0); Lymphocyte % 5.1 %; Mean Corpuscular HGB Conc 34 g/dL (31-36); Mean Corpuscular Hemoglobin 32 pg (27-31); Mean Corpuscular Volume 93 fL (80-97); Mean Platelet Volume 7.5 fL (7.4-10.4); Nucleated Red Blood Cells % 0.1; Platelet Count 300 10^3/uL (150-450); Red Blood Count 3.95 10^6 /uL (3.70-4.87); Red Cell Distribution Width 15 % (10-15); White Blood Count 9.2 10^3/uL (3.5-10.8)
--- NOTE | 2019-03-14 15:55 | ED ---
Abdominal Pain/Female - HPI Summary HPI Summary: This patient is a 88 year old F arriving via ambulance to [facility] accompanied by daughter with a chief complaint of abdominal pain to RUQ/epigastrium since but worsened 03/14/19 in AM. Patients states that she had abdominal pain in the RUQ that radiates to the back. The patient rates the pain 6/10 in severity. Symptoms aggravated by movement. Symptoms alleviated by nothing. Patient reports nausea, chills and diarrhea. Patient denies vomiting. Patient states that she has PMHx of ulcers and hiatal hernia Sx. No CP or SOB. Hx cholecystectomy and hiatal hernia repair. Allergies Allergy/AdvReac Type Severity Reaction Status Date / Time Iodinated Contrast Media Allergy Severe Anaphylatic Verified 03/14/19 13:58 [Iodinated Contrast- Oral Shock and IV Dye] lactose Allergy Severe GI Upset Verified 03/14/19 13:58 aspirin AdvReac Severe GI Upset Verified 03/14/19 13:58 Home Medications Medication Instructions Recorded Confirmed Type Atorvastatin* [Lipitor 20 MG*] 20 mg PO BEDTIME 04/04/16 03/14/19 History Potassium Chlor TAB* [Potassium 20 meq PO DAILY 04/04/16 03/14/19 History Chlor TAB 20 MEQ*] Metoprolol Tartrate TAB* 50 mg PO BID 09/14/17 03/14/19 History [Lopressor TAB*] Vit A/Vit C/Vit E/Zinc/Copper 1 cap PO BID 09/14/17 03/14/19 History [Preservision Areds Softgel] Diltiazem CD CAP* [Cardizem CD 180 mg PO QAM 10/11/17 03/14/19 History CAP*] diPHENhydraMINE PO* [Benadryl PO 25 mg PO QPM PRN 10/11/17 03/14/19 History 25 MG TAB*] Apixaban* [Eliquis*] 5 mg PO BID 07/20/18 03/14/19 History PARoxetine HCL TAB* [Paxil TAB*] 10 mg PO DAILY 07/20/18 03/14/19 History Calcium Carbonate/Vitamin D3 1 tab PO BID 03/14/19 03/14/19 History [Calcium 500-Vit D3 400 Chew Tb] Carbidopa/Levodop 25/250MG(*) 1.5 tab PO BEDTIME 03/14/19 03/14/19 History [Sinemet 25/250 TAB(*)] Cholecalciferol (Vitamin D3) 1,000 unit PO DAILY 03/14/19 03/14/19 History [Vitamin D3] Cyanocobalamin TAB* [Vitamin B12 1,000 mcg PO DAILY 03/14/19 03/14/19 History TAB*] Dronedarone TAB* [Multaq TAB*] 400 mg PO Q12HR 03/14/19 03/14/19 History Furosemide TAB* [Lasix TAB*] 20 mg PO QAM 03/14/19 03/14/19 History Omeprazole CAP (NF) [Prilosec CAP* 20 mg PO DAILY 03/14/19 03/14/19 History 20 MG] - History of Current Complaint Chief Complaint: EDAbdPain Stated Complaint: ABD PAIN Time Seen by Provider: 03/14/19 15:01 Hx Obtained From: Patient, 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 Negative: Vomiting Allergies/Adverse Reactions: Allergies Allergy/AdvReac Type Severity Reaction Status Date / Time Iodinated Contrast Media Allergy Severe Anaphylatic Verified 03/14/19 13:58 [Iodinated Contrast- Oral Shock and IV Dye] lactose Allergy Severe GI Upset Verified 03/14/19 13:58 aspirin AdvReac Severe GI Upset Verified 03/14/19 13:58 Home Medications: Home Medications Calcium Carbonate/Vitamin D3 [Calcium 500-Vit D3 400 Chew Tb] 1 tab PO BID 03/14 [History Confirmed 03/14/19] Carbidopa/Levodop 25/250MG(*) [Sinemet 25/250 TAB(*)] 1.5 tab PO BEDTIME [History Confirmed 03/14/19] Cholecalciferol (Vitamin D3) [Vitamin D3] 1,000 unit PO DAILY 03/14/19 [History Confirmed 03/14/19] Cyanocobalamin TAB* [Vitamin B12 TAB*] 1,000 mcg PO DAILY 03/14/19 [History Confirmed 03/14/19] Dronedarone TAB* [Multaq TAB*] 400 mg PO Q12HR 03/14/19 [History Confirmed 03/14] Furosemide TAB* [Lasix TAB*] 20 mg PO QAM 03/14/19 [History Confirmed 03/14/19] Omeprazole CAP (NF) [Prilosec CAP* 20 MG] 20 mg PO DAILY 03/14/19 [History Confirmed 03/14/19] PMH/Surg Hx/FS Hx/Imm Hx Endocrine/Hematology History: Reports: Hx Anticoagulant Therapy - eliquis for a. fib, Hx Anemia - resolved Denies: Hx Diabetes, Hx Thyroid Disease Cardiovascular History: Reports: Hx Atrial Fibrillation, Hx Auto Implanted Cardiovert Defib, Hx Hypercholesterolemia, Hx Hypertension, Hx Pacemaker/ICD, Other Cardiovascular Problems/Disorders - atrial fibrillation Respiratory History: Reports: Hx Chronic Obstructive Pulmonary Disease (COPD) Denies: Hx Asthma, Hx Pneumonia, Other Respiratory Problems/Disorders GI History: Reports: Hx Gall Bladder Disease - removed 1963, Hx Gastroesophageal Reflux Disease, Hx Hiatal Hernia - had surgery many years ago , Hx Irritable Bowel - "a little bit", Hx Ulcer - 2014 Denies: Other GI Disorders History: Reports: Hx Kidney Infection - had an UTI, Hx Kidney Stones - Left, stent in place, Other Problems/Disorders - urinary incontinence, uses a depend at night pad or depend during day Musculoskeletal History: Reports: Hx Arthritis - osteoarthritis legs, hip, knee , hands, osteoporosis, spine and neck, Hx Osteoporosis, Other Musculoskeletal History - Right hip replacement Denies: Hx Bursitis, Hx Tendonitis Sensory History: Reports: Hx Cataracts - history of, removed in 2000, Hx Contacts or Glasses - wears reading glasses, Hx Macular Degeneration - doesn't impair vision Denies: Hx Glaucoma, Hx Hearing Aid Opthamlomology History: Reports: Hx Cataracts - history of, removed in 2000, Hx Contacts or Glasses - wears reading glasses, Hx Macular Degeneration - doesn't impair vision Denies: Hx Glaucoma Neurological History: Reports: Hx Migraine - past history many years ago now resolved, Hx Nerve Disease - Restless Leg Syndrome Denies: Other Neuro Impairments/Disorders Psychiatric History: Reports: Hx Anxiety - on medication, Hx Depression - on medication - Cancer History Hx Chemotherapy: No - Surgical History Surgery Procedure, Year, and Place: Hiatal hernia 1976 Hysterectomy 1971. Left wrist 1998. [place] 1964. Pacemaker =1990. Bilat cataract surgery 2000. Right hip replacement 2016. Cysto, left retrograde pyelogram and left ureteral stent placement 10/2017 Hx Anesthesia Reactions: No - Immunization History Date of Tetanus Vaccine: unknown Date of Influenza Vaccine: 03/2016 Infectious Disease History: No Infectious Disease History: Denies: Hx Hepatitis, Hx Human Immunodeficiency Virus (HIV), Traveled Outside the [place] in Last 30 Days - Family History Known Family History: Positive: Cardiac Disease, Diabetes, Blood Disorder - blood clots - Social History Alcohol Use: Occasionally Hx Substance Use: No Substance Use Type: Reports: None Hx Tobacco Use: No Smoking Status (MU): Never Smoked Tobacco Review of Systems Negative: Fever Positive: Abdominal Pain - RUQ, Diarrhea, Nausea. Negative: Vomiting All Other Systems Reviewed And Are Negative: Yes Physical Exam - Summary Physical Exam Summary: Constitutional: Well-developed, Well-nourished, Alert. (-) Distressed Skin: Warm, Dry HENT: Normocephalic; Atraumatic Eyes: Conjunctiva normal Neck: Musculoskeletal ROM normal neck. (-) JVD, (-) Stridor Cardio: Rhythm regular, rate normal, Heart sounds normal; Intact distal pulses; Radial pulses are 2+ and symmetric. (-) Murmur Pulmonary/Chest wall: Effort normal. (-) Respiratory distress, (-) Wheezes, (-) Rales Abd: +epigastric and RUQ TTP (-) Guarding, (-) Rebound Musculoskeletal: trace BLE edema Lymph: (-) Cervical adenopathy Neuro: Alert, Oriented x3 Psych: Mood and affect Normal Triage Information Reviewed: Yes Vital Signs On Initial Exam: Initial Vitals Temp Pulse Resp BP Pulse Ox 97.5 F 70 18 165/86 97 03/14/19 13:54 03/14/19 13:54 03/14/19 13:54 03/14/19 13:54 03/14/19 13:54 Vital Signs Reviewed: Yes Diagnostics - Vital Signs Vital Signs Temp Pulse Resp BP Pulse Ox 03/14/19 13:54 97.5 F 70 18 165/86 97 - Laboratory Lab Results: Lab Results 03/14/19 Range/Units 15:33 WBC 9.2 (3.5-10.8) 10^3/uL RBC 3.95 (3.70-4.87) 10^6 /uL Hgb 12.6 (12.0-16.0) g/dL Hct 37 (35-47) % MCV 93 (80-97) fL MCH 32 H (27-31) pg MCHC 34 (31-36) g/dL RDW 15 (10-15) % Plt Count 300 (150-450) 10^3/uL MPV 7.5 (7.4-10.4) fL Neut % (Auto) 87.1 % Lymph % (Auto) 5.1 % Payette % (Auto) 7.0 % Eos % (Auto) 0.1 % Baso % (Auto) 0.7 % Absolute Neuts (auto) 8.0 H (1.5-7.7) 10^3/ul Absolute Lymphs (auto) 0.5 L (1.0-4.8) 10^3/ul Absolute Monos (auto) 0.6 (0-0.8) 10^3/ul Absolute Eos (auto) 0.0 (0-0.6) 10^3/ul Absolute Basos (auto) 0.1 (0-0.2) 10^3/ul Absolute Nucleated RBC 0.0 10^3/ul Nucleated RBC % 0.1 Result Diagrams: 03/14/19 15:33 03/14/19 15:33 Lab Statement: Any lab studies that have been ordered have been reviewed, and results considered in the medical decision making process. - Radiology Chest Xray Radiology Interpretation Completed By: Radiologist Summary of Radiographic Findings: Chest Xray reveals, per radiologist, IMPRESSION: FINDINGS CONSISTENT WITH COPD, NO EVIDENCE FOR ACUTE DISEASE. ED Physician has reviewed this report. - CT Abdomen/Pelvis CT CT Interpretation Completed By: Radiologist Summary of CT Findings: Abdomen/ Pelvis CT reveals, per radiologist, IMPRESSION : No evidence of small bowel obstruction. Small hiatal hernia. No obstructive uropathy. Status postcholecystectomy. Stable right hip arthroplasty. ED Physician has reviewed this report. - Ultrasound Abdomen US Summary of Ultrasound Findings: Abdomen US reveals, per radiologist, IMPRESSION : There are dilated intra and extrahepatic ducts however the distal common duct is not visualized. The common duct measures up to 1.7 cm. ED Physician has reviewed this report. - EKG 1610 Cardiac Rate: NL - 62 EKG Rhythm: Sinus Rhythm ST Segment: Other Ectopy: None EKG Comparison: No Significant Change Summary of EKG Findings: An EKG at 1610 reveals normal sinus rhythm at [address] stegments in V4 and V5, nml axis, nml intervals. No STEMI. No acute changes. No significant changes compared to prior on 11/01/17. Re-Evaluation - Re-Evaluation First Eval Re-Evaluation Time: 16:33 Change: Unchanged Comment: d/w Dr. Oseguera about checking RUQ US, need for possible ERCP given obstructive labs and elevated lipase. Will need transfer if needs ERCP. Second Eval Re-Evaluation Time: 18:02 Change: Unchanged Comment: Dr. Hays agrees that patient should be transferred to a facility capable of ERCP. CT pending Abdominal Pain Fem Course/Dx - Course Course Of Treatment: 88-year-old female presents with epigastric and right- sided abdominal pain associated with nausea and diarrhea. - Exam with tenderness of the epigastrium, mild R upper quadrant tenderness. - Ddx includes pancreatitis, common bile duct stone given history of cholecystectomy, peptic ulcer disease, gastritis, colitis. We'll check labs including a CBC to assess for infection, lipase to assess for pancreatitis, check a CT of A/P. - Diagnoses Provider Diagnoses: Pancreatitis, Transaminitis, Abdominal pain - Provider Notifications Discussed Care Of Patient With: Fredi Oseguera - osteopathy Time Discussed With Above Provider: 18:02 Instructed by Provider To: Other - Dr. Oseguera agrees that patient should be transferred to a facility capable of ERCP. Discharge ED - Sign-Out/Discharge Documenting (check all that apply): Patient Departure - transfer Patient Received Moderate/Deep Sedation with Procedure: No - Discharge Plan Condition: Stable Disposition: TRANS HIGHER LVL OF CARE FAC Referrals: Heaven Quinn MD [Primary Care Provider] - - Billing Disposition and Condition Condition: STABLE Disposition: Trans Higher Lvl of Care Fac - Attestation Statements Document Initiated by Scribe: Yes Documenting Scribe: Sindi Jarvis Provider For Whom Scribe is Documenting (Include Credential): Dr. Patrice Pang MD Scribe Attestation: Sindi San , scribed for Dr. Patrice Pang MD on 03/14/19 at 1859. Scribe Documentation Reviewed: Yes Provider Attestation: The documentation as recorded by the scribe, Sindi Jarvis accurately reflects the service I personally performed and the decisions made by me, Dr. Patrice Pang MD Status of Scribe Document: Viewed
[2019-03-14 16:00] LABS: Albumin 3.8 g/dL (3.2-5.2); Albumin/Globulin Ratio 1.3 (1-3); BUN/Creatinine Ratio 20.5 (8-20); C Reactive Protein 2.64 mg/L (<8.01); Calcium 8.8 mg/dL (8.6-10.3); EGFR African American 78.7 (>60); Potassium 4.1 mmol/L (3.5-5.0); Total Bilirubin 1.4 mg/dL (0.2-1.0); Total Protein 6.8 g/dL (6.4-8.9)
[2019-03-14 16:01] LABS: Troponin I 0.01 ng/mL (<0.04)
[2019-03-14 16:46] LABS: Urine Appearance Clear; Urine Bilirubin Negative (Negative); Urine Blood Negative (Negative); Urine Color Yellow; Urine Glucose Negative (Negative); Urine Ketones Negative (Negative); Urine Nitrite Negative (Negative); Urine Protein Negative (Negative); Urine Specific Gravity 1.009 (1.010-1.030); Urine Urobilinogen Negative (Negative)
[2019-03-14] MEDS ORDERED: Ondansetron INJ* 2 MG/ML VIAL IV ONE (17:59)
[2019-03-14] MEDS ORDERED: Morphine 4 MG/ML VIAL (1 ml) 4 MG/ML VIAL IV ONE (18:55)
[2019-03-14] MEDS ORDERED: Piperacillin/Tazobac ADVAN(*) 3.375 GM in NS 0.9% 100 ML* 100 ML IVPB ONE (19:05)
[2019-03-14] MEDS ORDERED: Acetaminophen TAB* 325 MG PO ONE (19:07)
[2019-03-14] MEDS: NS 0.9% 1000 ML** 1,000 ML IV SCH ×2 (19:59→20:38)
[2019-03-14] MEDS ORDERED: NS 0.9% 1000 ML** 1,000 ML IV ONE (20:29)
--- NOTE | 2019-03-14 20:32 | ED ---
Progress - Progress Note Progress Note: I was called into the room at 20:00 for her blood pressure soft in the 90s, patient had just gotten morphine. Patient given 1 L of IV fluids of blood pressure returned to 97, patient denies complaints, is alert and oriented 3. Patient be given NS at 125 cc/hr en route. Patient stable for transport. Re-Evaluation - Re-Evaluation First Eval Re-Evaluation Time: 16:33 Change: Unchanged Comment: d/w Dr. Oseguera about checking RUQ US, need for possible ERCP given obstructive labs and elevated lipase. Will need transfer if needs ERCP. Second Eval Re-Evaluation Time: 18:02 Change: Unchanged Comment: Dr. Hays agrees that patient should be transferred to a facility capable of ERCP. CT pending Course/Dx - Course Course Of Treatment: 88-year-old female presents with epigastric and right- sided abdominal pain associated with nausea and diarrhea. - Exam with tenderness of the epigastrium, mild R upper quadrant tenderness. - Ddx includes pancreatitis, common bile duct stone given history of cholecystectomy, peptic ulcer disease, gastritis, colitis. We'll check labs including a CBC to assess for infection, lipase to assess for pancreatitis, check a CT of A/P. - Diagnoses Provider Diagnoses: Pancreatitis, Transaminitis, Abdominal pain - Provider Notifications Time Discussed With Above Provider: 18:02 Instructed by Provider To: Other - Dr. Oseguera agrees that patient should be transferred to a facility capable of ERCP. - Critical Care Time Critical Care Time: 30-74 min Discharge ED - Sign-Out/Discharge Documenting (check all that apply): Patient Departure Patient Received Moderate/Deep Sedation with Procedure: No - Discharge Plan Condition: Stable Disposition: TRANS HIGHER LVL OF CARE FAC Referrals: Heaven Quinn MD [Primary Care Provider] - - Billing Disposition and Condition Condition: STABLE Disposition: Trans Higher Lvl of Care Fac
[2019-03-14 20:44] VITALS: BP 96/45
--- NOTE | 2019-03-15 07:06 | PN ---
Progress Note - Progress Note Date of Service: 03/14/19 Note: 4 positive blood cultures. Pt. transferred for ERCP. Will fax final culture sensitivity when available.
== END 2019-03-14 20:40 | disposition short-term general hospital (02) ==
LOC: ED 13:50
DX: K85.90 Acute pancreatitis without necrosis or infection, unspecified (principal); R74.0 Nonspecific elevation of levels of transaminase and lactic acid dehydrogenase [LDH]; I48.91 Unspecified atrial fibrillation; E78.00 Pure hypercholesterolemia, unspecified; I10 Essential (primary) hypertension; J44.9 Chronic obstructive pulmonary disease, unspecified; K21.9 Gastro-esophageal reflux disease without esophagitis; F41.9 Anxiety disorder, unspecified; F32.9 Major depressive disorder, single episode, unspecified; Z90.710 Acquired absence of both cervix and uterus; Z90.49 Acquired absence of other specified parts of digestive tract; Z96.641 Presence of right artificial hip joint; Z95.0 Presence of cardiac pacemaker; Z79.01 Long term (current) use of anticoagulants; Z79.899 Other long term (current) drug therapy; Z88.6 Allergy status to analgesic agent; Z91.041 Radiographic dye allergy status
CPT/HCPCS: 36415; 71046; 74176; 76705; 80053; 81003; 83605; 83690; 84484; 85025; 86140; 87040; 87077; 87186; 87205; 93005; 96361; 96365; 96375; 99284; A9270-GY; J2270; J2405; J2543

== ENCOUNTER 2019-07-01 08:00 | Emergency (ER) | payer MEDICARE ==
[2019-07-01 08:12] VITALS: BP 140/88
--- NOTE | 2019-07-01 08:23 | UC ---
Respiratory Complaint HPI - HPI Summary HPI Summary: The patient is an 88-year-old female who presents here with a two-week history of a productive cough. She states she has felt like she's had chills. She has not appreciated a fever. She denies any chest pain. She denies any nasal congestion or postnasal drip. She has no lower extremity edema. She feels winded at times. She states she gets fatigued easily. - History of Current Complaint Chief Complaint: UCGeneralIllness Stated Complaint: COUGH Time Seen by Provider: 07/01/19 08:02 Hx Obtained From: Patient Hx Last Menstrual Period: na Onset/Duration: Gradual Onset Timing: Constant Severity Initially: Mild Severity Currently: Moderate Pain Intensity: 2 Pain Scale Used: 0-10 Numeric Character: Cough: Productive Aggravating Factors: Exertion, Deep Breaths, Recumbent Position Alleviating Factors: Nothing Associated Signs And Symptoms: Positive: Chills, Hoarseness - Allergies/Home Medications Allergies/Adverse Reactions: Allergies Allergy/AdvReac Type Severity Reaction Status Date / Time Iodinated Contrast Media Allergy Severe Anaphylatic Verified 07/01/19 08:06 [Iodinated Contrast- Oral Shock and IV Dye] lactose Allergy Severe GI Upset Verified 07/01/19 08:06 aspirin AdvReac Severe GI Upset Verified 07/01/19 08:06 PMH/Surg Hx/FS Hx/Imm Hx Previously Healthy: Yes Cardiovascular History: Hypertension, Atrial Fibrillation - paroxysimal Respiratory History: COPD - ?, Pneumonia GI/ History: Ulcer Other History Of: Anticoagulant Therapy - eliquis for a. fib - Surgical History Surgical History: Yes Surgery Procedure, Year, and Place: Hiatal hernia 1976 Hysterectomy 1971. Left wrist 1998. [place] 1964. Pacemaker =1990. Bilat cataract surgery 2000. Right hip replacement 2016. Cysto, left retrograde pyelogram and left ureteral stent placement 10/2017 - Family History Known Family History: Positive: Cardiac Disease, Diabetes, Blood Disorder - blood clots - Social History Alcohol Use: Occasionally Substance Use Type: None Smoking Status (MU): Never Smoked Tobacco - Immunization History Most Recent Influenza Vaccination: 2017 Most Recent Tetanus Shot: unknown Most Recent Pneumonia Vaccination: 2016 Review of Systems All Other Systems Reviewed And Are Negative: Yes Constitutional: Positive: Chills, Fatigue Skin: Positive: Negative Eyes: Positive: Negative ENT: Positive: Negative Respiratory: Positive: Cough Cardiovascular: Positive: Negative Gastrointestinal: Positive: Negative Genitourinary: Positive: Negative Motor: Positive: Negative Neurovascular: Positive: Negative Musculoskeletal: Positive: Negative Neurological: Positive: Negative Psychological: Positive: Negative Physical Exam Triage Information Reviewed: Yes Appearance: Well-Appearing, No Pain Distress, Well-Nourished Vital Signs: Initial Vital Signs Temp 98 F 07/01/19 08:09 Pulse 90 07/01/19 08:09 Resp 18 07/01/19 08:09 BP 140/88 07/01/19 08:09 Pulse Ox 97 07/01/19 08:09 Vital Signs Reviewed: Yes Eyes: Positive: Conjunctiva Clear ENT: Positive: Pharynx normal, Hoarse voice. Negative: Hearing grossly normal - decreased hearing, Nasal congestion, Nasal drainage, Trismus, Muffled voice, Sinus tenderness Neck: Positive: Supple, Nontender, No Lymphadenopathy Respiratory: Positive: Lungs clear, Normal breath sounds, No respiratory distress, No accessory muscle use Cardiovascular: Positive: RRR Musculoskeletal: Positive: Edema @ - tr pre tibial Neurological: Positive: Alert Psychological Exam: Normal Skin Exam: Normal Diagnostics - Radiology No standard instances Radiology Interpretation Completed By: Radiologist Summary of Radiographic Findings: RLL infiltrate Respiratory Course/Dx - Course Course Of Treatment: patient states she can not tolerate augmentin due to diarrhea - Differential Dx/Diagnosis Provider Diagnosis: Right lower lobe pneumonia Discharge ED - Sign-Out/Discharge Documenting (check all that apply): Patient Departure All imaging exams completed and their final reports reviewed: Yes - Discharge Plan Condition: Critical Disposition: HOME Prescriptions: DOXYcycline CAP(*) [DOXYcycline 100MG CAP(*)] 100 mg PO BID #14 cap Patient Education Materials: Pneumonia (ED) Referrals: Heaven Quinn MD [Primary Care Provider] - 1 Week Additional Instructions: Rest fluids plain robitussin or mucinex TO ER FOR NEW OR WORSENING SYMPTOMS - Billing Disposition and Condition Condition: CRITICAL Disposition: Home
== END 2019-07-01 09:19 | disposition home or self-care (01) ==
LOC: UCEAST 08:00
DX: J18.1 Lobar pneumonia, unspecified organism (principal); I10 Essential (primary) hypertension; I48.0 Paroxysmal atrial fibrillation; Z79.01 Long term (current) use of anticoagulants; Z96.641 Presence of right artificial hip joint; Z91.041 Radiographic dye allergy status; Z91.011 Allergy to milk products; Z88.6 Allergy status to analgesic agent
CPT/HCPCS: 71046; 99212; G0463

== ENCOUNTER 2020-05-05 10:49 | Inpatient (IN) ==
[2020-05-05 12:05] LABS: Hematocrit 36 % (35-47); Hemoglobin 11.5 g/dL (12.0-16.0); Mean Corpuscular HGB Conc 32 g/dL (31-36); Mean Corpuscular Hemoglobin 29 pg (27-31); Mean Corpuscular Volume 90 fL (80-97); Mean Platelet Volume 8.5 fL (7.4-10.4); Platelet Count 251 10^3/uL (150-450); Red Blood Count 3.96 10^6 /uL (3.70-4.87); Red Cell Distribution Width 16 % (10-15); White Blood Count 5.2 10^3/uL (3.5-10.8)
[2020-05-05 12:27] LABS: Albumin 3.6 g/dL (3.2-5.2); Albumin/Globulin Ratio 1.4 (1-3); BUN/Creatinine Ratio 29.9 (8-20); Calcium 8.6 mg/dL (8.6-10.3); EGFR African American 48.1 (>60); EGFR Non-African American 39.7 (>60); Globulin 2.6 g/dL (2-4); Potassium 4.5 mmol/L (3.5-5.0); Total Bilirubin 0.7 mg/dL (0.2-1.0); Total Protein 6.2 g/dL (6.4-8.9)
[2020-05-05 12:29] LABS: Troponin I 0.01 ng/mL (<0.03)
[2020-05-05] MEDS ORDERED: Furosemide 40 mg/4 ml IV VIAL IV ONE (13:20)
[2020-05-05 13:43] LABS: Magnesium 1.9 mg/dL (1.9-2.7)
[2020-05-05 14:29] LABS: ABS Basophils 0.1 10^3/ul (0-0.2); ABS Lymphocytes 0.4 10^3/ul (1.0-4.8); ABS Monocytes 0.6 10^3/ul (0-0.8); ABS Neutrophils 4.1 10^3/ul (1.5-7.7); Eosinophil % 0.5 %; Lymphocyte % 7.3 %; Nucleated Red Blood Cells % 0.2
[2020-05-05] MEDS ORDERED: CARBIDOPA LEVO PO SCH (21:00)
[2020-05-05] MEDS: diPHENhydraMINE 25 mg TAB PO SCH (21:47)
[2020-05-05] MEDS ORDERED: Carbidopa/Levodop CR 50/200 TAB.CR PO SCH (22:30)
[2020-05-06 07:44] LABS: ABS Basophils 0.1 10^3/ul (0-0.2); ABS Lymphocytes 0.6 10^3/ul (1.0-4.8); ABS Monocytes 0.8 10^3/ul (0-0.8); ABS Neutrophils 3.6 10^3/ul (1.5-7.7); Eosinophil % 0.8 %; Hematocrit 34 % (35-47); Hemoglobin 11.1 g/dL (12.0-16.0); Mean Corpuscular HGB Conc 33 g/dL (31-36); Mean Corpuscular Hemoglobin 29 pg (27-31); Mean Corpuscular Volume 89 fL (80-97); Mean Platelet Volume 8.2 fL (7.4-10.4); Nucleated Red Blood Cells % 0.1; Platelet Count 230 10^3/uL (150-450); Red Blood Count 3.84 10^6 /uL (3.70-4.87); Red Cell Distribution Width 15 % (10-15); White Blood Count 5.1 10^3/uL (3.5-10.8)
[2020-05-06 08:04] LABS: BUN/Creatinine Ratio 30.4 (8-20); Calcium 8.4 mg/dL (8.6-10.3); EGFR African American 48.9 (>60); EGFR Non-African American 40.4 (>60); Magnesium 1.9 mg/dL (1.9-2.7); Potassium 4.6 mmol/L (3.5-5.0)
[2020-05-06] MEDS: Cholecalciferol (VIT D3) 1,000 unit TAB PO SCH (08:13)
[2020-05-06] MEDS: Calcium Carb 1250 mg TAB (500 mg elemental calcium) PO SCH (08:15)
[2020-05-06] MEDS: Furosemide 20 mg/2 ml IV VIAL IV SLOW PU SCH (08:16)
[2020-05-06] MEDS: Carbidopa/Levodop 25/250MG TAB PO SCH (13:24)
[2020-05-06] MEDS: diPHENhydraMINE 25 mg TAB PO SCH (20:44)
[2020-05-06] MEDS: Carbidopa/Levodop CR 50/200 TAB.CR PO SCH (20:45)
[2020-05-07 06:13] LABS: BUN/Creatinine Ratio 29.9 (8-20); Calcium 8.7 mg/dL (8.6-10.3); EGFR African American 65.6 (>60); EGFR Non-African American 54.2 (>60); Magnesium 1.9 mg/dL (1.9-2.7); Potassium 4.1 mmol/L (3.5-5.0)
[2020-05-07] MEDS: Calcium Carb 1250 mg TAB (500 mg elemental calcium) PO SCH (08:26)
[2020-05-07] MEDS: Cholecalciferol (VIT D3) 1,000 unit TAB PO SCH (08:26)
[2020-05-07] MEDS: Furosemide 20 mg/2 ml IV VIAL IV SLOW PU SCH (08:27)
[2020-05-07] MEDS: Carbidopa/Levodop 25/250MG TAB PO SCH (08:27)
[2020-05-07] MEDS: Amiodarone 400 mg TAB PO SCH ×2 (10:09→21:10)
[2020-05-07] MEDS: diPHENhydraMINE 25 mg TAB PO SCH (21:10)
[2020-05-07] MEDS: Carbidopa/Levodop CR 50/200 TAB.CR PO SCH (21:17)
[2020-05-08 06:35] LABS: BUN/Creatinine Ratio 29.5 (8-20); Calcium 8.3 mg/dL (8.6-10.3); EGFR African American 67.2 (>60); EGFR Non-African American 55.5 (>60); Magnesium 1.7 mg/dL (1.9-2.7); Potassium 3.9 mmol/L (3.5-5.0)
[2020-05-08] MEDS ORDERED: Magnesium Sulfate 2 gm BAG 2 GM/50 ML BAG IVPB ONE (07:23)
[2020-05-08] MEDS: Calcium Carb 1250 mg TAB (500 mg elemental calcium) PO SCH (09:01)
[2020-05-08] MEDS: Furosemide 20 mg/2 ml IV VIAL IV SLOW PU SCH (09:01)
[2020-05-08] MEDS: Amiodarone 400 mg TAB PO SCH ×2 (09:02→20:30)
[2020-05-08] MEDS: Carbidopa/Levodop 25/250MG TAB PO SCH (09:02)
[2020-05-08] MEDS: Cholecalciferol (VIT D3) 1,000 unit TAB PO SCH (09:02)
[2020-05-08] MEDS: diPHENhydraMINE 25 mg TAB PO SCH (20:24)
[2020-05-08] MEDS: Carbidopa/Levodop CR 50/200 TAB.CR PO SCH (20:27)
[2020-05-09] MEDS: Furosemide 20 mg/2 ml IV VIAL IV SLOW PU SCH (08:24)
[2020-05-09] MEDS: Amiodarone 400 mg TAB PO SCH ×2 (08:24→20:52)
[2020-05-09] MEDS: Cholecalciferol (VIT D3) 1,000 unit TAB PO SCH (08:25)
[2020-05-09] MEDS: Calcium Carb 1250 mg TAB (500 mg elemental calcium) PO SCH (08:27)
[2020-05-09] MEDS: Carbidopa/Levodop 25/250MG TAB PO SCH (08:36)
[2020-05-09 10:14] LABS: BUN/Creatinine Ratio 32.6 (8-20); Calcium 8.6 mg/dL (8.6-10.3); EGFR African American 67.2 (>60); EGFR Non-African American 55.5 (>60); Potassium 3.4 mmol/L (3.5-5.0)
[2020-05-09] MEDS ORDERED: Potassium Chlor 20 meq TAB.ER PO ONE (15:48)
[2020-05-09] MEDS ORDERED: KCL 20 MEQ/100 ML IVPREMIX 20 MEQ/100 ML BAG IV ONE (15:48)
[2020-05-09] MEDS: diPHENhydraMINE 25 mg TAB PO SCH (20:52)
[2020-05-09] MEDS: Carbidopa/Levodop CR 50/200 TAB.CR PO SCH (20:52)
[2020-05-10 07:17] LABS: BUN/Creatinine Ratio 35.6 (8-20); Calcium 8.5 mg/dL (8.6-10.3); EGFR African American 74.4 (>60); EGFR Non-African American 61.4 (>60); Magnesium 1.8 mg/dL (1.9-2.7); Potassium 4.4 mmol/L (3.5-5.0)
[2020-05-10] MEDS: Furosemide 20 mg/2 ml IV VIAL IV SLOW PU SCH (08:20)
[2020-05-10] MEDS: Calcium Carb 1250 mg TAB (500 mg elemental calcium) PO SCH (08:21)
[2020-05-10] MEDS: Carbidopa/Levodop 25/250MG TAB PO SCH (08:22)
[2020-05-10] MEDS: Cholecalciferol (VIT D3) 1,000 unit TAB PO SCH (08:22)
[2020-05-10] MEDS: Amiodarone 400 mg TAB PO SCH ×2 (08:23→20:56)
[2020-05-10] MEDS ORDERED: Magnesium Sulfate IV 1GM/100ML 1 GM/100 ML BAG IV ONE (15:03)
[2020-05-10] MEDS: Carbidopa/Levodop CR 50/200 TAB.CR PO SCH (20:55)
[2020-05-10] MEDS: diPHENhydraMINE 25 mg TAB PO SCH (20:57)
[2020-05-11 06:17] LABS: ABS Basophils 0.1 10^3/ul (0-0.2); ABS Eosinophils 0.1 10^3/ul (0-0.6); ABS Lymphocytes 0.8 10^3/ul (1.0-4.8); ABS Monocytes 0.7 10^3/ul (0-0.8); Eosinophil % 1.5 %; Hematocrit 32 % (35-47); Hemoglobin 10.4 g/dL (12.0-16.0); Lymphocyte % 17.2 %; Mean Corpuscular HGB Conc 33 g/dL (31-36); Mean Corpuscular Hemoglobin 29 pg (27-31); Mean Corpuscular Volume 87 fL (80-97); Mean Platelet Volume 8.1 fL (7.4-10.4); Nucleated Red Blood Cells % 0.1; Platelet Count 223 10^3/uL (150-450); Red Blood Count 3.63 10^6 /uL (3.70-4.87); Red Cell Distribution Width 15 % (10-15); White Blood Count 4.6 10^3/uL (3.5-10.8)
[2020-05-11 06:32] LABS: Calcium 8.6 mg/dL (8.6-10.3); EGFR African American 63.3 (>60); EGFR Non-African American 52.3 (>60); Potassium 3.9 mmol/L (3.5-5.0)
[2020-05-11] MEDS: Carbidopa/Levodop 25/250MG TAB PO SCH (08:19)
[2020-05-11] MEDS: Cholecalciferol (VIT D3) 1,000 unit TAB PO SCH (08:21)
[2020-05-11] MEDS: Amiodarone 400 mg TAB PO SCH (08:22)
[2020-05-11] MEDS: Calcium Carb 1250 mg TAB (500 mg elemental calcium) PO SCH (08:23)
[2020-05-11] MEDS: Furosemide 20 mg/2 ml IV VIAL IV SLOW PU SCH (10:28)
[2020-05-11 11:56] VITALS: BP 110/69
== END 2020-05-11 14:40 | disposition home health service (06) | DRG 291 ==
LOC: MEDTELE 10:49 → ED 10:49 → MEDTELE 17:02
PROVIDERS: ADMIT Internal Medicine; ATTEND Internal Medicine

== ENCOUNTER 2020-06-02 15:23 | Inpatient (IN) ==
[2020-06-02 16:59] LABS: ABS Basophils 0.1 10^3/ul (0-0.2); ABS Lymphocytes 0.4 10^3/ul (1.0-4.8); ABS Monocytes 0.5 10^3/ul (0-0.8); ABS Neutrophils 3.9 10^3/ul (1.5-7.7); Eosinophil % 0.1 %; Hematocrit 37 % (35-47); Hemoglobin 11.8 g/dL (12.0-16.0); Lymphocyte % 7.7 %; Mean Corpuscular HGB Conc 32 g/dL (31-36); Mean Corpuscular Hemoglobin 27 pg (27-31); Mean Corpuscular Volume 86 fL (80-97); Mean Platelet Volume 8.9 fL (7.4-10.4); Nucleated Red Blood Cells % 0.3; Platelet Count 225 10^3/uL (150-450); Red Cell Distribution Width 17 % (10-15); White Blood Count 4.8 10^3/uL (3.5-10.8)
[2020-06-02 17:01] LABS: Urine Appearance Clear; Urine Bilirubin Negative (Negative); Urine Blood Negative (Negative); Urine Color Yellow; Urine Glucose Negative (Negative); Urine Ketones Trace (Negative); Urine Nitrite Negative (Negative); Urine Protein Negative (Negative); Urine Specific Gravity 1.012 (1.010-1.030); Urine Urobilinogen Negative (Negative)
[2020-06-02 17:14] LABS: INR 1.65 (0.82-1.09)
[2020-06-02 17:27] LABS: ALT 4 U/L (7-52); Albumin 3.6 g/dL (3.2-5.2); Albumin/Globulin Ratio 1.3 (1-3); Alkaline Phosphatase 98 U/L (34-104); BUN/Creatinine Ratio 29.8 (8-20); Blood Urea Nitrogen 39 mg/dL (6-24); CO2 Carbon Dioxide 21 mmol/L (22-32); Calcium 8.8 mg/dL (8.6-10.3); Chloride 109 mmol/L (101-111); EGFR African American 46.4 (>60); EGFR Non-African American 38.3 (>60); Globulin 2.7 g/dL (2-4); Glucose 116 mg/dL (70-100); Lipase 46 U/L (11.0-82.0); Sodium 137 mmol/L (135-145); Total Protein 6.3 g/dL (6.4-8.9)
[2020-06-02 17:28] LABS: Troponin I 0.01 ng/mL (<0.03)
[2020-06-02 17:32] LABS: Anion Gap 7 mmol/L (2-11)
[2020-06-02 18:08] LABS: Magnesium 1.9 mg/dL (1.9-2.7); Potassium Redraw 4.1 mmol/L (3.5-5.0)
[2020-06-02] MEDS ORDERED: Diltiazem IV push/loading dose 5 MG/ML 5 ML vial (25 mg) IV SLOW PU ONE (19:40)
[2020-06-02] MEDS ORDERED: Furosemide 40 mg/4 ml IV VIAL IV ONE (20:03)
[2020-06-02] MEDS ORDERED: Ondansetron 4 mg VIAL 2 MG/ML 2 ml VIAL IV PRN (21:56)
[2020-06-03] MEDS: Carbidopa/Levodop 25/250MG TAB PO SCH ×2 (01:40→22:19)
[2020-06-03] MEDS: Furosemide 40 mg/4 ml IV VIAL IV SCH ×2 (08:22→15:36)
[2020-06-03] MEDS: Potassium Chlor 20 meq TAB.ER PO SCH (08:23)
[2020-06-03 08:24] LABS: ABS Basophils 0.1 10^3/ul (0-0.2); ABS Lymphocytes 0.4 10^3/ul (1.0-4.8); ABS Monocytes 0.6 10^3/ul (0-0.8); ABS Neutrophils 3.6 10^3/ul (1.5-7.7); Eosinophil % 0.5 %; Hematocrit 32 % (35-47); Hemoglobin 10.2 g/dL (12.0-16.0); Lymphocyte % 8.6 %; Mean Corpuscular HGB Conc 32 g/dL (31-36); Mean Corpuscular Hemoglobin 27 pg (27-31); Mean Corpuscular Volume 84 fL (80-97); Mean Platelet Volume 8.5 fL (7.4-10.4); Nucleated Red Blood Cells % 0.1; Platelet Count 180 10^3/uL (150-450); Red Blood Count 3.78 10^6 /uL (3.70-4.87); Red Cell Distribution Width 17 % (10-15); White Blood Count 4.8 10^3/uL (3.5-10.8)
[2020-06-03 08:34] LABS: Calcium 8.1 mg/dL (8.6-10.3); EGFR African American 57.3 (>60); EGFR Non-African American 47.4 (>60); Potassium 3.1 mmol/L (3.5-5.0)
[2020-06-03 11:09] LABS: Magnesium 1.7 mg/dL (1.9-2.7)
[2020-06-03] MEDS ORDERED: Potassium Chlor 20 meq TAB.ER PO ONE ×3 (14:20→20:00)
[2020-06-03] MEDS ORDERED: Magnesium Sulfate IV 3 GM in NS 0.9% 100 ml BAG 100 ML IVPB ONE (15:00)
[2020-06-04] MEDS ORDERED: Potassium Chlor 20 meq TAB.ER PO ONE (01:00)
[2020-06-04 06:28] LABS: ABS Basophils 0.1 10^3/ul (0-0.2); ABS Lymphocytes 0.6 10^3/ul (1.0-4.8); ABS Monocytes 0.7 10^3/ul (0-0.8); ABS Neutrophils 3.3 10^3/ul (1.5-7.7); Eosinophil % 0.9 %; Hematocrit 31 % (35-47); Lymphocyte % 12.3 %; Mean Corpuscular HGB Conc 32 g/dL (31-36); Mean Corpuscular Hemoglobin 27 pg (27-31); Mean Corpuscular Volume 84 fL (80-97); Mean Platelet Volume 8.5 fL (7.4-10.4); Nucleated Red Blood Cells % 0.1; Platelet Count 181 10^3/uL (150-450); Red Blood Count 3.73 10^6 /uL (3.70-4.87); Red Cell Distribution Width 16 % (10-15); White Blood Count 4.6 10^3/uL (3.5-10.8)
[2020-06-04 06:51] LABS: BUN/Creatinine Ratio 31.7 (8-20); EGFR African American 60.5 (>60); Potassium 4.1 mmol/L (3.5-5.0)
[2020-06-04] MEDS ORDERED: Flumazenil 0.5 mg/5 ml 0.1 MG/ML 5 ml VIAL ONE (08:35)
[2020-06-04] MEDS ORDERED: fentaNYL 100 mcg/2 ml 50 MCG/ML VIAL ONE (08:35)
[2020-06-04] MEDS ORDERED: Naloxone 0.4 mg VIAL 0.4 mg/ml 1 ml VIAL ONE (08:35)
[2020-06-04] MEDS ORDERED: Midazolam 5 mg/5 ml VIAL 1 mg/ml 5 ml VIAL (5 mg) ONE (08:35)
[2020-06-04 08:40] LABS: Magnesium 2.2 mg/dL (1.9-2.7)
[2020-06-04] MEDS: Furosemide 40 mg/4 ml IV VIAL IV SCH ×2 (11:26→17:16)
[2020-06-04] MEDS: Potassium Chlor 20 meq TAB.ER PO SCH (11:43)
[2020-06-04] MEDS ORDERED: Metoprolol Tartrate 5 mg VIAL 5 ml VIAL (1 mg/ml) IV PRN (16:18)
[2020-06-04] MEDS ORDERED: Digoxin IV 0.5 MG/2 ML AMP (0.25 MG/ML) IV SLOW PU ONE (16:34)
[2020-06-04] MEDS: Carbidopa/Levodop 25/250MG TAB PO SCH (20:18)
[2020-06-05 07:21] LABS: Hematocrit 31 % (35-47); Hemoglobin 10.1 g/dL (12.0-16.0); Mean Corpuscular HGB Conc 32 g/dL (31-36); Mean Corpuscular Hemoglobin 27 pg (27-31); Mean Corpuscular Volume 85 fL (80-97); Mean Platelet Volume 8.8 fL (7.4-10.4); Platelet Count 140 10^3/uL (150-450); Red Cell Distribution Width 17 % (10-15); White Blood Count 5.9 10^3/uL (3.5-10.8)
[2020-06-05 07:27] LABS: Anion Gap 7 mmol/L (2-11); BUN/Creatinine Ratio 31.8 (8-20); Blood Urea Nitrogen 28 mg/dL (6-24); CO2 Carbon Dioxide 25 mmol/L (22-32); Calcium 8.4 mg/dL (8.6-10.3); Chloride 106 mmol/L (101-111); EGFR African American 73.4 (>60); EGFR Non-African American 60.6 (>60); Glucose 97 mg/dL (70-100); Magnesium 1.9 mg/dL (1.9-2.7); Potassium 3.6 mmol/L (3.5-5.0); Sodium 138 mmol/L (135-145)
[2020-06-05 07:28] LABS: % Iron Saturation 7 % (15-55); Digoxin 1.4 ng/ml (0.8-2.0); Iron 27 ug/dL (50-212); Total Iron Binding Capacity 399 mcg/dL (250-450); Transferrin 285 mg/dL (203-362); Unsaturated Iron Binding < 384 ug/dL
[2020-06-05 07:47] LABS: Ferritin 20.7 ng/mL (11-307)
[2020-06-05] MEDS ORDERED: Midazolam 5 mg/5 ml VIAL 1 mg/ml 5 ml VIAL (5 mg) ONE (08:20)
[2020-06-05] MEDS ORDERED: Flumazenil 0.5 mg/5 ml 0.1 MG/ML 5 ml VIAL ONE (08:20)
[2020-06-05] MEDS ORDERED: fentaNYL 100 mcg/2 ml 50 MCG/ML VIAL ONE (08:20)
[2020-06-05] MEDS ORDERED: Naloxone 0.4 mg VIAL 0.4 mg/ml 1 ml VIAL ONE (08:20)
[2020-06-05] MEDS ORDERED: Magnesium Sulfate IV 1GM/100ML 1 GM/100 ML BAG IV ONE (08:38)
[2020-06-05] MEDS ORDERED: Potassium Chlor 20 meq TAB.ER PO SCH ×2 (09:00→21:00)
[2020-06-05] MEDS: Furosemide 40 mg/4 ml IV VIAL IV SCH (12:16)
[2020-06-05] MEDS ORDERED: Iron Sucrose 200 MG in NS 0.9% 100 ml BAG 100 ML IVPB ONE (15:16)
[2020-06-05] MEDS ORDERED: Potassium Chlor 20 meq TAB.ER PO ONE (21:00)
[2020-06-05] MEDS: Carbidopa/Levodop 25/250MG TAB PO SCH (22:06)
[2020-06-06 07:17] LABS: BUN/Creatinine Ratio 22.7 (8-20); Calcium 8.5 mg/dL (8.6-10.3); EGFR African American 102.3 (>60); EGFR Non-African American 84.5 (>60); Magnesium 1.7 mg/dL (1.9-2.7); Potassium 3.4 mmol/L (3.5-5.0)
[2020-06-06 08:55] LABS: Hematocrit 36 % (35-47); Hemoglobin 11.6 g/dL (12.0-16.0); Mean Corpuscular HGB Conc 32 g/dL (31-36); Mean Corpuscular Hemoglobin 27 pg (27-31); Mean Corpuscular Volume 84 fL (80-97); Platelet Count 187 10^3/uL (150-450); Red Blood Count 4.32 10^6 /uL (3.70-4.87); Red Cell Distribution Width 17 % (10-15); White Blood Count 5.7 10^3/uL (3.5-10.8)
[2020-06-06] MEDS ORDERED: Potassium Chlor 10 meq TAB PO ONE (10:52)
[2020-06-06] MEDS ORDERED: Magnesium Sulf 4 GM/100 ML IV 4,000 MG/100 ML BAG IVPB ONE (11:30)
[2020-06-06] MEDS ORDERED: Iron Sucrose 200 MG in NS 0.9% 100 ml BAG 100 ML IVPB ONE (11:30)
[2020-06-06] MEDS: Carbidopa/Levodop 25/250MG TAB PO SCH ×2 (11:50→21:25)
[2020-06-06] MEDS ORDERED: Potassium Chloride LIQUID 20 MEQ/15 ML LIQUID PO ONE (17:02)
[2020-06-07 06:01] LABS: BUN/Creatinine Ratio 24.1 (8-20); Calcium 8.6 mg/dL (8.6-10.3); EGFR African American 83.1 (>60); EGFR Non-African American 68.7 (>60); Magnesium 2.1 mg/dL (1.9-2.7); Potassium 3.8 mmol/L (3.5-5.0)
[2020-06-07] MEDS: Carbidopa/Levodop 25/250MG TAB PO SCH (08:33)
[2020-06-07 11:42] VITALS: BP 111/54
[2020-06-07] MEDS ORDERED: Iron Sucrose 200 MG in NS 0.9% 100 ml BAG 100 ML IVPB ONE (12:19)
== END 2020-06-07 16:40 | disposition home or self-care (01) | DRG 291 ==
LOC: ED 15:23 → MED 21:56 → MEDTELE 06-04 16:50
PROVIDERS: ADMIT Internal Medicine; ATTEND Internal Medicine
PROC: CARDVER (ICD-10-PCS; 2020-06-04 08:05)